=== PATIENT | male | born 1950 | race Hispanic/Latino ===

== ENCOUNTER 2017-03-23 23:59 | Inpatient (IN) | payer MEDICARE, BC ==
[2017-03-24] MEDS ORDERED: Iohexol 240 (50 ml) PO ONE (00:32)
[2017-03-24 01:01] LABS: BASO % 0.2 % (0.0-2.0); EOS % 0.3 % (0.0-4.0); HEMATOCRIT 42.8 % (35.0-51.0); LYMPH # 0.2 K/uL (1.0-4.3); LYMPH % 2.5 % (20.0-40.0); MEAN CELL VOLUME 104.8 fl (80.0-94.0); MEAN CORPUSCULAR HEMOGLOBIN 35.2 pg (27.0-31.0); MEAN CORPUSCULAR HGB CONC 33.6 g/dL (33.0-37.0); MONO # 0.6 K/uL (0.0-0.8); MONO % 7.3 % (0.0-10.0); NEUT # 6.8 K/uL (1.8-7.0); NEUT % 89.7 % (50.0-75.0); PLATELET COUNT 53 K/uL (130-400); RED CELL DISTRIBUTION WIDTH 15.7 % (11.5-14.5); WHITE BLOOD COUNT 7.5 K/uL (4.8-10.8)
[2017-03-24 01:18] LABS: ALB/GLOB RATIO 0.9 (1.0-2.1); ALCOHOL SERUM < 10 mg/dl (0-10); ALKALINE PHOSPHATASE 164 U/L (38-126); ALT/SGPT 52 U/L (21-72); AST/SGOT 94 U/L (17-59); BILIRUBIN,TOTAL 8.2 mg/dl (0.2-1.3); BLOOD UREA NITROGEN 13 mg/dl (9-20); CALCIUM 8.5 mg/dL (8.4-10.2); CARBON DIOXIDE 25 mmol/L (22-30); CHLORIDE 102 mmol/L (98-107); GFR AFRICAN-AMERICAN > 60; GLUCOSE,RANDOM 139 mg/dL (75-110); POTASSIUM 4.4 MMOL/L (3.6-5.0); SODIUM 136 mmol/l (132-148); TOTAL PROTEIN 6.4 G/DL (6.3-8.2)
[2017-03-24 01:20] LABS: PARTIAL THROMBOPLASTIN TIME 31.5 SECONDS (23.3-32.5)
--- NOTE | 2017-03-24 01:36 | ED PDOC ---
HPI: Abdomen Time Seen by Provider: 03/24/17 00:12 Chief Complaint (Nursing): Abdominal Pain Chief Complaint (Provider): abd pain History Per: Patient History/Exam Limitations: no limitations Onset/Duration Of Symptoms: Hrs (10 ) Outside of [place] travel?: No Current Symptoms Are (Timing): Still Present Additional Complaint(s): 66yo male with PMHx including liver cirrhosis (currently on liver transplant list), HTN, chronic thrombocytopenia presents to the ED with c/o acute onset abdominal pain radiating to his right shoulder x 10 hours that he developed 2 hours after having an endoscopy at [facility]. Patient reports still having pain while he was there but he was given morphine and discharged. Pain became more persistent with recurrent belching. Denies n/v/d, fever, cough. Past Medical History Reviewed: Historical Data, Nursing Documentation, Vital Signs Vital Signs: Last Vital Signs Temp 98.1 F 03/24/17 03:35 Pulse 84 03/24/17 03:35 Resp 16 03/24/17 03:35 BP 139/78 03/24/17 03:35 Pulse Ox 98 03/24/17 03:13 - Medical History PMH: Arthritis, Gastritis, HTN Denies: HIV, Chronic Kidney Disease Other PMH: liver cirrhosis, chronic thrombocytopenia - Surgical History Surgical History: Endoscopy Denies: Pacemaker - Family History Family History: States: No Known Family Hx - Social History Current smoker - smoking cessation education provided: No Alcohol: Other (former alcoholic, 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) Drugs: Other (hx of drug abuse ) - Home Medications Home Medications: Ambulatory Orders Medication Instructions Recorded Omeprazole [Omeprazole] 40 mg PO DAILY 07/26/16 Calcium Carbonate/Vitamin D 1 tab PO BID #0 tab 07/28/16 [Oscal-D 250 mg-125 Units Tab] Multimineral/Multivitamin 1 tab PO DAILY #0 tab 07/28/16 [Therapeutic-M Tab] Tamsulosin [Flomax] 0.4 mg PO DAILY #0 cap 07/28/16 Ursodiol [Actigall] 300 mg PO TID #0 cap 07/28/16 rifAXIMin [Xifaxan] 550 mg PO BID #0 tab 07/28/16 Aspirin [Lo-Dose Aspirin EC] 81 mg PO DAILY 03/24/17 Cholecalciferol [Vitamin D 1000 IU] 1,000 iu PO DAILY 03/24/17 Furosemide [Lasix] 40 mg PO DAILY 03/24/17 Lactulose [Constulose] 10 mg PO DAILY 03/24/17 Pantoprazole Sodium [Protonix] 40 mg PO DAILY 03/24/17 Spironolactone [Aldactone] 100 mg PO DAILY 03/24/17 Zinc Sulfate [Zinc Sulfate] 220 mg PO DAILY 03/24/17 levoFLOXacin [Levaquin] 750 mg PO DAILY 03/24/17 - Allergies Allergies/Adverse Reactions: Allergies Allergy/AdvReac Type Severity Reaction Status Date / Time No Known Allergies Allergy Verified 09/14/16 20:36 Review of Systems ROS Statement: Except As Marked, All Systems Reviewed And Found Negative Constitutional: Positive for: Other (recurrent belching ). Negative for: Fever Respiratory: Negative for: Cough Gastrointestinal: Positive for: Abdominal Pain. Negative for: Nausea, Vomiting , Diarrhea Physical Exam - Reviewed Nursing Documentation Reviewed: Yes Vital Signs Reviewed: Yes - Physical Exam Appears: Positive for: Well, No Acute Distress, Uncomfortable Head Exam: Positive for: ATRAUMATIC, NORMAL INSPECTION, NORMOCEPHALIC Skin: Positive for: Normal Color, Warm, Dry Eye Exam: Positive for: Normal appearance, EOMI, PERRL ENT: Positive for: Normal ENT Inspection Neck: Positive for: Normal, Painless ROM, Supple Cardiovascular/Chest: Positive for: Regular Rate, Rhythm. Negative for: Murmur , Tachycardia Respiratory: Positive for: Normal Breath Sounds. Negative for: Wheezing, Respiratory Distress Gastrointestinal/Abdominal: Positive for: Soft, Tenderness (mild periumbilical ) . Negative for: Guarding, Rebound Back: Positive for: Normal Inspection. Negative for: L CVA Tenderness, R CVA Tenderness Extremity: Positive for: Normal ROM. Negative for: Deformity, Swelling Neurologic/Psych: Positive for: Alert, Oriented - Laboratory Results Result Diagrams: 03/24/17 00:56 03/24/17 00:56 - ECG O2 Sat by Pulse Oximetry: 98 Pulse Ox Interpretation: Normal (RA) Medical Decision Making Medical Decision Makin: Impression: 66yo male w/ abdominal pain in setting of recent endoscopy and known chronic liver disease Plan: CT A/P Labs EKG CXR Morphine 4mg IVP reassess 0301: CT A/P impression: 1. Mild dilatation of multiple fluid-filled loops of small bowel. The distal small bowel is decompressed. Findings are suspicious for small bowel obstruction. However, a discrete transition point is not clearly visualized. Therefore, the differential also includes small bowel ileus. 2. Mild ascites. 0400: Labs reviewed, significant for marked elevation in lipase level. Patient will be admitted for further treatment of acute pancreatitis and partial small bowel obstruction. Case referred to Dr. Jarvis who covers Dr. Gomez. Dx: acute pancreatitis, partial small bowel obstruction fair Scribe Attestation: Documented by Mckinley Olguin acting as a scribe for Michael Ruano MD. Provider Scribe Attestation: All medical record entries made by the Scribe were at my direction and personally dictated by me. I have reviewed the chart and agree that the record accurately reflects my personal performance of the history, physical exam, medical decision making, and the department course for this patient. I have also personally directed, reviewed, and agree with the discharge instructions and disposition. Disposition - Clinical Impression Clinical Impression: Acute pancreatitis, Partial small bowel obstruction - Patient ED Disposition Is Patient to be Admitted: Yes Discussed With : Zachary Jarvis - Disposition Disposition Time: 04:00 Condition: FAIR
[2017-03-24] MEDS ORDERED: Iohexol 300 100 ML IJ ONE (02:10)
[2017-03-24] MEDS ORDERED: Sodium Chloride 0.9% 50 ML IV ONE (02:11)
[2017-03-24 02:23] LABS: LIPASE 11387 U/L (23-300)
[2017-03-24] MEDS ORDERED: Lactated Ringer's 2,000 ML IV SCH (02:45)
--- NOTE | 2017-03-24 02:46 | CP.PCM.HP ---
History of Present Illness - History of Present Illness History of Present Illness: Chief Complaint: Abdominal pain HPI: 66 years old male with hx of Chronic thrombocytopenia, Cholodocolithiasis with acute cholecystitis, liver cirrhosis and SBO comes with acute unset of Periumbilical and RUQ abdominal pain radiating to the right shoulder, developing 2hrs after Upper endoscopy at the [facility]. He was given Morphine at [facility] and discharged. Because of the persistence of the pain which is associated with nausea, he came to the ED. PMH: Choledocolitihiasis with Cholecystitis; SBO; HTN; Liver cirrhosis s/p TIPS ; BPH; Gastritis; Arthritis; On liver transplant list for 12 years. PSH: TIPS 3 years ago at [facility]; Common bile duct stent placement and removal; Endoscopy 03/2017 SH: Ouit Alcohol 11 years ago; Former Smoker; Quit Substance abuse 11 years ago FH: No known family History Allergies: NKDA Present on Admission - Present on Admission Any Indicators Present on Admission: No History of DVT/PE: No History of Uncontrolled Diabetes: No Urinary Catheter: No Decubitus Ulcer Present: No Review of Systems - Constitutional Constitutional: absent: Anorexia, Chills, Fatigue, Fever, Headache - EENT Eyes: absent: Diplopia, Floaters, Requires Corrective Lenses Ears: Decreased Hearing. absent: Ear Discharge, Tinnitus Nose/Mouth/Throat: absent: Epistaxis, Nasal Congestion, Nasal Discharge, Sinus Pain, Sinus Pressure - Cardiovascular Cardiovascular: absent: Chest Pain, Dyspnea, Edema - Respiratory Respiratory: absent: Cough, Dyspnea, Wheezing, Stridor - Gastrointestinal Gastrointestinal: Abdominal Pain, Nausea. absent: Constipation, Diarrhea, Vomiting - Genitourinary Genitourinary: absent: Dysuria, Flank Pain, Hematuria, Freq UTI - Musculoskeletal Musculoskeletal: Back Pain. absent: Arthralgias, Joint Swelling, Myalgias - Integumentary Integumentary: absent: Pruritus, Rash, Skin Ulcer, Sores, Striae, Swelling - Neurological Neurological: absent: Focal Weakness, Headaches, Weakness - Psychiatric Psychiatric: absent: Anxiety, Depression, Panic Attacks - Endocrine Endocrine: absent: Palpitations, Polydipsia, Polyphagia, Polyuria - Hematologic/Lymphatic Hematologic: absent: Easy Bleeding, Easy Bruising Past Patient History - Infectious Disease Hx of Infectious Diseases: None - Tetanus Immunizations Tetanus Immunization: Unknown - Past Medical History & Family History Past Medical History?: Yes - Past Social History Smoking Status: Former Smoker Chewing Tobacco Use: No Cigar Use: No Alcohol: None (former alcoholic, 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) Drugs: Denies, Other (hx of drug abuse ) Home Situation {Lives}: With Family - CARDIAC Hx Hypertension: Yes Hx Pacemaker: No - PULMONARY Hx Respiratory Disorders: No - NEUROLOGICAL Hx Neurological Disorder: No Other/Comment: forgetful - HEENT Hx HEENT Problems: Yes Hx Deafness: Yes - RENAL Hx Chronic Kidney Disease: No - ENDOCRINE/METABOLIC Hx Endocrine Disorders: No - HEMATOLOGICAL/ONCOLOGICAL Hx Cirrhosis: Yes Hx Human Immunodeficiency Virus (HIV): No - INTEGUMENTARY Hx Dermatological Problems: No - MUSCULOSKELETAL/RHEUMATOLOGICAL Hx Arthritis: Yes - GASTROINTESTINAL Hx Gastritis: Yes - GENITOURINARY/GYNECOLOGICAL Hx Genitourinary Disorders: Yes Hx Prostate Problems: Yes Other/Comment: Double hernia - PSYCHIATRIC Hx Psychophysiologic Disorder: Yes Hx Substance Use: Yes (Quit 10 yrs ago) - SURGICAL HISTORY Hx Surgeries: Yes Hx Abdominal Aortic Aneurysm Repair: No Hx Musculoskeletal Surgery: Yes (L knee meniscus repair) Other/Comment: Transjugular Intrahepatic Portosystemic Shunt (TIPS) - ANESTHESIA Hx Anesthesia: Yes Hx Anesthesia Reactions: Yes Meds Allergies/Adverse Reactions: Allergies Allergy/AdvReac Type Severity Reaction Status Date / Time No Known Allergies Allergy Verified 09/14/16 20:36 Physical Exam - Constitutional Appears: No Acute Distress - Head Exam Head Exam: ATRAUMATIC, NORMAL INSPECTION, NORMOCEPHALIC - Eye Exam Eye Exam: EOMI, Normal appearance Pupil Exam: NORMAL ACCOMODATION, PERRL - ENT Exam ENT Exam: Mucous Membranes Moist, Normal Exam, Normal External Ear Exam, Normal Oropharynx - Neck Exam Neck exam: Positive for: Full Rom, Normal Inspection. Negative for: Lymphadenopathy, Tenderness - Respiratory Exam Respiratory Exam: Decreased Breath Sounds. absent: Rales, Rhonchi, Wheezes - Cardiovascular Exam Cardiovascular Exam: RRR, +S1, +S2. absent: Gallop, JVD Additional comments: Systolic murmur III/IV at base - GI/Abdominal Exam Additional comments: Full, Soft, Decreased bowel sounds, no guarding, norebound tenderness. - Rectal Exam Rectal Exam: Deferred - Extremities Exam Extremities exam: Positive for: full ROM, normal inspection. Negative for: calf tenderness, pedal edema - Back Exam Back exam: NORMAL INSPECTION. absent: CVA tenderness (L), CVA tenderness (R) - Neurological Exam Neurological exam: Alert, CN II-XII Intact, Oriented x3, Reflexes Normal - Psychiatric Exam Psychiatric exam: Flat Affect - Skin Skin Exam: Dry, Intact, Normal Color, Warm Results - Vital Signs Recent Vital Signs: Last Vital Signs Temp 97.3 F L 03/24/17 00:07 Pulse 82 03/24/17 00:07 Resp 17 03/24/17 00:07 BP 130/72 03/24/17 00:07 Pulse Ox 98 03/24/17 01:44 - Labs Result Diagrams: 03/24/17 00:56 03/24/17 00:56 Labs: Laboratory Results - last 24 hr 03/24/17 03/24/17 03/24/17 00:56 00:56 00:56 WBC 7.5 D RBC 4.09 L Hgb 14.4 Hct 42.8 MCV 104.8 H MCH 35.2 H MCHC 33.6 RDW 15.7 H Plt Count 53 L D MPV 12.0 H Neut % (Auto) 89.7 H Lymph % (Auto) 2.5 L [place] % (Auto) 7.3 Eos % (Auto) 0.3 Baso % (Auto) 0.2 Neut # 6.8 Lymph # 0.2 L [place] # 0.6 Eos # 0.0 Baso # 0.0 Sodium 136 Potassium 4.4 Chloride 102 Carbon Dioxide 25 Anion Gap 14 BUN 13 Creatinine 0.6 L Est GFR ( Amer) > 60 Est GFR (Non-Af Amer) > 60 Random Glucose 139 H Lactic Acid 3.0 H Calcium 8.5 Total Bilirubin 8.2 H AST 94 H D ALT 52 Alkaline Phosphatase 164 H Total Protein 6.4 Albumin 3.1 L Globulin 3.3 Albumin/Globulin Ratio 0.9 L Lipase 42380 H Alcohol, Quantitative < 10 - Impressions Impression: #. Acute Pancretitis with abdominal pain #. Mild Ileus vs SBO #. Chronic Thrombocytopenia #. Liver Cirrhosis with Mild Ascites #. Gastritis #. BPH - Imaging and Cardiology CT scan - abdomen Status: Report reviewed by me Additional comment: FINDINGS: Lower thorax: Small bilateral pleural effusions, similar to the prior study. There are also areas of subsegmental atelectasis and/or scarring, with probable area of rounded atelectasis in the right lower lobe. Mild focal subpleural nodularity in the right lung base is improved compared to the prior study. Small hiatal hernia. Oral contrast visualized in the distal esophagus. ABDOMEN: Liver: TIPS in place. No obvious liver mass. Gallbladder and bile ducts: Increased density in the gallbladder lumen may be related to reflux of oral contrast. This could also represent vicarious excretion of contrast from another recent IV contrasted study. The common bile duct appears mildly dilated, measuring approximately 1 cm. No obvious choledocholithiasis. Interval removal of the common bile duct stent. Pancreas: Unremarkable. No ductal dilation. No obvious mass. Spleen: Mild splenomegaly. Adrenals: Unremarkable. No adrenal nodules or masses identified. Kidneys and ureters: Small hypodense foci in the left kidney are suggestive of cyst. No obvious solid renal mass. No hydronephrosis. Stomach and bowel: Small lipoma in the proximal duodenum. There is mild dilatation of multiple fluid-filled loops of small bowel. The distal small bowel is decompressed. Findings are suspicious for small bowel obstruction. However, a discrete transition point is not clearly visualized. No significant bowel wall thickening appreciated. Appendix: No findings to suggest acute appendicitis. PELVIS: Bladder: Unremarkable. No obvious mass. Reproductive: Unremarkable as visualized. ABDOMEN and PELVIS: Intraperitoneal space: Mild ascites. No free air. Bones/joints: Degenerative changes of the spine. No acute fracture. No dislocation. Soft tissues: Right inguinal hernia containing ascitic fluid. Vasculature: Atherosclerotic calcifications are noted. No aortic aneurysm. Lymph nodes: No significant lymph node enlargement. IMPRESSION: 1. Mild dilatation of multiple fluid-filled loops of small bowel. The distal small bowel is decompressed. Findings are suspicious for small bowel obstruction. However, a discrete transition point is not clearly visualized. Therefore, the differential also includes small bowel ileus. 2. Mild ascites. 3. Other non-acute findings are described above. Assessment & Plan - Assessment and Plan (Free Text) Assessment: . Acute Pancretitis with abdominal pain #. Mild Ileus vs SBO #. Chronic Thrombocytopenia #. Liver Cirrhosis with Mild Ascites #. Gastritis #. BPH Plan: 66 years old male with hx of Chronic thrombocytopenia, Cholodocolithiasis with acute cholecystitis, liver cirrhosis and SBO comes with acute unset of Periumbilical and RUQ abdominal pain radiating to the right shoulder, developing 2hrs after Upper endoscopy at the [facility]. #. Acute Pancretitis with abdominal pain - consult Dr Hawkins GI -NPO - IV Fluids. Patient received 2 liters of Fluid in the ED. continue with Ringers lactate at 200mls/hr - pain management with Morphine IV #. Mild Ileus vs SBO - consult Dr Carbajal - Follow Erect and supine X rays of the Abdomen #. Chronic Thrombocytopenia - follow Platelets #. Liver Cirrhosis with Mild Ascites - continue lactulose/ Rifaximin/ Aldactone as soon as patient starts to take Oral foods #. Gastritis - Pantoprazole #. BPH - Continue Flomax as soon as patient start taking oral foods #. DVT prophylaxis with SCD Code Status; Full - Date & Time Date: 03/24/17 Time: 02:46
[2017-03-24 03:41] LABS: EOSINOPHIL 1 % (0-7); NEUTROPHIL 86 % (42-75); TOTAL CELLS COUNTED 100
[2017-03-24 03:43] LABS: STOMATOCYTES SLIGHT
[2017-03-24 04:57] LABS: RBC URINE 7 /hpf (0-3); URINE BILIRUBIN SMALL (NEGATIVE); URINE BLOOD MODERATE (NEGATIVE); URINE COLOR AMBER (YELLOW); URINE GLUCOSE (UA) NEG (Normal); URINE KETONE NEGATIVE (NEGATIVE); URINE LEUKOCYTE ESTERASE NEG Leu/uL (Negative); URINE PROTEIN NEGATIVE (NEGATIVE); URINE UROBILINOGEN 0.2-1.0 mg/dL (0.2-1.0); WBC URINE 5 /hpf (0-5)
[2017-03-24] MEDS: Lactated Ringer's 1,000 ML IV SCH ×4 (06:04→18:12)
[2017-03-24 07:22] LABS: BASO % 0.4 % (0.0-2.0); EOS % 0.1 % (0.0-4.0); HEMATOCRIT 41.3 % (35.0-51.0); LYMPH # 0.2 K/uL (1.0-4.3); LYMPH % 2.7 % (20.0-40.0); MEAN CELL VOLUME 104.3 fl (80.0-94.0); MEAN CORPUSCULAR HEMOGLOBIN 35.8 pg (27.0-31.0); MEAN CORPUSCULAR HGB CONC 34.3 g/dL (33.0-37.0); MEAN PLATELET VOLUME 11.7 fl (7.2-11.7); MONO # 0.8 K/uL (0.0-0.8); NEUT # 6.4 K/uL (1.8-7.0); NEUT % 85.8 % (50.0-75.0); RED CELL DISTRIBUTION WIDTH 15.5 % (11.5-14.5); WHITE BLOOD COUNT 7.5 K/uL (4.8-10.8)
[2017-03-24 07:31] LABS: ALB/GLOB RATIO 0.9 (1.0-2.1); ALKALINE PHOSPHATASE 151 U/L (38-126); ALT/SGPT 58 U/L (21-72); AST/SGOT 89 U/L (17-59); BILIRUBIN,TOTAL 9.4 mg/dl (0.2-1.3); BLOOD UREA NITROGEN 13 mg/dl (9-20); CALCIUM 8.4 mg/dL (8.4-10.2); CARBON DIOXIDE 26 mmol/L (22-30); CHLORIDE 103 mmol/L (98-107); GFR AFRICAN-AMERICAN > 60; GLUCOSE,RANDOM 126 mg/dL (75-110); POTASSIUM 4.6 MMOL/L (3.6-5.0); SODIUM 138 mmol/l (132-148)
--- NOTE | 2017-03-24 08:14 | CP.PCM.CON ---
<Obi Thomason - Last Filed: 03/24/17 08:23> History of Present Illness - History of Present Illness History of Present Illness: Gen Surg Consult: Dr Carbajal\ Re: Ileus Pt is a 66M w/ history of liver cirrhosis 2/2 polysubstance abuse w/p TIPS, chronic thrombocytopenia, and most recently choledocholithiasis w/ acute cholecystitis (per primary notes pt cannot explain why he had procedure done). Pt was recently at where he had an upper endoscopy, presumably an ERCP. Per the records, pt states he had sudden onset epigastric pain which was treated with morphine and then he was subsequently discharged. Currently, he reports the pain is improved. He still hasn't passed flatus or BM for two days. He has had intermittent nausea, but denies vomiting. He is asking for something to drink. Pt repeatedly states if he needs any procedure or intervention it is to be done at [facility], , [place]. Review of Systems - Review of Systems All systems: reviewed and no additional remarkable complaints except (as per hpi ) Past Patient History - Infectious Disease Hx of Infectious Diseases: None - Tetanus Immunizations Tetanus Immunization: Unknown - Past Medical History & Family History Past Medical History?: Yes - Past Social History Smoking Status: Never Smoked - CARDIAC Hx Cardiac Disorders: Yes Hx Hypertension: Yes Hx Pacemaker: No - PULMONARY Hx Respiratory Disorders: No - NEUROLOGICAL Hx Neurological Disorder: No Other/Comment: forgetful - HEENT Hx HEENT Problems: Yes Hx Deafness: Yes - RENAL Hx Chronic Kidney Disease: No - ENDOCRINE/METABOLIC Hx Endocrine Disorders: No - HEMATOLOGICAL/ONCOLOGICAL Hx Blood Disorders: Yes Hx Cirrhosis: Yes (liver transplant list) Hx Human Immunodeficiency Virus (HIV): No Other/Comment: chronic thrombocytopenia - INTEGUMENTARY Hx Dermatological Problems: No - MUSCULOSKELETAL/RHEUMATOLOGICAL Hx Musculoskeletal Disorders: Yes Hx Arthritis: Yes Hx Falls: No - GASTROINTESTINAL Hx Gastrointestinal Disorders: Yes Hx Gastritis: Yes - GENITOURINARY/GYNECOLOGICAL Hx Genitourinary Disorders: Yes Hx Prostate Problems: Yes Other/Comment: Double hernia - PSYCHIATRIC Hx Psychophysiologic Disorder: Yes Hx Substance Use: Yes (Quit 10 yrs ago) Other/Comment: ETOH abuse (sober 9 years) - SURGICAL HISTORY Hx Surgeries: Yes Hx Abdominal Aortic Aneurysm Repair: No Hx Musculoskeletal Surgery: Yes (L knee meniscus repair) Other/Comment: Transjugular Intrahepatic Portosystemic Shunt (TIPS), endoscopy - ANESTHESIA Hx Anesthesia: Yes Hx Anesthesia Reactions: No Hx Malignant Hyperthermia: No Meds Allergies/Adverse Reactions: Allergies Allergy/AdvReac Type Severity Reaction Status Date / Time No Known Allergies Allergy Verified 09/14/16 20:36 - Medications Medications: Current Medications Lactated Ringer's (Lactated Ringer's) 2,000 mls @ 1,000 mls/hr IV .Q2H [facility] Last Admin: 03/24/17 02:48 Dose: 1,000 mls/hr Lactated Ringer's (Lactated Ringer's) 1,000 mls @ 250 mls/hr IV .Q4H [facility] Last Admin: 03/24/17 06:04 Dose: 250 mls/hr Morphine Sulfate (Morphine) 4 mg IVP Q3 PRN PRN Reason: Pain, severe (8-10) Morphine Sulfate (Morphine) 2 mg IVP Q3H PRN PRN Reason: Pain, moderate (4-7) Last Admin: 03/24/17 06:09 Dose: 2 mg Ondansetron HCl (Zofran Inj) 4 mg IVP Q4 PRN PRN Reason: Nausea/Vomiting Pantoprazole Sodium (Protonix Inj) 40 mg IVP DAILY [facility] Physical Exam - Constitutional Appears: No Acute Distress - Head Exam Head Exam: NORMOCEPHALIC - Respiratory Exam Respiratory Exam: absent: Accessory Muscle Use, Respiratory Distress - Cardiovascular Exam Cardiovascular Exam: absent: Tachycardia - GI/Abdominal Exam GI & Abdominal Exam: Distended, Soft, Tenderness (epigastric and improved (per pt)). absent: Firm, Guarding, Mass - Rectal Exam Rectal Exam: Deferred - Extremities Exam Extremities exam: Negative for: pedal edema - Neurological Exam Neurological exam: Alert, Oriented x3 - Psychiatric Exam Psychiatric exam: Normal Affect, Normal Mood Results - Vital Signs Recent Vital Signs: Last Vital Signs Temp 98.4 F 03/24/17 04:20 Pulse 74 03/24/17 04:20 Resp 18 03/24/17 04:20 BP 152/87 H 03/24/17 04:20 Pulse Ox 98 03/24/17 04:20 - Labs Result Diagrams: 03/24/17 06:30 03/24/17 06:30 Labs: Laboratory Results - last 24 hr 03/24/17 03/24/17 03/24/17 02:54 04:05 06:30 WBC 7.5 RBC 3.96 L Hgb 14.2 Hct 41.3 MCV 104.3 H MCH 35.8 H MCHC 34.3 RDW 15.5 H Plt Count 50 L MPV 11.7 Neut % (Auto) 85.8 H Lymph % (Auto) 2.7 L [place] % (Auto) 11.0 H Eos % (Auto) 0.1 Baso % (Auto) 0.4 Neut # 6.4 Lymph # 0.2 L [place] # 0.8 Eos # 0.0 Baso # 0.0 Sodium Potassium Chloride Carbon Dioxide Anion Gap BUN Creatinine Est GFR ( Amer) Est GFR (Non-Af Amer) Random Glucose Lactic Acid 2.7 H Calcium Total Bilirubin AST ALT Alkaline Phosphatase Total Protein Albumin Globulin Albumin/Globulin Ratio Urine Color Stacie Urine Clarity Clear Urine pH 6.0 Ur Specific [place] 1.005 Urine Protein Negative Urine Glucose (UA) Neg Urine Ketones Negative Urine Blood Moderate Urine Nitrate Negative Urine Bilirubin Small Urine Urobilinogen 0.2-1.0 Ur Leukocyte Esterase Neg Urine RBC (Auto) 7 H Urine Microscopic WBC 5 03/24/17 06:30 WBC RBC Hgb Hct MCV MCH MCHC RDW Plt Count MPV Neut % (Auto) Lymph % (Auto) [place] % (Auto) Eos % (Auto) Baso % (Auto) Neut # Lymph # [place] # Eos # Baso # Sodium 138 Potassium 4.6 Chloride 103 Carbon Dioxide 26 Anion Gap 14 BUN 13 Creatinine 0.6 L Est GFR ( Amer) > 60 Est GFR (Non-Af Amer) > 60 Random Glucose 126 H Lactic Acid Calcium 8.4 Total Bilirubin 9.4 H AST 89 H ALT 58 Alkaline Phosphatase 151 H Total Protein 6.0 L Albumin 2.9 L Globulin 3.1 Albumin/Globulin Ratio 0.9 L Urine Color Urine Clarity Urine pH Ur Specific [place] Urine Protein Urine Glucose (UA) Urine Ketones Urine Blood Urine Nitrate Urine Bilirubin Urine Urobilinogen Ur Leukocyte Esterase Urine RBC (Auto) Urine Microscopic WBC Assessment & Plan - Assessment and Plan (Free Text) Assessment: 66M with pancreatitis 2/2 endoscopic procedure yesterday; likely associated ileus Plan: Pt is Child [employer] Class C: Poor surgical candidate for any intervention All intervention to be done at [facility] Cont IV fluid hydration (rate increased) for pancreatitis; follow til pain resolution then start CLD Pt should have strict I/O for appropriate management of this dx will continue to follow will d/w Dr Solomon Thomason, DO, PGY2 - Date & Time Date: 03/24/17 Time: 08:32 <Kevin Carbajal - Last Filed: 03/24/17 22:21> Meds - Medications Medications: Current Medications Acetaminophen (Tylenol 650 Mg Supp) 650 mg [place] Q6 PRN PRN Reason: Fever >100.4 F Lactated Ringer's (Lactated Ringer's) 2,000 mls @ 1,000 mls/hr IV .Q2H [facility] Last Admin: 03/24/17 02:48 Dose: 1,000 mls/hr Cefepime HCl 1 gm/ Sodium (Chloride) 100 mls @ 100 mls/hr IVPB Q12 [facility] Last Admin: 03/24/17 20:55 Dose: 100 mls/hr Lactated Ringer's (Lactated Ringer's) 1,000 mls @ 200 mls/hr IV .Q5H [facility] Vancomycin HCl 1 gm/ Sodium (Chloride) 250 mls @ 166.667 mls/hr IVPB DAILY [facility] Morphine Sulfate (Morphine) 1 mg IVP Q3H PRN PRN Reason: Pain, moderate (4-7) Morphine Sulfate (Morphine) 2 mg IVP Q3 PRN PRN Reason: Pain, severe (8-10) Ondansetron HCl (Zofran Inj) 4 mg IVP Q4 PRN PRN Reason: Nausea/Vomiting Pantoprazole Sodium (Protonix Inj) 40 mg IVP DAILY [facility] Last Admin: 03/24/17 08:40 Dose: 40 mg Results - Vital Signs Recent Vital Signs: Last Vital Signs Temp 99.4 F 03/24/17 21:58 Pulse 88 03/24/17 21:58 Resp 18 03/24/17 21:58 BP 157/82 H 03/24/17 21:58 Pulse Ox 93 L 03/24/17 19:58 - Labs Result Diagrams: 03/24/17 21:50 03/24/17 06:30 Labs: Laboratory Results - last 24 hr 03/24/17 03/24/17 03/24/17 02:54 04:05 06:30 WBC 7.5 RBC 3.96 L Hgb 14.2 Hct 41.3 MCV 104.3 H MCH 35.8 H MCHC 34.3 RDW 15.5 H Plt Count 50 L MPV 11.7 Neut % (Auto) 85.8 H Lymph % (Auto) 2.7 L [place] % (Auto) 11.0 H Eos % (Auto) 0.1 Baso % (Auto) 0.4 Neut # 6.4 Lymph # 0.2 L [place] # 0.8 Eos # 0.0 Baso # 0.0 Sodium Potassium Chloride Carbon Dioxide Anion Gap BUN Creatinine Est GFR ( Amer) Est GFR (Non-Af Amer) Random Glucose Lactic Acid 2.7 H Calcium Total Bilirubin AST ALT Alkaline Phosphatase Total Protein Albumin Globulin Albumin/Globulin Ratio Lipase Urine Color Stacie Urine Clarity Clear Urine pH 6.0 Ur Specific [place] 1.005 Urine Protein Negative Urine Glucose (UA) Neg Urine Ketones Negative Urine Blood Moderate Urine Nitrate Negative Urine Bilirubin Small Urine Urobilinogen 0.2-1.0 Ur Leukocyte Esterase Neg Urine RBC (Auto) 7 H Urine Microscopic WBC 5 03/24/17 03/24/17 03/24/17 06:30 06:30 21:50 WBC 11.3 H D RBC 4.10 L Hgb 14.5 Hct 43.4 MCV 105.7 H MCH 35.4 H MCHC 33.4 RDW 15.7 H Plt Count 62 L MPV Neut % (Auto) Lymph % (Auto) [place] % (Auto) Eos % (Auto) Baso % (Auto) Neut # Lymph # [place] # Eos # Baso # Sodium 138 Potassium 4.6 Chloride 103 Carbon Dioxide 26 Anion Gap 14 BUN 13 Creatinine 0.6 L Est GFR ( Amer) > 60 Est GFR (Non-Af Amer) > 60 Random Glucose 126 H Lactic Acid Calcium 8.4 Total Bilirubin 9.4 H AST 89 H ALT 58 Alkaline Phosphatase 151 H Total Protein 6.0 L Albumin 2.9 L Globulin 3.1 Albumin/Globulin Ratio 0.9 L Lipase 6559 H Urine Color Urine Clarity Urine pH Ur Specific [place] Urine Protein Urine Glucose (UA) Urine Ketones Urine Blood Urine Nitrate Urine Bilirubin Urine Urobilinogen Ur Leukocyte Esterase Urine RBC (Auto) Urine Microscopic WBC Attending/Attestation - Attestation I have personally seen and examined this patient.: Yes I have fully participated in the care of the patient.: Yes I have reviewed all pertinent clinical information: Yes Notes (Text): 03/24/17 22:20 Pt was seen and examined at bedside on 03/24/17 Agree with above note and assessment. Pt with Intestinal Ileus with Cirrhosis and Ascites C.w current mx AXR in am Fleet enema Q 8 hr Plan d/w pt in detail We will f.u
--- NOTE | 2017-03-24 10:04 | RAD ---
HISTORY: Admission. Portable study 00:50. COMPARISON: 10/17/2015. FINDINGS: LUNGS: No active pulmonary disease. PLEURA: No significant pleural effusion identified, no pneumothorax apparent. CARDIOVASCULAR: No radiographic findings to suggest acute or significant cardiovascular disease. OSSEOUS STRUCTURES: No significant abnormalities. VISUALIZED UPPER ABDOMEN: Normal. OTHER FINDINGS: None. IMPRESSION: No active disease.
--- NOTE | 2017-03-24 10:57 | CP.PCM.CON ---
History of Present Illness - History of Present Illness History of Present Illness: DTHE PATIENT IS A 66 YEAR OLD MALE WITH A HISTORY OF CIRRHOSIS OF THE LIVER AND HAS HAD TIPS. HE HADS TIPS INSERTION A FEW YEARS AGO AND IS FOLLOWED AT [facility] IN [place] BY THE LIVER SERVICE. HE HAS A BILIARY STENT AND UNDERWENT AN UPPER ENDOSCOPY YESTERDAY TO POSSIBLY CHANGE IT BUT IT WAS DECIDED TO LEAVE IT ALONE. AFTER THE PROCEDURE HE HAD ABDOMINAL PAIN AND WAS GIVEN MS AND EVENTUALLY SENT HOME. HE GOT SEVERE ABDOMINAL PAIN LATER IN THE DAY AND EVENTUALLY WENT TO THE ER WHERE HE WAS FOUND TO HAVE PANCREATITIS AND WAS ADMITTED. HE STILL HAS PAIN THIS MORNING. HE ALSO HAS A HISTORY OF HYPERTENSION AND THROMBOCYTOPENIA AND I FOLLOW HIM IN THE OFFICE. HE DENIES CHEST PAIN OR SOB. CARDIOLOGY WAS ASKED TO SEE AND FOLLOW HIM. Past Patient History - Infectious Disease Hx of Infectious Diseases: None - Tetanus Immunizations Tetanus Immunization: Unknown - Past Medical History & Family History Past Medical History?: Yes - Past Social History Smoking Status: Never Smoked - CARDIAC Hx Cardiac Disorders: Yes Hx Hypertension: Yes Hx Pacemaker: No - PULMONARY Hx Respiratory Disorders: No - NEUROLOGICAL Hx Neurological Disorder: No Other/Comment: forgetful - HEENT Hx HEENT Problems: Yes Hx Deafness: Yes - RENAL Hx Chronic Kidney Disease: No - ENDOCRINE/METABOLIC Hx Endocrine Disorders: No - HEMATOLOGICAL/ONCOLOGICAL Hx Blood Disorders: Yes Hx Cirrhosis: Yes (liver transplant list) Hx Human Immunodeficiency Virus (HIV): No Other/Comment: chronic thrombocytopenia - INTEGUMENTARY Hx Dermatological Problems: No - MUSCULOSKELETAL/RHEUMATOLOGICAL Hx Musculoskeletal Disorders: Yes Hx Arthritis: Yes Hx Falls: No - GASTROINTESTINAL Hx Gastrointestinal Disorders: Yes Hx Gastritis: Yes - GENITOURINARY/GYNECOLOGICAL Hx Genitourinary Disorders: Yes Hx Prostate Problems: Yes Other/Comment: Double hernia - PSYCHIATRIC Hx Psychophysiologic Disorder: Yes Hx Substance Use: Yes (Quit 10 yrs ago) Other/Comment: ETOH abuse (sober 9 years) - SURGICAL HISTORY Hx Surgeries: Yes Hx Abdominal Aortic Aneurysm Repair: No Hx Musculoskeletal Surgery: Yes (L knee meniscus repair) Other/Comment: Transjugular Intrahepatic Portosystemic Shunt (TIPS), endoscopy - ANESTHESIA Hx Anesthesia: Yes Hx Anesthesia Reactions: No Hx Malignant Hyperthermia: No Meds Allergies/Adverse Reactions: Allergies Allergy/AdvReac Type Severity Reaction Status Date / Time No Known Allergies Allergy Verified 09/14/16 20:36 - Medications Medications: Current Medications Lactated Ringer's (Lactated Ringer's) 2,000 mls @ 1,000 mls/hr IV .Q2H [facility] Last Admin: 03/24/17 02:48 Dose: 1,000 mls/hr Lactated Ringer's (Lactated Ringer's) 1,000 mls @ 250 mls/hr IV .Q4H [facility] Last Admin: 03/24/17 06:04 Dose: 250 mls/hr Morphine Sulfate (Morphine) 4 mg IVP Q3 PRN PRN Reason: Pain, severe (8-10) Morphine Sulfate (Morphine) 2 mg IVP Q3H PRN PRN Reason: Pain, moderate (4-7) Last Admin: 03/24/17 06:09 Dose: 2 mg Ondansetron HCl (Zofran Inj) 4 mg IVP Q4 PRN PRN Reason: Nausea/Vomiting Pantoprazole Sodium (Protonix Inj) 40 mg IVP DAILY [facility] Last Admin: 03/24/17 08:40 Dose: 40 mg Physical Exam - Respiratory Exam Respiratory Exam: Clear to Auscultation Bilateral - Cardiovascular Exam Cardiovascular Exam: REGULAR RHYTHM, +S1, +S2 - Extremities Exam Extremities exam: Positive for: normal inspection - Additional Findings Additional findings: LIPASE 11,387 LFT ELEVATED Results - Vital Signs Recent Vital Signs: Last Vital Signs Temp 98.6 F 03/24/17 08:26 Pulse 77 03/24/17 08:26 Resp 18 03/24/17 08:26 BP 134/76 03/24/17 08:26 Pulse Ox 94 L 03/24/17 08:26 - Labs Result Diagrams: 03/24/17 06:30 03/24/17 06:30 Labs: Laboratory Results - last 24 hr 03/24/17 03/24/17 03/24/17 02:54 04:05 06:30 WBC 7.5 RBC 3.96 L Hgb 14.2 Hct 41.3 MCV 104.3 H MCH 35.8 H MCHC 34.3 RDW 15.5 H Plt Count 50 L MPV 11.7 Neut % (Auto) 85.8 H Lymph % (Auto) 2.7 L [place] % (Auto) 11.0 H Eos % (Auto) 0.1 Baso % (Auto) 0.4 Neut # 6.4 Lymph # 0.2 L [place] # 0.8 Eos # 0.0 Baso # 0.0 Sodium Potassium Chloride Carbon Dioxide Anion Gap BUN Creatinine Est GFR ( Amer) Est GFR (Non-Af Amer) Random Glucose Lactic Acid 2.7 H Calcium Total Bilirubin AST ALT Alkaline Phosphatase Total Protein Albumin Globulin Albumin/Globulin Ratio Lipase Urine Color Stacie Urine Clarity Clear Urine pH 6.0 Ur Specific [place] 1.005 Urine Protein Negative Urine Glucose (UA) Neg Urine Ketones Negative Urine Blood Moderate Urine Nitrate Negative Urine Bilirubin Small Urine Urobilinogen 0.2-1.0 Ur Leukocyte Esterase Neg Urine RBC (Auto) 7 H Urine Microscopic WBC 5 03/24/17 03/24/17 06:30 06:30 WBC RBC Hgb Hct MCV MCH MCHC RDW Plt Count MPV Neut % (Auto) Lymph % (Auto) [place] % (Auto) Eos % (Auto) Baso % (Auto) Neut # Lymph # [place] # Eos # Baso # Sodium 138 Potassium 4.6 Chloride 103 Carbon Dioxide 26 Anion Gap 14 BUN 13 Creatinine 0.6 L Est GFR ( Amer) > 60 Est GFR (Non-Af Amer) > 60 Random Glucose 126 H Lactic Acid Calcium 8.4 Total Bilirubin 9.4 H AST 89 H ALT 58 Alkaline Phosphatase 151 H Total Protein 6.0 L Albumin 2.9 L Globulin 3.1 Albumin/Globulin Ratio 0.9 L Lipase 6559 H Urine Color Urine Clarity Urine pH Ur Specific [place] Urine Protein Urine Glucose (UA) Urine Ketones Urine Blood Urine Nitrate Urine Bilirubin Urine Urobilinogen Ur Leukocyte Esterase Urine RBC (Auto) Urine Microscopic WBC Assessment & Plan - Assessment and Plan (Free Text) Assessment: ACUTE PANCREATITIS LIVER CIRRHOSIS HYPERTENSION HISTORY Plan: NPO, IV FLUIDS AND PAIN MEDS GI AND SURGERY TO SEE
--- NOTE | 2017-03-24 11:56 | CT ---
PROCEDURE: CT Abdomen and Pelvis with oral and IV contrast. HISTORY: abd pain COMPARISON: CT of the abdomen and pelvis with oral and IV contrast performed 09/14/16 TECHNIQUE: Contiguous axial images of the abdomen and pelvis. Oral and IV contrast was administered. Coronal and Sagittal reformats generated and reviewed. Contrast dose: 95 mL Omnipaque 300 Radiation dose: Total exam DLP = 1146.32 mGy-cm. This CT exam was performed using one or more of the following dose reduction techniques: Automated exposure control, adjustment of the mA and/or kV according to patient size, and/or use of iterative reconstruction technique. FINDINGS: LOWER THORAX: Small right greater than left pleural effusions and bibasilar consolidations. No visible pneumothorax. Cardiomegaly. Coronary artery calcifications. Small hiatal hernia. Evidence of gastroesophageal reflux. LIVER: TIPS. GALLBLADDER AND BILE DUCTS: Low-density material or debris within the gallbladder lumen. Additionally, there is increased density within the gallbladder lumen may be related to reflux of oral contrast versus vicarious excretion of contrast from a recent outside imaging study. Common bile duct is dilated measuring approximately 1 cm. PANCREAS: Unremarkable. SPLEEN: Splenomegaly. ADRENALS: Unremarkable. KIDNEYS AND URETERS: The kidneys enhance symmetrically. No hydronephrosis or obstructing renal calculus. Small hypodense foci within the left kidney, too small to characterize statistically likely cysts. BLADDER: The urinary bladder appears unremarkable. REPRODUCTIVE: Unremarkable. APPENDIX: The appendix appears within normal limits of caliber. BOWEL: The stomach is nondistended. 1.8 x 2.9 cm lipoma evident within the proximal duodenum. Mildly dilated fluid-filled loops of small bowel with decompression of distal small bowel loops. Overall appearance suspicious for small bowel obstruction, however please note that the transition point is not identified. No significant small bowel wall thickening appreciated. PERITONEUM: Mild ascites. No definite free air. LYMPH NODES: No bulky lymphadenopathy identified. VASCULATURE: Atherosclerotic calcifications. No aortic aneurysm. BONES: Degenerative changes. Osseous demineralization. Multilevel degenerative changes. OTHER FINDINGS: Right inguinal hernia containing ascites. IMPRESSION: Multiple dilated fluid-filled loops of small bowel with distal decompressed small bowel loops; overall appearance suspicious for small bowel obstruction. Please note that a transition point is not identified. Small bowel ileus cannot be excluded. Correlate clinically. Ascites. Bilateral pleural effusions and associated consolidations. Evidence of debris within the gallbladder lumen which additionally contains high density material either vicarious excretion of contrast or reflux of contrast. Additional findings as above. Preliminary impression was provided by virtual radiologic.
--- NOTE | 2017-03-24 12:04 | CP.PCM.PN ---
Subjective - Date & Time of Evaluation Date of Evaluation: 03/24/17 Time of Evaluation: 11:30 - Subjective Subjective: No fever abd pain better no nausea nor vomiting denies CP no SOB Objective - Vital Signs/Intake and Output Vital Signs (last 24 hours): Temp Pulse Resp BP Pulse Ox 98.6 F 77 18 134/76 94 L 03/24/17 08:26 03/24/17 08:26 03/24/17 08:26 03/24/17 08:26 03/24/17 08:26 - Medications Medications: Current Medications Lactated Ringer's (Lactated Ringer's) 2,000 mls @ 1,000 mls/hr IV .Q2H [facility] Last Admin: 03/24/17 02:48 Dose: 1,000 mls/hr Lactated Ringer's (Lactated Ringer's) 1,000 mls @ 250 mls/hr IV .Q4H [facility] Last Admin: 03/24/17 06:04 Dose: 250 mls/hr Morphine Sulfate (Morphine) 4 mg IVP Q3 PRN PRN Reason: Pain, severe (8-10) Morphine Sulfate (Morphine) 2 mg IVP Q3H PRN PRN Reason: Pain, moderate (4-7) Last Admin: 03/24/17 06:09 Dose: 2 mg Ondansetron HCl (Zofran Inj) 4 mg IVP Q4 PRN PRN Reason: Nausea/Vomiting Pantoprazole Sodium (Protonix Inj) 40 mg IVP DAILY [facility] Last Admin: 03/24/17 08:40 Dose: 40 mg - Labs Labs: 03/24/17 06:30 03/24/17 06:30 PT 16.3 SECONDS (9.6-11.2) H 03/24/17 00:56 INR 1.57 (0.92-1.08) H 03/24/17 00:56 APTT 31.5 SECONDS (23.3-32.5) 03/24/17 00:56 - Constitutional Appears: No Acute Distress - Head Exam Head Exam: NORMAL INSPECTION, NORMOCEPHALIC - Eye Exam Eye Exam: EOMI Pupil Exam: NORMAL ACCOMODATION - ENT Exam ENT Exam: Mucous Membranes Moist, Normal External Ear Exam - Neck Exam Neck Exam: Full ROM. absent: Meningismus - Respiratory Exam Respiratory Exam: Rales (min rales bases), NORMAL BREATHING PATTERN. absent: Respiratory Distress - Cardiovascular Exam Cardiovascular Exam: REGULAR RHYTHM, +S1, +S2 - GI/Abdominal Exam GI & Abdominal Exam: Soft, Normal Bowel Sounds. absent: Tenderness - Extremities Exam Extremities Exam: Full ROM, Normal Capillary Refill. absent: Calf Tenderness, Pedal Edema - Back Exam Back Exam: Full ROM. absent: CVA tenderness (L), CVA tenderness (R), paraspinal tenderness, vertebral tenderness - Neurological Exam Neurological Exam: Alert, Awake, CN II-XII Intact, Normal Gait, Oriented x3 Neuro motor strength exam: Left Upper Extremity: 5, Right Upper Extremity: 5, Left Lower Extremity: 5, Right Lower Extremity: 5 - Psychiatric Exam Psychiatric exam: Normal Affect, Normal Mood - Skin Skin Exam: Dry, Normal Color, Warm Assessment and Plan (1) Small bowel obstruction Status: Acute (2) Pancreatitis, acute Status: Acute (3) Cirrhosis Status: Chronic (4) Thrombocytopenia Status: Chronic (5) BPH (benign prostatic hyperplasia) Status: Chronic (6) HTN (hypertension) Status: Chronic (7) DVT prophylaxis Status: Acute - Assessment and Plan (Free Text) Assessment: 66 y/o gent with hx of HTN, BPH, Liver Cirrhosis came in bec of abdominal pain. Pain started 2 hrs post Upper GI Endoscopy at [facility] where he usually follows for his Cirrhosis. (1) Small bowel obstruction Status: Acute Pt came with abd pain- CT of abd:Multiple dilated fluid-filled loops of small bowel with distal decompressed small bowel loops; overall appearance suspicious for small bowel obstruction. Please note that a transition point is not identified. Small bowel ileus cannot be excluded. Correlate clinically. Ascites. Bilateral pleural effusions and associated consolidations. Evidence of debris within the gallbladder lumen which additionally contains high density material either vicarious excretion of contrast or reflux of contrast. keep NPO no vomiting GI and Surgery consulted (2) Pancreatitis, acute Status: Acute NPO IVF hydration Lipase markedly elevated =11,387 Pain mgt GI and Surg consulted (3) Cirrhosis Status: Chronic Hold diuretics for now start Cefepime for SBP proph (4) Thrombocytopenia sec to Liver Dis Status: Chronic monitor Platelets (5) BPH (benign prostatic hyperplasia) Status: Chronic Hold Flomax for now while NPO (6) HTN (hypertension) Status: Chronic hold diuretics Cardio consulted (7) DVT prophylaxis Status: Acute no anticoag sec to low Platelet SCD
--- NOTE | 2017-03-24 13:27 | CARD ---
APPROVED REPORT EKG Measurement Heart [id number] [id number] <Conclusion> Normal sinus rhythm Poor R wave progression V1 to V5
--- NOTE | 2017-03-24 17:20 | RAD ---
PROCEDURE: Radiographs of the chest and abdomen (obstructive series) HISTORY: SBO COMPARISON: CT of the abdomen and pelvis with contrast performed 03/24/17 FINDINGS: Examination limited by habitus. CHEST: Cardiomegaly. Ectatic aorta. Mild bibasilar atelectasis. No significant pleural effusion or definite pneumothorax. Please note that chest x-ray has limited sensitivity for the detection of pulmonary masses. ABDOMEN AND PELVIS: TIPS. Dilated loops of small bowel worrisome for obstruction. No definite free air. Residual contrast within the urinary bladder. IMPRESSION: Cardiomegaly. Bibasilar atelectasis. Dilated loops of small bowel worrisome for obstruction. TIPS.
[2017-03-24] MEDS ORDERED: Lactated Ringer's 1,000 ML IV SCH (19:36)
[2017-03-24] MEDS: Cefepime 1 GM in Sodium Chloride 0.9% 100 ML IVPB SCH (20:55)
--- NOTE | 2017-03-24 21:58 | PCM.RRTMUL ---
SAUSAGE TIER Nurse Assessment - Situation SAUSAGE TIER Responder Arrival Time:: 21:45 Location:: [address] [place] [address] SAUSAGE TIER Reason for Call: O2 Saturation below 90% - IV IV Inserted during SAUSAGE TIER?: No - Respiratory Oxygen Delivery Method:: Nasal Cannula Received Nebulizer Treatments:: No Was the Patient Ventilated with Bag/Mask 100% O2?: No Secretions Suctioned?: No Was the Patient Intubated?: No Was the Patient Placed on a Ventilator?: No - Diagnostic Test Ordered EKG:: No Chest X-Ray:: No CT Scan:: No CPR started during SAUSAGE TIER?: No - Vital Signs Blood Pressure:: 157/82 Pulse Rate:: 88 Respiratory Rate:: 18 Temperature:: 99.4 F - [place] Coma Scale Coma Scale Eye Opening:: Spontaneous Coma Scale Motor:: Obeys Commands Movement Coma Scale Verbal:: Oriented Coma Scale Total:: 15 Responder Note - Time SAUSAGE TIER was called Time SAUSAGE TIER was called:: 21:42 - Location Location: [address] [place] [address] Primary Physician:: Ilir Oreilly - SAUSAGE TIER Team Resident:: Shirin Damian - Vital Signs at Initial Assessment Blood Pressure:: 157/84 Pulse Rate:: 84 Respiratory Rate:: 18 Temperature:: 99.6 F O2 Sat by Pulse Oximetry:: 77 Summary - Summary of Event Summary of Event: SAUSAGE TIER was called at 21: 42 for a 66 years old male with hx of Chronic thrombocytopenia, Cholodocolithiasis with acute cholecystitis, liver cirrhosis and SBO , who was admitted for acute pancreatitis. Patient was noticed by nurse with low o2 sat 77 while he was having shaking chills. On responder arrival patient lying down, awake, AAO3, responsive, follow commands, with shaking chills and using O2 NC. He denies chest pain, SOB, Abd pain, N/V/D. initial VS: BP: 157/84 HR: 86 b/min O2 sat on arrival 99 % temp: 99.6 PE GA: lying down, awake, responsive, follow commands, with shaking chills and using O2 NC CV: + S1, S2, No M/R/G. Resp: CTA. no rhonchi, wheezing, rales Abd: +Bs, Soft, No TD. Neuro:AAO x 3, no focal motor deficit. After using O2 NC patient O2 sat increased to 99%, O2 desat possible secondary to new onset of fever and pleural effusions secondary to liver cirrhosis Plan -c/w O2 NC 3l/min -CBC, CMP -Blood cx, Urine cx. -to f/u
[2017-03-24 22:01] LABS: HEMATOCRIT 43.4 % (35.0-51.0); MEAN CELL VOLUME 105.7 fl (80.0-94.0); MEAN CORPUSCULAR HEMOGLOBIN 35.4 pg (27.0-31.0); MEAN CORPUSCULAR HGB CONC 33.4 g/dL (33.0-37.0); RED CELL DISTRIBUTION WIDTH 15.7 % (11.5-14.5); WHITE BLOOD COUNT 11.3 K/uL (4.8-10.8)
[2017-03-24 22:15] LABS: ALKALINE PHOSPHATASE 158 U/L (38-126); ALT/SGPT 67 U/L (21-72); AST/SGOT 113 U/L (17-59); BILIRUBIN,TOTAL 12.6 mg/dl (0.2-1.3); BLOOD UREA NITROGEN 15 mg/dl (9-20); CALCIUM 8.8 mg/dL (8.4-10.2); CARBON DIOXIDE 22 mmol/L (22-30); CHLORIDE 102 mmol/L (98-107); GFR AFRICAN-AMERICAN > 60; GLUCOSE,RANDOM 113 mg/dL (75-110); POTASSIUM 4.2 MMOL/L (3.6-5.0); SODIUM 140 mmol/l (132-148); TOTAL PROTEIN 6.1 G/DL (6.3-8.2)
[2017-03-24] MEDS: Sodium Chloride 0.9% 1,000 ML IV SCH (23:31)
[2017-03-25 07:40] LABS: BASO % 0.2 % (0.0-2.0); EOS % 0.6 % (0.0-4.0); HEMATOCRIT 36.5 % (35.0-51.0); LYMPH # 0.3 K/uL (1.0-4.3); LYMPH % 4.1 % (20.0-40.0); MEAN CELL VOLUME 104.5 fl (80.0-94.0); MEAN CORPUSCULAR HEMOGLOBIN 36.3 pg (27.0-31.0); MEAN CORPUSCULAR HGB CONC 34.7 g/dL (33.0-37.0); MEAN PLATELET VOLUME 12.4 fl (7.2-11.7); MONO # 0.9 K/uL (0.0-0.8); MONO % 13.5 % (0.0-10.0); NEUT # 5.2 K/uL (1.8-7.0); NEUT % 81.6 % (50.0-75.0); NRBC % 0.1 % (0.0-0.0); RED CELL DISTRIBUTION WIDTH 15.5 % (11.5-14.5); WHITE BLOOD COUNT 6.4 K/uL (4.8-10.8)
[2017-03-25 07:51] LABS: ALB/GLOB RATIO 0.8 (1.0-2.1); ALKALINE PHOSPHATASE 130 U/L (38-126); ALT/SGPT 62 U/L (21-72); AST/SGOT 88 U/L (17-59); BILIRUBIN,TOTAL 10.7 mg/dl (0.2-1.3); BLOOD UREA NITROGEN 19 mg/dl (9-20); CALCIUM 8.4 mg/dL (8.4-10.2); CARBON DIOXIDE 22 mmol/L (22-30); CHLORIDE 107 mmol/L (98-107); GFR AFRICAN-AMERICAN > 60; GLUCOSE,RANDOM 96 mg/dL (75-110); LIPASE 1184 U/L (23-300); POTASSIUM 4.6 MMOL/L (3.6-5.0); SODIUM 139 mmol/l (132-148); TOTAL PROTEIN 4.9 G/DL (6.3-8.2)
--- NOTE | 2017-03-25 09:25 | CON ---
DATE: 03/24/2017 REFERRING PHYSICIAN: Zachary Jarvis REASON FOR CONSULTATION: Abdominal pain. HISTORY OF PRESENT ILLNESS: This is a pleasant 66-year-old man with alcoholic noncirrhotic with chol edocholithiasis. Basically had an ERCP with at [facility] a couple of days ago and had ___ __ and some sphincteroplasty for retained CBD stones as he is not a candidate for cholecystectomy. H e now comes in with abdominal pain and discomfort. The patient is currently lying in bed, comfortabl e after getting Dilaudid and in no apparent distress. PAST MEDICAL HISTORY: Includes choledocholithiasis, cholecystitis, SBO, hypertension, cirrhotic live r status post-TIPS, BPH . 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 MEDICATIONS: Have been reviewed. REVIEW OF SYSTEMS: All other systems have been reviewed and negative apart HPI. PHYSICAL EXAMINATION: VITAL SIGNS: Here in the hospital grossly unremarkable. GENERAL: This is a pleasant, elderly-appearing male lying in bed, comfortable, in no apparent distre ss. HEAD: Normocephalic and atraumatic. EYES: Pupils equally reactive to light bilaterally. No conjunctival pallor or icterus. NECK: Supple, normal range of motion. No lymphadenopathy appreciated. LUNGS: . HEART: S1, S2. Regular rate and rhythm. No murmurs appreciated. ABDOMEN: Soft and nontender. Bowel sounds present. Some discomfort. RECTAL: Deferred. EXTREMITIES: Pulses present bilaterally. SKIN: Warm, dry and intact. NEUROLOGIC: Alert and oriented x 3. LABORATORY DATA: WBC 7.4, hemoglobin of 14.3, hematocrit 41.3 and platelet count is 50. LFTs: AST, ALT bilirubin is 9.4. Alk phos 151 and lipase is over 6500. Alcohol level is undetectable. CAT scan of abdomen and pelvis shows dilated loops small bowel, ascites, bilateral pleural effu sions, gallbladder in the lumen and right inguinal hernia with ascites. ASSESSMENT AND PLAN: This is a 66-year-old male status post endoscopic retrograde cholangiopancreato graphy and now pancreatitis. This is a as tolerated. Pain control as needed. Will follow the p atient with you. Thank you for the consult. Boni Hawkins MD, PhD cc: [id number] TT: 03/24/2017 20:47:54 Confirmation # [id number] Dictation # [id number] 03/25/2017 08:24:47
[2017-03-25] MEDS: Cefepime 1 GM in Sodium Chloride 0.9% 100 ML IVPB SCH ×2 (09:29→21:05)
[2017-03-25] MEDS: Sodium Chloride 0.9% 1,000 ML IV SCH ×3 (09:29→23:30)
--- NOTE | 2017-03-25 09:29 | CP.PCM.PN ---
Subjective - Date & Time of Evaluation Date of Evaluation: 03/25/17 Time of Evaluation: 08:30 - Subjective Subjective: PT HAD CHILLS YESTERDAY BUT FEELS BETTER TODAY NO CHEST PAIN BREATHING BETTER Objective - Vital Signs/Intake and Output Vital Signs (last 24 hours): Temp Pulse Resp BP Pulse Ox 98.1 F 86 20 119/73 99 03/25/17 09:17 03/25/17 09:17 03/25/17 09:17 03/25/17 09:17 03/25/17 09:17 - Medications Medications: Current Medications Cefepime HCl 1 gm/ Sodium (Chloride) 100 mls @ 100 mls/hr IVPB Q12 [facility] Last Admin: 03/24/17 20:55 Dose: 100 mls/hr Sodium Chloride (Sodium Chloride 0.9%) 1,000 mls @ 200 mls/hr IV .Q5H [facility] Stop: 03/25/17 23:14 Last Admin: 03/24/17 23:31 Dose: 200 mls/hr Vancomycin HCl 1 gm/ Sodium (Chloride) 250 mls @ 166.667 mls/hr IVPB DAILY@ 2100 [facility] Morphine Sulfate (Morphine) 1 mg IVP Q3H PRN PRN Reason: Pain, moderate (4-7) Morphine Sulfate (Morphine) 2 mg IVP Q3 PRN PRN Reason: Pain, severe (8-10) Ondansetron HCl (Zofran Inj) 4 mg IVP Q4 PRN PRN Reason: Nausea/Vomiting Pantoprazole Sodium (Protonix Inj) 40 mg IVP DAILY [facility] Last Admin: 03/24/17 08:40 Dose: 40 mg - Labs Labs: 03/25/17 05:00 03/25/17 05:00 PT 16.3 SECONDS (9.6-11.2) H 03/24/17 00:56 INR 1.57 (0.92-1.08) H 03/24/17 00:56 APTT 31.5 SECONDS (23.3-32.5) 03/24/17 00:56 - Respiratory Exam Respiratory Exam: Clear to Ausculation Bilateral - Cardiovascular Exam Cardiovascular Exam: REGULAR RHYTHM, +S1, +S2 - Additional Findings Additional findings: 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
--- NOTE | 2017-03-25 10:11 | CP.PCM.PN ---
<Gloria Moser - Last Filed: 03/25/17 10:15> Subjective - Date & Time of Evaluation Date of Evaluation: 03/25/17 Time of Evaluation: 10:06 - Subjective Subjective: This is a general surgery progress note for Dr. Carbajal: 66 y/o male seen at bedside for pancreatitis. Patient appears in NAD and AAOx3. Patient denies any acute events overnight. Patient states that the pain has improved since he has been admitted. He still hasn't passed flatus or BM for three days. Patient denies n/f/v/c/d/sob. Objective - Vital Signs/Intake and Output Vital Signs (last 24 hours): Temp Pulse Resp BP Pulse Ox 98.1 F 86 20 119/73 99 03/25/17 09:17 03/25/17 09:17 03/25/17 09:17 03/25/17 09:17 03/25/17 09:17 - Medications Medications: Current Medications Cefepime HCl 1 gm/ Sodium (Chloride) 100 mls @ 100 mls/hr IVPB Q12 [facility] Last Admin: 03/25/17 09:29 Dose: 100 mls/hr Sodium Chloride (Sodium Chloride 0.9%) 1,000 mls @ 200 mls/hr IV .Q5H [facility] Stop: 03/25/17 23:14 Last Admin: 03/25/17 09:29 Dose: Not Given Vancomycin HCl 1 gm/ Sodium (Chloride) 250 mls @ 166.667 mls/hr IVPB Q12 [facility] Morphine Sulfate (Morphine) 1 mg IVP Q3H PRN PRN Reason: Pain, moderate (4-7) Morphine Sulfate (Morphine) 2 mg IVP Q3 PRN PRN Reason: Pain, severe (8-10) Ondansetron HCl (Zofran Inj) 4 mg IVP Q4 PRN PRN Reason: Nausea/Vomiting Pantoprazole Sodium (Protonix Inj) 40 mg IVP DAILY [facility] Last Admin: 03/25/17 09:29 Dose: 40 mg - Labs Labs: 03/25/17 05:00 03/25/17 05:00 PT 16.3 SECONDS (9.6-11.2) H 03/24/17 00:56 INR 1.57 (0.92-1.08) H 03/24/17 00:56 APTT 31.5 SECONDS (23.3-32.5) 03/24/17 00:56 - Constitutional Appears: Well, Non-toxic, No Acute Distress - GI/Abdominal Exam GI & Abdominal Exam: Distended, Soft, Tenderness Additional comments: (epigastric and improved (per pt) Assessment and Plan - Assessment and Plan (Free Text) Assessment: Pt was seen and examined at bedside on 03/25/17 Pt with Intestinal Ileus with Cirrhosis and Ascites C.w current mx advance diet per GI Plan d/w pt in detail surgery team signed off. thank you for the consultation <Kevin Carbajal - Last Filed: 03/25/17 14:51> Objective - Vital Signs/Intake and Output Vital Signs (last 24 hours): Temp Pulse Resp BP Pulse Ox 99.1 F 98 H 20 129/74 100 03/25/17 13:04 03/25/17 13:48 03/25/17 13:04 03/25/17 13:48 03/25/17 13:04 - Medications Medications: Current Medications Cefepime HCl 1 gm/ Sodium (Chloride) 100 mls @ 100 mls/hr IVPB Q12 [facility] Last Admin: 03/25/17 09:29 Dose: 100 mls/hr Vancomycin HCl 1 gm/ Sodium (Chloride) 250 mls @ 166.667 mls/hr IVPB Q12 [facility] Last Admin: 03/25/17 11:01 Dose: 166.667 mls/hr Sodium Chloride (Sodium Chloride 0.9%) 1,000 mls @ 100 mls/hr IV .Q10H [facility] Stop: 03/25/17 23:14 Last Admin: 03/25/17 13:53 Dose: Not Given Lactulose (Enulose) 10 gm PO DAILY [facility] Morphine Sulfate (Morphine) 1 mg IVP Q3H PRN PRN Reason: Pain, moderate (4-7) Morphine Sulfate (Morphine) 2 mg IVP Q3 PRN PRN Reason: Pain, severe (8-10) Ondansetron HCl (Zofran Inj) 4 mg IVP Q4 PRN PRN Reason: Nausea/Vomiting Pantoprazole Sodium (Protonix Inj) 40 mg IVP DAILY [facility] Last Admin: 03/25/17 09:29 Dose: 40 mg Rifaximin (Xifaxan) 550 mg PO BID [facility] Tamsulosin HCl (Flomax) 0.4 mg PO DAILY [facility] - Labs Labs: 03/25/17 05:00 03/25/17 05:00 PT 16.3 SECONDS (9.6-11.2) H 03/24/17 00:56 INR 1.57 (0.92-1.08) H 03/24/17 00:56 APTT 31.5 SECONDS (23.3-32.5) 03/24/17 00:56 Attending/Attestation - Attestation I have personally seen and examined this patient.: Yes I have fully participated in the care of the patient.: Yes I have reviewed all pertinent clinical information, including history, physical exam and plan: Yes Notes (Text): 03/25/17 14:50 Pt was seen and examined at bedside on 03/25/17 Agree with above note and assessment. Pt with resolved Ileus. No need for any surgical intervention at present F.U PRN Plan d.w pt and Primary team.
--- NOTE | 2017-03-25 11:11 | CP.PCM.PN ---
Subjective - Date & Time of Evaluation Date of Evaluation: 03/25/17 Time of Evaluation: 10:30 - Subjective Subjective: Had fever last night abd pain very much better had BM this am no CP no SOB Objective - Vital Signs/Intake and Output Vital Signs (last 24 hours): Temp Pulse Resp BP Pulse Ox 98.1 F 86 20 119/73 99 03/25/17 09:17 03/25/17 09:17 03/25/17 09:17 03/25/17 09:17 03/25/17 09:17 - Medications Medications: Current Medications Cefepime HCl 1 gm/ Sodium (Chloride) 100 mls @ 100 mls/hr IVPB Q12 [facility] Last Admin: 03/25/17 09:29 Dose: 100 mls/hr Sodium Chloride (Sodium Chloride 0.9%) 1,000 mls @ 200 mls/hr IV .Q5H [facility] Stop: 03/25/17 23:14 Last Admin: 03/25/17 09:29 Dose: Not Given Vancomycin HCl 1 gm/ Sodium (Chloride) 250 mls @ 166.667 mls/hr IVPB Q12 [facility] Last Admin: 03/25/17 11:01 Dose: 166.667 mls/hr Morphine Sulfate (Morphine) 1 mg IVP Q3H PRN PRN Reason: Pain, moderate (4-7) Morphine Sulfate (Morphine) 2 mg IVP Q3 PRN PRN Reason: Pain, severe (8-10) Ondansetron HCl (Zofran Inj) 4 mg IVP Q4 PRN PRN Reason: Nausea/Vomiting Pantoprazole Sodium (Protonix Inj) 40 mg IVP DAILY [facility] Last Admin: 03/25/17 09:29 Dose: 40 mg - Labs Labs: 03/25/17 05:00 03/25/17 05:00 PT 16.3 SECONDS (9.6-11.2) H 03/24/17 00:56 INR 1.57 (0.92-1.08) H 03/24/17 00:56 APTT 31.5 SECONDS (23.3-32.5) 03/24/17 00:56 - Constitutional Appears: No Acute Distress - Head Exam Head Exam: NORMAL INSPECTION, NORMOCEPHALIC - Eye Exam Eye Exam: EOMI Pupil Exam: NORMAL ACCOMODATION - ENT Exam ENT Exam: Mucous Membranes Moist, Normal External Ear Exam - Neck Exam Neck Exam: Full ROM. absent: Meningismus - Respiratory Exam Respiratory Exam: Rales (min rales bases), NORMAL BREATHING PATTERN. absent: Respiratory Distress - Cardiovascular Exam Cardiovascular Exam: REGULAR RHYTHM, +S1, +S2 - GI/Abdominal Exam GI & Abdominal Exam: sl distended, Soft, Normal Bowel Sounds. absent: Tenderness - Extremities Exam Extremities Exam: Full ROM, Normal Capillary Refill. absent: Calf Tenderness, Pedal Edema - Back Exam Back Exam: Full ROM. absent: CVA tenderness (L), CVA tenderness (R), paraspinal tenderness, vertebral tenderness - Neurological Exam Neurological Exam: Alert, Awake, CN II-XII Intact, Normal Gait, Oriented x3 Neuro motor strength exam: Left Upper Extremity: 5, Right Upper Extremity: 5, Left Lower Extremity: 5, Right Lower Extremity: 5 - Psychiatric Exam Psychiatric exam: Normal Affect, Normal Mood - Skin Skin Exam: Dry, Normal Color, Warm Assessment and Plan (1) Small bowel obstruction Status: Acute (2) Pancreatitis, acute Status: Acute (3) Cirrhosis Status: Chronic (4) Thrombocytopenia Status: Chronic (5) BPH (benign prostatic hyperplasia) Status: Chronic (6) HTN (hypertension) Status: Chronic (7) DVT prophylaxis Status: Acute - Assessment and Plan (Free Text) Assessment: 66 y/o gent with hx of HTN, BPH, Liver Cirrhosis came in bec of abdominal pain. Pain started 2 hrs post Upper GI Endoscopy/ERCP done at [facility] where he usually follows for his Cirrhosis. CT scan showed SBO. Lipase elevated to 12k. (1) Small bowel obstruction Status: Acute Pt came with abd pain- CT of abd:Multiple dilated fluid-filled loops of small bowel with distal decompressed small bowel loops; overall appearance suspicious for small bowel obstruction. Please note that a transition point is not identified. Small bowel ileus cannot be excluded. Correlate clinically. Ascites. Bilateral pleural effusions and associated consolidations. Evidence of debris within the gallbladder lumen which additionally contains high density material either vicarious excretion of contrast or reflux of contrast. Pt had BM and clinically better - start Liquid diet no vomiting GI and Surgery consulted discussed case with Dr Hawkins- ok to start Liquid diet and adavnce as tolerated (2) Pancreatitis, acute Status: Acute start Liquid diet IVF hydration Lipase markedly elevated =11,[phone] now down to 1000 Pain mgt GI and Surg consulted (3) Cirrhosis Status: Chronic Hold diuretics for now due to Pancreatitis started Cefepime for SBP proph, Vanco was added overnight after pt spiked a fever - will cont abx Blood c/s, Urine c/s Nadolol low dose (4) Thrombocytopenia sec to Liver Dis Status: Chronic monitor Platelets, Plt=78 today (5) BPH (benign prostatic hyperplasia) Status: Chronic restart Flomax (6) HTN (hypertension) Status: Chronic hold diuretics Cardio consulted (7) DVT prophylaxis Status: Acute no anticoag sec to low Platelet SCD
[2017-03-25 21:09] LABS: HEMATOCRIT 33.2 % (35.0-51.0); MEAN CELL VOLUME 105.8 fl (80.0-94.0); MEAN CORPUSCULAR HEMOGLOBIN 35.8 pg (27.0-31.0); MEAN CORPUSCULAR HGB CONC 33.8 g/dL (33.0-37.0); RED CELL DISTRIBUTION WIDTH 15.4 % (11.5-14.5); WHITE BLOOD COUNT 2.8 K/uL (4.8-10.8)
[2017-03-25 21:18] LABS: ALB/GLOB RATIO 0.8 (1.0-2.1); ALKALINE PHOSPHATASE 113 U/L (38-126); ALT/SGPT 69 U/L (21-72); AST/SGOT 90 U/L (17-59); BLOOD UREA NITROGEN 23 mg/dl (9-20); CALCIUM 7.6 mg/dL (8.4-10.2); CARBON DIOXIDE 22 mmol/L (22-30); CHLORIDE 102 mmol/L (98-107); GFR AFRICAN-AMERICAN > 60; GLUCOSE,RANDOM 92 mg/dL (75-110); LIPASE 542 U/L (23-300); POTASSIUM 4.3 MMOL/L (3.6-5.0); SODIUM 130 mmol/l (132-148); TOTAL PROTEIN 4.7 G/DL (6.3-8.2)
--- NOTE | 2017-03-25 21:31 | CP.PCM.PN ---
Subjective - Date & Time of Evaluation Date of Evaluation: 03/25/17 Time of Evaluation: 11:00 - Subjective Subjective: pain improved Objective - Vital Signs/Intake and Output Vital Signs (last 24 hours): Temp Pulse Resp BP Pulse Ox 99.2 F 77 16 111/65 97 03/25/17 20:33 03/25/17 20:33 03/25/17 20:33 03/25/17 20:33 03/25/17 20:33 - Medications Medications: Current Medications Cefepime HCl 1 gm/ Sodium (Chloride) 100 mls @ 100 mls/hr IVPB Q12 [facility] Last Admin: 03/25/17 09:29 Dose: 100 mls/hr Vancomycin HCl 1 gm/ Sodium (Chloride) 250 mls @ 166.667 mls/hr IVPB Q12 [facility] Last Admin: 03/25/17 11:01 Dose: 166.667 mls/hr Sodium Chloride (Sodium Chloride 0.9%) 1,000 mls @ 100 mls/hr IV .Q10H [facility] Stop: 03/25/17 23:14 Last Admin: 03/25/17 13:53 Dose: Not Given Morphine Sulfate (Morphine) 1 mg IVP Q3H PRN PRN Reason: Pain, moderate (4-7) Morphine Sulfate (Morphine) 2 mg IVP Q3 PRN PRN Reason: Pain, severe (8-10) Ondansetron HCl (Zofran Inj) 4 mg IVP Q4 PRN PRN Reason: Nausea/Vomiting Pantoprazole Sodium (Protonix Inj) 40 mg IVP DAILY [facility] Last Admin: 03/25/17 09:29 Dose: 40 mg Rifaximin (Xifaxan) 550 mg PO BID [facility] Last Admin: 03/25/17 16:40 Dose: 550 mg Tamsulosin HCl (Flomax) 0.4 mg PO DAILY [facility] - Labs Labs: 03/25/17 19:51 03/25/17 05:00 PT 16.3 SECONDS (9.6-11.2) H 03/24/17 00:56 INR 1.57 (0.92-1.08) H 03/24/17 00:56 APTT 31.5 SECONDS (23.3-32.5) 03/24/17 00:56 - GI/Abdominal Exam GI & Abdominal Exam: Soft, Normal Bowel Sounds Assessment and Plan - Assessment and Plan (Free Text) Assessment: 66 yo male with post-ercp pancreatitis pt had ercp with stone and stent removal as well as sphincteroplasty at [facility] one day prior to admission here doing well advance diet as tolerated worsening thrombocytopenia; repeat cbc for possible clumping
[2017-03-25 23:50] LABS: BASO % 0.2 % (0.0-2.0); EOS # 0.1 K/uL (0.0-0.7); EOS % 2.5 % (0.0-4.0); HEMATOCRIT 35.5 % (35.0-51.0); LYMPH # 0.2 K/uL (1.0-4.3); LYMPH % 6.1 % (20.0-40.0); MEAN CELL VOLUME 104.7 fl (80.0-94.0); MEAN CORPUSCULAR HEMOGLOBIN 35.5 pg (27.0-31.0); MEAN PLATELET VOLUME 11.7 fl (7.2-11.7); MONO # 0.7 K/uL (0.0-0.8); MONO % 17.8 % (0.0-10.0); NEUT # 2.8 K/uL (1.8-7.0); NEUT % 73.4 % (50.0-75.0); NRBC % 0.1 % (0.0-0.0); RED CELL DISTRIBUTION WIDTH 15.3 % (11.5-14.5); WHITE BLOOD COUNT 3.8 K/uL (4.8-10.8)
[2017-03-26 06:46] LABS: BASO % 0.2 % (0.0-2.0); EOS % 1.8 % (0.0-4.0); HEMATOCRIT 31.6 % (35.0-51.0); LYMPH # 0.3 K/uL (1.0-4.3); LYMPH % 9.8 % (20.0-40.0); MEAN CELL VOLUME 102.4 fl (80.0-94.0); MEAN CORPUSCULAR HEMOGLOBIN 36.2 pg (27.0-31.0); MEAN CORPUSCULAR HGB CONC 35.3 g/dL (33.0-37.0); MEAN PLATELET VOLUME 12.5 fl (7.2-11.7); MONO # 0.5 K/uL (0.0-0.8); MONO % 17.4 % (0.0-10.0); NEUT # 1.9 K/uL (1.8-7.0); NEUT % 70.8 % (50.0-75.0); NRBC % 0.2 % (0.0-0.0); RED CELL DISTRIBUTION WIDTH 15.2 % (11.5-14.5); WHITE BLOOD COUNT 2.6 K/uL (4.8-10.8)
[2017-03-26 07:28] LABS: ALB/GLOB RATIO 0.8 (1.0-2.1); ALKALINE PHOSPHATASE 119 U/L (38-126); ALT/SGPT 72 U/L (21-72); AST/SGOT 89 U/L (17-59); BILIRUBIN,TOTAL 10.9 mg/dl (0.2-1.3); BLOOD UREA NITROGEN 24 mg/dl (9-20); CALCIUM 7.3 mg/dL (8.4-10.2); CARBON DIOXIDE 22 mmol/L (22-30); CHLORIDE 103 mmol/L (98-107); GFR AFRICAN-AMERICAN > 60; GLUCOSE,RANDOM 82 mg/dL (75-110); LIPASE 313 U/L (23-300); POTASSIUM 4.4 MMOL/L (3.6-5.0); SODIUM 130 mmol/l (132-148); TOTAL PROTEIN 4.5 G/DL (6.3-8.2)
[2017-03-26] MEDS ORDERED: Lactulose 10 gm/15 ml Syrup PO SCH (09:00)
--- NOTE | 2017-03-26 09:47 | CP.PCM.PN ---
Subjective - Date & Time of Evaluation Date of Evaluation: 03/26/17 Time of Evaluation: 08:45 - Subjective Subjective: FEELING BETTER LESS ABDOMINAL PAIN Objective - Vital Signs/Intake and Output Vital Signs (last 24 hours): Temp Pulse Resp BP Pulse Ox 98.7 F 73 18 118/57 L 99 03/26/17 08:05 03/26/17 08:05 03/26/17 08:05 03/26/17 08:05 03/26/17 08:05 - Medications Medications: Current Medications Cefepime HCl 1 gm/ Sodium (Chloride) 100 mls @ 100 mls/hr IVPB Q12 [facility] Last Admin: 03/25/17 21:05 Dose: 100 mls/hr Vancomycin HCl 1 gm/ Sodium (Chloride) 250 mls @ 166.667 mls/hr IVPB Q12 [facility] Last Admin: 03/25/17 22:39 Dose: 166.667 mls/hr Morphine Sulfate (Morphine) 1 mg IVP Q3H PRN PRN Reason: Pain, moderate (4-7) Morphine Sulfate (Morphine) 2 mg IVP Q3 PRN PRN Reason: Pain, severe (8-10) Ondansetron HCl (Zofran Inj) 4 mg IVP Q4 PRN PRN Reason: Nausea/Vomiting Pantoprazole Sodium (Protonix Inj) 40 mg IVP DAILY [facility] Last Admin: 03/26/17 09:14 Dose: 40 mg Rifaximin (Xifaxan) 550 mg PO BID [facility] Last Admin: 03/26/17 09:14 Dose: 550 mg Tamsulosin HCl (Flomax) 0.4 mg PO DAILY [facility] Last Admin: 03/26/17 09:14 Dose: 0.4 mg - Labs Labs: 03/26/17 06:00 03/26/17 06:00 PT 16.3 SECONDS (9.6-11.2) H 03/24/17 00:56 INR 1.57 (0.92-1.08) H 03/24/17 00:56 APTT 31.5 SECONDS (23.3-32.5) 03/24/17 00:56 - Respiratory Exam Respiratory Exam: Clear to Ausculation Bilateral - Cardiovascular Exam Cardiovascular Exam: REGULAR RHYTHM, +S1, +S2 - Additional Findings Additional findings: [employer] P[employer] SINUS RHYTHM Assessment and Plan - Assessment and Plan (Free Text) Assessment: PANCREATITIS FOLLOWING STONE AND STENT REMOVAL HYPERTENSION CIRRHOSIS OF THE LIVER AND S/P TIPS Plan: ADVANCE DIET TOLERATED PER GI CONTINUE ANTIBIOTICS
[2017-03-26] MEDS: Cefepime 1 GM in Sodium Chloride 0.9% 100 ML IVPB SCH ×2 (10:16→21:45)
--- NOTE | 2017-03-26 12:45 | CP.PCM.PN ---
Subjective - Date & Time of Evaluation Date of Evaluation: 03/26/17 Time of Evaluation: 14:30 - Subjective Subjective: Patient was seen and examined. Sitting in chair in NAD. Complains of right foot pain over tarso-metatarsal area. Deniesany abdominal pain , nausea, vomiting, fever , chills Tmax 100 last 12 hours Passing flatus and tolerating liquid diet Denies any abdominal tenderness Objective - Vital Signs/Intake and Output Vital Signs (last 24 hours): Temp Pulse Resp BP Pulse Ox 98.3 F 67 18 116/71 96 03/26/17 12:18 03/26/17 12:18 03/26/17 12:18 03/26/17 12:18 03/26/17 12:18 - Medications Medications: Current Medications Cefepime HCl 1 gm/ Sodium (Chloride) 100 mls @ 100 mls/hr IVPB Q12 [facility] Last Admin: 03/26/17 10:16 Dose: 100 mls/hr Vancomycin HCl 1 gm/ Sodium (Chloride) 250 mls @ 166.667 mls/hr IVPB Q12 [facility] Last Admin: 03/26/17 10:16 Dose: 166.667 mls/hr Morphine Sulfate (Morphine) 1 mg IVP Q3H PRN PRN Reason: Pain, moderate (4-7) Morphine Sulfate (Morphine) 2 mg IVP Q3 PRN PRN Reason: Pain, severe (8-10) Ondansetron HCl (Zofran Inj) 4 mg IVP Q4 PRN PRN Reason: Nausea/Vomiting Pantoprazole Sodium (Protonix Inj) 40 mg IVP DAILY [facility] Last Admin: 03/26/17 09:14 Dose: 40 mg Rifaximin (Xifaxan) 550 mg PO BID [facility] Last Admin: 03/26/17 09:14 Dose: 550 mg Tamsulosin HCl (Flomax) 0.4 mg PO DAILY [facility] Last Admin: 03/26/17 09:14 Dose: 0.4 mg - Labs Labs: 03/26/17 06:00 03/26/17 06:00 PT 16.3 SECONDS (9.6-11.2) H 03/24/17 00:56 INR 1.57 (0.92-1.08) H 03/24/17 00:56 APTT 31.5 SECONDS (23.3-32.5) 03/24/17 00:56 - Constitutional Appears: Non-toxic, No Acute Distress, Chronically Ill - Head Exam Head Exam: ATRAUMATIC, NORMAL INSPECTION, NORMOCEPHALIC - Eye Exam Eye Exam: EOMI, Normal appearance, PERRL Pupil Exam: NORMAL ACCOMODATION - ENT Exam ENT Exam: Mucous Membranes Moist, Normal Exam - Neck Exam Neck Exam: Full ROM, Normal Inspection - Respiratory Exam Respiratory Exam: Clear to Ausculation Bilateral, NORMAL BREATHING PATTERN. absent: Rhonchi, Wheezes - Cardiovascular Exam Cardiovascular Exam: REGULAR RHYTHM, RRR, +S1, +S2. absent: JVD - GI/Abdominal Exam GI & Abdominal Exam: Distended, Soft. absent: Guarding, Tenderness, Rebound - Rectal Exam Rectal Exam: Deferred - Extremities Exam Extremities Exam: Normal Inspection, Pedal Edema (bilateral 2 +). absent: Calf Tenderness - Back Exam Back Exam: NORMAL INSPECTION - Neurological Exam Neurological Exam: Alert, Awake, CN II-XII Intact, Oriented x3 - Psychiatric Exam Psychiatric exam: Normal Affect, Normal Mood - Skin Skin Exam: Dry, Intact, Pallor, Warm Assessment and Plan - Assessment and Plan (Free Text) Assessment: 66 y/o gent with hx of HTN, BPH, Liver Cirrhosis came in bec of abdominal pain. Pain started 2 hrs post Upper GI Endoscopy/ERCP that was done at [facility] where he usually follows for his Cirrhosis. CT scan showed SBO and Lipase was elevated to 12k.Patient admitted for SBO and post ERCP pancreatitis. 1. Small bowel obstruction Acute , improving Pt came with abd pain CT of abd showed Multiple dilated fluid-filled loops of small bowel with distal decompressed small bowel loops; overall appearance suspicious for small bowel obstruction. Abdominal pain improved ,tolerating liquid diet and had bowel movement Will advance diet to low fat low cholesterol diet GI and Surgery consulted 2.ERCP induced acute Pancreatitis Acute Lipase trended down from 12 K to 313 advance diet to low fat low cholesterol IVF hydration 3. Gram positive bacteremia Blood cultures x 2 positive for gram positive cocci in chains Started on Vancomycin Plan to D/c to TCU to continue IV antibiotics for total 10 days 4. Cirrhosis Chronic Hold diuretics for now due to Pancreatitis started Cefepime for SBP proph Vanco was added since patient spiked a fever and has gram positive blood cultures Nadolol low dose 5.Thrombocytopenia sec to Liver Dis Chronic monitor Platelets, Plt=33 today no signs of bleeding 6 BPH (benign prostatic hyperplasia) Chronic on Flomax 7.HTN (hypertension) Chronic , controlled hold diuretics Cardio consulted 8. DVT prophylaxis Acute no anticoag sec to low Platelet SCD
--- NOTE | 2017-03-26 13:32 | CP.PCM.PN ---
Subjective - Date & Time of Evaluation Date of Evaluation: 03/26/17 Time of Evaluation: 13:30 - Subjective Subjective: no pain Objective - Vital Signs/Intake and Output Vital Signs (last 24 hours): Temp Pulse Resp BP Pulse Ox 98.3 F 67 18 116/71 96 03/26/17 12:18 03/26/17 12:18 03/26/17 12:18 03/26/17 12:18 03/26/17 12:18 - Medications Medications: Current Medications Cefepime HCl 1 gm/ Sodium (Chloride) 100 mls @ 100 mls/hr IVPB Q12 [facility] Last Admin: 03/26/17 10:16 Dose: 100 mls/hr Vancomycin HCl 1 gm/ Sodium (Chloride) 250 mls @ 166.667 mls/hr IVPB Q12 [facility] Last Admin: 03/26/17 10:16 Dose: 166.667 mls/hr Morphine Sulfate (Morphine) 1 mg IVP Q3H PRN PRN Reason: Pain, moderate (4-7) Morphine Sulfate (Morphine) 2 mg IVP Q3 PRN PRN Reason: Pain, severe (8-10) Ondansetron HCl (Zofran Inj) 4 mg IVP Q4 PRN PRN Reason: Nausea/Vomiting Pantoprazole Sodium (Protonix Inj) 40 mg IVP DAILY [facility] Last Admin: 03/26/17 09:14 Dose: 40 mg Rifaximin (Xifaxan) 550 mg PO BID [facility] Last Admin: 03/26/17 09:14 Dose: 550 mg Tamsulosin HCl (Flomax) 0.4 mg PO DAILY [facility] Last Admin: 03/26/17 09:14 Dose: 0.4 mg - Labs Labs: 03/26/17 06:00 03/26/17 06:00 PT 16.3 SECONDS (9.6-11.2) H 03/24/17 00:56 INR 1.57 (0.92-1.08) H 03/24/17 00:56 APTT 31.5 SECONDS (23.3-32.5) 03/24/17 00:56 - GI/Abdominal Exam GI & Abdominal Exam: Soft, Normal Bowel Sounds Assessment and Plan - Assessment and Plan (Free Text) Assessment: 66 yo male with PEP now bacteremic abx advance diet
--- NOTE | 2017-03-27 07:35 | CP.PCM.DIS ---
Provider - Provider Date of Admission: 03/24/17 02:33 Attending physician: Zachary Jarvis Primary care physician: Dr. Gomez Consults: GI consult surgery consult cardiology consult Time Spent in preparation of Discharge (in minutes): 20 Hospital Course - Lab Results Lab Results: Micro Results 03/24/17 21:50 Blood Blood Culture - Final Enterococcus Faecium 03/24/17 21:50 Blood Gram Stain - Final 03/24/17 11:16 Urine Urine Culture - Final No Growth (<1,000 CFU/ML) 03/24/17 21:50 Blood S.aureus & Coag-Neg Staph PNA FISH - Final 03/24/17 21:50 Blood Blood Culture - Preliminary Gram Pos Cocci In Chains 03/24/17 21:50 Blood Gram Stain - Final Most Recent Lab Values WBC 2.6 K/uL (4.8-10.8) L 03/26/17 06:00 RBC 3.09 Mil/uL (4.40-5.90) L 03/26/17 06:00 Hgb 11.2 g/dL (12.0-18.0) L 03/26/17 06:00 Hct 31.6 % (35.0-51.0) L 03/26/17 06:00 MCV 102.4 fl (80.0-94.0) H D 03/26/17 06:00 MCH 36.2 pg (27.0-31.0) H 03/26/17 06:00 MCHC 35.3 g/dL (33.0-37.0) 03/26/17 06:00 RDW 15.2 % (11.5-14.5) H 03/26/17 06:00 Plt Count 33 K/uL (130-400) L 03/26/17 06:00 MPV 12.5 fl (7.2-11.7) H 03/26/17 06:00 Neut % (Auto) 70.8 % (50.0-75.0) 03/26/17 06:00 Lymph % (Auto) 9.8 % (20.0-40.0) L 03/26/17 06:00 [place] % (Auto) 17.4 % (0.0-10.0) H 03/26/17 06:00 Eos % (Auto) 1.8 % (0.0-4.0) 03/26/17 06:00 Baso % (Auto) 0.2 % (0.0-2.0) 03/26/17 06:00 Neut # 1.9 K/uL (1.8-7.0) 03/26/17 06:00 Lymph # 0.3 K/uL (1.0-4.3) L 03/26/17 06:00 [place] # 0.5 K/uL (0.0-0.8) 03/26/17 06:00 Eos # 0.0 K/uL (0.0-0.7) 03/26/17 06:00 Baso # 0.0 K/uL (0.0-0.2) 03/26/17 06:00 Neutrophils % (Manual) 86 % (42-75) H 03/24/17 00:56 Band Neutrophils % 1 % (0-2) 03/24/17 00:56 Lymphocytes % (Manual) 5 % (20-50) L 03/24/17 00:56 Monocytes % (Manual) 7 % (0-10) 03/24/17 00:56 Eosinophils % (Manual) 1 % (0-7) 03/24/17 00:56 Platelet Estimate Markedly decreased (NORMAL) L 03/24/17 00:56 Anisocytosis (manual) Slight 03/24/17 00:56 Target Cells Moderate 03/24/17 00:56 Stomatocytes Slight 03/24/17 00:56 PT 16.3 SECONDS (9.6-11.2) H 03/24/17 00:56 INR 1.57 (0.92-1.08) H 03/24/17 00:56 APTT 31.5 SECONDS (23.3-32.5) 03/24/17 00:56 Sodium 130 mmol/l (132-148) L 03/26/17 06:00 Potassium 4.4 MMOL/L (3.6-5.0) 03/26/17 06:00 Chloride 103 mmol/L (98-107) 03/26/17 06:00 Carbon Dioxide 22 mmol/L (22-30) 03/26/17 06:00 Anion Gap 9 (10-20) L 03/26/17 06:00 BUN 24 mg/dl (9-20) H 03/26/17 06:00 Creatinine 0.9 mg/dL (0.8-1.5) 03/26/17 06:00 Est GFR ( Amer) > 60 03/26/17 06:00 Est GFR (Non-Af Amer) > 60 03/26/17 06:00 Random Glucose 82 mg/dL (75-110) 03/26/17 06:00 Lactic Acid 2.4 MMOL/L (0.7-2.1) H 03/25/17 20:45 Calcium 7.3 mg/dL (8.4-10.2) L 03/26/17 06:00 Total Bilirubin 10.9 mg/dl (0.2-1.3) H 03/26/17 06:00 AST 89 U/L (17-59) H 03/26/17 06:00 ALT 72 U/L (21-72) 03/26/17 06:00 Alkaline Phosphatase 119 U/L (38-126) 03/26/17 06:00 Total Protein 4.5 G/DL (6.3-8.2) L 03/26/17 06:00 Albumin 2.0 g/dL (3.5-5.0) L 03/26/17 06:00 Globulin 2.5 gm/dL (2.2-3.9) 03/26/17 06:00 Albumin/Globulin Ratio 0.8 (1.0-2.1) L 03/26/17 06:00 Lipase 313 U/L (23-300) H 03/26/17 06:00 Urine Color Stacie (YELLOW) 03/24/17 04:05 Urine Clarity Clear (Clear) 03/24/17 04:05 Urine pH 6.0 (5.0-8.0) 03/24/17 04:05 Ur Specific [place] 1.005 (1.003-1.030) 03/24/17 04:05 Urine Protein Negative mg/dL (NEGATIVE) 03/24/17 04:05 Urine Glucose (UA) Neg mg/dL (Normal) 03/24/17 04:05 Urine Ketones Negative mg/dL (NEGATIVE) 03/24/17 04:05 Urine Blood Moderate (NEGATIVE) 03/24/17 04:05 Urine Nitrate Negative (NEGATIVE) 03/24/17 04:05 Urine Bilirubin Small (NEGATIVE) 03/24/17 04:05 Urine Urobilinogen 0.2-1.0 mg/dL (0.2-1.0) 03/24/17 04:05 Ur Leukocyte Esterase Neg Frantz/uL (Negative) 03/24/17 04:05 Urine RBC (Auto) 7 /hpf (0-3) H 03/24/17 04:05 Urine Microscopic WBC 5 /hpf (0-5) 03/24/17 04:05 Alcohol, Quantitative < 10 mg/dl (0-10) 03/24/17 00:56 Blood Type O POSITIVE 03/25/17 20:00 Antibody Screen Negative 03/25/17 20:00 BBK History Checked Patient has bt 03/25/17 20:00 - Hospital Course Hospital Course: 66 y/o gent with hx of HTN, BPH, Liver Cirrhosis came in bec of abdominal pain. Pain started 2 hrs post Upper GI Endoscopy/ERCP that was done at [facility] where he usually follows for his Cirrhosis. CT scan showed SBO and Lipase was elevated to 12k.Patient admitted for SBO and post ERCP pancreatitis.He was treated with IVF, pain medications. Surgery and GI were consulted . He was kept initially NPO for bowel rest with improvement of his abdominal pain, trend down of lipase. He was started on diet and tolerating well. His blood cultures were reported as positive for Enterococcus faecium and he was started on Vancomycin IV for bacteremia as well as Maxipime for possible SBP. Clinically is improving. Also complaining of right foot tarso-metatarsal area pain that happened upon walking will transfer patient to TCU to continue IV antibiotics and physical therapy 1. Small bowel obstruction Acute , improving Pt came with abd pain CT of abd showed Multiple dilated fluid-filled loops of small bowel with distal decompressed small bowel loops; overall appearance suspicious for small bowel obstruction. Abdominal pain improved ,tolerating diet and had bowel movement GI and Surgery consulted 2.ERCP induced acute Pancreatitis Acute Lipase trended down from 12 K to 313 advanced diet to low fat low cholesterol and tolerating given IVF hydration 3.Enterococcus Faecium bacteremia Blood cultures x 2 positive Started on Vancomycin ( 03/25) Plan to D/c to TCU to continue IV antibiotics for total 10 days 4. Cirrhosis Chronic Hold diuretics for now due to Pancreatitis started Cefepime for SBP proph Vanco was added since patient has gram positive blood cultures for Enetrococcus faecium Nadolol low dose 5.Thrombocytopenia sec to Liver Dis Chronic monitor Platelets, Plt=33 today no signs of bleeding 6 BPH (benign prostatic hyperplasia) Chronic on Flomax 7.HTN (hypertension) Chronic , controlled hold diuretics Cardio consulted 8. DVT prophylaxis Acute no anticoag sec to low Platelet SCD Discharge Exam - Head Exam Head Exam: ATRAUMATIC, NORMAL INSPECTION, NORMOCEPHALIC - Eye Exam Eye Exam: Normal appearance, PERRL Pupil Exam: NORMAL ACCOMODATION - ENT Exam ENT Exam: Mucous Membranes Dry, Normal Exam - Neck Exam Neck exam: Normal Inspection - Respiratory Exam Respiratory Exam: Clear to PA & Lateral, NORMAL BREATHING PATTERN. absent: Rhonchi, Wheezes, Respiratory Distress - Cardiovascular Exam Cardiovascular Exam: REGULAR RHYTHM, RRR, +S1, +S2. absent: JVD - GI/Abdominal Exam GI & Abdominal Exam: Distended, Normal Bowel Sounds, Soft. absent: Guarding, Rebound, Rigid, Tenderness - Rectal Exam Rectal Exam: Deferred - Extremities Exam Extremities exam: pedal edema (2+), pedal pulses present - Back Exam Back exam: NORMAL INSPECTION - Neurological Exam Neurological exam: Alert, CN II-XII Intact, Oriented x3, Reflexes Normal - Psychiatric Exam Psychiatric exam: Normal Affect, Normal Mood - Skin Skin Exam: Dry, Intact, Pallor, Warm Discharge Plan - Follow Up Plan Condition: STABLE Patient education suggested?: No Instructions: Pancreatitis (DC), Sepsis (GEN)
[2017-03-27 07:59] LABS: HEMATOCRIT 32.6 % (35.0-51.0); MEAN CELL VOLUME 104.3 fl (80.0-94.0); MEAN CORPUSCULAR HEMOGLOBIN 35.7 pg (27.0-31.0); MEAN CORPUSCULAR HGB CONC 34.2 g/dL (33.0-37.0); RED CELL DISTRIBUTION WIDTH 15.2 % (11.5-14.5); WHITE BLOOD COUNT 3.1 K/uL (4.8-10.8)
[2017-03-27 08:27] LABS: BLOOD UREA NITROGEN 18 mg/dl (9-20); CALCIUM 7.2 mg/dL (8.4-10.2); CARBON DIOXIDE 23 mmol/L (22-30); CHLORIDE 104 mmol/L (98-107); GFR AFRICAN-AMERICAN > 60; GLUCOSE,RANDOM 82 mg/dL (75-110); POTASSIUM 3.9 MMOL/L (3.6-5.0); SODIUM 131 mmol/l (132-148)
[2017-03-27] MEDS: Cefepime 1 GM in Sodium Chloride 0.9% 100 ML IVPB SCH (09:18)
[2017-03-27 12:21] VITALS: BP 114/65; PULSE 67; RESP 18; TEMP 97.7; O2SAT 95
--- NOTE | 2017-03-27 12:30 | CP.PCM.PN ---
Subjective - Date & Time of Evaluation Date of Evaluation: 03/27/17 Time of Evaluation: 07:00 - Subjective Subjective: NO CHEST PAIN OR SOB FEELS BETTER ABDOMINAL PAIN RESOLVED Objective - Vital Signs/Intake and Output Vital Signs (last 24 hours): Temp Pulse Resp BP Pulse Ox 97.7 F 67 18 114/65 95 03/27/17 12:20 03/27/17 12:20 03/27/17 12:20 03/27/17 12:20 03/27/17 12:20 - Medications Medications: Current Medications Cefepime HCl 1 gm/ Sodium (Chloride) 100 mls @ 100 mls/hr IVPB Q12 [facility] Last Admin: 03/27/17 09:18 Dose: 100 mls/hr Vancomycin HCl 1 gm/ Sodium (Chloride) 250 mls @ 166.667 mls/hr IVPB Q12 [facility] Last Admin: 03/27/17 09:18 Dose: 166.667 mls/hr Morphine Sulfate (Morphine) 1 mg IVP Q3H PRN PRN Reason: Pain, moderate (4-7) Morphine Sulfate (Morphine) 2 mg IVP Q3 PRN PRN Reason: Pain, severe (8-10) Ondansetron HCl (Zofran Inj) 4 mg IVP Q4 PRN PRN Reason: Nausea/Vomiting Pantoprazole Sodium (Protonix Inj) 40 mg IVP DAILY [facility] Last Admin: 03/27/17 09:16 Dose: 40 mg Rifaximin (Xifaxan) 550 mg PO BID [facility] Last Admin: 03/27/17 09:16 Dose: 550 mg Tamsulosin HCl (Flomax) 0.4 mg PO DAILY [facility] Last Admin: 03/27/17 09:16 Dose: 0.4 mg - Labs Labs: 03/27/17 06:00 03/27/17 06:00 PT 16.3 SECONDS (9.6-11.2) H 03/24/17 00:56 INR 1.57 (0.92-1.08) H 03/24/17 00:56 APTT 31.5 SECONDS (23.3-32.5) 03/24/17 00:56 - Respiratory Exam Respiratory Exam: Clear to Ausculation Bilateral - Cardiovascular Exam Cardiovascular Exam: REGULAR RHYTHM, +S1, +S2 - GI/Abdominal Exam GI & Abdominal Exam: Soft, Normal Bowel Sounds Assessment and Plan - Assessment and Plan (Free Text) Assessment: PANCREATITIS CIRRHOSIS OF THE LIVER HYPERTENSION Plan: CONTINUE IV ANTIBIOTICS FOR DISCHARGE TO TCU
== END 2017-03-27 13:50 | DRG 439 ==
LOC: H.ER 23:59 → H.ERHOLD 03-24 02:33 → H.TEL 03-24 04:09
PROVIDERS: ADMIT Internal Medicine; ATTEND Internal Medicine
DX: K85.90 Acute pancreatitis without necrosis or infection, unspecified (principal); K80.40 Calculus of bile duct with cholecystitis, unspecified, without obstruction; K56.60 Unspecified intestinal obstruction; J90 Pleural effusion, not elsewhere classified; R18.8 Other ascites; D69.59 Other secondary thrombocytopenia; K56.7 Ileus, unspecified; K74.60 Unspecified cirrhosis of liver; I10 Essential (primary) hypertension; N40.0 Benign prostatic hyperplasia without lower urinary tract symptoms; Z87.891 Personal history of nicotine dependence; Y83.9 Surgical procedure, unspecified as the cause of abnormal reaction of the patient, or of later complication, without mention of misadventure at the time of the procedure; R50.9 Fever, unspecified; B95.2 Enterococcus as the cause of diseases classified elsewhere; B96.89 Other specified bacterial agents as the cause of diseases classified elsewhere

== ENCOUNTER 2017-03-27 11:22 | Inpatient (IN) | payer OTHER, BC ==
[2017-03-27 14:19] VITALS: BMI 32.5
[2017-03-27 16:26] VITALS: RESP 20
[2017-03-27] MEDS: Calcium-Vit D 250 mg-125 Units Tab UD PO SCH (16:46)
[2017-03-27] MEDS ORDERED: Patient's Own Med (Cefepime 1gm In Ns 100ml [Maxipime 1gm] 1 GM) IVPB SCH (21:00)
[2017-03-27] MEDS ORDERED: Cefepime 1 GM in Sodium Chloride 0.9% 100 ML IVPB SCH (21:00)
[2017-03-27] MEDS ORDERED: Vancomycin 1 g Inj IVPB SCH (21:00)
[2017-03-28] MEDS: Cefepime 1 GM in Sodium Chloride 0.9% 100 ML IVPB SCH ×2 (05:04→17:05)
--- NOTE | 2017-03-28 07:35 | CP.PCM.HP ---
History of Present Illness - History of Present Illness History of Present Illness: 66 y/o gent with hx of HTN, BPH, Liver Cirrhosis came in bec of abdominal pain. Pain started 2 hrs post Upper GI Endoscopy/ERCP that was done at [facility] where he usually follows for his Cirrhosis. CT scan showed SBO and Lipase was elevated to 12k.Patient admitted for SBO and post ERCP pancreatitis.He was treated with IVF, pain medications. Surgery and GI were consulted . He was kept initially NPO for bowel rest with improvement of his abdominal pain, trend down of lipase. He was started on diet and tolerating well. His blood cultures were reported as positive for Enterococcus faecium and he was started on Vancomycin IV for bacteremia as well as Maxipime for possible SBP. Clinically improved . Patient transferred to TCU to continue IV antibiotics and physical therapy. at present feeling well. denies any SOB, CP, palpitations PMH: Choledocolitihiasis with Cholecystitis; SBO; HTN; Liver cirrhosis s/p TIPS ; BPH; Gastritis; Arthritis; On liver transplant list for 12 years. PSH: TIPS 3 years ago at [facility]; Common bile duct stent placement and removal; Endoscopy 03/2017 SH: Ouit Alcohol 11 years ago; Former Smoker; Quit Substance abuse 11 years ago FH: No known family History Allergies: NKDA ROs ; 14 point review of system negative except above Present on Admission - Present on Admission Any Indicators Present on Admission: No Review of Systems - Review of Systems All systems: reviewed and no additional remarkable complaints except Past Patient History - Infectious Disease Hx of Infectious Diseases: None - Tetanus Immunizations Tetanus Immunization: Unknown - Past Medical History & Family History Past Medical History?: Yes - Past Social History Smoking Status: Former Smoker - CARDIAC Hx Cardiac Disorders: Yes Hx Hypertension: Yes Hx Pacemaker: No - PULMONARY Hx Respiratory Disorders: No - NEUROLOGICAL Hx Neurological Disorder: No Other/Comment: forgetful - HEENT Hx HEENT Problems: Yes Hx Deafness: Yes - RENAL Hx Chronic Kidney Disease: No - ENDOCRINE/METABOLIC Hx Endocrine Disorders: No - HEMATOLOGICAL/ONCOLOGICAL Hx Blood Disorders: Yes Hx Cirrhosis: Yes (liver transplant list) Hx Human Immunodeficiency Virus (HIV): No Other/Comment: chronic thrombocytopenia - INTEGUMENTARY Hx Dermatological Problems: No - MUSCULOSKELETAL/RHEUMATOLOGICAL Hx Falls: No - GASTROINTESTINAL Hx Gastrointestinal Disorders: Yes Hx Gastritis: Yes - GENITOURINARY/GYNECOLOGICAL Hx Genitourinary Disorders: Yes Hx Prostate Problems: Yes Other/Comment: Double hernia - PSYCHIATRIC Hx Substance Use: Yes - SURGICAL HISTORY Hx Surgeries: Yes Hx Abdominal Aortic Aneurysm Repair: No Hx Musculoskeletal Surgery: Yes (L knee meniscus repair) Other/Comment: Transjugular Intrahepatic Portosystemic Shunt (TIPS), endoscopy - ANESTHESIA Hx Anesthesia: Yes Hx Anesthesia Reactions: No Hx Malignant Hyperthermia: No Meds Allergies/Adverse Reactions: Allergies Allergy/AdvReac Type Severity Reaction Status Date / Time No Known Allergies Allergy Verified 03/27/17 14:19 Physical Exam - Constitutional Appears: Non-toxic, No Acute Distress - Head Exam Head Exam: ATRAUMATIC, NORMOCEPHALIC - Eye Exam Eye Exam: EOMI, PERRL Pupil Exam: NORMAL ACCOMODATION - ENT Exam ENT Exam: Mucous Membranes Moist, Normal Exam - Neck Exam Neck exam: Positive for: Normal Inspection - Respiratory Exam Respiratory Exam: Clear to Auscultation Bilateral. absent: Rhonchi, Wheezes, Respiratory Distress - Cardiovascular Exam Cardiovascular Exam: REGULAR RHYTHM, RRR, +S1, +S2. absent: JVD - GI/Abdominal Exam GI & Abdominal Exam: Distended, Normal Bowel Sounds, Soft. absent: Guarding, Rebound, Tenderness - Rectal Exam Rectal Exam: Deferred - Extremities Exam Extremities exam: Positive for: normal capillary refill, normal inspection, pedal edema (2 +), pedal pulses present. Negative for: calf tenderness - Back Exam Back exam: NORMAL INSPECTION - Neurological Exam Neurological exam: Alert, CN II-XII Intact, Oriented x3, Reflexes Normal - Psychiatric Exam Psychiatric exam: Normal Affect - Skin Skin Exam: Dry, Pallor, Warm Results - Vital Signs Recent Vital Signs: Last Vital Signs Temp 97.9 F 03/27/17 21:29 Pulse 71 03/27/17 21:29 Resp 20 03/27/17 21:29 BP 129/69 03/27/17 21:29 Pulse Ox 97 03/27/17 21:29 - Labs Result Diagrams: 03/28/17 06:00 03/28/17 06:00 Assessment & Plan - Assessment and Plan (Free Text) Assessment: 66 y/o gent with hx of HTN, BPH, Liver Cirrhosis came in bec of abdominal pain. Pain started 2 hrs post Upper GI Endoscopy/ERCP that was done at [facility] where he usually follows for his Cirrhosis. CT scan showed SBO and Lipase was elevated to 12k.Patient admitted for SBO and post ERCP pancreatitis.He was treated with IVF, pain medications. Surgery and GI were consulted . He was kept initially NPO for bowel rest with improvement of his abdominal pain, trend down of lipase. He was started on diet and tolerating well. His blood cultures were reported as positive for Enterococcus faecium and he was started on Vancomycin IV for bacteremia as well as Maxipime for possible SBP. Clinically is improving. Also complaining of right foot tarso-metatarsal area pain that happened upon walking Transferred to TCU to continue IV antibiotics and physical therapy 1 .Enterococcus Faecium bacteremia Blood cultures x 2 positive on Vancomycin 1 g Iv q12 since ( 03/25) continue IV antibiotics for total 10 days 2. Small bowel obstruction resolved CT of abd showed Multiple dilated fluid-filled loops of small bowel with distal decompressed small bowel loops; overall appearance suspicious for small bowel obstruction. Abdominal pain improved ,tolerating diet and had bowel movement GI and Surgery consulted 3 .ERCP induced acute Pancreatitis resolved Lipase trended down from 12 K to 313 advanced diet to low fat low cholesterol and tolerating 4. Cirrhosis Chronic on spironolactone and lasix started Cefepime for SBP proph Nadolol low dose 5.Thrombocytopenia sec to Liver Dis Chronic Plt=33 no signs of bleeding 6 BPH (benign prostatic hyperplasia) Chronic on Flomax 7.HTN (hypertension) Chronic , controlled continue spironolactone, lasix 8. DVT prophylaxis Acute no anticoag sec to low Platelet SCD
[2017-03-28 08:18] LABS: BASO % 0.5 % (0.0-2.0); EOS # 0.3 K/uL (0.0-0.7); EOS % 7.8 % (0.0-4.0); HEMATOCRIT 33.7 % (35.0-51.0); LYMPH # 0.3 K/uL (1.0-4.3); LYMPH % 9.7 % (20.0-40.0); MEAN CELL VOLUME 103.2 fl (80.0-94.0); MEAN CORPUSCULAR HEMOGLOBIN 35.6 pg (27.0-31.0); MEAN CORPUSCULAR HGB CONC 34.5 g/dL (33.0-37.0); MEAN PLATELET VOLUME 11.9 fl (7.2-11.7); MONO # 0.6 K/uL (0.0-0.8); MONO % 16.9 % (0.0-10.0); NEUT # 2.3 K/uL (1.8-7.0); NEUT % 65.1 % (50.0-75.0); NRBC % 0.4 % (0.0-0.0); PLATELET COUNT 38 K/uL (130-400); RED CELL DISTRIBUTION WIDTH 15.4 % (11.5-14.5); WHITE BLOOD COUNT 3.5 K/uL (4.8-10.8)
[2017-03-28 08:26] LABS: BLOOD UREA NITROGEN 13 mg/dl (9-20); CALCIUM 6.9 mg/dL (8.4-10.2); CARBON DIOXIDE 23 mmol/L (22-30); CHLORIDE 105 mmol/L (98-107); GFR AFRICAN-AMERICAN > 60; GLUCOSE,RANDOM 86 mg/dL (75-110); POTASSIUM 3.6 MMOL/L (3.6-5.0); SODIUM 133 mmol/l (132-148)
[2017-03-28] MEDS: Pantoprazole 40 mg EC Tab PO SCH (09:57)
[2017-03-28] MEDS: Calcium-Vit D 250 mg-125 Units Tab UD PO SCH ×2 (09:57→17:15)
[2017-03-28] MEDS: Multivitamin With Minerals Tab PO SCH (09:57)
[2017-03-28] MEDS: Lactulose 10 gm/15 ml Syrup PO SCH (09:59)
[2017-03-28 12:43] LABS: BASOPHIL 1 % (0-2); EOSINOPHIL 5 % (0-7); NEUTROPHIL 75 % (42-75); TOTAL CELLS COUNTED 100
[2017-03-28 12:44] LABS: LARGE PLATELETS PRESENT
[2017-03-29] MEDS: Cefepime 1 GM in Sodium Chloride 0.9% 100 ML IVPB SCH ×2 (04:14→17:19)
[2017-03-29] MEDS: Lactulose 10 gm/15 ml Syrup PO SCH (10:18)
[2017-03-29] MEDS: Multivitamin With Minerals Tab PO SCH (10:19)
[2017-03-29] MEDS: Pantoprazole 40 mg EC Tab PO SCH (10:20)
[2017-03-29] MEDS: Calcium-Vit D 250 mg-125 Units Tab UD PO SCH ×2 (10:21→17:20)
--- NOTE | 2017-03-29 14:56 | CP.PCM.CON ---
History of Present Illness - History of Present Illness History of Present Illness: THE PATIENT IS A 66 YEAR OLD MALE WHO HAS A HISTORY OF HYPERTENSION AND CIRRHOSIS OF THE LIVER. SIX DAYS AGO HE HAD AN ERCP WITH STENT REMOVAL AND A STONE REMOVAL AT [facility] IN [place] AND THEN DEVELOPED SEVERE ABDOMINAL PAIN AND CAME TO [facility] ER AND WAS FOUND TO HAVE PANCREATITIS AND ADMITTED AND TREATED. HE HAD FEVERS AND CHILL AND ON BLOOD CULDTURES WAS FOUND TO HAVE ENTEROCOCCI AND WAS STARTED ON IV ANTIBIOTICS. HE WAS DISCHARGED TO TCU TO FINISH HIS COURSE OF ANTIBIOTICS AND TO HAVE PHYSICAL THERAPY. I WAS ASKED TO FOLLOW HIM. HE DENIES ANY CHEST PAIN, SOB OR ABDOMINAL PAIN AT THIS TIME. Past Patient History - Infectious Disease Hx of Infectious Diseases: None - Tetanus Immunizations Tetanus Immunization: Unknown - Past Medical History & Family History Past Medical History?: Yes - Past Social History Smoking Status: Former Smoker - CARDIAC Hx Cardiac Disorders: Yes Hx Hypertension: Yes Hx Pacemaker: No - PULMONARY Hx Respiratory Disorders: No - NEUROLOGICAL Hx Neurological Disorder: No Other/Comment: forgetful - HEENT Hx HEENT Problems: Yes Hx Deafness: Yes - RENAL Hx Chronic Kidney Disease: No - ENDOCRINE/METABOLIC Hx Endocrine Disorders: No - HEMATOLOGICAL/ONCOLOGICAL Hx Blood Disorders: Yes Hx Cirrhosis: Yes (liver transplant list) Hx Human Immunodeficiency Virus (HIV): No Other/Comment: chronic thrombocytopenia - INTEGUMENTARY Hx Dermatological Problems: No - MUSCULOSKELETAL/RHEUMATOLOGICAL Hx Falls: No - GASTROINTESTINAL Hx Gastrointestinal Disorders: Yes Hx Gastritis: Yes - GENITOURINARY/GYNECOLOGICAL Hx Genitourinary Disorders: Yes Hx Prostate Problems: Yes Other/Comment: Double hernia - PSYCHIATRIC Hx Substance Use: Yes - SURGICAL HISTORY Hx Surgeries: Yes Hx Abdominal Aortic Aneurysm Repair: No Hx Musculoskeletal Surgery: Yes (L knee meniscus repair) Other/Comment: Transjugular Intrahepatic Portosystemic Shunt (TIPS), endoscopy - ANESTHESIA Hx Anesthesia: Yes Hx Anesthesia Reactions: No Hx Malignant Hyperthermia: No Meds Allergies/Adverse Reactions: Allergies Allergy/AdvReac Type Severity Reaction Status Date / Time No Known Allergies Allergy Verified 03/27/17 14:19 - Medications Medications: Current Medications Calcium/Vitamin D (Oscal-D 250 Mg-125 Units Tab) 1 tab PO BID [facility] Last Admin: 03/29/17 10:21 Dose: 1 tab Cholecalciferol (Vitamin D) 1,000 iu PO DAILY [facility] Last Admin: 03/29/17 10:19 Dose: 1,000 iu Furosemide (Lasix) 40 mg PO DAILY [facility] Last Admin: 03/29/17 10:18 Dose: 40 mg Cefepime HCl 1 gm/ Sodium (Chloride) 100 mls @ 100 mls/hr IVPB Q12@0500,1700 [facility] Last Admin: 03/29/17 04:14 Dose: 100 mls/hr Vancomycin HCl 1 gm/ Sodium (Chloride) 250 mls @ 166.667 mls/hr IVPB Q12@0500, 1700 [facility] Last Admin: 03/29/17 05:27 Dose: 166.667 mls/hr Lactulose (Enulose) 10 gm PO DAILY [facility] Last Admin: 03/29/17 10:18 Dose: 10 gm Multivitamins/Minerals (Therapeutic-M Tab) 1 tab PO DAILY [facility] Last Admin: 03/29/17 10:19 Dose: 1 tab Pantoprazole Sodium (Protonix Ec Tab) 40 mg PO DAILY [facility] Last Admin: 03/29/17 10:20 Dose: 40 mg Rifaximin (Xifaxan) 550 mg PO BID [facility] Last Admin: 03/29/17 10:20 Dose: 550 mg Spironolactone (Aldactone) 100 mg PO DAILY [facility] Last Admin: 03/29/17 10:17 Dose: 100 mg Tamsulosin HCl (Flomax) 0.4 mg PO DAILY [facility] Last Admin: 03/29/17 10:18 Dose: 0.4 mg Ursodiol (Actigall) 300 mg PO TID [facility] Last Admin: 03/29/17 12:51 Dose: 300 mg Zinc Sulfate (Zinc Sulfate 220 Mg Cap) 220 mg PO DAILY [facility] Last Admin: 03/29/17 10:20 Dose: 220 mg Physical Exam - Respiratory Exam Respiratory Exam: Clear to Auscultation Bilateral - Cardiovascular Exam Cardiovascular Exam: REGULAR RHYTHM, +S1, +S2 - Extremities Exam Extremities exam: Positive for: normal inspection Results - Vital Signs Recent Vital Signs: Last Vital Signs Temp 97.3 F L 03/29/17 08:04 Pulse 68 03/29/17 08:04 Resp 20 03/29/17 08:04 BP 123/69 03/29/17 10:18 Pulse Ox 97 03/29/17 08:04 - Labs Result Diagrams: 03/28/17 06:00 03/28/17 06:00 Assessment & Plan - Assessment and Plan (Free Text) Assessment: ENTEROCOCCI ON BLOOD CULTURES S/P PANCREATITIS HYPERTENSION CIRRHOSIS OF THE LIVER Plan: CONTINUE IV ANTIBIOTICS, FUROSEMIDE AND SPIRONOLACTONE PHYSICAL THERAPY
[2017-03-30] MEDS: Cefepime 1 GM in Sodium Chloride 0.9% 100 ML IVPB SCH ×2 (04:35→16:03)
[2017-03-30] MEDS: Multivitamin With Minerals Tab PO SCH (09:37)
[2017-03-30] MEDS: Calcium-Vit D 250 mg-125 Units Tab UD PO SCH ×2 (09:37→16:05)
[2017-03-30] MEDS: Pantoprazole 40 mg EC Tab PO SCH (09:37)
[2017-03-30] MEDS: Lactulose 10 gm/15 ml Syrup PO SCH (09:38)
--- NOTE | 2017-03-30 10:10 | CP.PCM.PN ---
Subjective - Date & Time of Evaluation Date of Evaluation: 03/30/17 Time of Evaluation: 08:30 - Subjective Subjective: NO CHEST PAIN OR SOB ABDOMINAL PAIN ESSENTIALLY GONE Objective - Vital Signs/Intake and Output Vital Signs (last 24 hours): Temp Pulse Resp BP Pulse Ox 97.5 F L 74 20 116/56 L 93 L 03/30/17 08:10 03/30/17 08:10 03/30/17 08:10 03/30/17 09:38 03/30/17 08:10 - Medications Medications: Current Medications Calcium/Vitamin D (Oscal-D 250 Mg-125 Units Tab) 1 tab PO BID [facility] Last Admin: 03/30/17 09:37 Dose: 1 tab Cholecalciferol (Vitamin D) 1,000 iu PO DAILY [facility] Last Admin: 03/30/17 09:38 Dose: 1,000 iu Furosemide (Lasix) 40 mg PO DAILY [facility] Last Admin: 03/30/17 09:38 Dose: 40 mg Cefepime HCl 1 gm/ Sodium (Chloride) 100 mls @ 100 mls/hr IVPB Q12@0500,1700 [facility] Last Admin: 03/30/17 04:35 Dose: 100 mls/hr Vancomycin HCl 1 gm/ Sodium (Chloride) 250 mls @ 166.667 mls/hr IVPB Q12@0500, 1700 [facility] Last Admin: 03/30/17 05:47 Dose: 166.667 mls/hr Lactulose (Enulose) 10 gm PO DAILY [facility] Last Admin: 03/30/17 09:38 Dose: 10 gm Multivitamins/Minerals (Therapeutic-M Tab) 1 tab PO DAILY [facility] Last Admin: 03/30/17 09:37 Dose: 1 tab Pantoprazole Sodium (Protonix Ec Tab) 40 mg PO DAILY [facility] Last Admin: 03/30/17 09:37 Dose: 40 mg Rifaximin (Xifaxan) 550 mg PO BID [facility] Last Admin: 03/30/17 09:38 Dose: 550 mg Spironolactone (Aldactone) 100 mg PO DAILY [facility] Last Admin: 03/30/17 09:38 Dose: 100 mg Tamsulosin HCl (Flomax) 0.4 mg PO DAILY [facility] Last Admin: 03/30/17 09:38 Dose: 0.4 mg Ursodiol (Actigall) 300 mg PO TID [facility] Last Admin: 03/30/17 09:38 Dose: 300 mg Zinc Sulfate (Zinc Sulfate 220 Mg Cap) 220 mg PO DAILY [facility] Last Admin: 03/30/17 09:38 Dose: 220 mg - Labs Labs: 03/28/17 06:00 03/28/17 06:00 - Respiratory Exam Respiratory Exam: Clear to Ausculation Bilateral - Cardiovascular Exam Cardiovascular Exam: REGULAR RHYTHM, +S1, +S2 - Extremities Exam Extremities Exam: Normal Inspection Assessment and Plan - Assessment and Plan (Free Text) Assessment: PANCREATITIS FOLLWING ERCP-RESOVVING BACTEREMIA WITH ENTEROCOCCUS CIRRHOSIS OF THE LIVER Plan: CONTINUE ANTIBIOTICS, SPIRONOLACTONE AND FUROSEMIDE
--- NOTE | 2017-03-30 18:43 | CP.PCM.PN ---
Subjective - Date & Time of Evaluation Date of Evaluation: 03/30/17 Time of Evaluation: 18:00 - Subjective Subjective: Pt seen and examined. Claimed he has been doing okay and wanted to find out when will he be released. Also has been ambulating without a walker or assistance all by himself. Objective - Vital Signs/Intake and Output Vital Signs (last 24 hours): Temp Pulse Resp BP Pulse Ox 98 F 76 20 118/65 96 03/30/17 16:14 03/30/17 16:14 03/30/17 16:14 03/30/17 16:14 03/30/17 16:14 - Medications Medications: Current Medications Calcium/Vitamin D (Oscal-D 250 Mg-125 Units Tab) 1 tab PO BID [facility] Last Admin: 03/30/17 16:05 Dose: 1 tab Cholecalciferol (Vitamin D) 1,000 iu PO DAILY [facility] Last Admin: 03/30/17 09:38 Dose: 1,000 iu Furosemide (Lasix) 40 mg PO DAILY [facility] Last Admin: 03/30/17 09:38 Dose: 40 mg Cefepime HCl 1 gm/ Sodium (Chloride) 100 mls @ 100 mls/hr IVPB Q12@0500,1700 [facility] Last Admin: 03/30/17 16:03 Dose: 100 mls/hr Vancomycin HCl 1 gm/ Sodium (Chloride) 250 mls @ 166.667 mls/hr IVPB Q12@0500, 1700 [facility] Last Admin: 03/30/17 16:10 Dose: 166.667 mls/hr Lactulose (Enulose) 10 gm PO DAILY [facility] Last Admin: 03/30/17 09:38 Dose: 10 gm Multivitamins/Minerals (Therapeutic-M Tab) 1 tab PO DAILY [facility] Last Admin: 03/30/17 09:37 Dose: 1 tab Pantoprazole Sodium (Protonix Ec Tab) 40 mg PO DAILY [facility] Last Admin: 03/30/17 09:37 Dose: 40 mg Rifaximin (Xifaxan) 550 mg PO BID [facility] Last Admin: 03/30/17 16:11 Dose: 550 mg Spironolactone (Aldactone) 100 mg PO DAILY [facility] Last Admin: 03/30/17 09:38 Dose: 100 mg Tamsulosin HCl (Flomax) 0.4 mg PO DAILY [facility] Last Admin: 03/30/17 09:38 Dose: 0.4 mg Ursodiol (Actigall) 300 mg PO TID [facility] Last Admin: 03/30/17 16:05 Dose: 300 mg Zinc Sulfate (Zinc Sulfate 220 Mg Cap) 220 mg PO DAILY [facility] Last Admin: 03/30/17 09:38 Dose: 220 mg - Labs Labs: 03/28/17 06:00 03/28/17 06:00 - Constitutional Appears: No Acute Distress - Head Exam Head Exam: ATRAUMATIC - Eye Exam Eye Exam: absent: Scleral icterus - ENT Exam ENT Exam: Mucous Membranes Moist - Neck Exam Neck Exam: absent: Meningismus - Respiratory Exam Respiratory Exam: absent: Rhonchi, Wheezes, Respiratory Distress - Cardiovascular Exam Cardiovascular Exam: REGULAR RHYTHM, +S1, +S2 - GI/Abdominal Exam GI & Abdominal Exam: Soft (globularly enlarged from ascites). absent: Guarding , Tenderness - Rectal Exam Rectal Exam: Deferred - Extremities Exam Extremities Exam: Pedal Edema - Neurological Exam Neurological Exam: Alert, Oriented x3 - Psychiatric Exam Psychiatric exam: Normal Affect - Skin Skin Exam: Dry, Intact Assessment and Plan (1) Enterococcal bacteremia Status: Acute (2) Pancreatitis, acute Status: Acute (3) Cirrhosis Status: Chronic (4) Thrombocytopenia Status: Chronic (5) HTN (hypertension) Status: Chronic - Assessment and Plan (Free Text) Assessment: 66 yo male with history of HTN, BPH and Liver Cirrhosis admitted because of abdominal pain post Endoscopy/ERCP done at [facility]. CT scan showed SBO and elevated serum lipase consistent with acute pancreatitis. Pt was treated with IVF and pain medications. Surgery and GI were called for consults. His condition improved with abdominal pain relief and trending down of serum lipase. His blood culture however grew Enterococcus faecium. Pt was started on Vancomycin for the bacteremia and Cefepime for possible SBP. 1 .Enterococcus Faecium bacteremia on Vancomycin, day 6 Blood cultures x 2 positive Vanco trough in am repeat blood culture x 2 2 .ERCP induced acute Pancreatitis resolved last serum lipase: 313 advanced diet to low fat low cholesterol and tolerating 3. Cirrhosis Chronic on Spironolactone and Lasix started on Cefepime for SBP prophylaxis continue low dose Nadolol 4. Thrombocytopenia sec to Liver Dis Chronic Plt: 38 no signs of bleeding 5. HTN (hypertension) Chronic, controlled continue Spironolactone, Lasix
[2017-03-31] MEDS: Cefepime 1 GM in Sodium Chloride 0.9% 100 ML IVPB SCH ×2 (04:00→16:13)
[2017-03-31] MEDS: Lactulose 10 gm/15 ml Syrup PO SCH (09:10)
[2017-03-31] MEDS: Multivitamin With Minerals Tab PO SCH (09:12)
[2017-03-31] MEDS: Pantoprazole 40 mg EC Tab PO SCH (09:12)
[2017-03-31] MEDS: Calcium-Vit D 250 mg-125 Units Tab UD PO SCH ×2 (09:12→16:20)
--- NOTE | 2017-03-31 10:06 | CP.PCM.PN ---
Subjective - Date & Time of Evaluation Date of Evaluation: 03/31/17 Time of Evaluation: 09:00 - Subjective Subjective: NO ABDOMINAL OR CHEST PAIN NO SOB Objective - Vital Signs/Intake and Output Vital Signs (last 24 hours): Temp Pulse Resp BP Pulse Ox 97.3 F L 76 20 114/68 97 03/31/17 08:18 03/31/17 08:18 03/31/17 08:18 03/31/17 09:11 03/31/17 08:18 - Medications Medications: Current Medications Calcium/Vitamin D (Oscal-D 250 Mg-125 Units Tab) 1 tab PO BID [facility] Last Admin: 03/31/17 09:12 Dose: 1 tab Cholecalciferol (Vitamin D) 1,000 iu PO DAILY [facility] Last Admin: 03/31/17 09:13 Dose: 1,000 iu Furosemide (Lasix) 40 mg PO DAILY [facility] Last Admin: 03/31/17 09:11 Dose: 40 mg Cefepime HCl 1 gm/ Sodium (Chloride) 100 mls @ 100 mls/hr IVPB Q12@0500,1700 [facility] Last Admin: 03/31/17 04:00 Dose: 100 mls/hr Vancomycin HCl 1 gm/ Sodium (Chloride) 250 mls @ 166.667 mls/hr IVPB Q12@0500, 1700 [facility] Last Admin: 03/31/17 04:57 Dose: 166.667 mls/hr Lactulose (Enulose) 10 gm PO DAILY [facility] Last Admin: 03/31/17 09:10 Dose: 10 gm Multivitamins/Minerals (Therapeutic-M Tab) 1 tab PO DAILY [facility] Last Admin: 03/31/17 09:12 Dose: 1 tab Pantoprazole Sodium (Protonix Ec Tab) 40 mg PO DAILY [facility] Last Admin: 03/31/17 09:12 Dose: 40 mg Rifaximin (Xifaxan) 550 mg PO BID [facility] Last Admin: 03/31/17 09:14 Dose: 550 mg Spironolactone (Aldactone) 100 mg PO DAILY [facility] Last Admin: 03/31/17 09:10 Dose: 100 mg Tamsulosin HCl (Flomax) 0.4 mg PO DAILY [facility] Last Admin: 03/31/17 09:10 Dose: 0.4 mg Ursodiol (Actigall) 300 mg PO TID [facility] Last Admin: 03/31/17 09:10 Dose: 300 mg Zinc Sulfate (Zinc Sulfate 220 Mg Cap) 220 mg PO DAILY [facility] Last Admin: 03/31/17 09:14 Dose: 220 mg - Labs Labs: 03/28/17 06:00 03/28/17 06:00 - Respiratory Exam Respiratory Exam: Clear to Ausculation Bilateral - Cardiovascular Exam Cardiovascular Exam: REGULAR RHYTHM, +S1, +S2 - GI/Abdominal Exam GI & Abdominal Exam: Soft, Normal Bowel Sounds Assessment and Plan - Assessment and Plan (Free Text) Assessment: BACTEREMIA PANCREATITIS CIRRHOSIS OF THE LIVER HYPERTENSION Plan: CONTINUE ANTIBIOTICS, FUROSEMIDE AND SPIRONOLACTONE
[2017-04-01] MEDS ORDERED: Calcium-Vit D 500 mg-200 Units Tab UD ONE (09:00)
[2017-04-01] MEDS ORDERED: Lactulose 10 gm/15 ml Syrup ONE (09:00)
[2017-04-01] MEDS ORDERED: Vancomycin 1 g Inj ONE (09:00)
[2017-04-01] MEDS ORDERED: Cefepime (Maxipime) 1 g Inj ONE (09:00)
[2017-04-01] MEDS ORDERED: Pantoprazole 40 mg EC Tab PO ONE (09:00)
[2017-04-01] MEDS ORDERED: Multivitamin With Minerals Tab PO ONE (09:00)
--- NOTE | 2017-04-01 20:13 | CP.PCM.PN ---
Subjective - Date & Time of Evaluation Date of Evaluation: 04/01/17 Time of Evaluation: 15:00 - Subjective Subjective: Pt seen and examined. Doing laps in the hallway without assistance or walker. Claimed that his medications are not given properly. Objective - Vital Signs/Intake and Output Vital Signs (last 24 hours): Temp Pulse Resp BP Pulse Ox 98.2 F 75 20 117/64 97 03/31/17 20:36 03/31/17 20:36 03/31/17 20:36 03/31/17 20:36 03/31/17 20:36 - Medications Medications: Current Medications Calcium/Vitamin D (Oscal-D 250 Mg-125 Units Tab) 1 tab PO BID [facility] Last Admin: 03/31/17 16:20 Dose: 1 tab Cholecalciferol (Vitamin D) 1,000 iu PO DAILY [facility] Last Admin: 03/31/17 09:13 Dose: 1,000 iu Furosemide (Lasix) 40 mg PO DAILY [facility] Last Admin: 03/31/17 09:11 Dose: 40 mg Cefepime HCl 1 gm/ Sodium (Chloride) 100 mls @ 100 mls/hr IVPB Q12@0500,1700 [facility] Last Admin: 03/31/17 16:13 Dose: 100 mls/hr Vancomycin HCl 1 gm/ Sodium (Chloride) 250 mls @ 166.667 mls/hr IVPB Q12@0500, 1700 [facility] Last Admin: 03/31/17 17:30 Dose: 166.667 mls/hr Lactulose (Enulose) 10 gm PO DAILY [facility] Last Admin: 03/31/17 09:10 Dose: 10 gm Multivitamins/Minerals (Therapeutic-M Tab) 1 tab PO DAILY [facility] Last Admin: 03/31/17 09:12 Dose: 1 tab Pantoprazole Sodium (Protonix Ec Tab) 40 mg PO DAILY [facility] Last Admin: 03/31/17 09:12 Dose: 40 mg Rifaximin (Xifaxan) 550 mg PO BID [facility] Last Admin: 03/31/17 16:20 Dose: 550 mg Spironolactone (Aldactone) 100 mg PO DAILY [facility] Last Admin: 03/31/17 09:10 Dose: 100 mg Tamsulosin HCl (Flomax) 0.4 mg PO DAILY [facility] Last Admin: 03/31/17 09:10 Dose: 0.4 mg Ursodiol (Actigall) 300 mg PO TID [facility] Last Admin: 03/31/17 16:19 Dose: 300 mg Zinc Sulfate (Zinc Sulfate 220 Mg Cap) 220 mg PO DAILY [facility] Last Admin: 03/31/17 09:14 Dose: 220 mg - Labs Labs: 03/28/17 06:00 03/28/17 06:00 - Constitutional Appears: No Acute Distress - Head Exam Head Exam: ATRAUMATIC - Eye Exam Eye Exam: Scleral icterus - ENT Exam ENT Exam: Mucous Membranes Moist - Neck Exam Neck Exam: absent: Meningismus - Respiratory Exam Respiratory Exam: absent: Rhonchi, Wheezes, Respiratory Distress - Cardiovascular Exam Cardiovascular Exam: REGULAR RHYTHM, +S1, +S2 - GI/Abdominal Exam GI & Abdominal Exam: Distended. absent: Tenderness - Rectal Exam Rectal Exam: Deferred - Neurological Exam Neurological Exam: Alert, Oriented x3 - Psychiatric Exam Psychiatric exam: Normal Affect - Skin Skin Exam: Dry, Intact Assessment and Plan (1) Enterococcal bacteremia Status: Acute (2) Pancreatitis, acute Status: Acute (3) Cirrhosis Status: Chronic (4) Thrombocytopenia Status: Chronic (5) HTN (hypertension) Status: Chronic - Assessment and Plan (Free Text) Assessment: 66 yo male with history of HTN, BPH and Liver Cirrhosis admitted because of abdominal pain post Endoscopy/ERCP done at [facility]. CT scan showed SBO and elevated serum lipase consistent with acute pancreatitis. Pt was treated with IVF and pain medications. Surgery and GI were called for consults. His condition improved with abdominal pain relieved and serum lipase trending down. His blood culture however grew Enterococcus faecium. Pt was started on Vancomycin for the bacteremia and Cefepime for possible SBP. 1 .Enterococcus Faecium bacteremia on Vancomycin, day 8 last Vacomycin dose will be on Wednesday Vanco trough not done reorder Vanco in am repeat blood culture x 2 2 .ERCP induced acute Pancreatitis resolved last serum lipase: 313 advanced diet to low fat low cholesterol and tolerating 3. Cirrhosis Chronic Spironolactone 100mg PO BID Lasix 40mg PO daily Lactulose 10gm PO BID on Cefepime for SBP prophylaxis continue low dose Nadolol 4. Thrombocytopenia sec to Liver Dis Chronic Plt: 38 no signs of bleeding 5. HTN (hypertension) Chronic, controlled on Spironolactone and Lasix
[2017-04-01] MEDS ORDERED: Lactulose 10 gm/15 ml Syrup PO SCH (22:30)
[2017-04-02] MEDS: Cefepime 1 GM in Sodium Chloride 0.9% 100 ML IVPB SCH (04:06)
[2017-04-02] MEDS: Calcium-Vit D 250 mg-125 Units Tab UD PO SCH ×2 (08:53→17:52)
[2017-04-02] MEDS: Pantoprazole 40 mg EC Tab PO SCH (08:55)
[2017-04-02] MEDS: Multivitamin With Minerals Tab PO SCH (08:55)
[2017-04-02] MEDS ORDERED: Lactulose 10 gm/15 ml Syrup PO SCH (09:00)
--- NOTE | 2017-04-02 10:31 | CP.PCM.PN ---
Subjective - Date & Time of Evaluation Date of Evaluation: 04/02/17 Time of Evaluation: 09:45 - Subjective Subjective: NO CHEST PAIN OR SOB NO ABDOMINAL PAIN Objective - Vital Signs/Intake and Output Vital Signs (last 24 hours): Temp Pulse Resp BP Pulse Ox 98.1 F 73 20 130/65 100 04/02/17 08:21 04/02/17 08:21 04/02/17 08:21 04/02/17 08:54 04/02/17 08:21 - Medications Medications: Current Medications Calcium/Vitamin D (Oscal-D 250 Mg-125 Units Tab) 1 tab PO BID [facility] Last Admin: 04/02/17 08:53 Dose: 1 tab Cholecalciferol (Vitamin D) 1,000 iu PO DAILY [facility] Last Admin: 04/02/17 08:56 Dose: 1,000 iu Furosemide (Lasix) 40 mg PO DAILY [facility] Last Admin: 04/02/17 08:54 Dose: 40 mg Vancomycin HCl 1 gm/ Sodium (Chloride) 250 mls @ 166.667 mls/hr IVPB Q12@0500, 1700 [facility] Last Admin: 04/02/17 05:18 Dose: 166.667 mls/hr Lactulose (Enulose) 10 gm PO TID [facility] Last Admin: 04/02/17 08:57 Dose: 10 gm Multivitamins/Minerals (Therapeutic-M Tab) 1 tab PO DAILY [facility] Last Admin: 04/02/17 08:55 Dose: 1 tab Pantoprazole Sodium (Protonix Ec Tab) 40 mg PO DAILY [facility] Last Admin: 04/02/17 08:55 Dose: 40 mg Rifaximin (Xifaxan) 550 mg PO BID [facility] Last Admin: 04/02/17 08:55 Dose: 550 mg Spironolactone (Aldactone) 100 mg PO Q12H [facility] Last Admin: 04/02/17 08:54 Dose: 100 mg Tamsulosin HCl (Flomax) 0.4 mg PO DAILY [facility] Last Admin: 04/02/17 08:55 Dose: 0.4 mg Ursodiol (Actigall) 300 mg PO TID [facility] Last Admin: 04/02/17 08:53 Dose: 300 mg Zinc Sulfate (Zinc Sulfate 220 Mg Cap) 220 mg PO DAILY [facility] Last Admin: 04/02/17 08:57 Dose: 220 mg - Labs Labs: 03/28/17 06:00 03/28/17 06:00 - Respiratory Exam Respiratory Exam: Clear to Ausculation Bilateral - Cardiovascular Exam Cardiovascular Exam: REGULAR RHYTHM, +S1, +S2 Assessment and Plan - Assessment and Plan (Free Text) Assessment: PANCREATITIS BACTEREMIA CIRRHOSIS OF THE LIVER HYPERTENSION Plan: CONTINUE ANTIBIOTICS, FUROSEMIDE , SPIRONOLACTONE
[2017-04-02] MEDS: Lactulose 10 gm/15 ml Syrup PO SCH ×2 (12:34→17:51)
[2017-04-03] MEDS: Lactulose 10 gm/15 ml Syrup PO SCH ×3 (09:00→16:20)
[2017-04-03] MEDS: Calcium-Vit D 250 mg-125 Units Tab UD PO SCH ×2 (09:00→16:21)
[2017-04-03] MEDS ORDERED: Cefepime 1 GM in Sodium Chloride 0.9% 100 ML IVPB SCH (09:00)
[2017-04-03] MEDS: Multivitamin With Minerals Tab PO SCH (09:00)
[2017-04-03] MEDS: Pantoprazole 40 mg EC Tab PO SCH (09:00)
[2017-04-04 08:15] VITALS: PULSE 78; TEMP 98.1; O2SAT 96
[2017-04-04] MEDS: Lactulose 10 gm/15 ml Syrup PO SCH ×2 (10:18→13:22)
[2017-04-04] MEDS: Pantoprazole 40 mg EC Tab PO SCH ×2 (10:19→10:27)
[2017-04-04 10:23] VITALS: BP 123/64
[2017-04-04] MEDS: Multivitamin With Minerals Tab PO SCH (10:27)
[2017-04-04] MEDS: Calcium-Vit D 250 mg-125 Units Tab UD PO SCH (10:27)
--- NOTE | 2017-04-04 10:52 | CP.PCM.PN ---
Subjective - Date & Time of Evaluation Date of Evaluation: 04/04/17 Time of Evaluation: 10:00 - Subjective Subjective: NO CHEST PAIN OR SOB Objective - Vital Signs/Intake and Output Vital Signs (last 24 hours): Temp Pulse Resp BP Pulse Ox 98.1 F 78 20 123/64 96 04/04/17 08:11 04/04/17 08:11 04/04/17 08:11 04/04/17 10:19 04/04/17 08:11 - Medications Medications: Current Medications Calcium/Vitamin D (Oscal-D 250 Mg-125 Units Tab) 1 tab PO BID [facility] Last Admin: 04/04/17 10:27 Dose: Not Given Cholecalciferol (Vitamin D) 1,000 iu PO DAILY [facility] Last Admin: 04/04/17 10:27 Dose: 1,000 iu Furosemide (Lasix) 40 mg PO DAILY [facility] Last Admin: 04/04/17 10:19 Dose: 40 mg Vancomycin HCl 1 gm/ Sodium (Chloride) 250 mls @ 166.667 mls/hr IVPB Q12@0500, 1700 [facility] Last Admin: 04/04/17 04:12 Dose: 166.667 mls/hr Lactulose (Enulose) 10 gm PO TID [facility] Last Admin: 04/04/17 10:18 Dose: 10 gm Multivitamins/Minerals (Therapeutic-M Tab) 1 tab PO DAILY [facility] Last Admin: 04/04/17 10:27 Dose: Not Given Pantoprazole Sodium (Protonix Ec Tab) 40 mg PO DAILY [facility] Last Admin: 04/04/17 10:27 Dose: 40 mg Spironolactone (Aldactone) 100 mg PO Q12H [facility] Last Admin: 04/04/17 10:19 Dose: 100 mg Tamsulosin HCl (Flomax) 0.4 mg PO DAILY [facility] Last Admin: 04/04/17 10:28 Dose: 0.4 mg Ursodiol (Actigall) 300 mg PO TID [facility] Last Admin: 04/04/17 10:27 Dose: 300 mg Zinc Sulfate (Zinc Sulfate 220 Mg Cap) 220 mg PO DAILY [facility] Last Admin: 04/04/17 10:28 Dose: Not Given - Labs Labs: 03/28/17 06:00 03/28/17 06:00 - Respiratory Exam Respiratory Exam: Clear to Ausculation Bilateral - Cardiovascular Exam Cardiovascular Exam: REGULAR RHYTHM, +S1, +S2 - Extremities Exam Extremities Exam: Normal Inspection Assessment and Plan - Assessment and Plan (Free Text) Assessment: PANCREATITIS-TREATED BACTEREMIA-TREATED CIRRHOSIS OF THE LIVER HYPERTENSTION Plan: COMPLETED IV ANTIBIOTICS FOR DISCHARGE TODAY
--- NOTE | 2017-04-04 12:21 | CP.PCM.DIS ---
Provider - Provider Date of Admission: 03/27/17 14:21 Attending physician: Brandy Sheppard MD Time Spent in preparation of Discharge (in minutes): 20 Diagnosis - Discharge Diagnosis (1) Liver failure without hepatic coma Status: Acute (2) Pancreatitis, acute Status: Acute (3) Ascites due to alcoholic cirrhosis Status: Chronic (4) BPH (benign prostatic hyperplasia) Status: Chronic (5) Cirrhosis Status: Chronic (6) HTN (hypertension) Status: Chronic Hospital Course - Lab Results Lab Results: Most Recent Lab Values WBC 3.5 K/uL (4.8-10.8) L 03/28/17 06:00 RBC 3.27 Mil/uL (4.40-5.90) L 03/28/17 06:00 Hgb 11.6 g/dL (12.0-18.0) L 03/28/17 06:00 Hct 33.7 % (35.0-51.0) L 03/28/17 06:00 MCV 103.2 fl (80.0-94.0) H 03/28/17 06:00 MCH 35.6 pg (27.0-31.0) H 03/28/17 06:00 MCHC 34.5 g/dL (33.0-37.0) 03/28/17 06:00 RDW 15.4 % (11.5-14.5) H 03/28/17 06:00 Plt Count 38 K/uL (130-400) L 03/28/17 06:00 MPV 11.9 fl (7.2-11.7) H 03/28/17 06:00 Neut % (Auto) 65.1 % (50.0-75.0) 03/28/17 06:00 Lymph % (Auto) 9.7 % (20.0-40.0) L 03/28/17 06:00 Loving % (Auto) 16.9 % (0.0-10.0) H 03/28/17 06:00 Eos % (Auto) 7.8 % (0.0-4.0) H 03/28/17 06:00 Baso % (Auto) 0.5 % (0.0-2.0) 03/28/17 06:00 Neut # 2.3 K/uL (1.8-7.0) 03/28/17 06:00 Lymph # 0.3 K/uL (1.0-4.3) L 03/28/17 06:00 Loving # 0.6 K/uL (0.0-0.8) 03/28/17 06:00 Eos # 0.3 K/uL (0.0-0.7) 03/28/17 06:00 Baso # 0.0 K/uL (0.0-0.2) 03/28/17 06:00 Neutrophils % (Manual) 75 % (42-75) 03/28/17 06:00 Band Neutrophils % 2 % (0-2) 03/28/17 06:00 Lymphocytes % (Manual) 6 % (20-50) L 03/28/17 06:00 Monocytes % (Manual) 11 % (0-10) H 03/28/17 06:00 Eosinophils % (Manual) 5 % (0-7) 03/28/17 06:00 Basophils % (Manual) 1 % (0-2) 03/28/17 06:00 Toxic Granulation Present 03/28/17 06:00 Platelet Estimate Decreased (NORMAL) L 03/28/17 06:00 Large Platelets Present 03/28/17 06:00 Hypochromasia (manual) Slight 03/28/17 06:00 Poikilocytosis (manual Slight 03/28/17 06:00 Anisocytosis (manual) Slight 03/28/17 06:00 Tear Drop Cells Slight 03/28/17 06:00 Ovalocytes Slight 03/28/17 06:00 Schistocytes Slight 03/28/17 06:00 Sodium 133 mmol/l (132-148) 03/28/17 06:00 Potassium 3.6 MMOL/L (3.6-5.0) 03/28/17 06:00 Chloride 105 mmol/L (98-107) 03/28/17 06:00 Carbon Dioxide 23 mmol/L (22-30) 03/28/17 06:00 Anion Gap 9 (10-20) L 03/28/17 06:00 BUN 13 mg/dl (9-20) 03/28/17 06:00 Creatinine 0.7 mg/dL (0.8-1.5) L 03/28/17 06:00 Est GFR ( Amer) > 60 03/28/17 06:00 Est GFR (Non-Af Amer) > 60 03/28/17 06:00 Random Glucose 86 mg/dL (75-110) 03/28/17 06:00 Calcium 6.9 mg/dL (8.4-10.2) L 03/28/17 06:00 - Hospital Course Hospital Course: 66 yo male with history of HTN, BPH and Liver Cirrhosis admitted because of abdominal pain post Endoscopy/ERCP done at [facility]. CT scan showed SBO and elevated serum lipase consistent with acute pancreatitis. Pt was treated with IVF and pain medications. Surgery and GI were called for consults. His condition improved with abdominal pain relieved and serum lipase trending down. His blood culture however grew Enterococcus faecium. Pt was started on Vancomycin for the bacteremia and Cefepime for possible SBP. Antibiotics completed well. Stable for dc home. 1 .Enterococcus Faecium bacteremia on Vancomycin, day 8 last Vacomycin dose will be on Wednesday Vanco trough not done reorder Vanco in am repeat blood culture x 2 2 .ERCP induced acute Pancreatitis resolved last serum lipase: 313 advanced diet to low fat low cholesterol and tolerating 3. Cirrhosis Chronic Spironolactone 100mg PO BID Lasix 40mg PO daily Lactulose 10gm PO BID on Cefepime for SBP prophylaxis continue low dose Nadolol 4. Thrombocytopenia sec to Liver Dis Chronic Plt: 38 no signs of bleeding 5. HTN (hypertension) Chronic, controlled on Spironolactone and Lasix Discharge Exam - Head Exam Head Exam: ATRAUMATIC, NORMOCEPHALIC - Eye Exam Eye Exam: EOMI, PERRL Pupil Exam: NORMAL ACCOMODATION - ENT Exam ENT Exam: Mucous Membranes Moist, Normal Oropharynx - Neck Exam Neck exam: Full Rom, Normal Inspection - Respiratory Exam Respiratory Exam: Clear to PA & Lateral, NORMAL BREATHING PATTERN. absent: Wheezes - Cardiovascular Exam Cardiovascular Exam: RRR, +S1, +S2. absent: Gallop, Rubs - GI/Abdominal Exam GI & Abdominal Exam: Normal Bowel Sounds, Soft. absent: Mass, Organomegaly, Tenderness - Extremities Exam Extremities exam: normal capillary refill, pedal pulses present - Back Exam Back exam: absent: CVA tenderness (L), CVA tenderness (R) - Neurological Exam Neurological exam: Alert, Oriented x3 - Psychiatric Exam Psychiatric exam: Normal Affect, Normal Mood - Skin Skin Exam: Dry, Normal Color, Warm Discharge Plan - Discharge Medications Prescriptions: Cholecalciferol [Vitamin D 1000 IU] 1,000 iu PO DAILY #30 Furosemide [Lasix] 40 mg PO DAILY #30 Lactulose [Constulose] 10 mg PO DAILY #30 Multimineral/Multivitamin [Therapeutic-M Tab] 1 tab PO DAILY #30 tab Pantoprazole Sodium [Protonix] 40 mg PO DAILY #30 Spironolactone [Aldactone] 100 mg PO Q12H #60 tab Tamsulosin [Flomax] 0.4 mg PO DAILY #30 cap Ursodiol [Actigall] 300 mg PO TID #90 cap - Follow Up Plan Condition: GOOD Disposition: HOME/ ROUTINE Instructions: Cirrhosis (DC), Sepsis (GEN), Fall Prevention (DC) Additional Instructions: discharge patient home today. followup with PMD followup with Dr. Gomez, Flow Machine Operator, call for appointment [phone] followup with [facility], April 06, 2017 appointment for May 13, 2017 as per patient with liver MD at [place] for scheduled followup care followup also with private Gastroenterology MD at [place]. call for appointment.
== END 2017-04-04 13:20 | disposition home or self-care (01) | DRG 440 ==
LOC: H.TCU 14:21
PROVIDERS: ADMIT Hospitalist; ATTEND Hospitalist
PROC: F08Z4ZZ Home Management Treatment (ICD-10-PCS; principal; 2017-03-27)
PROC: F07L0ZZ Range of Motion and Joint Mobility Treatment of Musculoskeletal System - Lower Back / Lower Extremity (ICD-10-PCS; 2017-03-27)
PROC: F07K0ZZ Range of Motion and Joint Mobility Treatment of Musculoskeletal System - Upper Back / Upper Extremity (ICD-10-PCS; 2017-03-27)
DX: K85.90 Acute pancreatitis without necrosis or infection, unspecified (principal); D69.59 Other secondary thrombocytopenia; K70.31 Alcoholic cirrhosis of liver with ascites; B95.2 Enterococcus as the cause of diseases classified elsewhere; I10 Essential (primary) hypertension; N40.0 Benign prostatic hyperplasia without lower urinary tract symptoms; K29.70 Gastritis, unspecified, without bleeding; M19.90 Unspecified osteoarthritis, unspecified site; Z87.891 Personal history of nicotine dependence; K70.40 Alcoholic hepatic failure without coma

== ENCOUNTER 2017-08-01 18:25 | Emergency (ER) | payer BC, MEDICARE ==
[2017-08-01] MEDS ORDERED: Fluconazole IV 400mg/200ml NS 200 ML IVPB STA (19:29)
[2017-08-01] MEDS ORDERED: Cefepime 2 GM in Sodium Chloride 0.9% 100 ML IVPB STA (19:29)
[2017-08-01 19:39] LABS: VENOUS BLOOD GAS BASE EXCESS -0.4 mmol/L (0.0-2.0); VENOUS BLOOD GAS PCO2 33 mmHg (40-60); VENOUS BLOOD PH 7.45 (7.32-7.43)
[2017-08-01 19:43] LABS: RBC URINE 3 /hpf (0-3); URINE BILIRUBIN NEGATIVE (NEGATIVE); URINE COLOR AMBER (YELLOW); URINE GLUCOSE (UA) NEG (Normal); URINE KETONE NEGATIVE (NEGATIVE); URINE LEUKOCYTE ESTERASE NEG Leu/uL (Negative); URINE PROTEIN 100 mg/dL (NEGATIVE); URINE UROBILINOGEN 0.2-1.0 mg/dL (0.2-1.0); WBC URINE 2 /hpf (0-5)
[2017-08-01 19:45] LABS: BASO % 0.4 % (0.0-2.0); EOS % 0.3 % (0.0-4.0); LYMPH # 0.2 K/uL (1.0-4.3); LYMPH % 1.7 % (20.0-40.0); MEAN CORPUSCULAR HEMOGLOBIN 30.7 pg (27.0-31.0); MEAN CORPUSCULAR HGB CONC 32.7 g/dL (33.0-37.0); MEAN PLATELET VOLUME 11.2 fl (7.2-11.7); MONO # 0.1 K/uL (0.0-0.8); MONO % 0.9 % (0.0-10.0); NEUT # 9.6 K/uL (1.8-7.0); NEUT % 96.7 % (50.0-75.0); NRBC % 0.1 % (0.0-0.0); RED CELL DISTRIBUTION WIDTH 13.6 % (11.5-14.5)
[2017-08-01 19:46] LABS: MEAN CELL VOLUME 94.1 fl (80.0-94.0)
[2017-08-01 19:47] LABS: PLATELET COUNT 80 K/uL (130-400)
[2017-08-01 19:48] LABS: URINE BLOOD TRACE (NEGATIVE)
[2017-08-01 19:52] LABS: ALB/GLOB RATIO 1.7 (1.0-2.1); ALKALINE PHOSPHATASE 428 U/L (38-126); ALT/SGPT 230 U/L (21-72); AST/SGOT 300 U/L (17-59); BILIRUBIN,TOTAL 3.2 mg/dl (0.2-1.3); BLOOD UREA NITROGEN 17 mg/dl (9-20); CALCIUM 9.6 mg/dL (8.4-10.2); CARBON DIOXIDE 20 mmol/L (22-30); CHLORIDE 105 mmol/L (98-107); GFR AFRICAN-AMERICAN > 60; GLUCOSE,RANDOM 124 mg/dL (75-110); MAGNESIUM 1.4 MG/DL (1.6-2.3); PHOSPHOROUS 1.5 mg/dl (2.5-4.5); POTASSIUM 3.6 MMOL/L (3.6-5.0); SODIUM 139 mmol/l (132-148); TOTAL PROTEIN 6.9 G/DL (6.3-8.2)
[2017-08-01 20:03] LABS: PARTIAL THROMBOPLASTIN TIME 24.1 Seconds (25.6-37.1)
--- NOTE | 2017-08-01 20:39 | ED PDOC ---
HPI: General Adult Time Seen by Provider: 08/01/17 19:13 Chief Complaint (Nursing): Altered Mental Status Chief Complaint (Provider): Fever History Per: Patient History/Exam Limitations: no limitations Onset/Duration Of Symptoms: Days (x1) Current Symptoms Are (Timing): Better Severity: Mild Additional Complaint(s): Moy Mckeon is a 67 year old male, with a past medical history of hypertension, who was brought to the emergency department via EMS complaining of fever associated with confusion and chills onset for 1 day. Patient recently had a liver transplant at [facility] one month ago and is currently on immunosuppressants: prograf, cellcept, and prednisone. Patient states yesterday felt fine, went to dinner but woke up with chills and was confused for an hour but is back to baseline. He denies any cough, runny nose, nausea, vomit, and diarrhea. He has abdominal pain since surgery but is getting better. PMD: None provided. Past Medical History Reviewed: Historical Data, Nursing Documentation, Vital Signs Vital Signs: Last Vital Signs Temp 98.3 F 08/01/17 21:08 Pulse 98 H 08/01/17 21:03 Resp 26 H 08/01/17 21:03 BP 138/70 08/01/17 21:03 Pulse Ox 98 08/01/17 21:54 - Medical History PMH: Arthritis, Gastritis, HTN Denies: HIV, Chronic Kidney Disease - Surgical History Surgical History: Endoscopy Denies: Pacemaker - Family History Family History: States: Unknown Family Hx - Social History Ex-Smoker (has not smoked in the last 12 months): Yes Alcohol: Occasional Drugs: Other - Home Medications Home Medications: Ambulatory Orders Medication Instructions Recorded Amoxicillin/Clavulanate [Augmentin 875 mg PO DAILY 08/01/17 875 MG-125 MG Tab] Aspirin [Lo-Dose Aspirin EC] 81 mg PO DAILY 08/01/17 Docusate [Colace] 100 mg PO TID 08/01/17 Metoprolol Tartrate [Lopressor] 12.5 mg PO BID 08/01/17 Mycophenolate Mofetil [Cellcept] 1,000 mg PO DAILY 08/01/17 Mycophenolate Mofetil [Cellcept] 500 mg PO HS 08/01/17 Pantoprazole [Protonix EC Tab] 40 mg PO DAILY 08/01/17 Polyethylene Glycol 3350 [Miralax] 17 gm PO DAILY 08/01/17 Tacrolimus [Prograf] 2 mg PO BID 08/01/17 predniSONE [predniSONE Tab] 5 mg PO DAILY 08/01/17 traMADol [Ultram] 25 mg PO Q6 08/01/17 valGANciclovir [Valcyte] 450 mg PO DAILY 08/01/17 - Allergies Allergies/Adverse Reactions: Allergies Allergy/AdvReac Type Severity Reaction Status Date / Time No Known Allergies Allergy Verified 08/01/17 19:17 Review of Systems ROS Statement: Except As Marked, All Systems Reviewed And Found Negative Constitutional: Positive for: Fever, Chills ENT: Negative for: Nose Discharge (runny nose) Respiratory: Negative for: Cough Gastrointestinal: Positive for: Abdominal Pain (due to surgery). Negative for: Nausea, Vomiting, Diarrhea Neurological: Positive for: Confusion (for about an hour) Physical Exam - Reviewed Nursing Documentation Reviewed: Yes Vital Signs Reviewed: Yes - Physical Exam Appears: Positive for: Non-toxic Head Exam: Positive for: ATRAUMATIC, NORMAL INSPECTION, NORMOCEPHALIC Skin: Positive for: Pallor, Jaundice (slight) Eye Exam: Positive for: EOMI, Normal appearance, PERRL Neck: Positive for: Normal, Painless ROM, Supple Cardiovascular/Chest: Positive for: Regular Rate, Rhythm. Negative for: Murmur Respiratory: Positive for: Normal Breath Sounds. Negative for: Respiratory Distress Gastrointestinal/Abdominal: Positive for: Tenderness (minimal to palpation), Distended (slight), Other (surgical site cleaned and well healed) Back: Positive for: Normal Inspection Extremity: Positive for: Normal ROM. Negative for: Pedal Edema, Deformity Neurologic/Psych: Positive for: Alert (x3), Oriented. Negative for: Motor/ Sensory Deficits - Laboratory Results Result Diagrams: 08/01/17 19:30 08/01/17 19:30 - ECG O2 Sat by Pulse Oximetry: 98 (RA) Pulse Ox Interpretation: Normal - Critical Care Total Time (In Min): 60 Documented Critical Care: Time excludes all time spent performint seperately billable procedures Medical Decision Making Medical Decision Making: Initial Impression: Fever of unknown source Initial Plan: --Venous Blood Gas shock panel --Head w/o contrast [CT] --EKG --Bilirubin, direct --Comp Metabolic Panel --Magnesium --Phosphorus --Troponin I ---CBC w/ differential --Chest portable [RAD] --Tylenol 650 mg PO --Diflucan 400mg/200ml NS --Maxipime 2gm IV q8 --Sodium Chloride 0.9% @ 60 ml/kg/hr --Vancomycin 1GM/NS 250ml X1DOSE --Blood culture --Urine Culture --reevaluation 8PM: Pt. took his own immunosuppresant drugs as advised by oncological nurse Mai Bonilla at [facility] transplant unit. 9PM: Pt. improving, tachycardia is resolving. Color is improving. 10PM: Transfer initiated to [facility]. Accepting physician Dr. Joey Riddle. 11PM: Ramirez at bedside, patient improved significantly with fluids and ABx. 2nd VBG with lactate drawn. Patient transferred. Scribe Attestation: Documented by Edouard Kam, acting as a scribe for Jose Esposito MD Provider Scribe Attestation: All medical record entries made by the Scribe were at my direction and personally dictated by me. I have reviewed the chart and agree that the record accurately reflects my personal performance of the history, physical exam, medical decision making, and the department course for this patient. I have also personally directed, reviewed, and agree with the discharge instructions and disposition. Disposition - Clinical Impression Clinical Impression: Sepsis, Fever - Disposition Disposition: Other Institution ([facility]) Disposition Time: 23:16 Condition: STABLE Forms: [employer] (Irish)
[2017-08-01 20:54] LABS: EOSINOPHIL 1 % (0-7); NEUTROPHIL 87 % (42-75); TOTAL CELLS COUNTED 100
[2017-08-01 20:55] LABS: LARGE PLATELETS PRESENT
[2017-08-01 21:04] VITALS: PULSE 98
[2017-08-01] MEDS ORDERED: Vancomycin 1 g Inj ONE (21:20)
[2017-08-01 21:54] VITALS: O2SAT 98
[2017-08-01 23:03] VITALS: TEMP 98.3
--- NOTE | 2017-08-01 23:03 | CT ---
EXAM: CT Head Without Intravenous Contrast CLINICAL HISTORY: 67 years old, male; Pain; Headache; Other: Fever, immunocompromised, confusion; Patient HX: Liver transplant at [facility] 1 month ago TECHNIQUE: Axial computed tomography images of the head/brain without intravenous contrast. All CT scans at this facility use one or more dose reduction techniques, viz.: automated exposure control; ma/kV adjustment per patient size (including targeted exams where dose is matched to indication; i.e. head); or iterative reconstruction technique. Coronal and sagittal reformatted images were created and reviewed. COMPARISON: CT - HEAD W/O CONTRAST 01/02/2015 4:36:13 PM FINDINGS: Brain: Mild atrophy. No intracranial hemorrhage. No mass. Several scattered foci of decreased attenuation within periventricular/subcortical white matter. No definite edema. Ventricles: No hydrocephalus. Bones/joints: No acute fracture. Soft tissues: Unremarkable. Vasculature: Atherosclerotic disease of intracranial arteries. Sinuses: Scattered minimal mucosal thickening of ethmoid sinuses. Tiny air-fluid level within RIGHT maxillary sinus. Mastoid air cells: No mastoid effusion. Orbits: Unremarkable as visualized. IMPRESSION: 1. Nonspecific white matter changes. Acute infarction may be CT occult within first 24 hours. If a focal deficit persists, consider followup CT or MRI for further evaluation. 2. Sinus disease. 3. Incidental/non-acute findings are described above.
[2017-08-01 23:16] LABS: VENOUS BLOOD GAS PCO2 40 mmHg (40-60); VENOUS BLOOD PH 7.37 (7.32-7.43)
[2017-08-01 23:17] VITALS: BP 135/70; RESP 22
--- NOTE | 2017-08-02 08:34 | CARD ---
APPROVED REPORT EKG Measurement Heart [id number] CT [id number] [id number] <Conclusion> Sinus tachycardia Nonspecific ST abnormality Abnormal ECG
--- NOTE | 2017-08-02 14:16 | RAD ---
HISTORY: Sepsis Patient COMPARISON: 03/24/2017 FINDINGS: LUNGS: No active pulmonary disease. PLEURA: No significant pleural effusion identified, no pneumothorax apparent. CARDIOVASCULAR: No radiographic findings to suggest acute or significant cardiovascular disease. OSSEOUS STRUCTURES: No significant abnormalities. VISUALIZED UPPER ABDOMEN: Normal. OTHER FINDINGS: None. IMPRESSION: No active disease. No significant interval change compared to the prior examination(s).
== END 2017-08-01 23:05 | disposition short-term general hospital (02) ==
LOC: H.ER 18:25
DX: A41.9 Sepsis, unspecified organism (principal); R50.9 Fever, unspecified; Z94.4 Liver transplant status
CPT/HCPCS: 70450; 71010; 80053; 81003; 82248; 82803; 83735; 84100; 84484; 85025; 85610; 85730; 87040; 87070; 87086; 87205; 87430; 87804; 93005; 96365; 99285; J0692; J7040

== ENCOUNTER 2017-08-16 18:10 | Emergency (ER) | payer MEDICARE ==
[2017-08-16 18:10] VITALS: BMI 32.5
[2017-08-16 19:21] LABS: VENOUS BLOOD GAS PCO2 51 mmHg (40-60); VENOUS BLOOD PH 7.38 (7.32-7.43)
[2017-08-16 19:28] LABS: BASO # 0.1 K/uL (0.0-0.2); BASO % 0.6 % (0.0-2.0); EOS % 0.3 % (0.0-4.0); HEMATOCRIT 37.9 % (35.0-51.0); LYMPH # 0.3 K/uL (1.0-4.3); LYMPH % 3.3 % (20.0-40.0); MEAN CELL VOLUME 93.9 fl (80.0-94.0); MEAN PLATELET VOLUME 10.4 fl (7.2-11.7); MONO # 0.6 K/uL (0.0-0.8); NEUT # 8.8 K/uL (1.8-7.0); NEUT % 89.8 % (50.0-75.0); NRBC % 0.2 % (0.0-0.0); PLATELET COUNT 100 K/uL (130-400); WHITE BLOOD COUNT 9.8 K/uL (4.8-10.8)
[2017-08-16 19:37] LABS: ALB/GLOB RATIO 1.5 (1.0-2.1); ALKALINE PHOSPHATASE 503 U/L (38-126); ALT/SGPT 107 U/L (21-72); AMYLASE 80 U/L (30-110); AST/SGOT 160 U/L (17-59); BILIRUBIN,TOTAL 3.7 mg/dl (0.2-1.3); BLOOD UREA NITROGEN 15 mg/dl (9-20); CALCIUM 9.1 mg/dL (8.4-10.2); CARBON DIOXIDE 24 mmol/L (22-30); CHLORIDE 102 mmol/L (98-107); GFR AFRICAN-AMERICAN > 60; GLUCOSE,RANDOM 120 mg/dL (75-110); LIPASE 79 U/L (23-300); MAGNESIUM 1.6 MG/DL (1.6-2.3); SODIUM 140 mmol/l (132-148); TOTAL PROTEIN 6.6 G/DL (6.3-8.2)
[2017-08-16 19:43] LABS: POTASSIUM 4.3 MMOL/L (3.6-5.0)
[2017-08-16] MEDS ORDERED: Sodium Chloride 0.9% 1,000 ML IV STA (19:49)
[2017-08-16] MEDS ORDERED: Piperacillin/Tazobact 3.375 GM in Sodium Chloride 0.9% 100 ML IV STA (19:50)
[2017-08-16] MEDS ORDERED: Piperacillin/Tazobact 3.375 gm Inj IVPB ONE (20:03)
[2017-08-16 20:28] LABS: PARTIAL THROMBOPLASTIN TIME 28.1 Seconds (25.6-37.1)
[2017-08-16 21:35] LABS: BASOPHIL 1 % (0-2); EOSINOPHIL 1 % (0-7); NEUTROPHIL 86 % (42-75); TOTAL CELLS COUNTED 100
[2017-08-16 21:36] LABS: SMUDGE CELLS PRESENT
[2017-08-16 21:39] LABS: RBC URINE 3 /hpf (0-3); URINE BACTERIA RARE (<OCC); URINE BILIRUBIN NEGATIVE (NEGATIVE); URINE BLOOD NEGATIVE (NEGATIVE); URINE COLOR AMBER (YELLOW); URINE GLUCOSE (UA) NEG (Normal); URINE KETONE NEGATIVE (NEGATIVE); URINE LEUKOCYTE ESTERASE NEG Leu/uL (Negative); URINE PROTEIN NEGATIVE (NEGATIVE); URINE UROBILINOGEN 0.2-1.0 mg/dL (0.2-1.0); WBC URINE < 1 /hpf (0-5)
[2017-08-16] MEDS ORDERED: Iohexol 300 100 ML IJ ONE (21:47)
[2017-08-16] MEDS ORDERED: Sodium Chloride 0.9% 50 ML IV ONE (21:47)
--- NOTE | 2017-08-16 22:18 | ED PDOC ---
HPI: General Adult Time Seen by Provider: 08/16/17 18:32 Chief Complaint (Nursing): Fever Chief Complaint (Provider): fever History Per: Patient, Family History/Exam Limitations: no limitations Onset/Duration Of Symptoms: Days (1), Persistent Current Symptoms Are (Timing): Still Present Additional Complaint(s): Associated malaise and fatigue and body aches. Also reports mild rhinorrhea and nonproductive cough. Pt post liver transplant 3 months ago. Recent admission for fever and discovered to have colitis. Denies diarrhea or abdominal pain. PMD Dr Gomez Surg transplant: Dr Yokasta DIEHL Past Medical History Reviewed: Historical Data, Nursing Documentation, Vital Signs Vital Signs: Last Vital Signs Temp 99.1 F 08/16/17 23:45 Pulse 88 08/16/17 23:45 Resp 17 08/16/17 23:45 BP 122/63 08/16/17 23:45 Pulse Ox 96 08/16/17 23:55 - Medical History PMH: Arthritis, Gastritis, HTN Denies: HIV, Chronic Kidney Disease - Surgical History Surgical History: Endoscopy Denies: Pacemaker - Family History Family History: States: Unknown Family Hx - Social History Current smoker - smoking cessation education provided: No Alcohol: None - Home Medications Home Medications: Ambulatory Orders Medication Instructions Recorded Amoxicillin/Clavulanate [Augmentin 875 mg PO DAILY 08/01/17 875 MG-125 MG Tab] Aspirin [Lo-Dose Aspirin EC] 81 mg PO DAILY 08/01/17 Docusate [Colace] 100 mg PO TID 08/01/17 Metoprolol Tartrate [Lopressor] 25 mg PO BID 08/01/17 Mycophenolate Mofetil [Cellcept] 1,000 mg PO DAILY 08/01/17 Mycophenolate Mofetil [Cellcept] 500 mg PO HS 08/01/17 Pantoprazole [Protonix EC Tab] 40 mg PO DAILY 08/01/17 Polyethylene Glycol 3350 [Miralax] 17 gm PO DAILY 08/01/17 Tacrolimus [Prograf] 2 mg PO BID 08/01/17 predniSONE [predniSONE Tab] 5 mg PO DAILY 08/01/17 traMADol [Ultram] 25 mg PO Q6 08/01/17 valGANciclovir [Valcyte] 450 mg PO DAILY 08/01/17 - Allergies Allergies/Adverse Reactions: Allergies Allergy/AdvReac Type Severity Reaction Status Date / Time No Known Allergies Allergy Verified 08/01/17 19:17 Review of Systems ROS Statement: Except As Marked, All Systems Reviewed And Found Negative (and as per HPI) Constitutional: Positive for: Fever, Weakness, Malaise ENT: Positive for: Nose Discharge Respiratory: Positive for: Cough Gastrointestinal: Negative for: Abdominal Pain Physical Exam - Reviewed Nursing Documentation Reviewed: Yes Vital Signs Reviewed: Yes - Physical Exam Appears: Positive for: Non-toxic, In Acute Distress Head Exam: Positive for: ATRAUMATIC, NORMOCEPHALIC Skin: Positive for: Warm, Dry Eye Exam: Positive for: EOMI, PERRL ENT: Positive for: Other (tacky mucus membrances) Neck: Positive for: Painless ROM, Supple Cardiovascular/Chest: Positive for: Tachycardia. Negative for: Murmur Respiratory: Positive for: Normal Breath Sounds. Negative for: Wheezing, Respiratory Distress Gastrointestinal/Abdominal: Positive for: Soft. Negative for: Tenderness, Mass , Distended, Guarding Back: Positive for: Normal Inspection. Negative for: Muscle Spasm Extremity: Positive for: Normal ROM. Negative for: Deformity Lymphatic: Negative for: Adenopathy Neurologic/Psych: Positive for: Alert. Negative for: Motor/Sensory Deficits - Laboratory Results Result Diagrams: 08/16/17 19:15 08/16/17 19:15 Interpretation Of Abn Labs: Transaminases, LDH, bili and alk phos elevated. WBC 9. Lactic acid 1.6. Sepsis without septic shock - ECG ECG: Positive for: Interpreted By Me ECG Rhythm: Positive for: Normal QRS, Normal ST Segment, Sinus Tachycardia O2 Sat by Pulse Oximetry: 96 Pulse Ox Interpretation: Normal - Radiology X-Ray: Interpreted by Me X-Ray Interpretation: No Acute Disease - Progress ED Course And Treament: CT Scan ABD PELVIS IV CONTRAST ONLY Exam Date: 08/16/17 This imaging exam was performed at [facility] ADDENDUM Addendum created by Berenice Yancey MD on 08/16/2017 10:49:42 PM EDT Findings were discussed with Merlyn Zhao at 10:49 PM EDT on 08/16/2017. Initial report created on 08/16/2017 10:40:47 PM EDT EXAM: CT Abdomen and Pelvis With Intravenous Contrast EXAM DATE/TIME: 08/16/2017 8:38 PM CLINICAL HISTORY: 67 years old, male; Condition or disease; Liver condition; Cirrhosis and other: Liver transplant, april 2017; Prior surgery; Surgery date: 6+ months; Additional info: Fever h/o sbo TECHNIQUE: Axial computed tomography images of the abdomen and pelvis with intravenous contrast. All CT scans at this facility use one or more dose reduction techniques, viz.: automated exposure control; ma/kV adjustment per patient size (including targeted exams where dose is matched to indication; i.e. head); or iterative reconstruction technique. Coronal and sagittal reformatted images were created and reviewed. CONTRAST: 95 mL of [id number] administered intravenously. COMPARISON: CT - ABD PELVIS PO IV CONTRAST 03/24/2017 2:22:39 AM FINDINGS: Lower thorax: The heart is mildly enlarged. There is patchy airspace disease at the lung bases. There is been interval decrease in the size of the pleural effusions. There is a small right effusion. There is only trace left effusion. There is a small hiatal hernia. ABDOMEN: Liver: [place] liver has been resected. There is transplanted liver in the right upper quadrant. There is fatty infiltration of the liver There is periportal edema. There is a small hepatic cyst. Gallbladder and bile ducts: Gallbladder is surgically absent. Common duct is dilated 12 mm in diameter. There is increased attenuation debris in the distal duct. Pancreas: Pancreas is atrophic. Spleen: There is been interval increase in the degree of splenomegaly. Spleen now measures approximately 18 cm in length. There are geographic areas of decreased perfusion suggesting infarcts. Adrenals: There is mild adrenal thickening bilaterally. Kidneys and ureters: There is small renal cysts. Kidneys and ureters are otherwise unremarkable. Stomach and bowel: Stomach is incompletely distended which accentuates the gastric wall. There is mild gastric wall enhancement. There is a small lipoma in the wall of the duodenal cap. There is mild duodenal wall and fold thickening. There is mild jejunal wall and fold thickening. There are distended small bowel loops in the midabdomen. There is fluid throughout the small bowel. Distention decreases distally. Appendix and terminal ileum are unremarkable.Colon is incompletely distended which limits evaluation. Appendix: See above PELVIS: Bladder: The bladder is incompletely distended. There is mild bladder wall thickening. Reproductive: Seminal vesicles and prostate are unremarkable. ABDOMEN and PELVIS: Intraperitoneal space: There is ascites in the abdomen and pelvis. There is fluid tracking into a right inguinal hernia. Bones/joints: Bony structures are osteopenic.There are degenerative changes in the osseus structures. There is an old left rib fracture. There is a bone island in the left femoral neck. Soft tissues: There is a right inguinal hernia containing ascitic fluid. There is a small umbilical hernia containing fluid. Vasculature: There are vascular calcifications. There are multiple collateral vessels in the epigastric region. There are multiple phleboliths. Lymph nodes: There is shotty adenopathy. IMPRESSION: Postsurgical changes of liver transplant; dilated common duct with hyper attenuating debris in the distal duct sludge versus stones; periportal edema; interval increase in degree of splenomegaly now with perfusion defects suggesting infarcts; possible gastric varices; gastric and proximal small bowel wall and fold thickening suggests gastroenteritis; interval increase in ascites; continued pleural effusions and basilar airspace disease Addendum Dictated By: Berenice Yancey MD Addendum Dictated Date Time:08/16/1701/01/2249 Addendum Signed by:Berenice Yancey MD Addendum signed Date Time: 08/16/172248 Addendum Transcribed By: ROSEY Addendum Transcribed Date Time: 08/16/1701/01/2249 STANLEY/JOSE ANTONIO EXAM: CT Abdomen and Pelvis With Intravenous Contrast EXAM DATE/TIME: 08/16/2017 8:38 PM CLINICAL HISTORY: 67 years old, male; Condition or disease; Liver condition; Cirrhosis and other: Liver transplant, april 2017; Prior surgery; Surgery date: 6+ months; Additional info: Fever h/o sbo TECHNIQUE: Axial computed tomography images of the abdomen and pelvis with intravenous contrast. All CT scans at this facility use one or more dose reduction techniques, viz.: automated exposure control; ma/kV adjustment per patient size (including targeted exams where dose is matched to indication; i.e. head); or iterative reconstruction technique. Coronal and sagittal reformatted images were created and reviewed. CONTRAST: 95 mL of [id number] administered intravenously. COMPARISON: CT - ABD PELVIS PO IV CONTRAST 03/24/2017 2:22:39 AM FINDINGS: Lower thorax: The heart is mildly enlarged. There is patchy airspace disease at the lung bases. There is been interval decrease in the size of the pleural effusions. There is a small right effusion. There is only trace left effusion. There is a small hiatal hernia. ABDOMEN: Liver: [place] liver has been resected. There is transplanted liver in the right upper quadrant. There is fatty infiltration of the liver There is periportal edema. There is a small hepatic cyst. Gallbladder and bile ducts: Gallbladder is surgically absent. Common duct is dilated 12 mm in diameter. There is increased attenuation debris in the distal duct. Pancreas: Pancreas is atrophic. Spleen: There is been interval increase in the degree of splenomegaly. Spleen now measures approximately 18 cm in length. There are geographic areas of decreased perfusion suggesting infarcts. Adrenals: There is mild adrenal thickening bilaterally. Kidneys and ureters: There is small renal cysts. Kidneys and ureters are otherwise unremarkable. Stomach and bowel: Stomach is incompletely distended which accentuates the gastric wall. There is mild gastric wall enhancement. There is a small lipoma in the wall of the duodenal cap. There is mild duodenal wall and fold thickening. There is mild jejunal wall and fold thickening. There are distended small bowel loops in the midabdomen. There is fluid throughout the small bowel. Distention decreases distally. Appendix and terminal ileum are unremarkable.Colon is incompletely distended which limits evaluation. Appendix: See above PELVIS: Bladder: The bladder is incompletely distended. There is mild bladder wall thickening. Reproductive: Seminal vesicles and prostate are unremarkable. ABDOMEN and PELVIS: Intraperitoneal space: There is ascites in the abdomen and pelvis. There is fluid tracking into a right inguinal hernia. Bones/joints: Bony structures are osteopenic.There are degenerative changes in the osseus structures. There is an old left rib fracture. There is a bone island in the left femoral neck. Soft tissues: There is a right inguinal hernia containing ascitic fluid. There is a small umbilical hernia containing fluid. Vasculature: There are vascular calcifications. There are multiple collateral vessels in the epigastric region. There are multiple phleboliths. Lymph nodes: There is shotty adenopathy. IMPRESSION: Postsurgical changes of liver transplant; dilated common duct with hyper attenuating debris in the distal duct sludge versus stones; periportal edema; interval increase in degree of splenomegaly now with perfusion defects suggesting infarcts; possible gastric varices; gastric and proximal small bowel wall and fold thickening suggests gastroenteritis; interval increase in ascites; continued pleural effusions and basilar airspace disease Dictated By: Berenice Yancey MD, MD Dictated Date/Time: 08/16/172239 Signed By: Berenice Yancey MD Date Signed: [id number] Transcribed By: ROSEY Transcribe Date/Time : 08/16/172239 STANLEY/JOSE ANTONIO Aguirre admissions coordinator and Dr Templeton. Pt [facility] be [facility] for further evaluation and management. LORAINE pt findings and plan of care. - Critical Care Total Time (In Min): 45 Documented Critical Care: Time excludes all time spent performint seperately billable procedures Disposition - Clinical Impression Clinical Impression: Status post liver transplant, Fever, Sepsis Counseled Patient/Family Regarding: Studies Performed, Diagnosis - Disposition Disposition: Other Institution Disposition Time: 23:00 Condition: FAIR Forms: [employer] (Indonesian)
--- NOTE | 2017-08-16 22:41 | CT ---
EXAM: CT Abdomen and Pelvis With Intravenous Contrast EXAM DATE/TIME: 08/16/2017 8:38 PM CLINICAL HISTORY: 67 years old, male; Condition or disease; Liver condition; Cirrhosis and other: Liver transplant, april 2017; Prior surgery; Surgery date: 6+ months; Additional info: Fever h/o sbo TECHNIQUE: Axial computed tomography images of the abdomen and pelvis with intravenous contrast. All CT scans at this facility use one or more dose reduction techniques, viz.: automated exposure control; ma/kV adjustment per patient size (including targeted exams where dose is matched to indication; i.e. head); or iterative reconstruction technique. Coronal and sagittal reformatted images were created and reviewed. CONTRAST: 95 mL of [id number] administered intravenously. COMPARISON: CT - ABD PELVIS PO IV CONTRAST 03/24/2017 2:22:39 AM FINDINGS: Lower thorax: The heart is mildly enlarged. There is patchy airspace disease at the lung bases. There is been interval decrease in the size of the pleural effusions. There is a small right effusion. There is only trace left effusion. There is a small hiatal hernia. ABDOMEN: Liver: [place] liver has been resected. There is transplanted liver in the right upper quadrant. There is fatty infiltration of the liver There is periportal edema. There is a small hepatic cyst. Gallbladder and bile ducts: Gallbladder is surgically absent. Common duct is dilated 12 mm in diameter. There is increased attenuation debris in the distal duct. Pancreas: Pancreas is atrophic. Spleen: There is been interval increase in the degree of splenomegaly. Spleen now measures approximately 18 cm in length. There are geographic areas of decreased perfusion suggesting infarcts. Adrenals: There is mild adrenal thickening bilaterally. Kidneys and ureters: There is small renal cysts. Kidneys and ureters are otherwise unremarkable. Stomach and bowel: Stomach is incompletely distended which accentuates the gastric wall. There is mild gastric wall enhancement. There is a small lipoma in the wall of the duodenal cap. There is mild duodenal wall and fold thickening. There is mild jejunal wall and fold thickening. There are distended small bowel loops in the midabdomen. There is fluid throughout the small bowel. Distention decreases distally. Appendix and terminal ileum are unremarkable.Colon is incompletely distended which limits evaluation. Appendix: See above PELVIS: Bladder: The bladder is incompletely distended. There is mild bladder wall thickening. Reproductive: Seminal vesicles and prostate are unremarkable. ABDOMEN and PELVIS: Intraperitoneal space: There is ascites in the abdomen and pelvis. There is fluid tracking into a right inguinal hernia. Bones/joints: Bony structures are osteopenic.There are degenerative changes in the osseus structures. There is an old left rib fracture. There is a bone island in the left femoral neck. Soft tissues: There is a right inguinal hernia containing ascitic fluid. There is a small umbilical hernia containing fluid. Vasculature: There are vascular calcifications. There are multiple collateral vessels in the epigastric region. There are multiple phleboliths. Lymph nodes: There is shotty adenopathy. IMPRESSION: Postsurgical changes of liver transplant; dilated common duct with hyper attenuating debris in the distal duct sludge versus stones; periportal edema; interval increase in degree of splenomegaly now with perfusion defects suggesting infarcts; possible gastric varices; gastric and proximal small bowel wall and fold thickening suggests gastroenteritis; interval increase in ascites; continued pleural effusions and basilar airspace disease
[2017-08-16] MEDS ORDERED: Dextrose 5%/0.9% NS 1,000 ML IV SCH (23:45)
[2017-08-16 23:46] VITALS: RESP 17
[2017-08-17 01:36] VITALS: BP 107/70; PULSE 87; TEMP 98; O2SAT 100
--- NOTE | 2017-08-17 08:36 | RAD ---
HISTORY: Fever Technique: Single view portable semi erect @ 19:47 COMPARISON: 08/01/2017 FINDINGS: LUNGS: No active pulmonary disease. PLEURA: No significant pleural effusion identified, no pneumothorax apparent. CARDIOVASCULAR: No radiographic findings to suggest acute or significant cardiovascular disease. OSSEOUS STRUCTURES: No significant abnormalities. VISUALIZED UPPER ABDOMEN: Normal. OTHER FINDINGS: None. IMPRESSION: No active disease. No significant interval change compared to the prior examination(s). Please note: No preliminary report/ innterpretation of this examination provided by emergency department personnel.
--- NOTE | 2017-08-18 01:18 | CARD ---
APPROVED REPORT EKG Measurement Heart [id number] <Conclusion> Sinus tachycardia Septal infarct, age undetermined Abnormal ECG
== END 2017-08-17 02:44 | disposition short-term general hospital (02) ==
LOC: H.ER 18:10
DX: A41.9 Sepsis, unspecified organism (principal); R50.9 Fever, unspecified; Z94.4 Liver transplant status; I10 Essential (primary) hypertension; Z87.891 Personal history of nicotine dependence
CPT/HCPCS: 71010; 74177; 80053; 81003; 82140; 82150; 82803; 83615; 83690; 83735; 84100; 85025; 85610; 85730; 86850; 86900; 87040; 87086; 87205; 87804; 93005; 96374; 99284; J2543; J7040; Q9967

== ENCOUNTER 2018-06-09 00:51 | Observation (INO) | payer MEDICARE, BC ==
[2018-06-09 00:52] VITALS: BMI 32.5
--- NOTE | 2018-06-09 01:45 | ED PDOC ---
HPI: Fever Fever Onset Was: 06/07/18 (Tmax 101) What Antipyretic Given Prior To Arrival: Acetaminophen Additional Comments: 67 year old male with a history of liver cirrhosis, liver CA, 1 year s/p liver transplant, and htn presents to the ED with a fever onset 2 days. Patient took Tylenol with some relief and had a Tmax of 101. He has a productive cough with yellow phlegm, chills and a normal appetite but denies nausea, vomiting and diarrhea. PMD: Dr. Gomez Past Medical History Reviewed: Historical Data, Nursing Documentation, Vital Signs Vital Signs: Last Vital Signs Temp 99.6 F 06/09/18 01:15 Pulse 72 06/09/18 01:15 Resp 18 06/09/18 01:15 BP Pulse Ox 96 06/09/18 01:49 - Medical History PMH: Arthritis, Gastritis, HTN Denies: HIV, Chronic Kidney Disease Other PMH: Liver cirrhosis/Liver CA - Surgical History Surgical History: Endoscopy Denies: Pacemaker Other surgeries: liver transplant - Family History Family History: States: Unknown Family Hx - Social History Current smoker - smoking cessation education provided: No Ex-Smoker (has not smoked in the last 12 months): No Alcohol: None Drugs: Denies - Home Medications Home Medications: Ambulatory Orders Medication Instructions Recorded Amoxicillin/Clavulanate [Augmentin 875 mg PO DAILY 08/01/17 875 MG-125 MG Tab] Aspirin [Lo-Dose Aspirin EC] 81 mg PO DAILY 08/01/17 Docusate [Colace] 100 mg PO TID 08/01/17 Metoprolol Tartrate [Lopressor] 25 mg PO BID 08/01/17 Mycophenolate Mofetil [Cellcept] 1,000 mg PO DAILY 08/01/17 Mycophenolate Mofetil [Cellcept] 500 mg PO HS 08/01/17 Pantoprazole [Protonix EC Tab] 40 mg PO DAILY 08/01/17 Polyethylene Glycol 3350 [Miralax] 17 gm PO DAILY 08/01/17 Tacrolimus [Prograf] 2 mg PO BID 08/01/17 predniSONE [predniSONE Tab] 5 mg PO DAILY 08/01/17 traMADol [Ultram] 25 mg PO Q6 08/01/17 valGANciclovir [Valcyte] 450 mg PO DAILY 08/01/17 - Allergies Allergies/Adverse Reactions: Allergies Allergy/AdvReac Type Severity Reaction Status Date / Time No Known Allergies Allergy Verified 06/09/18 01:15 Review of Systems ROS Statement: Except As Marked, All Systems Reviewed And Found Negative Constitutional: Positive for: Fever, Chills Respiratory: Positive for: Cough (with yellow phlegm) Physical Exam - Reviewed Nursing Documentation Reviewed: Yes Vital Signs Reviewed: Yes - Physical Exam Appears: Positive for: Non-toxic, No Acute Distress Head Exam: Positive for: ATRAUMATIC, NORMOCEPHALIC Skin: Positive for: Normal Color, Warm, Dry Eye Exam: Positive for: EOMI, Normal appearance, PERRL Neck: Positive for: Normal, Painless ROM Cardiovascular/Chest: Positive for: Regular Rate, Rhythm. Negative for: Murmur Respiratory: Positive for: Wheezing (slight on left base) Gastrointestinal/Abdominal: Positive for: Normal Exam, Soft. Negative for: Tenderness Extremity: Positive for: Normal ROM (upper and lower) Neurologic/Psych: Positive for: Alert, Oriented (x3) - Laboratory Results Result Diagrams: 06/09/18 01:45 06/09/18 01:45 - ECG O2 Sat by Pulse Oximetry: 96 (RA) Pulse Ox Interpretation: Normal Medical Decision Making Medical Decision Making: Time: 1:34 Initial Impression: 67 y/o male with febrile illness in setting of immunosuppression Initial Plan: --Labs --XR Time: 3:02 --CXR demonstrates a right lower lobe infiltrate. Patient will be admitted for treatment of pneumonia given underlying history of immunosuppression s/p liver transplant under the care of Dr. Burks, covering for Dr. Rai. Scribe Attestation: Documented by Yesi Rodriguez, acting as a scribe for Michael Ruano MD Provider Scribe Attestation: All medical record entries made by the Scribe were at my direction and personally dictated by me. I have reviewed the chart and agree that the record accurately reflects my personal performance of the history, physical exam, medical decision making, and the department course for this patient. I have also personally directed, reviewed, and agree with the discharge instructions and disposition. Disposition - Clinical Impression Clinical Impression: Pneumonia - Patient ED Disposition Is Patient to be Admitted: Yes Discussed With : Dana Burks Counseled Patient/Family Regarding: Studies Performed, Diagnosis - Disposition Disposition Time: 03:02 Condition: FAIR
[2018-06-09 02:00] LABS: BASO % 0.5 % (0.0-2.0); EOS # 0.2 K/uL (0.0-0.7); EOS % 1.9 % (0.0-4.0); HEMOGLOBIN 11.7 g/dL (12.0-18.0); LYMPH # 0.8 K/uL (1.0-4.3); LYMPH % 8.6 % (20.0-40.0); MEAN CELL VOLUME 93.7 fl (80.0-94.0); MEAN CORPUSCULAR HEMOGLOBIN 33.5 pg (27.0-31.0); MEAN CORPUSCULAR HGB CONC 35.8 g/dL (33.0-37.0); MONO # 1.4 K/uL (0.0-0.8); MONO % 16.1 % (0.0-10.0); NEUT # 6.4 K/uL (1.8-7.0); NEUT % 72.9 % (50.0-75.0); PLATELET COUNT 92 K/uL (130-400); RBC 3.49 Mil/uL (4.40-5.90); RED CELL DISTRIBUTION WIDTH 13.1 % (11.5-14.5); WHITE BLOOD COUNT 8.8 K/uL (4.8-10.8)
[2018-06-09 02:10] LABS: INR 1.9 (0.9-1.2); PARTIAL THROMBOPLASTIN TIME 42.3 Seconds (25.6-37.1); PROTHROMBIN TIME 20.8 Seconds (9.8-13.1)
[2018-06-09 02:22] LABS: ALBUMIN 3.4 g/dL (3.5-5.0); ALT/SGPT 72 U/L (21-72); AST/SGOT 70 U/L (17-59); BLOOD UREA NITROGEN 29 mg/dl (9-20); GFR NON-AFRICAN AMERICAN > 60
[2018-06-09] MEDS ORDERED: levoFLOXacin 500 mg in D5W 500 MG/100 ML BAG IVPB STA (02:57)
[2018-06-09] MEDS ORDERED: levoFLOXacin 500 mg in D5W 500 MG/100 ML BAG IVPB ONE (03:17)
--- NOTE | 2018-06-09 04:24 | CP.PCM.HP ---
History of Present Illness - History of Present Illness History of Present Illness: 66M PMH s/p liver transplant appx 1-2 years ago, HTN, BPH, hx liver cirrhosis presents with a one day history of mildly worsening cough associated with yellow and white sputum. No dyspnea, no wheezing or crackles. Patient reports of fever of 101 at home, however is afebrile in the hospital. CXR shows possible R sided lower lobe pneumonia. Patient received Levaquin in ED. Will obs patient for possible worsening of symptoms, however can likely go home on PO meds in AM with possibly Omnicef or Levaquin. ROS: per HPI all other systems reviewed and negative PMD: Dr. Gomez PMH: S/P liver transplant, Choledocolitihiasis with Cholecystitis, SBO, HTN, Liver cirrhosis s/p TIPS, BPH, Gastritis, Arthritis PSH: TIPS, Common bile duct stent placement and removal, Endoscopy 03/2017 SH: Quit Alcohol 12 years ago, Former Smoker, Quit Substance abuse 12 years ago FH: No known family History Allergies: NKDA Present on Admission - Present on Admission Any Indicators Present on Admission: No Past Patient History - Infectious Disease Hx of Infectious Diseases: None - Tetanus Immunizations Tetanus Immunization: Unknown - Past Medical History & Family History Past Medical History?: Yes - Past Social History Alcohol: None Drugs: Denies - CARDIAC Hx Hypertension: Yes Hx Pacemaker: No - PULMONARY Hx Respiratory Disorders: No - NEUROLOGICAL Hx Neurological Disorder: No Other/Comment: forgetful - HEENT Hx HEENT Problems: Yes Hx Deafness: Yes - RENAL Hx Chronic Kidney Disease: No - ENDOCRINE/METABOLIC Hx Endocrine Disorders: No - HEMATOLOGICAL/ONCOLOGICAL Hx Human Immunodeficiency Virus (HIV): No - INTEGUMENTARY Hx Dermatological Problems: No - MUSCULOSKELETAL/RHEUMATOLOGICAL Hx Arthritis: Yes - GASTROINTESTINAL Hx Gastritis: Yes - GENITOURINARY/GYNECOLOGICAL Other/Comment: Double hernia - PSYCHIATRIC Hx Psychophysiologic Disorder: Yes Hx Substance Use: Yes (Former drug user. Sts "Used whatever was available".) Other/Comment: ETOH abuse (sober 9 years) - SURGICAL HISTORY Hx Liver Transplant: Yes - ANESTHESIA Hx Anesthesia: Yes Hx Anesthesia Reactions: No Hx Malignant Hyperthermia: No Meds Allergies/Adverse Reactions: Allergies Allergy/AdvReac Type Severity Reaction Status Date / Time No Known Allergies Allergy Verified 06/09/18 01:15 Physical Exam - Constitutional Appears: Non-toxic, No Acute Distress - Head Exam Head Exam: ATRAUMATIC, NORMOCEPHALIC - Eye Exam Eye Exam: EOMI, Normal appearance, PERRL - ENT Exam ENT Exam: Mucous Membranes Moist, Normal Oropharynx - Respiratory Exam Respiratory Exam: Clear to Auscultation Bilateral, NORMAL BREATHING PATTERN - Cardiovascular Exam Cardiovascular Exam: RRR, +S1, +S2 - GI/Abdominal Exam GI & Abdominal Exam: Normal Bowel Sounds, Soft. absent: Mass, Organomegaly, Tenderness - Extremities Exam Extremities exam: Positive for: normal capillary refill, pedal pulses present - Back Exam Back exam: absent: CVA tenderness (L), CVA tenderness (R) - Neurological Exam Neurological exam: Alert, Oriented x3 - Psychiatric Exam Psychiatric exam: Normal Affect, Normal Mood - Skin Skin Exam: Dry, Warm Results - Vital Signs Recent Vital Signs: Last Vital Signs Temp 99.6 F 06/09/18 01:15 Pulse 72 06/09/18 01:15 Resp 18 06/09/18 01:15 BP 115/64 06/09/18 01:15 Pulse Ox 96 06/09/18 03:04 - Labs Result Diagrams: 06/09/18 01:45 06/09/18 01:45 Labs: Laboratory Results - last 24 hr 06/09/18 06/09/18 06/09/18 01:45 01:45 01:45 WBC 8.8 RBC 3.49 L Hgb 11.7 L Hct 32.7 L MCV 93.7 MCH 33.5 H MCHC 35.8 RDW 13.1 Plt Count 92 L MPV 10.0 Neut % (Auto) 72.9 Lymph % (Auto) 8.6 L [place] % (Auto) 16.1 H Eos % (Auto) 1.9 Baso % (Auto) 0.5 Neut # (Auto) 6.4 Lymph # (Auto) 0.8 L [place] # (Auto) 1.4 H Eos # (Auto) 0.2 Baso # (Auto) 0.0 PT INR APTT Sodium 135 Potassium 4.7 Chloride 106 Carbon Dioxide 22 Anion Gap 12 BUN 29 H Creatinine 1.2 Est GFR ( Amer) > 60 Est GFR (Non-Af Amer) > 60 Random Glucose 154 H Lactic Acid 0.7 Calcium 8.0 L Total Bilirubin 1.7 H AST 70 H D ALT 72 D Alkaline Phosphatase 210 H D Total Protein 6.9 Albumin 3.4 L Globulin 3.5 Albumin/Globulin Ratio 1.0 06/09/18 01:45 WBC RBC Hgb Hct MCV MCH MCHC RDW Plt Count MPV Neut % (Auto) Lymph % (Auto) [place] % (Auto) Eos % (Auto) Baso % (Auto) Neut # (Auto) Lymph # (Auto) [place] # (Auto) Eos # (Auto) Baso # (Auto) PT 20.8 H INR 1.9 H APTT 42.3 H Sodium Potassium Chloride Carbon Dioxide Anion Gap BUN Creatinine Est GFR ( Amer) Est GFR (Non-Af Amer) Random Glucose Lactic Acid Calcium Total Bilirubin AST ALT Alkaline Phosphatase Total Protein Albumin Globulin Albumin/Globulin Ratio Assessment & Plan - Assessment and Plan (Free Text) Plan: 66M PMH s/p liver transplant appx 1-2 years ago, HTN, BPH, hx liver cirrhosis presents with a one day history of mildly worsening cough associated with yellow and white sputum. No dyspnea, no wheezing or crackles. Patient reports of fever of 101 at home, however is afebrile in the hospital. CXR shows possible R sided lower lobe pneumonia. Patient received Levaquin in ED. Will obs patient for possible worsening of symptoms, however can likely go home on PO meds in AM with possibly Omnicef or Levaquin. CAP continue Levaquin afebrile no wbc, no bands no dyspnea, no wheeze can likely be discharged home with Levaquin or Omnicef tomorrow s/p Liver Transplant HTN continue all home meds, Cellcept, [place], prednison, valcyte plt 92, INR 1.9 AST/ALT/ALP 70/72/210 Tbili 1.7 DVT ppx SCDs, INR 1.9
[2018-06-09 04:38] LABS: ANISOCYTOSIS SLIGHT; EOSINOPHIL 2 % (0-7); LYMPHOCYTE 9 % (20-50); MONOCYTE 10 % (0-10); NEUTROPHIL 79 % (42-75); PLATELET ESTIMATE DECREASED (NORMAL); TOTAL CELLS COUNTED 100
[2018-06-09 05:29] LABS: URINE BACTERIA RARE (<OCC); URINE BILIRUBIN NEGATIVE (NEGATIVE); URINE BLOOD LARGE (NEGATIVE); URINE CLARITY CLOUDY (Clear); URINE COLOR YELLOW (YELLOW); URINE GLUCOSE (UA) NEG (Normal); URINE LEUKOCYTE ESTERASE NEG Leu/uL (Negative); URINE PROTEIN NEGATIVE (NEGATIVE); URINE UROBILINOGEN 0.2-1.0 mg/dL (0.2-1.0)
[2018-06-09 08:08] VITALS: RESP 20; O2SAT 95
[2018-06-09] MEDS ORDERED: POLYETHYLENE GLYCOL 3350 17 GM/Dose PACKET PO SCH (09:00)
[2018-06-09] MEDS ORDERED: levoFLOXacin 500 mg in D5W 500 MG/100 ML BAG IVPB SCH (09:00)
[2018-06-09] MEDS ORDERED: Pantoprazole 40 mg EC Tab PO SCH (09:00)
--- NOTE | 2018-06-09 10:16 | RAD ---
Date of service: 06/09/2018 HISTORY: cough COMPARISON: Portable chest 08/16/2017. TECHNIQUE: Chest PA and lateral FINDINGS: LUNGS: Omitted patchy airspace disease identified at the right lower lobe with none identified at the left lung. PLEURA: Trace right pleural effusion is not excluded though this could reflect fibrosis blunting the right costophrenic sulcus. None is apparent at the left. CARDIOVASCULAR: Cardiac silhouette appears stable. No pulmonary vascular congestion. OSSEOUS STRUCTURES: No significant abnormalities. VISUALIZED UPPER ABDOMEN: Embolic material is suggested at the liver or otherwise in the right upper quadrant abdomen. There may be faint wallstents or biliary stents at the right upper quadrant as well. OTHER FINDINGS: None. IMPRESSION: Limited patchy airspace disease right base with trace right pleural effusion not completely excluded versus interval fibrosis right costophrenic sulcus. Incidental interval right upper quadrant findings as discussed above.
--- NOTE | 2018-06-09 10:26 | CP.PCM.CON ---
History of Present Illness - History of Present Illness History of Present Illness: THE PATIENT IS A 67 YEAR OLD MALE WHO WAS ADMITTED FOR PNEUMONIA. HE HAD A ONE DAY HISTORY OF A FEVER UP TO 101 AND A COUGH WITH WHITE AND YELLOW SPUTUM THAT WAS GETTING WORSE SO HE WENT TO THE ER AND A CXR SHOWED EARLY RLL PNEUMONIA AND HE WAS ADMITTED. I WAS ASKED TO SEE HIM. HE HAD LIVER CIRRHOSIS AND HAD A LIVER TRANSPLANT A LITTLE OVER A YEAR AGO. HE ALSO HAS A HISTORY OF HYPERTENSION. HE HAD PNEUMONIA ABOUT 6 MONTHS AGO AND WAS ADMITTED TO [facility] AND RECEIVED IV ANTIBIOTICS. HE HAD CHEST PAIN IN THE PAST AND HAD A NEGATIVE STRESS TEST. Past Patient History - Infectious Disease Hx of Infectious Diseases: None - Tetanus Immunizations Tetanus Immunization: Unknown - Past Medical History & Family History Past Medical History?: Yes - Past Social History Smoking Status: Former Smoker - CARDIAC Hx Cardiac Disorders: Yes Hx Hypertension: Yes Hx Pacemaker: No - PULMONARY Hx Respiratory Disorders: No - NEUROLOGICAL Hx Neurological Disorder: No Other/Comment: forgetful at times - HEENT Hx HEENT Problems: Yes Hx Deafness: Yes - RENAL Hx Chronic Kidney Disease: No - ENDOCRINE/METABOLIC Hx Endocrine Disorders: No - HEMATOLOGICAL/ONCOLOGICAL Hx Blood Disorders: Yes Hx AIDS: No Hx Blood Transfusions: Yes Hx Blood Transfusion Reaction: No Hx Cirrhosis: Yes (liver transplant 04/2017 at [facility]) Hx Human Immunodeficiency Virus (HIV): No Other/Comment: TIPS - INTEGUMENTARY Hx Dermatological Problems: No - MUSCULOSKELETAL/RHEUMATOLOGICAL Hx Musculoskeletal Disorders: Yes Hx Arthritis: Yes Hx Falls: Yes (tripped over sidewalk, no injury) Other/Comment: left meniscus repair - GASTROINTESTINAL Hx Gastrointestinal Disorders: Yes Hx Gastritis: Yes - GENITOURINARY/GYNECOLOGICAL Hx Genitourinary Disorders: Yes Other/Comment: Double hernia; BPH - PSYCHIATRIC Hx Substance Use: Yes (Quit > 10 yrs ago) - SURGICAL HISTORY Hx Surgeries: Yes Hx Liver Transplant: Yes (04/2017 at [facility]) - ANESTHESIA Hx Anesthesia: Yes Hx Anesthesia Reactions: No Has any member of the family had a problem w/ anesthesia?: No Meds Allergies/Adverse Reactions: Allergies Allergy/AdvReac Type Severity Reaction Status Date / Time No Known Allergies Allergy Verified 06/09/18 01:15 - Medications Medications: Current Medications Aspirin (Ecotrin) 81 mg PO DAILY [facility] Last Admin: 06/09/18 08:59 Dose: 81 mg Docusate Sodium (Colace) 100 mg PO TID [facility] Last Admin: 06/09/18 08:58 Dose: Not Given Levofloxacin/Dextrose (Levaquin 500mg) 500 mg in 100 mls @ 100 mls/hr IVPB DAILY [facility] PRN Reason: Protocol Ibuprofen (Motrin Tab) 400 mg PO Q6 PRN PRN Reason: Fever >100.4 F Metoprolol Tartrate (Lopressor) 25 mg PO BID [facility] Mycophenolate Mofetil (Cellcept) 500 mg PO HS [facility] Mycophenolate Mofetil (Cellcept) 1,000 mg PO DAILY [facility] Ondansetron HCl (Zofran Inj) 4 mg IVP Q6 PRN PRN Reason: Nausea/Vomiting Pantoprazole Sodium (Protonix Ec Tab) 40 mg PO DAILY [facility] Polyethylene Glycol (Miralax) 17 gm PO DAILY [facility] Last Admin: 06/09/18 09:01 Dose: Not Given Prednisone (Prednisone Tab) 5 mg PO DAILY [facility] Last Admin: 06/09/18 09:01 Dose: 5 mg Tacrolimus (Prograf Cap) 2 mg PO BID [facility] Last Admin: 06/09/18 09:02 Dose: 2 mg Valganciclovir (Valcyte) 450 mg PO DAILY [facility] Last Admin: 06/09/18 09:04 Dose: Not Given Physical Exam - Respiratory Exam Respiratory Exam: Clear to Auscultation Bilateral - Cardiovascular Exam Cardiovascular Exam: REGULAR RHYTHM, +S1, +S2 - Extremities Exam Extremities exam: Positive for: normal inspection - Additional Findings Additional findings: EKG NSR WBC 8.8 CXR RLL PATCHY CHANGES Results - Vital Signs Recent Vital Signs: Last Vital Signs Temp 98.5 F 06/09/18 08:07 Pulse 67 06/09/18 08:07 Resp 20 06/09/18 08:07 BP 104/65 06/09/18 08:07 Pulse Ox 95 06/09/18 08:07 - Labs Result Diagrams: 06/09/18 01:45 06/09/18 01:45 Labs: Laboratory Results - last 24 hr 06/09/18 06/09/18 06/09/18 01:45 01:45 01:45 WBC 8.8 RBC 3.49 L Hgb 11.7 L Hct 32.7 L MCV 93.7 MCH 33.5 H MCHC 35.8 RDW 13.1 Plt Count 92 L MPV 10.0 Neut % (Auto) 72.9 Lymph % (Auto) 8.6 L [place] % (Auto) 16.1 H Eos % (Auto) 1.9 Baso % (Auto) 0.5 Neut # (Auto) 6.4 Lymph # (Auto) 0.8 L [place] # (Auto) 1.4 H Eos # (Auto) 0.2 Baso # (Auto) 0.0 Neutrophils % (Manual) 79 H Lymphocytes % (Manual) 9 L Monocytes % (Manual) 10 Eosinophils % (Manual) 2 Platelet Estimate Decreased L Anisocytosis (manual) Slight PT INR APTT Sodium 135 Potassium 4.7 Chloride 106 Carbon Dioxide 22 Anion Gap 12 BUN 29 H Creatinine 1.2 Est GFR ( Amer) > 60 Est GFR (Non-Af Amer) > 60 Random Glucose 154 H Lactic Acid 0.7 Calcium 8.0 L Total Bilirubin 1.7 H AST 70 H D ALT 72 D Alkaline Phosphatase 210 H D Total Protein 6.9 Albumin 3.4 L Globulin 3.5 Albumin/Globulin Ratio 1.0 Urine Color Urine Clarity Urine pH Ur Specific [place] Urine Protein Urine Glucose (UA) Urine Ketones Urine Blood Urine Nitrate Urine Bilirubin Urine Urobilinogen Ur Leukocyte Esterase Urine RBC (Auto) Urine Microscopic WBC Urine Bacteria 06/09/18 06/09/18 01:45 05:05 WBC RBC Hgb Hct MCV MCH MCHC RDW Plt Count MPV Neut % (Auto) Lymph % (Auto) [place] % (Auto) Eos % (Auto) Baso % (Auto) Neut # (Auto) Lymph # (Auto) [place] # (Auto) Eos # (Auto) Baso # (Auto) Neutrophils % (Manual) Lymphocytes % (Manual) Monocytes % (Manual) Eosinophils % (Manual) Platelet Estimate Anisocytosis (manual) PT 20.8 H INR 1.9 H APTT 42.3 H Sodium Potassium Chloride Carbon Dioxide Anion Gap BUN Creatinine Est GFR ( Amer) Est GFR (Non-Af Amer) Random Glucose Lactic Acid Calcium Total Bilirubin AST ALT Alkaline Phosphatase Total Protein Albumin Globulin Albumin/Globulin Ratio Urine Color Yellow Urine Clarity Cloudy Urine pH 6.0 Ur Specific [place] 1.009 Urine Protein Negative Urine Glucose (UA) Neg Urine Ketones Negative Urine Blood Large Urine Nitrate Negative Urine Bilirubin Negative Urine Urobilinogen 0.2-1.0 Ur Leukocyte Esterase Neg Urine RBC (Auto) 38 H Urine Microscopic WBC 4 Urine Bacteria Rare Assessment & Plan - Assessment and Plan (Free Text) Assessment: PNEUMONIA S/P LIVER TRANSPLANT HYPERTENSION Plan: CONTINUE ASPIRIN, METOPROLOL AND IV ANTIBIOTICS
--- NOTE | 2018-06-09 12:28 | CARD ---
APPROVED REPORT Date of service: 06/09/2018 EKG Measurement Heart [id number] <Conclusion> Normal sinus rhythm Normal ECG
[2018-06-09 15:42] VITALS: BP 145/68; PULSE 75; TEMP 98.8
== END 2018-06-09 17:40 | disposition home or self-care (01) ==
LOC: H.ER 00:51 → H.ERHOLD 02:59 → INTOOBSV 02:59 → H.MEDSURG1 05:30
PROVIDERS: ADMIT Student in an Organized Health Care Education/Training Program; ATTEND Student in an Organized Health Care Education/Training Program
DX: J18.9 Pneumonia, unspecified organism (principal); K74.60 Unspecified cirrhosis of liver; Z94.4 Liver transplant status; N40.0 Benign prostatic hyperplasia without lower urinary tract symptoms; F10.11 Alcohol abuse, in remission; I10 Essential (primary) hypertension; K29.70 Gastritis, unspecified, without bleeding; M19.90 Unspecified osteoarthritis, unspecified site; Z87.891 Personal history of nicotine dependence; Z79.82 Long term (current) use of aspirin
CPT/HCPCS: 71046; 80053; 81003; 83605; 85025; 85610; 85730; 87040; 93005; 96365; 99284; G0378; J7507

== ENCOUNTER 2018-08-11 16:12 | Observation (INO) | payer MEDICARE, BC ==
[2018-08-11 16:12] VITALS: BMI 32.5
[2018-08-11] MEDS ORDERED: Sodium Chloride 0.9% 1,000 ML IV STA (16:42)
--- NOTE | 2018-08-11 16:58 | ED PDOC ---
HPI: Fever Time Seen by Provider: 08/11/18 16:30 Fever Onset Was: 08/11/18 The Fever Was Measured: Oral Symptoms Associated With Fever: Other (Chills) Past Medical History Reviewed: Historical Data, Nursing Documentation, Vital Signs Vital Signs: Last Vital Signs Temp 99.2 F 08/11/18 16:17 Pulse 89 08/11/18 16:17 Resp 16 08/11/18 16:17 BP 149/76 08/11/18 16:17 Pulse Ox 96 08/11/18 16:17 - Medical History PMH: Arthritis, Gastritis, HTN Denies: HIV, Chronic Kidney Disease - Surgical History Surgical History: Endoscopy Denies: Pacemaker - Family History Family History: States: Unknown Family Hx - Home Medications Home Medications: Ambulatory Orders Medication Instructions Recorded Apixaban [Eliquis] 5 mg PO Q12 08/11/18 Aspirin [Ecotrin] 81 mg PO DAILY 08/11/18 Calcium/Chloride/Magnesium 1 tab PO Q12 08/11/18 [Slow-Mag] Cholecalciferol (Vitamin D3) 2,000 unit PO DAILY@1200 08/11/18 [Vitamin D3] Famotidine [Pepcid] 20 mg PO BID 08/11/18 Furosemide [Lasix] 40 mg PO DAILY 08/11/18 Metoprolol Tartrate [Lopressor] 25 mg PO Q12 08/11/18 Multivitamin [Multi-Vitamin Daily] 1 tab PO DAILY@1200 08/11/18 Spironolactone [Aldactone] 50 mg PO DAILY 08/11/18 Tacrolimus [Prograf] 0.5 mg PO Q12 08/11/18 Ursodiol [Bri Forte] 500 mg PO Q12 08/11/18 amLODIPine [Norvasc] 10 mg PO DAILY 08/11/18 predniSONE [predniSONE Tab] 5 mg PO DAILY 08/11/18 - Allergies Allergies/Adverse Reactions: Allergies Allergy/AdvReac Type Severity Reaction Status Date / Time No Known Allergies Allergy Verified 06/09/18 01:15 Review of Systems ROS Statement: Except As Marked, All Systems Reviewed And Found Negative Constitutional: Positive for: Fever, Chills ENT: Negative for: Nose Congestion Cardiovascular: Negative for: Chest Pain Respiratory: Negative for: Cough, Shortness of Breath Gastrointestinal: Negative for: Nausea, Vomiting, Abdominal Pain, Diarrhea Neurological: Negative for: Weakness, Numbness (tingling), Headache, Dizziness Physical Exam - Reviewed Nursing Documentation Reviewed: Yes Vital Signs Reviewed: Yes - Physical Exam Appears: Positive for: No Acute Distress Head Exam: Positive for: ATRAUMATIC, NORMOCEPHALIC Skin: Positive for: Normal Color, Warm, Dry Eye Exam: Positive for: Normal appearance, EOMI, PERRL ENT: Positive for: Normal ENT Inspection Neck: Positive for: Painless ROM Cardiovascular/Chest: Positive for: Regular Rate, Rhythm. Negative for: Murmur Respiratory: Positive for: Decreased Breath Sounds. Negative for: Wheezing, Respiratory Distress Gastrointestinal/Abdominal: Positive for: Normal Exam, Soft. Negative for: Tenderness, Guarding, Rebound Back: Positive for: Normal Inspection. Negative for: L CVA Tenderness, Verteb ral Tenderness Extremity: Positive for: Normal ROM (upper and lower extremities). Negative for: Tenderness, Deformity, Swelling Neurologic/Psych: Positive for: Alert, desktop analyst II-XII (intact), Oriented, Gait (steady). Negative for: Motor/Sensory Deficits, Aphasia, Facial Droop - Laboratory Results Result Diagrams: 08/11/18 17:15 08/11/18 17:15 Interpretation Of Abn Labs: 13.9 wbc - ECG ECG: Positive for: Interpreted By Me, Viewed By Me ECG Rhythm: Positive for: Normal QRS, Normal ST Segment, Sinus Rhythm O2 Sat by Pulse Oximetry: 96 (RA) Pulse Ox Interpretation: Normal - Radiology X-Ray: Read By Radiologist X-Ray Interpretation: No Acute Disease - Progress ED Course And Treament: 1751: Spoke with Dr. Pete. Wants pt. to be admitted to hospitalist for obs. Will give broad spectrum antibiotics. 1800: Spoke with Dr. Sheppard, will admit obs. Stable. Will start zosyn. Medical Decision Making Medical Decision Making: Time: 16:30 Initial Impression: Fever Initial Plan: --EKG --CMP --Troponin I --Urine dip --CBC w/ differential --PTT --PT --Chest portable [RAD] --Motrin tab 600 mg PO --Sodium Chloride 1,000 ml IV 1,000 mls/hr --Blood culture --Urine culture --Influenza A B --Reevaluation 16:20 -Spoke with the nurse from the liver transplant institute in [facility]. He recommends pt. should get blood culture, blood work, x-ray, and urine. Give patient 600mg Motrin. He can also get up to 1800mg Tylenol for a day and 600mg motrin max for a day. He recommends admitting patient regardless just to observe it doesn't turn to anything else. Scribe Attestation: Documented by Edouard Kam, acting as a scribe for Yogi Solomon MD. Provider Scribe Attestation: All medical record entries made by the Scribe were at my direction and personally dictated by me. I have reviewed the chart and agree that the record accurately reflects my personal performance of the history, physical exam, medical decision making, and the department course for this patient. I have also personally directed, reviewed, and agree with the discharge instructions and disposition. Disposition - Clinical Impression Clinical Impression: Fever in adult, Immunocompromised - Patient ED Disposition Is Patient to be Admitted: Yes Counseled Patient/Family Regarding: Studies Performed, Diagnosis - Disposition Disposition Time: 18:06 Condition: FAIR - Pt Status Changed To: Hospital Disposition Of: Observation - POA Present On Arrival: None History Of Present Illness Moy Mckeon is a 68 year old male, with no significant past medical history, who presents to the emergency department accompanied by family member for evaluation of fever and chills onset today. Per family member, patient had a Tmax of 101.5 at home. He is a liver transplant patient and was advised to come to the nearest ER if he developed a fever. Transplant was performed at [facility], he is currently taking Eliquis, aspirin and anti-rejection medications. Patient did not take any medication for fever. He denies any cough, congestion, shortness of breath, chest pain, headache, dizziness, neck pain, abdominal pain, nausea, vomit, diarrhea, numbness or tingling, weakness, leg pain or other medical complaints. PMD: Moy Gomez [facility] Phone #: [phone]
--- NOTE | 2018-08-11 17:10 | RAD ---
Date of service: 08/11/2018 HISTORY: chills COMPARISON: Chest radiograph dated 06/09/2018 FINDINGS: LUNGS: No active pulmonary disease. PLEURA: No significant pleural effusion identified, no pneumothorax apparent. CARDIOVASCULAR: Atherosclerotic aortic calcifications. Cardiomediastinal silhouette stably enlarged OSSEOUS STRUCTURES: Unchanged VISUALIZED UPPER ABDOMEN: Coil mass redemonstrated in the right upper quadrant. OTHER FINDINGS: Nonspecific metallic density in the right paratracheal region. IMPRESSION: No active disease. New nonspecific metallic density now seen in the right paratracheal region.
[2018-08-11 17:25] LABS: BASO % 0.2 % (0.0-2.0); EOS % 0.2 % (0.0-4.0); HEMOGLOBIN 13.4 g/dL (12.0-18.0); LYMPH # 0.4 K/uL (1.0-4.3); LYMPH % 2.6 % (20.0-40.0); MEAN CORPUSCULAR HEMOGLOBIN 34.2 pg (27.0-31.0); MEAN CORPUSCULAR HGB CONC 35.3 g/dL (33.0-37.0); MEAN PLATELET VOLUME 11.1 fl (7.2-11.7); MONO # 1.4 K/uL (0.0-0.8); MONO % 10.3 % (0.0-10.0); NEUT % 86.7 % (50.0-75.0); PLATELET COUNT 82 K/uL (130-400); RBC 3.91 Mil/uL (4.40-5.90); RED CELL DISTRIBUTION WIDTH 14.2 % (11.5-14.5); WHITE BLOOD COUNT 13.9 K/uL (4.8-10.8)
[2018-08-11 17:31] LABS: INR 1.5; PROTHROMBIN TIME 16.3 Seconds (9.8-13.1)
[2018-08-11 17:34] LABS: PARTIAL THROMBOPLASTIN TIME 33.7 Seconds (25.6-37.1)
[2018-08-11 17:36] LABS: ALB/GLOB RATIO 1.1 (1.0-2.1); ALBUMIN 3.6 g/dL (3.5-5.0); ALT/SGPT 38 U/L (21-72); AST/SGOT 44 U/L (17-59); BLOOD UREA NITROGEN 16 mg/dl (9-20); GFR NON-AFRICAN AMERICAN > 60
[2018-08-11] MEDS ORDERED: Piperacillin/Tazobact 3.375 GM in Sodium Chloride 0.9% 100 ML IV STA (17:58)
[2018-08-11] MEDS ORDERED: Piperacillin/Tazobact 3.375 gm Inj IVPB ONE (18:25)
--- NOTE | 2018-08-11 18:50 | CP.PCM.HP ---
Addendum entered and electronically signed by Brandy Sheppard MD 08/11/18 20:21: Patient was seen and examined bedside with resident .All chart and clinical data reviewed . States that her cousin told him that he was shaking and that he needed to come to hospital. In ER noted T 99.2 WBC 13.9 Physical exam significant for right thigh posterior aspect erythema ( marked )extending from medial-posterior of the knee to mid thigh , warm to touch and tender with no fluctuation . Small 2 mm x 2 mm pustular lesion noted Will place patient under observation status since he is immmunocompromised Most likely admitting diagnosis at this time is Cellulitis of the right leg Will continue Zosyn IV Blood cultures sent Repeat CBC in AM Original Note: History of Present Illness - History of Present Illness History of Present Illness: CC: Fever and chills HPI: 68 y/o man w/ pmh of hx liver cirrhosis, s/p liver transplant 2 years ago, HTN, BPH presents to the ED w/ fever and chills. Patient is accompanied by brother. Patient reports fever started this afternoon around 14:00 w/ associated chills and cold sweats. Patient has been was exposed [place] Patient reports Tmax of 101 but denies cough, headaches, chest pain, SOB, abdominal pain, nausea, vomiting, diarrhea, dysuria, melena, hematochezia, hematuria, sick contacts, or recent travel. Patient is s/p 3-4 weeks post-op for right sided hernia repair. ED course: vitals: 99.2 F, 89 beats/min, 149, 76 mm Hg, resp 16, O2 96% room air CBC: 13.9>13.4/37.9<82 coags: PT 16.3, INR 1.5, aPTT 33.7 CMP: 135/4.0, 104/26, 16/0.8, glucose 167, AST 44, aLT 38, alk phos 199 troponin: 0.0190 CXR: no active disease motrin 600 mg PO once IVF NS bolus zosyn 3.375 gm IV stat PMD: Dr. oGmez PMH: S/P liver transplant, Choledocolitihiasis with Cholecystitis, SBO, HTN, Liver cirrhosis s/p TIPS, BPH, Gastritis, Arthritis Allergies: NKDA meds: see med list PSH: right sided hernia repair 3 weeks ago, TIPS, Common bile duct stent placement and removal, Endoscopy 03/2017 Fam: No known family History SOC: Quit Alcohol 12 years ago, Former Smoker, Quit Substance abuse 12 years ago ROS: 12 points assessed and negative unless otherwise reported in HPI Present on Admission - Present on Admission Any Indicators Present on Admission: No History of DVT/PE: No History of Uncontrolled Diabetes: No Urinary Catheter: No Decubitus Ulcer Present: No Review of Systems - Review of Systems All systems: reviewed and no additional remarkable complaints except - Constitutional Constitutional: As Per HPI, Chills, Fever, Night Sweats. absent: Headache - EENT Eyes: absent: Change in Vision - Cardiovascular Cardiovascular: As Per HPI. absent: Chest Pain, Palpitations - Respiratory Respiratory: absent: Cough, Dyspnea - Gastrointestinal Gastrointestinal: absent: Abdominal Pain, Diarrhea, Hematochezia, Melena, Nausea, Vomiting - Genitourinary Genitourinary: absent: Dysuria - Integumentary Integumentary: absent: Rash - Neurological Neurological: absent: Dizziness, Headaches Past Patient History - Infectious Disease Hx of Infectious Diseases: None - Tetanus Immunizations Tetanus Immunization: Unknown - Past Medical History & Family History Past Medical History?: Yes - Past Social History Smoking Status: Former Smoker - CARDIAC Hx Hypertension: Yes Hx Pacemaker: No - PULMONARY Hx Respiratory Disorders: No - NEUROLOGICAL Hx Neurological Disorder: No Other/Comment: forgetful at times - HEENT Hx HEENT Problems: Yes Hx Deafness: Yes - RENAL Hx Chronic Kidney Disease: No - ENDOCRINE/METABOLIC Hx Endocrine Disorders: No - HEMATOLOGICAL/ONCOLOGICAL Hx Human Immunodeficiency Virus (HIV): No - INTEGUMENTARY Hx Dermatological Problems: No - MUSCULOSKELETAL/RHEUMATOLOGICAL Hx Arthritis: Yes - GASTROINTESTINAL Hx Gastritis: Yes - GENITOURINARY/GYNECOLOGICAL Hx Genitourinary Disorders: Yes Other/Comment: Double hernia; BPH - PSYCHIATRIC Hx Substance Use: Yes (Quit > 10 yrs ago) - SURGICAL HISTORY Hx Surgeries: Yes Hx Liver Transplant: Yes (04/2017 at [facility]) - ANESTHESIA Hx Anesthesia: Yes Hx Anesthesia Reactions: No Meds Allergies/Adverse Reactions: Allergies Allergy/AdvReac Type Severity Reaction Status Date / Time No Known Allergies Allergy Verified 06/09/18 01:15 Physical Exam - Constitutional Appears: Non-toxic, No Acute Distress - Head Exam Head Exam: ATRAUMATIC, NORMAL INSPECTION, NORMOCEPHALIC - Eye Exam Eye Exam: Normal appearance - ENT Exam ENT Exam: Mucous Membranes Moist - Neck Exam Neck exam: Positive for: Full Rom. Negative for: Tenderness - Respiratory Exam Respiratory Exam: Clear to Auscultation Bilateral. absent: Accessory Muscle Use, Decreased Breath Sounds, Rales, Rhonchi, Wheezes, Respiratory Distress - Cardiovascular Exam Cardiovascular Exam: REGULAR RHYTHM, RRR, +S1, +S2. absent: Tachycardia - GI/Abdominal Exam GI & Abdominal Exam: Normal Bowel Sounds, Soft. absent: Distended, Tenderness - Extremities Exam Extremities exam: Positive for: normal inspection. Negative for: calf tenderness, pedal edema, tenderness - Neurological Exam Neurological exam: Alert, Oriented x3 - Skin Skin Exam: Dry, Intact, Normal Color, Warm Results - Vital Signs Recent Vital Signs: Last Vital Signs Temp 99.2 F 08/11/18 16:17 Pulse 89 08/11/18 16:17 Resp 16 08/11/18 16:17 BP 149/76 08/11/18 16:17 Pulse Ox 96 08/11/18 18:06 - Labs Result Diagrams: 08/11/18 17:15 08/11/18 17:15 Labs: Laboratory Results - last 24 hr 08/11/18 08/11/18 08/11/18 17:15 17:15 17:15 WBC 13.9 H D RBC 3.91 L Hgb 13.4 Hct 37.9 MCV 97.0 H D MCH 34.2 H MCHC 35.3 RDW 14.2 Plt Count 82 L MPV 11.1 Neut % (Auto) 86.7 H Lymph % (Auto) 2.6 L [place] % (Auto) 10.3 H Eos % (Auto) 0.2 Baso % (Auto) 0.2 Neut # (Auto) 12.0 H Lymph # (Auto) 0.4 L [place] # (Auto) 1.4 H Eos # (Auto) 0.0 Baso # (Auto) 0.0 PT 16.3 H INR 1.5 APTT 33.7 Sodium 135 Potassium 4.0 Chloride 104 Carbon Dioxide 26 Anion Gap 9 L BUN 16 Creatinine 0.8 Est GFR ( Amer) > 60 Est GFR (Non-Af Amer) > 60 Random Glucose 167 H Calcium 9.0 Total Bilirubin 2.0 H AST 44 ALT 38 Alkaline Phosphatase 199 H Troponin I 0.0190 Total Protein 7.0 Albumin 3.6 Globulin 3.4 Albumin/Globulin Ratio 1.1 Influenza Typ A,B (EIA) 08/11/18 18:05 WBC RBC Hgb Hct MCV MCH MCHC RDW Plt Count MPV Neut % (Auto) Lymph % (Auto) [place] % (Auto) Eos % (Auto) Baso % (Auto) Neut # (Auto) Lymph # (Auto) [place] # (Auto) Eos # (Auto) Baso # (Auto) PT INR APTT Sodium Potassium Chloride Carbon Dioxide Anion Gap BUN Creatinine Est GFR ( Amer) Est GFR (Non-Af Amer) Random Glucose Calcium Total Bilirubin AST ALT Alkaline Phosphatase Troponin I Total Protein Albumin Globulin Albumin/Globulin Ratio Influenza Typ A,B (EIA) Negative for flu a/b Assessment & Plan (1) Fever in adult Status: Acute (2) Immunocompromised Status: Chronic (3) Status post liver transplant Status: Chronic (4) HTN (hypertension) Status: Chronic - Assessment and Plan (Free Text) Assessment: 68 y/o man w/ pmh of hx liver cirrhosis, s/p liver transplant 2 years ago, HTN, BPH presents to the ED w/ fever and chills Plan: Fever - presented w/ fever and chills prior to ED arrival, Tmax 101 F at home - vitals sings currently stable - CBC: 13.9>13.4/37.9<82 - coags: PT 16.3, INR 1.5, aPTT 33.7 - CMP: 135/4.0, 104/26, 16/0.8, glucose 167, AST 44, aLT 38, alk phos 199 - troponin: 0.0190 - CXR: no active disease - motrin 600 mg PO once - IVF NS bolus - zosyn 3.375 gm IV stat - f/u CBC, CMP - f/u blood and urine culture - tylenol 600 mg PO Q8h prn - zosyn 3.375 gm IV Q8h - monitor for acute changes - admit for observation in MedSurg Immunocompromised - s/p liver transplant 2 years ago - c/w prednisone and tacrolimus - c/w aldactone, usodiol, and lasix - monitor for acute changes HTN - controlled w/ medication - BP stable - c/w amlodipine, lopressor, and ASA - monitor for acute changes Prophylactic measures - DVT: SCDs, on eliquis 5 mg PO Q12h
[2018-08-11 20:16] LABS: BANDS 4 % (0-2); LYMPHOCYTE 2 % (20-50); MONOCYTE 9 % (0-10); NEUTROPHIL 85 % (42-75); TOTAL CELLS COUNTED 100
[2018-08-11 20:17] LABS: PLATELET ESTIMATE DECREASED (NORMAL)
[2018-08-11 20:21] LABS: LARGE PLATELETS PRESENT; SMUDGE CELLS PRESENT
[2018-08-11] MEDS: Magnesium Chloride 64 mg ER Tab PO SCH (22:46)
[2018-08-12] MEDS ORDERED: Piperacillin/Tazobact 3.375 GM in Sodium Chloride 0.9% 100 ML IVPB SCH (04:30)
[2018-08-12 06:49] LABS: BASO % 0.3 % (0.0-2.0); EOS # 0.1 K/uL (0.0-0.7); EOS % 1.1 % (0.0-4.0); HEMOGLOBIN 12.6 g/dL (12.0-18.0); LYMPH # 0.5 K/uL (1.0-4.3); LYMPH % 7.1 % (20.0-40.0); MEAN CELL VOLUME 97.5 fl (80.0-94.0); MEAN CORPUSCULAR HEMOGLOBIN 35.2 pg (27.0-31.0); MEAN CORPUSCULAR HGB CONC 36.2 g/dL (33.0-37.0); MONO # 0.9 K/uL (0.0-0.8); MONO % 12.8 % (0.0-10.0); NEUT # 5.3 K/uL (1.8-7.0); NEUT % 78.7 % (50.0-75.0); RBC 3.58 Mil/uL (4.40-5.90); RED CELL DISTRIBUTION WIDTH 13.9 % (11.5-14.5)
[2018-08-12 06:53] LABS: WHITE BLOOD COUNT 6.7 K/uL (4.8-10.8)
[2018-08-12 07:29] LABS: ALBUMIN 2.9 g/dL (3.5-5.0); ALT/SGPT 34 U/L (21-72); AST/SGOT 35 U/L (17-59); BLOOD UREA NITROGEN 17 mg/dl (9-20); CALCIUM 8.2 mg/dL (8.4-10.2); GFR NON-AFRICAN AMERICAN > 60
[2018-08-12 08:32] VITALS: BP 128/82; PULSE 71; RESP 18; TEMP 99.3; O2SAT 96
--- NOTE | 2018-08-12 08:38 | CARD ---
APPROVED REPORT Date of service: 08/11/2018 EKG Measurement Heart [id number] <Conclusion> Normal sinus rhythm Anterior infarct, age undetermined Abnormal ECG
[2018-08-12] MEDS: Magnesium Chloride 64 mg ER Tab PO SCH (09:28)
--- NOTE | 2018-08-12 09:46 | CP.PCM.CON ---
History of Present Illness - History of Present Illness History of Present Illness: THE PATIENT IS A 68 YEAR OLD MALE WITH A HISTORY OF A RECENT LIVER TRANSPLANT ON IMMUNOSUPPRESSANT MEDICATIONS, HYPERTENSION AND CHRONIC THROMBOCYTOPENIA. HE STATES THAT HE WAS OUT WALKING IN THE RAIN THE OTHER DAY AND YESTERDAY HAD A FEVER OF 101 AND CHILLS SO HE CAME TO THE ER AND WAS GIVEN IV ANTIBIOTICS AND THE [facility] TRANSPLANT SERVICE ADVISED THAT HE BE ADMITTED SINCE HE WAS IMMUNOCOMPROMISED. HE FEELS BETTER THIS MORNING. HE DENIES CHEST PAIN OR SOB. Past Patient History - Infectious Disease Hx of Infectious Diseases: None - Tetanus Immunizations Tetanus Immunization: Unknown - Past Medical History & Family History Past Medical History?: Yes - Past Social History Smoking Status: Former Smoker - CARDIAC Hx Cardiac Disorders: Yes Hx Hypertension: Yes - PULMONARY Hx Respiratory Disorders: No - NEUROLOGICAL Hx Neurological Disorder: No - HEENT Hx HEENT Problems: No - RENAL Hx Chronic Kidney Disease: No - ENDOCRINE/METABOLIC Hx Endocrine Disorders: No - HEMATOLOGICAL/ONCOLOGICAL Hx Blood Disorders: Yes Hx AIDS: No Hx Cirrhosis: Yes Hx Human Immunodeficiency Virus (HIV): No - INTEGUMENTARY Hx Dermatological Problems: No - MUSCULOSKELETAL/RHEUMATOLOGICAL Hx Musculoskeletal Disorders: Yes Hx Arthritis: Yes Hx Falls: No - GASTROINTESTINAL Hx Gastrointestinal Disorders: Yes Hx Gastritis: Yes - GENITOURINARY/GYNECOLOGICAL Hx Genitourinary Disorders: No - PSYCHIATRIC Hx Psychophysiologic Disorder: No Hx Substance Use: Yes - SURGICAL HISTORY Hx Surgeries: Yes Hx Herniorrhaphy: Yes (s/p herniorrhaphy jun 2018) Hx Liver Transplant: Yes (04/2017 at [facility]) - ANESTHESIA Hx Anesthesia: Yes Hx Anesthesia Reactions: No Meds Allergies/Adverse Reactions: Allergies Allergy/AdvReac Type Severity Reaction Status Date / Time No Known Allergies Allergy Verified 06/09/18 01:15 - Medications Medications: Current Medications Acetaminophen (Tylenol 325mg Tab) 650 mg PO Q8 PRN PRN Reason: Fever >100.4 F Amlodipine Besylate (Norvasc) 10 mg PO DAILY [facility] Last Admin: 08/12/18 08:32 Dose: 10 mg Apixaban (Eliquis) 5 mg PO Q12 [facility]; Protocol Last Admin: 08/12/18 08:32 Dose: 5 mg Aspirin (Ecotrin) 81 mg PO DAILY [facility] Last Admin: 08/12/18 08:33 Dose: 81 mg Cholecalciferol (Vitamin D) 2,000 intlu PO DAILY@1200 [facility] Famotidine (Pepcid) 20 mg PO BID [facility] Last Admin: 08/12/18 08:34 Dose: 20 mg Furosemide (Lasix) 40 mg PO DAILY [facility] Last Admin: 08/12/18 08:33 Dose: 40 mg Home Med (Ursodiol [Bri Forte]) 500 mg PO Q12 [facility] Ampicillin Sodium/Sulbactam (Sodium 1.5 gm/ Sodium Chloride) 100 mls @ 100 mls/hr IVPB Q6 [facility]; Protocol Last Admin: 08/12/18 09:29 Dose: 100 mls/hr Magnesium Chloride (Slow-Mag) 64 mg PO Q12 [facility] Last Admin: 08/12/18 09:28 Dose: 64 mg Metoprolol Tartrate (Lopressor) 25 mg PO Q12 [facility] Last Admin: 08/12/18 08:34 Dose: 25 mg Multivitamins/Minerals (Therapeutic-M Tab) 1 tab PO DAILY@1200 [facility] Prednisone (Prednisone Tab) 5 mg PO DAILY [facility] Last Admin: 08/12/18 08:32 Dose: 5 mg Spironolactone (Aldactone) 50 mg PO DAILY [facility] Last Admin: 08/12/18 08:33 Dose: 50 mg Tacrolimus (Prograf Cap) 0.5 mg PO Q12 [facility] Last Admin: 08/12/18 08:31 Dose: 0.5 mg Physical Exam - Respiratory Exam Respiratory Exam: Clear to Auscultation Bilateral - Cardiovascular Exam Cardiovascular Exam: REGULAR RHYTHM, +S1, +S2 - Extremities Exam Additional comments: RIGHT POSTERIOR THIGH AREA WITH LARGE AREA OF REDDNESS AND WARMTH - Additional Findings Additional findings: WBC 13.[address] 82K EKG POOR R WAVE PROGRESSION V1 TO V5(OLD FINDING) CXT NO ACTIVE DISEASE THE PATIENT HAD A NORMAL NUCLEAR STRESS TEST FOR HIS EKG FINDINGS Results - Vital Signs Recent Vital Signs: Last Vital Signs Temp 99.3 F 08/12/18 08:31 Pulse 71 08/12/18 08:34 Resp 18 08/12/18 08:31 BP 128/82 08/12/18 08:34 Pulse Ox 96 08/12/18 08:31 - Labs Result Diagrams: 08/12/18 05:45 08/12/18 05:45 Labs: Laboratory Results - last 24 hr 09/27/18 09/27/18 09/27/18 17:15 17:15 17:15 WBC 13.9 H D RBC 3.91 L Hgb 13.4 Hct 37.9 MCV 97.0 H D MCH 34.2 H MCHC 35.3 RDW 14.2 Plt Count 82 L MPV 11.1 Neut % (Auto) 86.7 H Lymph % (Auto) 2.6 L [place] % (Auto) 10.3 H Eos % (Auto) 0.2 Baso % (Auto) 0.2 Neut # (Auto) 12.0 H Lymph # (Auto) 0.4 L [place] # (Auto) 1.4 H Eos # (Auto) 0.0 Baso # (Auto) 0.0 Neutrophils % (Manual) 85 H Band Neutrophils % 4 H Lymphocytes % (Manual) 2 L Monocytes % (Manual) 9 Smudge Cells Present Platelet Estimate Decreased L Large Platelets Present Macrocytosis (manual) Slight PT 16.3 H INR 1.5 APTT 33.7 Sodium 135 Potassium 4.0 Chloride 104 Carbon Dioxide 26 Anion Gap 9 L BUN 16 Creatinine 0.8 Est GFR ( Amer) > 60 Est GFR (Non-Af Amer) > 60 Random Glucose 167 H Calcium 9.0 Total Bilirubin 2.0 H AST 44 ALT 38 Alkaline Phosphatase 199 H Troponin I 0.0190 Total Protein 7.0 Albumin 3.6 Globulin 3.4 Albumin/Globulin Ratio 1.1 Influenza Typ A,B (EIA) 08/11/18 08/12/18 08/12/18 18:05 05:45 05:45 WBC 6.7 D RBC 3.58 L Hgb 12.6 Hct 34.9 L MCV 97.5 H MCH 35.2 H MCHC 36.2 RDW 13.9 Plt Count 58 L D MPV 11.0 Neut % (Auto) 78.7 H Lymph % (Auto) 7.1 L [place] % (Auto) 12.8 H Eos % (Auto) 1.1 Baso % (Auto) 0.3 Neut # (Auto) 5.3 Lymph # (Auto) 0.5 L [place] # (Auto) 0.9 H Eos # (Auto) 0.1 Baso # (Auto) 0.0 Neutrophils % (Manual) Band Neutrophils % Lymphocytes % (Manual) Monocytes % (Manual) Smudge Cells Platelet Estimate Large Platelets Macrocytosis (manual) PT INR APTT Sodium 138 Potassium 3.7 Chloride 108 H Carbon Dioxide 27 Anion Gap 7 L BUN 17 Creatinine 0.8 Est GFR ( Amer) > 60 Est GFR (Non-Af Amer) > 60 Random Glucose 155 H Calcium 8.2 L Total Bilirubin 1.7 H AST 35 ALT 34 Alkaline Phosphatase 146 H D Troponin I Total Protein 6.0 L Albumin 2.9 L Globulin 3.0 Albumin/Globulin Ratio 1.0 Influenza Typ A,B (EIA) Negative for flu a/b Assessment & Plan - Assessment and Plan (Free Text) Assessment: CELLULITIS WITH FEVER AND CHILLS IN AN IMMUNOCOMPROMISED PATIENT HYPERTENSION RECENT LIVER TRANSPLANT Plan: CONTINUE IV ANTIBIOTICS, ASPIRIN, FUROSEMIDE, AMLOSIPINE AND METOPROLOL
--- NOTE | 2018-08-12 11:01 | CP.PCM.DIS ---
Addendum entered and electronically signed by Brandy Sheppard MD 08/12/18 16:24: Patient was seen and examined bedside . All chart and clinical data reviewed . Case discussed with resident . Agree with assessment and discharge planning. Right thigh cellulitis improving . Wbc normalized to 6 K Tmax 99.8 Will discharge patient home on Augmentin PO for 10 days Original Note: Provider - Provider Date of Admission: 08/11/18 17:57 Attending physician: Brandy Sheppard MD Time Spent in preparation of Discharge (in minutes): 20 Diagnosis - Discharge Diagnosis (1) Cellulitis Status: Acute (2) Immunocompromised Status: Chronic (3) HTN (hypertension) Status: Chronic (4) DVT prophylaxis Status: Acute Hospital Course - Lab Results Lab Results: Most Recent Lab Values WBC 6.7 K/uL (4.8-10.8) D 08/12/18 05:45 RBC 3.58 Mil/uL (4.40-5.90) L 08/12/18 05:45 Hgb 12.6 g/dL (12.0-18.0) 08/12/18 05:45 Hct 34.9 % (35.0-51.0) L 08/12/18 05:45 MCV 97.5 fl (80.0-94.0) H 08/12/18 05:45 MCH 35.2 pg (27.0-31.0) H 08/12/18 05:45 MCHC 36.2 g/dL (33.0-37.0) 08/12/18 05:45 RDW 13.9 % (11.5-14.5) 08/12/18 05:45 Plt Count 58 K/uL (130-400) L D 08/12/18 05:45 MPV 11.0 fl (7.2-11.7) 08/12/18 05:45 Neut % (Auto) 78.7 % (50.0-75.0) H 08/12/18 05:45 Lymph % (Auto) 7.1 % (20.0-40.0) L 08/12/18 05:45 [place] % (Auto) 12.8 % (0.0-10.0) H 08/12/18 05:45 Eos % (Auto) 1.1 % (0.0-4.0) 08/12/18 05:45 Baso % (Auto) 0.3 % (0.0-2.0) 08/12/18 05:45 Neut # (Auto) 5.3 K/uL (1.8-7.0) 08/12/18 05:45 Lymph # (Auto) 0.5 K/uL (1.0-4.3) L 08/12/18 05:45 [place] # (Auto) 0.9 K/uL (0.0-0.8) H 08/12/18 05:45 Eos # (Auto) 0.1 K/uL (0.0-0.7) 08/12/18 05:45 Baso # (Auto) 0.0 K/uL (0.0-0.2) 08/12/18 05:45 Neutrophils % (Manual) 85 % (42-75) H 08/11/18 17:15 Band Neutrophils % 4 % (0-2) H 08/11/18 17:15 Lymphocytes % (Manual) 2 % (20-50) L 08/11/18 17:15 Monocytes % (Manual) 9 % (0-10) 08/11/18 17:15 Smudge Cells Present 08/11/18 17:15 Platelet Estimate Decreased (NORMAL) L 08/11/18 17:15 Large Platelets Present 08/11/18 17:15 Macrocytosis (manual) Slight 08/11/18 17:15 PT 16.3 Seconds (9.8-13.1) H 08/11/18 17:15 INR 1.5 08/11/18 17:15 APTT 33.7 Seconds (25.6-37.1) 08/11/18 17:15 Sodium 138 mmol/l (132-148) 08/12/18 05:45 Potassium 3.7 MMOL/L (3.6-5.0) 08/12/18 05:45 Chloride 108 mmol/L (98-107) H 08/12/18 05:45 Carbon Dioxide 27 mmol/L (22-30) 08/12/18 05:45 Anion Gap 7 (10-20) L 08/12/18 05:45 BUN 17 mg/dl (9-20) 08/12/18 05:45 Creatinine 0.8 mg/dl (0.8-1.5) 08/12/18 05:45 Est GFR ( Amer) > 60 08/12/18 05:45 Est GFR (Non-Af Amer) > 60 08/12/18 05:45 Random Glucose 155 mg/dL (75-110) H 08/12/18 05:45 Calcium 8.2 mg/dL (8.4-10.2) L 08/12/18 05:45 Total Bilirubin 1.7 mg/dl (0.2-1.3) H 08/12/18 05:45 AST 35 U/L (17-59) 08/12/18 05:45 ALT 34 U/L (21-72) 08/12/18 05:45 Alkaline Phosphatase 146 U/L (38-126) H D 08/12/18 05:45 Troponin I 0.0190 ng/mL (0.00-0.120) 08/11/18 17:15 Total Protein 6.0 G/DL (6.3-8.2) L 08/12/18 05:45 Albumin 2.9 g/dL (3.5-5.0) L 08/12/18 05:45 Globulin 3.0 gm/dL (2.2-3.9) 08/12/18 05:45 Albumin/Globulin Ratio 1.0 (1.0-2.1) 08/12/18 05:45 Influenza Typ A,B (EIA) Negative for flu a/b (NEGATIVE) 08/11/18 18:05 - Hospital Course Hospital Course: 68 yo man with pmh of hx liver cirrhosis, s/p liver transplant 2 years ago, HTN, BPH presents to the ED with fever and chills. admitted for Observation. Upon Physical exam there was a Right thigh cellulites was noted. Pt was treated with Abx Zosyn and Unasyn IV. Pt vitals were stable, chart were reviewed, Pt celullitis was measured today and have improved. Pt feel comfortable to be discharged Pt Will be discharged home with Augmentin PO BID for 10 days. Pt should follow up with PCP 1 week Pt should continue home medication and finish abx Discharge Exam - Head Exam Head Exam: ATRAUMATIC, NORMAL INSPECTION, NORMOCEPHALIC - Eye Exam Eye Exam: EOMI, Normal appearance, PERRL Pupil Exam: NORMAL ACCOMODATION, PERRL - Respiratory Exam Respiratory Exam: Clear to PA & Lateral, NORMAL BREATHING PATTERN, UNREMARKABLE - Cardiovascular Exam Cardiovascular Exam: REGULAR RHYTHM, +S1, +S2 - GI/Abdominal Exam GI & Abdominal Exam: Normal Bowel Sounds, Unremarkable - Extremities Exam Additional comments: Red patch noted on inner part of the R thigh, tender and warm to touch consistent with cellulites - Back Exam Back exam: absent: CVA tenderness (L), CVA tenderness (R) - Neurological Exam Neurological exam: Alert, Oriented x3 - Psychiatric Exam Psychiatric exam: Normal Affect, Normal Mood - Skin Skin Exam: Dry, Intact, Normal Color, Warm Discharge Plan - Discharge Medications Prescriptions: Amoxicillin/Clavulanate [Augmentin 875 MG-125 MG] 1 tab PO Q12 #20 tab - Follow Up Plan Condition: STABLE Disposition: HOME/ ROUTINE Instructions: Fever, Adult (DC), Hypertension (DC), Hypertension (GEN) Additional Instructions: follow up with primary MD 1 week
[2018-08-12] MEDS ORDERED: Multivitamin With Minerals Tab PO SCH (12:00)
[2018-08-12] MEDS ORDERED: Cholecalciferol 1,000 INTLU TAB PO SCH (12:00)
== END 2018-08-12 13:18 | disposition home or self-care (01) ==
LOC: H.ER 16:12 → H.ERHOLD 17:57 → H.MEDSURG1 21:14
PROVIDERS: ADMIT Hospitalist; ATTEND Hospitalist
DX: L03.115 Cellulitis of right lower limb (principal); Z94.4 Liver transplant status; M19.90 Unspecified osteoarthritis, unspecified site; K29.70 Gastritis, unspecified, without bleeding; I10 Essential (primary) hypertension; Z79.01 Long term (current) use of anticoagulants; N40.0 Benign prostatic hyperplasia without lower urinary tract symptoms; Z87.891 Personal history of nicotine dependence; D69.6 Thrombocytopenia, unspecified
CPT/HCPCS: 36415; 71045; 80053; 84484; 85025; 85610; 85730; 87040; 87086; 87804; 93005; 99283; G0378; J0295; J2543; J7030; J7507

== ENCOUNTER 2018-10-15 12:22 | Inpatient (IN) | payer MEDICARE, BC ==
--- NOTE | 2018-10-15 13:02 | ED PDOC ---
Arrival/HPI - General Chief Complaint: Hip Pain Time Seen by Provider: 10/15/18 12:44 Historian: Patient - History of Present Illness Narrative History of Present Illness (Text): 68 y/o male with a PMHx of HTN and liver cirrhosis presents to the ED for evaluation of left hip injury s/p fall. Patient states he was walking down one step when he tripped and fell injuring his left hip. Patient states pain worsens with movement and is non-weight bearing. Patient denies syncope, loss of consciousness and other injury. PMD: Moy Gomez Past Medical History - Infectious Disease Hx of Infectious Diseases: None - Tetanus Immunization Tetanus Immunization: Unknown - Cardiac Hx Cardiac Disorders: Yes Hx Hypertension: Yes - Pulmonary Hx Respiratory Disorders: No - Neurological Hx Neurological Disorder: No - HEENT Hx HEENT Disorder: No - Renal Hx Renal Disorder: No - Endocrine/Metabolic Hx Endocrine Disorders: No - Hematological/Oncological Hx Blood Disorders: Yes Hx AIDS: No Hx Cirrhosis: Yes - Integumentary Hx Dermatological Disorder: No - Musculoskeletal/Rheumatological Hx Musculoskeletal Disorders: Yes Hx Arthritis: Yes Hx Falls: No - Gastrointestinal Hx Gastrointestinal Disorders: Yes Hx Gastritis: Yes - Genitourinary/Gynecological Hx Genitourinary Disorders: No - Psychiatric Hx Psychophysiologic Disorder: No Hx Substance Use: Yes - Surgical History Hx Liver Transplant: Yes (04/2017 at [facility]) - Anesthesia Hx Anesthesia: Yes Hx Anesthesia Reactions: No Family/Social History Smoking Status: Former Smoker Hx Alcohol Use: Yes Hx Substance Use: Yes Allergies/Home Meds Allergies/Adverse Reactions: Allergies No Known Allergies Allergy (Verified 06/09/18 01:15) Home Medications: Home Meds Medication Instructions Recorded Confirmed Apixaban [Eliquis] 5 mg PO Q12 08/11/18 08/11/18 Aspirin [Ecotrin] 81 mg PO DAILY 08/11/18 08/11/18 Calcium/Chloride/Magnesium 1 tab PO Q12 08/11/18 08/11/18 [Slow-Mag] Cholecalciferol (Vitamin D3) 2,000 unit PO DAILY@1200 08/11/18 08/11/18 [Vitamin D3] Famotidine [Pepcid] 20 mg PO BID 08/11/18 08/11/18 Furosemide [Lasix] 40 mg PO DAILY 08/11/18 08/11/18 Metoprolol Tartrate [Lopressor] 25 mg PO Q12 08/11/18 08/11/18 Multivitamin [Multi-Vitamin Daily] 1 tab PO DAILY@1200 08/11/18 08/11/18 Spironolactone [Aldactone] 50 mg PO DAILY 08/11/18 08/11/18 Tacrolimus [Prograf] 0.5 mg PO Q12 08/11/18 08/11/18 Ursodiol [Bri Forte] 500 mg PO Q12 08/11/18 08/11/18 amLODIPine [Norvasc] 10 mg PO DAILY 08/11/18 08/11/18 predniSONE [predniSONE Tab] 5 mg PO DAILY 08/11/18 08/11/18 Physical Exam Vital Signs Temp Pulse Resp BP Pulse Ox 10/15/18 12:25 97.8 F 65 16 132/98 H 96 Medical Decision Making - RAD Interpretation Radiology Orders: 10/15/18 12:57 Hip Left [HIP MIN 2V W/ PELVIS LT] [RAD] Stat 10/15/18 12:58 CHEST PORTABLE [RAD] Stat Disposition/Present on Arrival - Present on Arrival History of DVT/PE: No History of Uncontrolled Diabetes: No Urinary Catheter: No - Disposition
--- NOTE | 2018-10-15 13:05 | ED PDOC ---
Lower Extremity Pain/Injury Time Seen by Provider: 10/15/18 12:44 Chief Complaint (Nursing): Hip Pain Chief Complaint (Provider): Hip Pain History Per: Patient History/Exam Limitations: no limitations Onset/Duration Of Symptoms: Days Current Symptoms Are (Timing): Still Present Additional Complaint(s): 68 y/o male with a PMHx of HTN and liver cirrhosis presents to the ED for evaluation of left hip injury s/p fall. Patient states he was walking down one step when he tripped and fell injuring his left hip. Patient states pain worsens with movement and is non-weight bearing. Patient denies syncope, loss of consciousness and other injury. PMD: Moy Gomez - Hip Description Of Injury: Fell, Tripped Currently Unable To: Bear Weight, Bend Or Move Past Medical History Reviewed: Historical Data, Nursing Documentation, Vital Signs Vital Signs: Last Vital Signs Temp 97.8 F 10/15/18 12:25 Pulse 65 10/15/18 12:25 Resp 16 10/15/18 12:25 BP 132/98 H 10/15/18 12:25 Pulse Ox 96 10/15/18 12:25 - Medical History PMH: Arthritis, Gastritis, HTN Denies: HIV, Chronic Kidney Disease Other PMH: Liver Cirrhosis - Surgical History Surgical History: Endoscopy Denies: Pacemaker Other surgeries: Liver transplant - Family History Family History: States: Unknown Family Hx - Social History Current smoker - smoking cessation education provided: No Alcohol: None Drugs: Denies - Home Medications Home Medications: Ambulatory Orders Medication Instructions Recorded RX: Apixaban [Eliquis] 5 mg PO Q12 08/11/18 RX: Aspirin [Ecotrin] 81 mg PO DAILY 08/11/18 RX: Calcium/Chloride/Magnesium 1 tab PO Q12 08/11/18 [Slow-Mag] RX: Cholecalciferol (Vitamin D3) 2,000 unit PO DAILY@1200 08/11/18 [Vitamin D3] RX: Famotidine [Pepcid] 20 mg PO BID 08/11/18 RX: Furosemide [Lasix] 40 mg PO DAILY 08/11/18 RX: Metoprolol Tartrate [Lopressor] 25 mg PO Q12 08/11/18 RX: Multivitamin [Multi-Vitamin 1 tab PO DAILY@1200 08/11/18 Daily] RX: Spironolactone [Aldactone] 50 mg PO DAILY 08/11/18 RX: Tacrolimus [Prograf] 0.5 mg PO Q12 08/11/18 RX: Ursodiol [Bri Forte] 500 mg PO Q12 08/11/18 RX: amLODIPine [Norvasc] 10 mg PO DAILY 08/11/18 RX: predniSONE [predniSONE Tab] 5 mg PO DAILY 08/11/18 Sulfamethoxazole/Trimethoprim 0.5 tab PO BID 3 Days tab 10/15/18 [Bactrim DS 800 mg-160 mg] - Allergies Allergies/Adverse Reactions: Allergies Allergy/AdvReac Type Severity Reaction Status Date / Time No Known Allergies Allergy Verified 06/09/18 01:15 Review of Systems ROS Statement: Except As Marked, All Systems Reviewed And Found Negative Musculoskeletal: Positive for: Other (Left hip pain). Negative for: Shoulder Pain, Arm Pain, Back Pain, Hand Pain, Leg Pain Neurological: Negative for: Other (syncope) Physical Exam - Reviewed Nursing Documentation Reviewed: Yes Vital Signs Reviewed: Yes - Physical Exam Appears: Positive for: No Acute Distress Head Exam: Positive for: ATRAUMATIC, NORMOCEPHALIC Skin: Positive for: Normal Color, Warm, Dry Eye Exam: Positive for: Normal appearance, EOMI, PERRL Neck: Positive for: Normal, Painless ROM Cardiovascular/Chest: Positive for: Regular Rate, Rhythm. Negative for: Murmur Respiratory: Positive for: Normal Breath Sounds. Negative for: Respiratory Distress Pulses-Dorsalis Pedis (R): 2+ Pulses-Post. Tibialis (R): 2+ Pulses-Radial (R): 2+ Back: Positive for: Normal Inspection. Negative for: L CVA Tenderness, R CVA Tenderness, Vertebral Tenderness Extremity: Negative for: Normal ROM (Limited ROM at the left hip secondary to pain. ), Deformity (obvious deformity. ) Neurologic/Psych: Positive for: Alert, Oriented. Negative for: Motor/Sensory Deficits - Laboratory Results Result Diagrams: 10/16/18 05:25 10/16/18 05:25 - ECG O2 Sat by Pulse Oximetry: 96 (RA) Pulse Ox Interpretation: Normal Medical Decision Making Medical Decision Making: Time: 1256 Impression: Left hip pain and injury Differentials include but not limited to hip dislocation, hip fracture and hip contusion due to mechanical fall. Plan: -- Type and Screen -- EKG -- BMP -- CBC with Differentials -- PTT -- Prothrombin Time -- CXR Portable -- Hip Left XR Time: 1341 Read by Provider, Left Hip XR demonstrates impacted femoral neck fracture, no dislocation Time: 141 -- Spoke to Dr. Gomez regarding admission. Dr. Gomez will admit to the hospitalist and requests Dr. Pickett as an orthopedic consult. Additionally spoke with patient and family who agree with plan. -- Spoke with hospitalist, Dr. Del Rosario regarding admission Time: 1428 -- Spoke to Dr. Pickett regarding patient's condition. Dr. Pickett to schedule surgery for fracture repair on Wednesday. Time: 1452 -- Hip CT HIP CT RESULTS FINDINGS: BONES: Minimally displaced left femoral neck subcapital fracture. Femoral head maintains normal contour. LEFT HIP JOINT: Unremarkable. No dislocation. No degenerative changes. SOFT TISSUES: Unremarkable. IMPRESSION: Minimally displaced left femoral neck subcapital fractur Scribe Attestation: Documented by Devan Richter, acting as a scribe for Dia Quinn MD. Provider Scribe Attestation: All medical record entries made by the Scribe were at my direction and personally dictated by me. I have reviewed the chart and agree that the record accurately reflects my personal performance of the history, physical exam, medical decision making, and the department course for this patient. I have also personally directed, reviewed, and agree with the discharge instructions and disposition. Disposition - Clinical Impression Clinical Impression: Femur fracture, left - Patient ED Disposition Is Patient to be Admitted: Yes Discussed With : Moy Gomze - Disposition Disposition Time: 14:00 Condition: FAIR - Pt Status Changed To: Hospital Disposition Of: Inpatient - Admit Certification Admit to Inpatient:: After my assessment, the patient will require hospitalization for at least two midnights. This is because of the severity of symptoms shown, intensity of services needed, and/or the medical risk in this patient being treated as an outpatient. - POA Present On Arrival: Falls Or Trauma, Poor Glycemic Control
[2018-10-15 13:27] LABS: BASO % 0.6 % (0.0-2.0); EOS # 0.2 K/uL (0.0-0.7); EOS % 2.9 % (0.0-4.0); LYMPH # 0.5 K/uL (1.0-4.3); LYMPH % 10.1 % (20.0-40.0); MEAN CELL VOLUME 97.9 fl (80.0-94.0); MEAN CORPUSCULAR HEMOGLOBIN 33.1 pg (27.0-31.0); MEAN CORPUSCULAR HGB CONC 33.8 g/dL (33.0-37.0); MEAN PLATELET VOLUME 9.7 fl (7.2-11.7); MONO # 0.5 K/uL (0.0-0.8); MONO % 8.9 % (0.0-10.0); NEUT # 4.2 K/uL (1.8-7.0); NEUT % 77.5 % (50.0-75.0); NRBC % 0.1 % (0.0-0.0); RBC 4.22 Mil/uL (4.40-5.90); RED CELL DISTRIBUTION WIDTH 12.9 % (11.5-14.5); WHITE BLOOD COUNT 5.4 K/uL (4.8-10.8)
[2018-10-15 13:41] LABS: BLOOD UREA NITROGEN 20 mg/dl (9-20); CALCIUM 8.8 mg/dL (8.4-10.2); GFR NON-AFRICAN AMERICAN > 60
[2018-10-15 13:43] LABS: INR 1.5; PROTHROMBIN TIME 16.7 Seconds (9.8-13.1)
[2018-10-15 13:46] LABS: PARTIAL THROMBOPLASTIN TIME 33.3 Seconds (25.6-37.1)
[2018-10-15] MEDS ORDERED: Insulin Regular 100 units/ml IV STA (14:02)
--- NOTE | 2018-10-15 15:12 | CP.PCM.HP ---
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 Pt reports that approximately 1 hour prior to arrival, he was walking down the steps of this house when he slipped and landed on his L hip. He denies preceding headache, dizziness, confusion, head trauma, generalized weakness, blurred vision. Pain is localized to the L lateral hip at site of impact. Denies open lesions. Pain was sharp, rated 8/10, radiating to ipsilateral knee, lasting seconds to minutes, Aggravated with movement and alleviated with rest. He did not take any pain medication prior to arrival. PMD: Dr. Reyes [facility]rology: [facility]: 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 absent: Confusion, Dizziness, Headaches, Lack of Coordination, Syncope Past Patient History - Infectious Disease Hx of Infectious Diseases: None - Tetanus Immunizations Tetanus Immunization: Unknown - Past Medical History & Family History Past Medical History?: Yes - Past Social History Alcohol: None Drugs: Denies - CARDIAC Hx Hypertension: Yes Hx Pacemaker: No - PULMONARY Hx Respiratory Disorders: No - NEUROLOGICAL Hx Neurological Disorder: No - HEENT Hx HEENT Problems: No - RENAL Hx Chronic Kidney Disease: No - ENDOCRINE/METABOLIC Hx Endocrine Disorders: No - HEMATOLOGICAL/ONCOLOGICAL Hx Human Immunodeficiency Virus (HIV): No - INTEGUMENTARY Hx Dermatological Problems: No - MUSCULOSKELETAL/RHEUMATOLOGICAL Hx Arthritis: Yes - GASTROINTESTINAL Hx Gastritis: Yes - GENITOURINARY/GYNECOLOGICAL Hx Genitourinary Disorders: No - PSYCHIATRIC Hx Psychophysiologic Disorder: No Hx Substance Use: Yes - SURGICAL HISTORY Hx Surgeries: Yes Hx Herniorrhaphy: Yes (s/p herniorrhaphy jun 2018) Hx [facility] Trans[facility]: [facility] ([facility] - ANESTHESIA Hx Anesthesia: Yes Hx Anesthesia Reactions: No Meds Allergies/Adverse Reactions: Allergies Allergy/AdvReac Type Severity Reaction Status Date / Time No Known Allergies Allergy Verified 06/09/18 01:15 Physical Exam - Constitutional Appears: Well, Non-toxic - Eye Exam Eye Exam: EOMI - ENT Exam ENT Exam: Mucous Membranes Moist - Respiratory Exam Respiratory Exam: Clear to Auscultation Bilateral, NORMAL BREATHING PATTERN. absent: Wheezes - Cardiovascular Exam Cardiovascular Exam: +S1, +S2 - GI/Abdominal Exam GI & Abdominal Exam: Normal Bowel Sounds, Soft. absent: Tenderness - Extremities Exam Extremities exam: Positive for: normal capillary refill, tenderness (L hip), pedal pulses present. Negative for: calf tenderness, pedal edema - Neurological Exam Neurological exam: Abnormal Gait (2/2 fall and hip fracture), Alert, CN II-XII Intact, Oriented x3 - Psychiatric Exam Psychiatric exam: Normal Affect, Normal Mood Results - Vital Signs Recent Vital Signs: Last Vital Signs Temp 97.8 F 10/15/18 12:25 Pulse 65 10/15/18 12:25 Resp 16 10/15/18 12:25 BP 132/98 H 10/15/18 12:25 Pulse Ox 96 10/15/18 14:31 - Labs Result Diagrams: 10/15/18 13:17 10/15/18 13:17 Labs: Laboratory Results - last 24 hr 10/15/18 10/15/18 10/15/18 13:17 13:17 13:17 WBC 5.4 RBC 4.22 L Hgb 14.0 Hct 41.3 MCV 97.9 H MCH 33.1 H MCHC 33.8 RDW 12.9 Plt Count 117 L D MPV 9.7 Neut % (Auto) 77.5 H Lymph % (Auto) 10.1 L [place] % (Auto) 8.9 Eos % (Auto) 2.9 Baso % (Auto) 0.6 Neut # (Auto) 4.2 Lymph # (Auto) 0.5 L [place] # (Auto) 0.5 Eos # (Auto) 0.2 Baso # (Auto) 0.0 PT 16.7 H INR 1.5 APTT 33.3 Sodium 133 Potassium 4.4 Chloride 99 Carbon Dioxide 24 Anion Gap 14 BUN 20 Creatinine 0.8 Est GFR ( Amer) > 60 Est GFR (Non-Af Amer) > 60 Random Glucose 504 H* D Calcium 8.8 BBK History Checked 10/15/18 14:32 WBC RBC Hgb Hct MCV MCH MCHC RDW Plt Count MPV Neut % (Auto) Lymph % (Auto) [place] % (Auto) Eos % (Auto) Baso % (Auto) Neut # (Auto) Lymph # (Auto) [place] # (Auto) Eos # (Auto) Baso # (Auto) PT INR APTT Sodium Potassium Chloride Carbon Dioxide Anion Gap BUN Creatinine Est GFR ( Amer) Est GFR (Non-Af Amer) Random Glucose Calcium BBK History Checked Patient has bt Assessment & Plan - Assessment and Plan (Free Text) Assessment: 68 yo M with pmhx of HTN and liver cirrhosis s/p liver transplantation 3 years prior admitted for L hip fracture Plan: L hip fracture -Admit to Med/Surg -XR: L hip -CT w/o: L hip: minimally displaced L femoral neck subcapital fracture -EKG -Ortho: Dr. Pickett: surgery Wednesday -f/u coag, CBC Hx of liver transplant 2/2 cirrhosis -Continue home meds -shortly after, pt experinced hepatic thrombosis and started on eliquis HTN -Continue home meds -Cardio: Dr. Gomez Hyperglycemia -Likely 2/2 steroids -s/p Insulin 5U -f/u BMP, HbA1c DVT prophylaxis -scd -AC held (eliquis and asa due to planned surgery on Wednesday) Diet -heart healthy Case dw Dr. Miguel Ángel Sinha MD PGY-2 <Roldan Del Rosario D - Last Filed: 10/15/18 16:55> Results - Vital Signs Recent Vital Signs: Last Vital Signs Temp 98.1 F 10/15/18 16:27 Pulse 78 10/15/18 16:27 Resp 18 10/15/18 16:27 BP 130/66 10/15/18 16:27 Pulse Ox 96 10/15/18 16:27 - Labs Result Diagrams: 10/15/18 13:17 10/15/18 13:17 Labs: Laboratory Results - last 24 hr 10/15/18 10/15/18 10/15/18 13:17 13:17 13:17 WBC 5.4 RBC 4.22 L Hgb 14.0 Hct 41.3 MCV 97.9 H MCH 33.1 H MCHC 33.8 RDW 12.9 Plt Count 117 L D MPV 9.7 Neut % (Auto) 77.5 H Lymph % (Auto) 10.1 L [place] % (Auto) 8.9 Eos % (Auto) 2.9 Baso % (Auto) 0.6 Neut # (Auto) 4.2 Lymph # (Auto) 0.5 L [place] # (Auto) 0.5 Eos # (Auto) 0.2 Baso # (Auto) 0.0 PT 16.7 H INR 1.5 APTT 33.3 Sodium 133 Potassium 4.4 Chloride 99 Carbon Dioxide 24 Anion Gap 14 BUN 20 Creatinine 0.8 Est GFR ( Amer) > 60 Est GFR (Non-Af Amer) > 60 POC Glucose (mg/dL) Random Glucose 504 H* D Calcium 8.8 Blood Type Antibody Screen BBK History Checked 10/15/18 10/15/18 14:32 16:03 WBC RBC Hgb Hct MCV MCH MCHC RDW Plt Count MPV Neut % (Auto) Lymph % (Auto) [place] % (Auto) Eos % (Auto) Baso % (Auto) Neut # (Auto) Lymph # (Auto) [place] # (Auto) Eos # (Auto) Baso # (Auto) PT INR APTT Sodium Potassium Chloride Carbon Dioxide Anion Gap BUN Creatinine Est GFR ( Amer) Est GFR (Non-Af Amer) POC Glucose (mg/dL) 383 H Random Glucose Calcium Blood Type O POSITIVE Antibody Screen Negative BBK History Checked Patient has bt Attending/Attestation - Attestation I have personally seen and examined this patient.: Yes I have fully participated in the care of the patient.: Yes I have reviewed all pertinent clinical information: Yes Notes (Text): 10/15/18 16:54 Patient seen and examined with resident. Case discussed and agreed with assessment and plan of management.
[2018-10-15] MEDS ORDERED: Insulin Regular 100 units/ml ONE (16:01)
--- NOTE | 2018-10-15 16:04 | CT ---
Date of service: 10/15/2018 PROCEDURE: CT of the Left Hip. HISTORY: left hip fracture COMPARISON: None available. TECHNIQUE: Contiguous axial images of the left hip were obtained. Coronal and sagittal reformats were generated. Radiation dose: Total exam DLP = 945.41 mGy-cm. This CT exam was performed using one or more of the following dose reduction techniques: Automated exposure control, adjustment of the mA and/or kV according to patient size, and/or use of iterative reconstruction technique. FINDINGS: BONES: Minimally displaced left femoral neck subcapital fracture. Femoral head maintains normal contour. LEFT HIP JOINT: Unremarkable. No dislocation. No degenerative changes. SOFT TISSUES: Unremarkable. IMPRESSION: Minimally displaced left femoral neck subcapital fracture.
[2018-10-15] MEDS: Sodium Chloride 0.9% 1,000 ML IV SCH ×2 (16:08→23:06)
[2018-10-15 20:23] LABS: SQUAMOUS EPITHIAL < 1 /hpf (0-5); URINE BILIRUBIN NEGATIVE (NEGATIVE); URINE BLOOD MODERATE (NEGATIVE); URINE CLARITY CLEAR (Clear); URINE COLOR YELLOW (YELLOW); URINE GLUCOSE (UA) >=500 mg/dL (Normal); URINE LEUKOCYTE ESTERASE NEG Leu/uL (Negative); URINE PROTEIN NEGATIVE (NEGATIVE)
[2018-10-15] MEDS: Magnesium Chloride 64 mg ER Tab PO SCH (20:58)
[2018-10-15] MEDS: Tmp-Smz 800 mg-160 mg DS Tab PO SCH (20:58)
[2018-10-15] MEDS ORDERED: Glucagon Recombinant 1 mg Inj IM PRN (23:33)
[2018-10-15] MEDS ORDERED: Dextrose 50% SYRINGE Inj (50 ml) IV PRN (23:33)
[2018-10-16] MEDS: Insulin Regular 100 units/ml SC SCH ×5 (00:26→22:22)
[2018-10-16] MEDS ORDERED: Morphine 4 MG/ML VIAL IVP ONE (02:22)
[2018-10-16] MEDS: Sodium Chloride 0.9% 1,000 ML IV SCH (06:07)
[2018-10-16 07:10] LABS: BASO % 0.7 % (0.0-2.0); EOS # 0.2 K/uL (0.0-0.7); EOS % 3.8 % (0.0-4.0); HEMOGLOBIN 12.8 g/dL (12.0-18.0); LYMPH # 0.8 K/uL (1.0-4.3); LYMPH % 13.1 % (20.0-40.0); MEAN CELL VOLUME 95.5 fl (80.0-94.0); MEAN CORPUSCULAR HEMOGLOBIN 33.3 pg (27.0-31.0); MEAN CORPUSCULAR HGB CONC 34.8 g/dL (33.0-37.0); MEAN PLATELET VOLUME 9.8 fl (7.2-11.7); MONO # 0.6 K/uL (0.0-0.8); MONO % 10.5 % (0.0-10.0); NEUT # 4.2 K/uL (1.8-7.0); NEUT % 71.9 % (50.0-75.0); RBC 3.83 Mil/uL (4.40-5.90); RED CELL DISTRIBUTION WIDTH 12.8 % (11.5-14.5); WHITE BLOOD COUNT 5.9 K/uL (4.8-10.8)
[2018-10-16] MEDS ORDERED: Insulin Regular 100 units/ml SC SCH ×2 (07:30)
[2018-10-16 07:35] LABS: INR 1.4; PROTHROMBIN TIME 15.7 Seconds (9.8-13.1)
[2018-10-16 07:37] LABS: BLOOD UREA NITROGEN 14 mg/dl (9-20); CALCIUM 7.8 mg/dL (8.4-10.2); GFR NON-AFRICAN AMERICAN > 60
[2018-10-16] MEDS: Magnesium Chloride 64 mg ER Tab PO SCH ×2 (08:17→20:02)
[2018-10-16] MEDS: Tmp-Smz 800 mg-160 mg DS Tab PO SCH ×2 (08:19→20:02)
--- NOTE | 2018-10-16 10:10 | RAD ---
Date of service: 10/15/2018 HISTORY: left hip pain injury COMPARISON: None available. FINDINGS: BONES: Subcapital fracture of the left femoral neck. JOINTS: Normal. No osteoarthritis. SOFT TISSUE: Normal. OTHER FINDINGS: None . IMPRESSION: Subcapital fracture of the left femoral neck.
--- NOTE | 2018-10-16 10:18 | RAD ---
Date of service: 10/15/2018 HISTORY: fall COMPARISON: No prior. FINDINGS: LUNGS: No active pulmonary disease. PLEURA: No significant pleural effusion identified, no pneumothorax apparent. CARDIOVASCULAR: No aortic atherosclerotic calcification present. Cardiomegaly. No pulmonary vascular congestion. OSSEOUS STRUCTURES: No significant abnormalities. VISUALIZED UPPER ABDOMEN: Normal. OTHER FINDINGS: None. IMPRESSION: No active disease.
--- NOTE | 2018-10-16 12:23 | CP.PCM.PN ---
<Gillian Moore - Last Filed: 10/16/18 12:25> Subjective - Date & Time of Evaluation Date of Evaluation: 10/16/18 Time of Evaluation: 08:00 - Subjective Subjective: Patient seen and examined at bedside. Labs, charts, and nurse notes reviewed. Patient reports left leg tenderness. He denies numbness, tingling. He states he's had an aversion to being turn on the side because of the pain. Objective - Vital Signs/Intake and Output Vital Signs (last 24 hours): Temp Pulse Resp BP Pulse Ox 98.3 F 69 20 129/75 96 10/16/18 08:05 10/16/18 08:05 10/16/18 08:05 10/16/18 08:18 10/16/18 10:20 - Medications Medications: Current Medications Amlodipine Besylate (Norvasc) 10 mg PO DAILY [facility] Last Admin: 10/16/18 08:19 Dose: 10 mg Cholecalciferol (Vitamin D) 2,000 intlu PO DAILY@1200 [facility] Dextrose (Dextrose 50% Inj) 0 ml IV STAT PRN; Protocol PRN Reason: Hypoglycemia Protocol Dextrose (Glutose 15) 0 gm PO ONCE PRN; Protocol PRN Reason: Hypoglycemia Protocol Docusate Sodium (Colace) 100 mg PO BID [facility] Last Admin: 10/16/18 08:18 Dose: 100 mg Famotidine (Pepcid) 20 mg PO BID [facility] Last Admin: 10/16/18 08:19 Dose: 20 mg Furosemide (Lasix) 40 mg PO DAILY [facility] Last Admin: 10/16/18 08:18 Dose: 40 mg Glucagon (Glucagen Diagnostic Kit) 0 mg IM STAT PRN; Protocol PRN Reason: Hypoglycemia Protocol Home Med (Ursodiol [Bri Forte]) 500 mg PO Q12 [facility] Lactated Ringer's (Lactated Ringer's) 1,000 mls @ 100 mls/hr IV .Q10H [facility] Stop: 10/17/18 18:59 Insulin Human Regular (Humulin R) 0 units SC ACHS [facility]; Protocol Last Admin: 10/16/18 08:16 Dose: 4 unit Magnesium Chloride (Slow-Mag) 64 mg PO Q12 [facility] Last Admin: 10/16/18 08:17 Dose: 64 mg Metoprolol Tartrate (Lopressor) 25 mg PO Q12 [facility] Last Admin: 10/16/18 08:19 Dose: 25 mg Multivitamins/Minerals (Therapeutic-M Tab) 1 tab PO DAILY@1200 [facility] Prednisone (Prednisone Tab) 5 mg PO DAILY [facility] Last Admin: 10/16/18 08:19 Dose: 5 mg Spironolactone (Aldactone) 50 mg PO DAILY [facility] Last Admin: 10/16/18 08:19 Dose: 50 mg Tacrolimus (Prograf Cap) 0.5 mg PO Q12 [facility] Last Admin: 10/16/18 08:18 Dose: 0.5 mg Tramadol HCl (Ultram) 50 mg PO Q6 PRN PRN Reason: Pain, moderate (4-7) Last Admin: 10/15/18 23:44 Dose: 50 mg Trimethoprim/Sulfamethoxazole (Bactrim Ds Tab) 1 tab PO Q12 [facility]; Protocol Last Admin: 10/16/18 08:19 Dose: 1 tab - Labs Labs: 10/16/18 05:25 10/16/18 05:25 PT 15.7 Seconds (9.8-13.1) H 10/16/18 05:25 INR 1.4 10/16/18 05:25 APTT 33.3 Seconds (25.6-37.1) 10/15/18 13:17 - Constitutional Appears: No Acute Distress - Eye Exam Eye Exam: EOMI Pupil Exam: PERRL - ENT Exam ENT Exam: Mucous Membranes Moist - Respiratory Exam Respiratory Exam: Clear to Ausculation Bilateral, NORMAL BREATHING PATTERN - Cardiovascular Exam Cardiovascular Exam: REGULAR RHYTHM, +S1, +S2 - GI/Abdominal Exam GI & Abdominal Exam: Soft, Normal Bowel Sounds. absent: Tenderness - Extremities Exam Extremities Exam: Normal Inspection, Tenderness. absent: Calf Tenderness, Joint Swelling, Pedal Edema - Neurological Exam Neurological Exam: Alert, Awake, CN II-XII Intact, Oriented x3 - Psychiatric Exam Psychiatric exam: Normal Affect - Skin Skin Exam: Dry, Normal Color, Warm Assessment and Plan - Assessment and Plan (Free Text) Assessment: 68 y/o male w/ pmhx of HTN and liver cirrhosis s/p liver transplantation 3 years prior, who was admitted for left hip fracture. Plan: Left hip fracture XR Left Hip: subcapital fracture of the left femoral neck CT w/o: L hip: minimally displaced L femoral neck subcapital fracture EKG: normal sinus rythem Patient is medically optimized for surgery Ortho: Dr. Pickett: surgery Wednesday Hx of liver transplant 2/2 cirrhosis -Continue home meds -shortly after, pt experinced hepatic thrombosis and started on eliquis HTN -Continue home meds -Cardio: Dr. Gomez Hyperglycemia -Likely 2/2 steroids -s/p Insulin 5U -f/u BMP, HbA1c DVT prophylaxis -scd -AC held (eliquis and asa due to planned surgery on Wednesday) Diet NPO after midnight IV fluid hydration w/ LR 1L 125mL/hr <Roldan Del Rosario D - Last Filed: 10/16/18 14:20> Objective - Vital Signs/Intake and Output Vital Signs (last 24 hours): Temp Pulse Resp BP Pulse Ox 98.3 F 69 20 129/75 96 10/16/18 08:05 10/16/18 08:05 10/16/18 08:05 10/16/18 08:18 10/16/18 10:20 - Medications Medications: Current Medications Amlodipine Besylate (Norvasc) 10 mg PO DAILY [facility] Last Admin: 10/16/18 08:19 Dose: 10 mg Cholecalciferol (Vitamin D) 2,000 intlu PO DAILY@1200 [facility] Last Admin: 10/16/18 13:33 Dose: 2,000 intlu Dextrose (Dextrose 50% Inj) 0 ml IV STAT PRN; Protocol PRN Reason: Hypoglycemia Protocol Dextrose (Glutose 15) 0 gm PO ONCE PRN; Protocol PRN Reason: Hypoglycemia Protocol Docusate Sodium (Colace) 100 mg PO BID [facility] Last Admin: 10/16/18 08:18 Dose: 100 mg Famotidine (Pepcid) 20 mg PO BID [facility] Last Admin: 10/16/18 08:19 Dose: 20 mg Furosemide (Lasix) 40 mg PO DAILY [facility] Last Admin: 10/16/18 08:18 Dose: 40 mg Glucagon (Glucagen Diagnostic Kit) 0 mg IM STAT PRN; Protocol PRN Reason: Hypoglycemia Protocol Home Med (Ursodiol [Bri Forte]) 500 mg PO Q12 [facility] Lactated Ringer's (Lactated Ringer's) 1,000 mls @ 100 mls/hr IV .Q10H [facility] Stop: 10/17/18 18:59 Insulin Human Regular (Humulin R) 0 units SC ACHS [facility]; Protocol Last Admin: 12/02/18 13:31 Dose: 8 unit Magnesium Chloride (Slow-Mag) 64 mg PO Q12 [facility] Last Admin: 10/16/18 08:17 Dose: 64 mg Metoprolol Tartrate (Lopressor) 25 mg PO Q12 [facility] Last Admin: 10/16/18 08:19 Dose: 25 mg Multivitamins/Minerals (Therapeutic-M Tab) 1 tab PO DAILY@1200 [facility] Last Admin: 10/16/18 13:33 Dose: 1 tab Prednisone (Prednisone Tab) 5 mg PO DAILY [facility] Last Admin: 10/16/18 08:19 Dose: 5 mg Spironolactone (Aldactone) 50 mg PO DAILY [facility] Last Admin: 10/16/18 08:19 Dose: 50 mg Tacrolimus (Prograf Cap) 0.5 mg PO Q12 [facility] Last Admin: 10/16/18 08:18 Dose: 0.5 mg Tramadol HCl (Ultram) 50 mg PO Q6 PRN PRN Reason: Pain, moderate (4-7) Last Admin: 10/15/18 23:44 Dose: 50 mg Trimethoprim/Sulfamethoxazole (Bactrim Ds Tab) 1 tab PO Q12 [facility]; Protocol Last Admin: 10/16/18 08:19 Dose: 1 tab - Labs Labs: 10/16/18 05:25 10/16/18 05:25 PT 15.7 Seconds (9.8-13.1) H 10/16/18 05:25 INR 1.4 10/16/18 05:25 APTT 33.3 Seconds (25.6-37.1) 10/15/18 13:17 Attending/Attestation - Attestation I have personally seen and examined this patient.: Yes I have fully participated in the care of the patient.: Yes I have reviewed all pertinent clinical information, including history, physical exam and plan: Yes Notes (Text): 10/16/18 14:20 Patient seen and examined with resident. Case discussed and agreed with assessment and plan.
--- NOTE | 2018-10-16 12:25 | CP.PCM.CON ---
History of Present Illness - History of Present Illness History of Present Illness: THE PATIENT IS A 68 YEAR OLD MALE WHO TRIPPED OVER ONE STEP YESTERDAY AND BROKE HIS LEFT HIP. HE DENIES DIZZINESS OR LOC BUT SIMPLY STATES THAT THE HEEL OF HIS SHOW CAUGHT THE LAST STEP AND HE SIMPLY FELL. HE ALSO HAS A HISTORY OF HY PERTENSION, A LIVER TRANSPLANT A COUPLE OF YEARS AGO FOR LIVER CIRRHOSIS AND WAS RECENTLY DIAGNOSED WITH A HEPATIC ARTERY THROMBOSIS AND WAS PLACED ON AN ASPIRIN AND CIRRHOSIS. HE ALSO HAS A CHRONICALLY LOW PLATELET COUNT. HE HAD RECENT SURGERY FOR A CYSTOCELE. I FOLLOW HIM IN THE OFFICE AND HAVE BEEN ASKED TO FOLLOW HIM AND CLEAR HIM FOR SURGERY. HE DENIES ANY CHEST PAIN, PALPITATIONS OR SOB. Past Patient History - Infectious Disease Hx of Infectious Diseases: None - Tetanus Immunizations Tetanus Immunization: Unknown - Past Medical History & Family History Past Medical History?: Yes - Past Social History Alcohol: None Drugs: Denies - CARDIAC Hx Hypertension: Yes Hx Pacemaker: No - PULMONARY Hx Respiratory Disorders: No - NEUROLOGICAL Hx Neurological Disorder: No - HEENT Hx HEENT Problems: No - RENAL Hx Chronic Kidney Disease: No - ENDOCRINE/METABOLIC Hx Endocrine Disorders: No - HEMATOLOGICAL/ONCOLOGICAL Hx Human Immunodeficiency Virus (HIV): No - INTEGUMENTARY Hx Dermatological Problems: No - MUSCULOSKELETAL/RHEUMATOLOGICAL Hx Arthritis: Yes - GASTROINTESTINAL Hx Gastritis: Yes - GENITOURINARY/GYNECOLOGICAL Hx Genitourinary Disorders: No Other/Comment: left testicular hydrocele 08/2018 - PSYCHIATRIC Hx Psychophysiologic Disorder: No Hx Substance Use: No (as per patient) - SURGICAL HISTORY Hx Surgeries: Yes Hx Herniorrhaphy: Yes (s/p herniorrhaphy jun 2018) Hx Liver Transplant: Yes (04/2017 at [facility]) - ANESTHESIA Hx Anesthesia: Yes Hx Anesthesia Reactions: No Meds Home Medications: Home Medication List Medication Instructions Recorded Confirmed Type Sulfamethoxazole/Trimethoprim 0.5 tab PO BID 3 Days tab 10/15/18 Rx [Bactrim DS 800 mg-160 mg] Allergies/Adverse Reactions: Allergies Allergy/AdvReac Type Severity Reaction Status Date / Time No Known Allergies Allergy Verified 06/09/18 01:15 - Medications Medications: Current Medications Amlodipine Besylate (Norvasc) 10 mg PO DAILY [facility] Last Admin: 10/16/18 08:19 Dose: 10 mg Cholecalciferol (Vitamin D) 2,000 intlu PO DAILY@1200 [facility] Dextrose (Dextrose 50% Inj) 0 ml IV STAT PRN; Protocol PRN Reason: Hypoglycemia Protocol Dextrose (Glutose 15) 0 gm PO ONCE PRN; Protocol PRN Reason: Hypoglycemia Protocol Docusate Sodium (Colace) 100 mg PO BID [facility] Last Admin: 10/16/18 08:18 Dose: 100 mg Famotidine (Pepcid) 20 mg PO BID [facility] Last Admin: 10/16/18 08:19 Dose: 20 mg Furosemide (Lasix) 40 mg PO DAILY [facility] Last Admin: 10/16/18 08:18 Dose: 40 mg Glucagon (Glucagen Diagnostic Kit) 0 mg IM STAT PRN; Protocol PRN Reason: Hypoglycemia Protocol Home Med (Ursodiol [Bri Forte]) 500 mg PO Q12 [facility] Lactated Ringer's (Lactated Ringer's) 1,000 mls @ 100 mls/hr IV .Q10H [facility] Stop: 10/17/18 18:59 Insulin Human Regular (Humulin R) 0 units SC [facility]; Protocol Last Admin: 10/16/18 08:16 Dose: 4 unit Magnesium Chloride (Slow-Mag) 64 mg PO Q12 [facility] Last Admin: 10/16/18 08:17 Dose: 64 mg Metoprolol Tartrate (Lopressor) 25 mg PO Q12 [facility] Last Admin: 10/16/18 08:19 Dose: 25 mg Multivitamins/Minerals (Therapeutic-M Tab) 1 tab PO DAILY@1200 [facility] Prednisone (Prednisone Tab) 5 mg PO DAILY [facility] Last Admin: 10/16/18 08:19 Dose: 5 mg Spironolactone (Aldactone) 50 mg PO DAILY [facility] Last Admin: 10/16/18 08:19 Dose: 50 mg Tacrolimus (Prograf Cap) 0.5 mg PO Q12 [facility] Last Admin: 10/16/18 08:18 Dose: 0.5 mg Tramadol HCl (Ultram) 50 mg PO Q6 PRN PRN Reason: Pain, moderate (4-7) Last Admin: 10/15/18 23:44 Dose: 50 mg Trimethoprim/Sulfamethoxazole (Bactrim Ds Tab) 1 tab PO Q12 [facility]; Protocol Last Admin: 10/16/18 08:19 Dose: 1 tab Physical Exam - Respiratory Exam Respiratory Exam: Clear to Auscultation Bilateral - Cardiovascular Exam Cardiovascular Exam: REGULAR RHYTHM, +S1, +S2 - Extremities Exam Additional comments: NO LE EDEMA - Additional Findings Additional findings: EKG NSR LABS NOTED CXR NAD RECENT ECHO WITH GOOD LV FUNCTION Results - Vital Signs Recent Vital Signs: Last Vital Signs Temp 98.3 F 10/16/18 08:05 Pulse 69 10/16/18 08:05 Resp 20 10/16/18 08:05 BP 129/75 10/16/18 08:18 Pulse Ox 96 10/16/18 10:20 - Labs Result Diagrams: 10/16/18 05:25 10/16/18 05:25 Labs: Laboratory Results - last 24 hr 10/15/18 10/15/18 10/15/18 13:17 13:17 13:17 WBC 5.4 RBC 4.22 L Hgb 14.0 Hct 41.3 MCV 97.9 H MCH 33.1 H MCHC 33.8 RDW 12.9 Plt Count 117 L D MPV 9.7 Neut % (Auto) 77.5 H Lymph % (Auto) 10.1 L [place] % (Auto) 8.9 Eos % (Auto) 2.9 Baso % (Auto) 0.6 Neut # (Auto) 4.2 Lymph # (Auto) 0.5 L [place] # (Auto) 0.5 Eos # (Auto) 0.2 Baso # (Auto) 0.0 PT 16.7 H INR 1.5 APTT 33.3 Sodium 133 Potassium 4.4 Chloride 99 Carbon Dioxide 24 Anion Gap 14 BUN 20 Creatinine 0.8 Est GFR ( Amer) > 60 Est GFR (Non-Af Amer) > 60 POC Glucose (mg/dL) Random Glucose 504 H* D Calcium 8.8 Urine Color Urine Clarity Urine pH Ur Specific Ramsey Urine Protein Urine Glucose (UA) Urine Ketones Urine Blood Urine Nitrate Urine Bilirubin Urine Urobilinogen Ur Leukocyte Esterase Urine RBC (Auto) Urine Microscopic WBC Ur Squamous Epith Cells Blood Type Antibody Screen BBK History Checked 10/15/18 10/15/18 10/15/18 14:32 16:03 20:17 WBC RBC Hgb Hct MCV MCH MCHC RDW Plt Count MPV Neut % (Auto) Lymph % (Auto) [place] % (Auto) Eos % (Auto) Baso % (Auto) Neut # (Auto) Lymph # (Auto) [place] # (Auto) Eos # (Auto) Baso # (Auto) PT INR APTT Sodium Potassium Chloride Carbon Dioxide Anion Gap BUN Creatinine Est GFR ( Amer) Est GFR (Non-Af Amer) POC Glucose (mg/dL) 383 H Random Glucose Calcium Urine Color Yellow Urine Clarity Clear Urine pH 8.0 Ur Specific Ramsey 1.021 Urine Protein Negative Urine Glucose (UA) >=500 Urine Ketones Negative Urine Blood Moderate Urine Nitrate Negative Urine Bilirubin Negative Urine Urobilinogen 2.0 Ur Leukocyte Esterase Neg Urine RBC (Auto) 39 H Urine Microscopic WBC 2 Ur Squamous Epith Cells < 1 Blood Type O POSITIVE Antibody Screen Negative BBK History Checked Patient has bt 10/15/18 10/16/18 10/16/18 21:31 04:45 05:25 WBC 5.9 RBC 3.83 L Hgb 12.8 Hct 36.6 MCV 95.5 H D MCH 33.3 H MCHC 34.8 RDW 12.8 Plt Count 105 L MPV 9.8 Neut % (Auto) 71.9 Lymph % (Auto) 13.1 L [place] % (Auto) 10.5 H Eos % (Auto) 3.8 Baso % (Auto) 0.7 Neut # (Auto) 4.2 Lymph # (Auto) 0.8 L [place] # (Auto) 0.6 Eos # (Auto) 0.2 Baso # (Auto) 0.0 PT INR APTT Sodium Potassium Chloride Carbon Dioxide Anion Gap BUN Creatinine Est GFR ( Amer) Est GFR (Non-Af Amer) POC Glucose (mg/dL) 339 H 236 H Random Glucose Calcium Urine Color Urine Clarity Urine pH Ur Specific Ramsey Urine Protein Urine Glucose (UA) Urine Ketones Urine Blood Urine Nitrate Urine Bilirubin Urine Urobilinogen Ur Leukocyte Esterase Urine RBC (Auto) Urine Microscopic WBC Ur Squamous Epith Cells Blood Type Antibody Screen BBK History Checked 10/16/18 10/16/18 10/16/18 05:25 05:25 11:22 WBC RBC Hgb Hct MCV MCH MCHC RDW Plt Count MPV Neut % (Auto) Lymph % (Auto) [place] % (Auto) Eos % (Auto) Baso % (Auto) Neut # (Auto) Lymph # (Auto) [place] # (Auto) Eos # (Auto) Baso # (Auto) PT 15.7 H INR 1.4 APTT Sodium 130 L Potassium 3.8 Chloride 104 Carbon Dioxide 24 Anion Gap 6 L BUN 14 Creatinine 0.7 L Est GFR ( Amer) > 60 Est GFR (Non-Af Amer) > 60 POC Glucose (mg/dL) 345 H Random Glucose 212 H Calcium 7.8 L Urine Color Urine Clarity Urine pH Ur Specific Ramsey Urine Protein Urine Glucose (UA) Urine Ketones Urine Blood Urine Nitrate Urine Bilirubin Urine Urobilinogen Ur Leukocyte Esterase Urine RBC (Auto) Urine Microscopic WBC Ur Squamous Epith Cells Blood Type Antibody Screen BBK History Checked Assessment & Plan - Assessment and Plan (Free Text) Assessment: FALL WITH LEFT HIP FRACTURE HYPERTENSION S/P LIVER TRANSPLANT FOR LIVER CIRRHOSIS RECENT CYSTOCELE SURGERY Plan: CONTINUE AMLODIPINE AND METOPROLOL HOLD ELIQUIS AND SPIRIN PRIOR TO SURGERY THE PATIENT IS CLEARED FOR HIS HIP SURGERY
[2018-10-16] MEDS: Cholecalciferol 1,000 INTLU TAB PO SCH (13:33)
[2018-10-16] MEDS: Multivitamin With Minerals Tab PO SCH (13:33)
--- NOTE | 2018-10-16 13:44 | CP.PCM.CON ---
History of Present Illness - History of Present Illness History of Present Illness: ID: 68 yo male CC- pain and restruicted ROM L hip HPI- 68 yo male,family well known to my practice, presents with pain and inability to ambulate. Pain and external rotation L lower extremity. Pt presents to ER at [facility], and is admitted to DR Jono mendez Past Patient History - Infectious Disease Hx of Infectious Diseases: None (+ for liver transplant 3 yrs ago([facility]- DR Worley)) - Tetanus Immunizations Tetanus Immunization: Unknown - Past Medical History & Family History Past Medical History?: Yes - Past Social History Alcohol: None Drugs: Denies - CARDIAC Hx Hypertension: Yes Hx Pacemaker: No - PULMONARY Hx Respiratory Disorders: No - NEUROLOGICAL Hx Neurological Disorder: No - HEENT Hx HEENT Problems: No - RENAL Hx Chronic Kidney Disease: No - ENDOCRINE/METABOLIC Hx Endocrine Disorders: No - HEMATOLOGICAL/ONCOLOGICAL Hx Human Immunodeficiency Virus (HIV): No - INTEGUMENTARY Hx Dermatological Problems: No - MUSCULOSKELETAL/RHEUMATOLOGICAL Hx Arthritis: Yes - GASTROINTESTINAL Hx Gastritis: Yes - GENITOURINARY/GYNECOLOGICAL Hx Genitourinary Disorders: No Other/Comment: left testicular hydrocele 08/2018 - PSYCHIATRIC Hx Psychophysiologic Disorder: No Hx Substance Use: No (as per patient) - SURGICAL HISTORY Hx Surgeries: Yes Hx Herniorrhaphy: Yes (s/p herniorrhaphy jun 2018) Hx Liver Transplant: Yes (04/2017 at [facility]) Other/Comment: s/p liver transplan 3 yrs ago. s/p R inguinal herniorraphy sevral months ago. s/p excision hydrocoele - ANESTHESIA Hx Anesthesia: Yes Hx Anesthesia Reactions: No Meds Home Medications: Home Medication List Medication Instructions Recorded Confirmed Type Sulfamethoxazole/Trimethoprim 0.5 tab PO BID 3 Days tab 10/15/18 Rx [Bactrim DS 800 mg-160 mg] Allergies/Adverse Reactions: Allergies Allergy/AdvReac Type Severity Reaction Status Date / Time No Known Allergies Allergy Verified 06/09/18 01:15 - Medications Medications: Current Medications Amlodipine Besylate (Norvasc) 10 mg PO DAILY [facility] Last Admin: 10/16/18 08:19 Dose: 10 mg Cholecalciferol (Vitamin D) 2,000 intlu PO DAILY@1200 [facility] Last Admin: 10/16/18 13:33 Dose: 2,000 intlu Dextrose (Dextrose 50% Inj) 0 ml IV STAT PRN; Protocol PRN Reason: Hypoglycemia Protocol Dextrose (Glutose 15) 0 gm PO ONCE PRN; Protocol PRN Reason: Hypoglycemia Protocol Docusate Sodium (Colace) 100 mg PO BID [facility] Last Admin: 10/16/18 08:18 Dose: 100 mg Famotidine (Pepcid) 20 mg PO BID [facility] Last Admin: 10/16/18 08:19 Dose: 20 mg Furosemide (Lasix) 40 mg PO DAILY [facility] Last Admin: 10/16/18 08:18 Dose: 40 mg Glucagon (Glucagen Diagnostic Kit) 0 mg IM STAT PRN; Protocol PRN Reason: Hypoglycemia Protocol Home Med (Ursodiol [Bri Forte]) 500 mg PO Q12 [facility] Lactated Ringer's (Lactated Ringer's) 1,000 mls @ 100 mls/hr IV .Q10H [facility] Stop: 10/17/18 18:59 Insulin Human Regular (Humulin R) 0 units SC [facility]; Protocol Last Admin: 10/16/18 13:31 Dose: 8 unit Magnesium Chloride (Slow-Mag) 64 mg PO Q12 [facility] Last Admin: 10/16/18 08:17 Dose: 64 mg Metoprolol Tartrate (Lopressor) 25 mg PO Q12 [facility] Last Admin: 10/16/18 08:19 Dose: 25 mg Multivitamins/Minerals (Therapeutic-M Tab) 1 tab PO DAILY@1200 [facility] Last Admin: 10/16/18 13:33 Dose: 1 tab Prednisone (Prednisone Tab) 5 mg PO DAILY [facility] Last Admin: 10/16/18 08:19 Dose: 5 mg Spironolactone (Aldactone) 50 mg PO DAILY [facility] Last Admin: 10/16/18 08:19 Dose: 50 mg Tacrolimus (Prograf Cap) 0.5 mg PO Q12 [facility] Last Admin: 10/16/18 08:18 Dose: 0.5 mg Tramadol HCl (Ultram) 50 mg PO Q6 PRN PRN Reason: Pain, moderate (4-7) Last Admin: 10/15/18 23:44 Dose: 50 mg Trimethoprim/Sulfamethoxazole (Bactrim Ds Tab) 1 tab PO Q12 [facility]; Protocol Last Admin: 10/16/18 08:19 Dose: 1 tab Physical Exam - Additional Findings Additional findings: Physical exam systemic- wnl pt has had prior surgery including liver transplant s/p R inguina;l herniorrhaphy s/excision hydrocoele Musculoskekltal stance/gait- defrred pt with shortening and external rotation L lower extremity - trochanteric ecchy,mosiis heel impulse Results - Vital Signs Recent Vital Signs: Last Vital Signs Temp 98.3 F 10/16/18 08:05 Pulse 69 10/16/18 08:05 Resp 20 10/16/18 08:05 BP 129/75 10/16/18 08:18 Pulse Ox 96 10/16/18 10:20 - Labs Result Diagrams: 10/16/18 05:25 10/16/18 05:25 Labs: Laboratory Results - last 24 hr 10/15/18 10/15/18 10/15/18 13:17 13:17 13:17 WBC 5.4 RBC 4.22 L Hgb 14.0 Hct 41.3 MCV 97.9 H MCH 33.1 H MCHC 33.8 RDW 12.9 Plt Count 117 L D MPV 9.7 Neut % (Auto) 77.5 H Lymph % (Auto) 10.1 L [place] % (Auto) 8.9 Eos % (Auto) 2.9 Baso % (Auto) 0.6 Neut # (Auto) 4.2 Lymph # (Auto) 0.5 L [place] # (Auto) 0.5 Eos # (Auto) 0.2 Baso # (Auto) 0.0 PT 16.7 H INR 1.5 APTT 33.3 Sodium 133 Potassium 4.4 Chloride 99 Carbon Dioxide 24 Anion Gap 14 BUN 20 Creatinine 0.8 Est GFR ( Amer) > 60 Est GFR (Non-Af Amer) > 60 POC Glucose (mg/dL) Random Glucose 504 H* D Calcium 8.8 Urine Color Urine Clarity Urine pH Ur Specific [place] Urine Protein Urine Glucose (UA) Urine Ketones Urine Blood Urine Nitrate Urine Bilirubin Urine Urobilinogen Ur Leukocyte Esterase Urine RBC (Auto) Urine Microscopic WBC Ur Squamous Epith Cells Blood Type Antibody Screen BBK History Checked 10/15/18 10/15/18 10/15/18 14:32 16:03 20:17 WBC RBC Hgb Hct MCV MCH MCHC RDW Plt Count MPV Neut % (Auto) Lymph % (Auto) [place] % (Auto) Eos % (Auto) Baso % (Auto) Neut # (Auto) Lymph # (Auto) [place] # (Auto) Eos # (Auto) Baso # (Auto) PT INR APTT Sodium Potassium Chloride Carbon Dioxide Anion Gap BUN Creatinine Est GFR ( Amer) Est GFR (Non-Af Amer) POC Glucose (mg/dL) 383 H Random Glucose Calcium Urine Color Yellow Urine Clarity Clear Urine pH 8.0 Ur Specific [place] 1.021 Urine Protein Negative Urine Glucose (UA) >=500 Urine Ketones Negative Urine Blood Moderate Urine Nitrate Negative Urine Bilirubin Negative Urine Urobilinogen 2.0 Ur Leukocyte Esterase Neg Urine RBC (Auto) 39 H Urine Microscopic WBC 2 Ur Squamous Epith Cells < 1 Blood Type O POSITIVE Antibody Screen Negative BBK History Checked Patient has bt 10/15/18 10/16/18 10/16/18 21:31 04:45 05:25 WBC 5.9 RBC 3.83 L Hgb 12.8 Hct 36.6 MCV 95.5 H D MCH 33.3 H MCHC 34.8 RDW 12.8 Plt Count 105 L MPV 9.8 Neut % (Auto) 71.9 Lymph % (Auto) 13.1 L [place] % (Auto) 10.5 H Eos % (Auto) 3.8 Baso % (Auto) 0.7 Neut # (Auto) 4.2 Lymph # (Auto) 0.8 L [place] # (Auto) 0.6 Eos # (Auto) 0.2 Baso # (Auto) 0.0 PT INR APTT Sodium Potassium Chloride Carbon Dioxide Anion Gap BUN Creatinine Est GFR ( Amer) Est GFR (Non-Af Amer) POC Glucose (mg/dL) 339 H 236 H Random Glucose Calcium Urine Color Urine Clarity Urine pH Ur Specific [place] Urine Protein Urine Glucose (UA) Urine Ketones Urine Blood Urine Nitrate Urine Bilirubin Urine Urobilinogen Ur Leukocyte Esterase Urine RBC (Auto) Urine Microscopic WBC Ur Squamous Epith Cells Blood Type Antibody Screen BBK History Checked 10/16/18 10/16/18 10/16/18 05:25 05:25 11:22 WBC RBC Hgb Hct MCV MCH MCHC RDW Plt Count MPV Neut % (Auto) Lymph % (Auto) [place] % (Auto) Eos % (Auto) Baso % (Auto) Neut # (Auto) Lymph # (Auto) [place] # (Auto) Eos # (Auto) Baso # (Auto) PT 15.7 H INR 1.4 APTT Sodium 130 L Potassium 3.8 Chloride 104 Carbon Dioxide 24 Anion Gap 6 L BUN 14 Creatinine 0.7 L Est GFR ( Amer) > 60 Est GFR (Non-Af Amer) > 60 POC Glucose (mg/dL) 345 H Random Glucose 212 H Calcium 7.8 L Urine Color Urine Clarity Urine pH Ur Specific [place] Urine Protein Urine Glucose (UA) Urine Ketones Urine Blood Urine Nitrate Urine Bilirubin Urine Urobilinogen Ur Leukocyte Esterase Urine RBC (Auto) Urine Microscopic WBC Ur Squamous Epith Cells Blood Type Antibody Screen BBK History Checked - Impressions Impression: Hray- displaced subcapital fx L hip pre-existing L hip Osteoarthriotis Assessment & Plan - Assessment and Plan (Free Text) Assessment: A- displaced L subcapital fx L femur preexisting Osteoarthritis L hip P- for THR when pt is medically/cardiologically stable pt currently mainained on Eliquis and ASA last dose yesterday P- to OR wed or , after Eliquis effect mitgated
--- NOTE | 2018-10-16 22:08 | CARD ---
APPROVED REPORT Date of service: 10/15/2018 EKG Measurement Heart [id number] <Conclusion> Normal sinus rhythm Normal ECG
[2018-10-16] MEDS ORDERED: Lactated Ringer's 1,000 ML IV SCH (23:00)
[2018-10-17] MEDS ORDERED: Morphine 4 MG/ML VIAL IVP ONE (00:41)
[2018-10-17] MEDS ORDERED: Glucagon Recombinant 1 mg Inj IM PRN (08:33)
[2018-10-17] MEDS ORDERED: Dextrose 50% SYRINGE Inj (50 ml) IV PRN (08:33)
[2018-10-17] MEDS ORDERED: Insulin Detemir 100 Units/ml Inj SC SCH ×2 (09:00→22:00)
[2018-10-17] MEDS: Insulin Regular 100 units/ml SC SCH ×3 (09:19→16:27)
[2018-10-17] MEDS: Magnesium Chloride 64 mg ER Tab PO SCH ×2 (09:26→21:44)
--- NOTE | 2018-10-17 10:33 | CP.PCM.PN ---
Subjective - Date & Time of Evaluation Date of Evaluation: 10/17/18 Time of Evaluation: 09:00 - Subjective Subjective: NO CHEST PAIN OR SOB PAIN AT LEFT HIP FRACTURE SITE Objective - Vital Signs/Intake and Output Vital Signs (last 24 hours): Temp Pulse Resp BP Pulse Ox 98.0 F 71 18 158/74 H 97 10/17/18 08:12 18 09:24 10/17/18 08:12 10/17/18 09:24 10/17/18 08:12 - Medications Medications: Current Medications Amlodipine Besylate (Norvasc) 10 mg PO DAILY [facility] Last Admin: 10/17/18 09:24 Dose: 10 mg Cholecalciferol (Vitamin D) 2,000 intlu PO DAILY@1200 [facility] Last Admin: 10/16/18 13:33 Dose: 2,000 intlu Dextrose (Dextrose 50% Inj) 0 ml IV STAT PRN; Protocol PRN Reason: Hypoglycemia Protocol Dextrose (Glutose 15) 0 gm PO ONCE PRN; Protocol PRN Reason: Hypoglycemia Protocol Dextrose (Dextrose 50% Inj) 0 ml IV STAT PRN; Protocol PRN Reason: Hypoglycemia Protocol Dextrose (Glutose 15) 0 gm PO ONCE PRN; Protocol PRN Reason: Hypoglycemia Protocol Docusate Sodium (Colace) 100 mg PO BID [facility] Last Admin: 10/17/18 09:16 Dose: 100 mg Famotidine (Pepcid) 20 mg PO BID [facility] Last Admin: 10/17/18 09:24 Dose: 20 mg Furosemide (Lasix) 40 mg PO DAILY [facility] Last Admin: 10/17/18 09:22 Dose: 40 mg Glucagon (Glucagen Diagnostic Kit) 0 mg IM STAT PRN; Protocol PRN Reason: Hypoglycemia Protocol Glucagon (Glucagen Diagnostic Kit) 0 mg IM STAT PRN; Protocol PRN Reason: Hypoglycemia Protocol Home Med (Ursodiol [Bri Forte]) 500 mg PO Q12 [facility] Last Admin: 10/17/18 09:27 Dose: 500 mg Insulin Detemir (Levemir) 10 units SC DAILY [facility] Insulin Human Regular (Humulin R) 0 units SC ACHS [facility]; Protocol Last Admin: 10/17/18 09:19 Dose: 6 unit Magnesium Chloride (Slow-Mag) 64 mg PO Q12 [facility] Last Admin: 10/17/18 09:26 Dose: 64 mg Metoprolol Tartrate (Lopressor) 25 mg PO Q12 [facility] Last Admin: 10/17/18 09:23 Dose: 25 mg Multivitamins/Minerals (Therapeutic-M Tab) 1 tab PO DAILY@1200 [facility] Last Admin: 10/16/18 13:33 Dose: 1 tab Prednisone (Prednisone Tab) 5 mg PO DAILY [facility] Last Admin: 10/17/18 09:25 Dose: 5 mg Spironolactone (Aldactone) 50 mg PO DAILY [facility] Last Admin: 10/17/18 09:16 Dose: 50 mg Tacrolimus (Prograf Cap) 0.5 mg PO Q12 [facility] Last Admin: 10/17/18 09:25 Dose: 0.5 mg Tramadol HCl (Ultram) 50 mg PO Q6 PRN PRN Reason: Pain, moderate (4-7) Last Admin: 10/16/18 22:21 Dose: 50 mg - Labs Labs: 10/16/18 05:25 10/16/18 05:25 PT 15.7 Seconds (9.8-13.1) H 10/16/18 05:25 INR 1.4 10/16/18 05:25 APTT 33.3 Seconds (25.6-37.1) 10/15/18 13:17 - Respiratory Exam Respiratory Exam: Clear to Ausculation Bilateral - Cardiovascular Exam Cardiovascular Exam: REGULAR RHYTHM, +S1, +S2 - Extremities Exam Additional comments: NO SIGNIFICANT LE EDEMA - Additional Findings Additional findings: ORTHOPEDIC NOTE REVIEWED AND DR SHARMA SPOKEN TO Assessment and Plan - Assessment and Plan (Free Text) Assessment: FALL WITH LEFT HIP FRACTURE HYPERTENSION S/P LIVER TRANSPLANT FOR CIRRHOSIS Plan: FOR SURGERY PROBABLY ON WEDNESDAY THE PATIENT WAS ON ELIQUIS AND ASPIRIN
--- NOTE | 2018-10-17 10:54 | CP.PCM.PN ---
<Stevie Seymour - Last Filed: 10/17/18 10:52> Subjective - Date & Time of Evaluation Date of Evaluation: 10/17/18 Time of Evaluation: 10:52 - Subjective Subjective: 68M seen and evaluated at bedside. Resting comfortably. Denies any acute events overnight. Reports mild pain to his left hip and thigh. Denies N/V/F/C/SOB/CP and has no other compplaints. Objective - Vital Signs/Intake and Output Vital Signs (last 24 hours): Temp Pulse Resp BP Pulse Ox 98.0 F 71 18 158/74 H 97 10/17/18 08:12 10/17/18 09:24 10/17/18 08:12 10/17/18 09:24 10/17/18 08:12 - Medications Medications: Current Medications Amlodipine Besylate (Norvasc) 10 mg PO DAILY [facility] Last Admin: 10/17/18 09:24 Dose: 10 mg Cholecalciferol (Vitamin D) 2,000 intlu PO DAILY@1200 [facility] Last Admin: 10/16/18 13:33 Dose: 2,000 intlu Dextrose (Dextrose 50% Inj) 0 ml IV STAT PRN; Protocol PRN Reason: Hypoglycemia Protocol Dextrose (Glutose 15) 0 gm PO ONCE PRN; Protocol PRN Reason: Hypoglycemia Protocol Dextrose (Dextrose 50% Inj) 0 ml IV STAT PRN; Protocol PRN Reason: Hypoglycemia Protocol Dextrose (Glutose 15) 0 gm PO ONCE PRN; Protocol PRN Reason: Hypoglycemia Protocol Docusate Sodium (Colace) 100 mg PO BID [facility] Last Admin: 10/17/18 09:16 Dose: 100 mg Famotidine (Pepcid) 20 mg PO BID [facility] Last Admin: 10/17/18 09:24 Dose: 20 mg Furosemide (Lasix) 40 mg PO DAILY [facility] Last Admin: 10/17/18 09:22 Dose: 40 mg Glucagon (Glucagen Diagnostic Kit) 0 mg IM STAT PRN; Protocol PRN Reason: Hypoglycemia Protocol Glucagon (Glucagen Diagnostic Kit) 0 mg IM STAT PRN; Protocol PRN Reason: Hypoglycemia Protocol Home Med (Ursodiol [Bri Forte]) 500 mg PO Q12 [facility] Last Admin: 10/17/18 09:27 Dose: 500 mg Insulin Detemir (Levemir) 10 units SC DAILY [facility] Insulin Human Regular (Humulin R) 0 units SC [facility]; Protocol Last Admin: 10/17/18 09:19 Dose: 6 unit Magnesium Chloride (Slow-Mag) 64 mg PO Q12 [facility] Last Admin: 10/17/18 09:26 Dose: 64 mg Metoprolol Tartrate (Lopressor) 25 mg PO Q12 [facility] Last Admin: 10/17/18 09:23 Dose: 25 mg Multivitamins/Minerals (Therapeutic-M Tab) 1 tab PO DAILY@1200 [facility] Last Admin: 10/16/18 13:33 Dose: 1 tab Prednisone (Prednisone Tab) 5 mg PO DAILY [facility] Last Admin: 10/17/18 09:25 Dose: 5 mg Spironolactone (Aldactone) 50 mg PO DAILY [facility] Last Admin: 10/17/18 09:16 Dose: 50 mg Tacrolimus (Prograf Cap) 0.5 mg PO Q12 [facility] Last Admin: 10/17/18 09:25 Dose: 0.5 mg Tramadol HCl (Ultram) 50 mg PO Q6 PRN PRN Reason: Pain, moderate (4-7) Last Admin: 10/16/18 22:21 Dose: 50 mg - Labs Labs: 10/16/18 05:25 10/16/18 05:25 PT 15.7 Seconds (9.8-13.1) H 10/16/18 05:25 INR 1.4 10/16/18 05:25 APTT 33.3 Seconds (25.6-37.1) 10/15/18 13:17 - Constitutional Appears: Well, Non-toxic, No Acute Distress - Head Exam Head Exam: ATRAUMATIC, NORMOCEPHALIC - Eye Exam Eye Exam: EOMI Pupil Exam: PERRL - ENT Exam ENT Exam: Mucous Membranes Moist - Respiratory Exam Respiratory Exam: Clear to Ausculation Bilateral, NORMAL BREATHING PATTERN - Cardiovascular Exam Cardiovascular Exam: REGULAR RHYTHM, +S1, +S2 - GI/Abdominal Exam GI & Abdominal Exam: Soft, Normal Bowel Sounds. absent: Tenderness - Extremities Exam Extremities Exam: Normal Capillary Refill. absent: Calf Tenderness, Pedal Edema Additional comments: temp gradient WNL mild pain on palpation of the left thigh able to move toes and ankle joint difficulty moving knee secondary to guarding - Neurological Exam Neurological Exam: Alert, Awake, CN II-XII Intact, Oriented x3 - Psychiatric Exam Psychiatric exam: Normal Affect, Normal Mood - Skin Skin Exam: Dry, Normal Color, Warm Assessment and Plan - Assessment and Plan (Free Text) Assessment: 68M with left hip fracture Plan: Left hip fracture XR Left Hip: subcapital fracture of the left femoral neck CT w/o: L hip: minimally displaced L femoral neck subcapital fracture EKG: normal sinus rythem Patient is medically optimized for surgery Dr. Gomez cleared patient from cardiac standpoint Ortho: Dr. Pickett: surgery Wednesday Hx of liver transplant 2/2 cirrhosis -Continue home meds -transplant at [facility] -shortly after, pt experinced hepatic thrombosis and started on eliquis HTN -Continue home meds -Cardio: Dr. Gomez Hyperglycemia -Likely 2/2 steroids -HbA1c - 11.3 -Levemir 10 units SC daily -f/u BMP DVT prophylaxis -scd -DAPT held (eliquis and asa due to planned surgery on Wednesday) Diet Heart healthy, will be NPO after dinner tomorrow <Kamala Díaz - Last Filed: 10/17/18 14:53> Objective - Vital Signs/Intake and Output Vital Signs (last 24 hours): Temp Pulse Resp BP Pulse Ox 98.0 F 71 18 158/74 H 97 10/17/18 08:12 10/17/18 09:24 10/17/18 08:12 10/17/18 09:24 10/17/18 08:12 - Medications Medications: Current Medications Amlodipine Besylate (Norvasc) 10 mg PO DAILY [facility] Last Admin: 10/17/18 09:24 Dose: 10 mg Cholecalciferol (Vitamin D) 2,000 intlu PO DAILY@1200 [facility] Last Admin: 10/17/18 13:19 Dose: 2,000 intlu Dextrose (Dextrose 50% Inj) 0 ml IV STAT PRN; Protocol PRN Reason: Hypoglycemia Protocol Dextrose (Glutose 15) 0 gm PO ONCE PRN; Protocol PRN Reason: Hypoglycemia Protocol Dextrose (Dextrose 50% Inj) 0 ml IV STAT PRN; Protocol PRN Reason: Hypoglycemia Protocol Dextrose (Glutose 15) 0 gm PO ONCE PRN; Protocol PRN Reason: Hypoglycemia Protocol Docusate Sodium (Colace) 100 mg PO BID [facility] Last Admin: 10/17/18 09:16 Dose: 100 mg Famotidine (Pepcid) 20 mg PO BID [facility] Last Admin: 10/17/18 09:24 Dose: 20 mg Furosemide (Lasix) 40 mg PO DAILY [facility] Last Admin: 10/17/18 09:22 Dose: 40 mg Glucagon (Glucagen Diagnostic Kit) 0 mg IM STAT PRN; Protocol PRN Reason: Hypoglycemia Protocol Glucagon (Glucagen Diagnostic Kit) 0 mg IM STAT PRN; Protocol PRN Reason: Hypoglycemia Protocol Home Med (Ursodiol [Bri Forte]) 500 mg PO Q12 [facility] Last Admin: 10/17/18 09:27 Dose: 500 mg Insulin Detemir (Levemir) 10 units SC DAILY [facility] Last Admin: 10/17/18 10:28 Dose: 10 units Insulin Human Regular (Humulin R) 0 units SC [facility]; Protocol Last Admin: 10/17/18 13:16 Dose: 4 unit Magnesium Chloride (Slow-Mag) 64 mg PO Q12 [facility] Last Admin: 10/17/18 09:26 Dose: 64 mg Metoprolol Tartrate (Lopressor) 25 mg PO Q12 [facility] Last Admin: 10/17/18 09:23 Dose: 25 mg Multivitamins/Minerals (Therapeutic-M Tab) 1 tab PO DAILY@1200 [facility] Last Admin: 10/17/18 13:18 Dose: 1 tab Oxycodone/Acetaminophen (Percocet 5/325 Mg Tab) 1 tab PO Q4 PRN PRN Reason: Pain, severe (8-10) Stop: 10/20/18 11:28 Prednisone (Prednisone Tab) 5 mg PO DAILY [facility] Last Admin: 10/17/18 09:25 Dose: 5 mg Spironolactone (Aldactone) 50 mg PO DAILY [facility] Last Admin: 10/17/18 09:16 Dose: 50 mg Tacrolimus (Prograf Cap) 0.5 mg PO Q12 [facility] Last Admin: 10/17/18 09:25 Dose: 0.5 mg Tramadol HCl (Ultram) 50 mg PO Q6 PRN PRN Reason: Pain, moderate (4-7) Last Admin: 10/17/18 10:27 Dose: 50 mg - Labs Labs: 10/16/18 05:25 10/16/18 05:25 PT 15.7 Seconds (9.8-13.1) H 10/16/18 05:25 INR 1.4 10/16/18 05:25 APTT 33.3 Seconds (25.6-37.1) 10/15/18 13:17 Attending/Attestation - Attestation I have personally seen and examined this patient.: Yes I have fully participated in the care of the patient.: Yes I have reviewed all pertinent clinical information, including history, physical exam and plan: Yes Notes (Text): Coagulopathy and Thrombocytopenia likely due to Liver Dis -Hematology consult to optimize pt prior to surgery - pt is off ASA and Eliquis since admission DM Type II with Hyperglycemia - start Levemir
--- NOTE | 2018-10-17 11:24 | CP.PCM.PN ---
Subjective - Date & Time of Evaluation Date of Evaluation: 10/17/18 Time of Evaluation: 11:00 - Subjective Subjective: Patient seen and examined at bedside comfortable. Pain is rated a 6/10 this AM. No acute events over the weekend. Denies any CP/SOB/N/V/D/fever. Objective - Vital Signs/Intake and Output Vital Signs (last 24 hours): Temp Pulse Resp BP Pulse Ox 98.0 F 71 18 158/74 H 97 10/17/18 08:12 10/17/18 09:24 10/17/18 08:12 10/17/18 09:24 10/17/18 08:12 - Medications Medications: Current Medications Amlodipine Besylate (Norvasc) 10 mg PO DAILY [facility] Last Admin: 10/17/18 09:24 Dose: 10 mg Cholecalciferol (Vitamin D) 2,000 intlu PO DAILY@1200 [facility] Last Admin: 10/16/18 13:33 Dose: 2,000 intlu Dextrose (Dextrose 50% Inj) 0 ml IV STAT PRN; Protocol PRN Reason: Hypoglycemia Protocol Dextrose (Glutose 15) 0 gm PO ONCE PRN; Protocol PRN Reason: Hypoglycemia Protocol Dextrose (Dextrose 50% Inj) 0 ml IV STAT PRN; Protocol PRN Reason: Hypoglycemia Protocol Dextrose (Glutose 15) 0 gm PO ONCE PRN; Protocol PRN Reason: Hypoglycemia Protocol Docusate Sodium (Colace) 100 mg PO BID [facility] Last Admin: 10/17/18 09:16 Dose: 100 mg Famotidine (Pepcid) 20 mg PO BID [facility] Last Admin: 10/17/18 09:24 Dose: 20 mg Furosemide (Lasix) 40 mg PO DAILY [facility] Last Admin: 10/17/18 09:22 Dose: 40 mg Glucagon (Glucagen Diagnostic Kit) 0 mg IM STAT PRN; Protocol PRN Reason: Hypoglycemia Protocol Glucagon (Glucagen Diagnostic Kit) 0 mg IM STAT PRN; Protocol PRN Reason: Hypoglycemia Protocol Home Med (Ursodiol [Bri Forte]) 500 mg PO Q12 [facility] Last Admin: 10/17/18 09:27 Dose: 500 mg Insulin Detemir (Levemir) 10 units SC DAILY [facility] Last Admin: 10/17/18 10:28 Dose: 10 units Insulin Human Regular (Humulin R) 0 units SC [facility]; Protocol Last Admin: 10/17/18 09:19 Dose: 6 unit Magnesium Chloride (Slow-Mag) 64 mg PO Q12 [facility] Last Admin: 10/17/18 09:26 Dose: 64 mg Metoprolol Tartrate (Lopressor) 25 mg PO Q12 [facility] Last Admin: 10/17/18 09:23 Dose: 25 mg Multivitamins/Minerals (Therapeutic-M Tab) 1 tab PO DAILY@1200 [facility] Last Admin: 10/16/18 13:33 Dose: 1 tab Prednisone (Prednisone Tab) 5 mg PO DAILY [facility] Last Admin: 10/17/18 09:25 Dose: 5 mg Spironolactone (Aldactone) 50 mg PO DAILY [facility] Last Admin: 10/17/18 09:16 Dose: 50 mg Tacrolimus (Prograf Cap) 0.5 mg PO Q12 [facility] Last Admin: 10/17/18 09:25 Dose: 0.5 mg Tramadol HCl (Ultram) 50 mg PO Q6 PRN PRN Reason: Pain, moderate (4-7) Last Admin: 10/17/18 10:27 Dose: 50 mg - Labs Labs: 10/16/18 05:25 10/16/18 05:25 PT 15.7 Seconds (9.8-13.1) H 10/16/18 05:25 INR 1.4 10/16/18 05:25 APTT 33.3 Seconds (25.6-37.1) 10/15/18 13:17 - Extremities Exam Additional comments: L hip: mild to moderate swelling +externally rotated/shortened limb tenderness to groin and lateral hip no ecchymosis or lesions sensation intact SP/DP/TN motor intact EHL/FHL/TA/G pedal pulses intact calves soft NT Assessment and Plan (1) Left displaced femoral neck fracture Assessment & Plan: -Patient last dose of Eliquis/ASA Oct 15, on hold for OR -Plan for OR on Wednesday for L ELEAZAR -Medical/cardiac clearance appreciated -pain control -above d/w Dr. Pickett in agreement Status: Acute
[2018-10-17] MEDS ORDERED: Oxycodone/Acetaminophen 5/325 mg Tab PO PRN (11:27)
[2018-10-17] MEDS: Multivitamin With Minerals Tab PO SCH (13:18)
[2018-10-17] MEDS: Cholecalciferol 1,000 INTLU TAB PO SCH (13:19)
[2018-10-17] MEDS: Sodium Chloride 0.45% 1,000 ML IV SCH (21:40)
[2018-10-17] MEDS: Insulin Lispro (humaLOG) 100 Units/ml Inj SC SCH (21:45)
--- NOTE | 2018-10-17 23:57 | CP.PCM.CON ---
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 The patient notes to tripping and falling on his left side. Due to severe pain, he came to the hospital and was found to have a left femoral neck fracture. He denies abnormal bleeding but does bruise easily while on blood thinner. His last dose of aspirin and Eliquis were 10/15. 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 Allergies: NKA Review of systems: All remaining review of systems including HEENT, cardiovascular, respiratory, gastrointestinal, genitourinary, musculoskeletal, dermatologic, neurologic, and psychiatric are negative unless mentioned in the HPI. Past Patient History - Infectious Disease Hx of Infectious Diseases: None (+ for liver transplant 3 yrs ago([facility]- DR Dr loco)) - Tetanus Immunizations Tetanus Immunization: Unknown - Past Medical History & Family History Past Medical History?: Yes - Past Social History Alcohol: None Drugs: Denies - CARDIAC Hx Hypertension: Yes Hx Pacemaker: No - PULMONARY Hx Respiratory Disorders: No - NEUROLOGICAL Hx Neurological Disorder: No - HEENT Hx HEENT Problems: No - RENAL Hx Chronic Kidney Disease: No - ENDOCRINE/METABOLIC Hx Endocrine Disorders: No - HEMATOLOGICAL/ONCOLOGICAL Hx Human Immunodeficiency Virus (HIV): No - INTEGUMENTARY Hx Dermatological Problems: No - MUSCULOSKELETAL/RHEUMATOLOGICAL Hx Arthritis: Yes - GASTROINTESTINAL Hx Gastritis: Yes - GENITOURINARY/GYNECOLOGICAL Hx Genitourinary Disorders: No Other/Comment: left testicular hydrocele 08/2018 - PSYCHIATRIC Hx Psychophysiologic Disorder: No Hx Substance Use: No (as per patient) - SURGICAL HISTORY Hx Surgeries: Yes Hx Herniorrhaphy: Yes (s/p herniorrhaphy jun 2018) Hx Liver Transplant: Yes (04/2017 at [facility]) Other/Comment: s/p liver transplan 3 yrs ago. s/p R inguinal herniorraphy sevral months ago. s/p excision hydrocoele - ANESTHESIA Hx Anesthesia: Yes Hx Anesthesia Reactions: No Meds Home Medications: Home Medication List Medication Instructions Recorded Confirmed Type Sulfamethoxazole/Trimethoprim 0.5 tab PO BID 3 Days tab 10/15/18 Rx [Bactrim DS 800 mg-160 mg] Allergies/Adverse Reactions: Allergies Allergy/AdvReac Type Severity Reaction Status Date / Time No Known Allergies Allergy Verified 06/09/18 01:15 - Medications Medications: Current Medications Amlodipine Besylate (Norvasc) 10 mg PO DAILY [facility] Last Admin: 10/17/18 09:24 Dose: 10 mg Cholecalciferol (Vitamin D) 2,000 intlu PO DAILY@1200 [facility] Last Admin: 10/17/18 13:19 Dose: 2,000 intlu Dextrose (Dextrose 50% Inj) 0 ml IV STAT PRN; Protocol PRN Reason: Hypoglycemia Protocol Dextrose (Glutose 15) 0 gm PO ONCE PRN; Protocol PRN Reason: Hypoglycemia Protocol Dextrose (Dextrose 50% Inj) 0 ml IV STAT PRN; Protocol PRN Reason: Hypoglycemia Protocol Dextrose (Glutose 15) 0 gm PO ONCE PRN; Protocol PRN Reason: Hypoglycemia Protocol Docusate Sodium (Colace) 100 mg PO BID [facility] Last Admin: 10/17/18 16:24 Dose: 100 mg Famotidine (Pepcid) 20 mg PO BID [facility] Last Admin: 10/17/18 16:28 Dose: 20 mg Furosemide (Lasix) 40 mg PO DAILY [facility] Last Admin: 10/17/18 09:22 Dose: 40 mg Glucagon (Glucagen Diagnostic Kit) 0 mg IM STAT PRN; Protocol PRN Reason: Hypoglycemia Protocol Glucagon (Glucagen Diagnostic Kit) 0 mg IM STAT PRN; Protocol PRN Reason: Hypoglycemia Protocol Home Med (Ursodiol [Bri Forte]) 500 mg PO Q12 [facility] Last Admin: 10/17/18 21:44 Dose: 500 mg Sodium Chloride (Sodium Chloride 0.45%) 1,000 mls @ 100 mls/hr IV .Q10H [facility] Stop: 10/18/18 19:55 Last Admin: 10/17/18 21:40 Dose: 100 mls/hr Insulin Detemir (Levemir) 14 units SC HS [facility] Last Admin: 10/17/18 21:41 Dose: 14 u Insulin Human Lispro (Humalog) 6 units SC AC [facility] Insulin Human Lispro (Humalog) 0 units SC ACHS [facility] Last Admin: 10/17/18 21:45 Dose: Not Given Magnesium Chloride (Slow-Mag) 64 mg PO Q12 [facility] Last Admin: 10/17/18 21:44 Dose: 64 mg Metoprolol Tartrate (Lopressor) 25 mg PO Q12 [facility] Last Admin: 10/17/18 21:43 Dose: 25 mg Multivitamins/Minerals (Therapeutic-M Tab) 1 tab PO DAILY@1200 [facility] Last Admin: 10/17/18 13:18 Dose: 1 tab Oxycodone/Acetaminophen (Percocet 5/325 Mg Tab) 1 tab PO Q4 PRN PRN Reason: Pain, severe (8-10) Stop: 10/20/18 11:28 Prednisone (Prednisone Tab) 5 mg PO DAILY [facility] Last Admin: 10/17/18 09:25 Dose: 5 mg Spironolactone (Aldactone) 50 mg PO DAILY [facility] Last Admin: 10/17/18 09:16 Dose: 50 mg Tacrolimus (Prograf Cap) 0.5 mg PO Q12 [facility] Last Admin: 10/17/18 21:44 Dose: 0.5 mg Tramadol HCl (Ultram) 50 mg PO Q6 PRN PRN Reason: Pain, moderate (4-7) Last Admin: 10/17/18 19:50 Dose: 50 mg Physical Exam - Head Exam Head Exam: ATRAUMATIC - Eye Exam Eye Exam: Normal appearance - ENT Exam ENT Exam: Mucous Membranes Dry - Respiratory Exam Respiratory Exam: NORMAL BREATHING PATTERN - Cardiovascular Exam Cardiovascular Exam: +S1, +S2 - GI/Abdominal Exam GI & Abdominal Exam: Normal Bowel Sounds - Extremities Exam Extremities exam: Positive for: pedal edema - Neurological Exam Neurological exam: Oriented x3 - Psychiatric Exam Psychiatric exam: Normal Affect, Normal Mood - Skin Skin Exam: Warm Results - Vital Signs Recent Vital Signs: Last Vital Signs Temp 98.5 F 10/17/18 23:50 Pulse 72 10/17/18 23:50 Resp 20 10/17/18 23:50 BP 122/79 10/17/18 23:50 Pulse Ox 95 10/17/18 23:50 - Labs Result Diagrams: 10/16/18 05:25 10/16/18 05:25 Labs: Laboratory Results - last 24 hr 10/17/18 10/17/18 10/17/18 05:23 10:56 15:32 POC Glucose (mg/dL) 258 H 248 H 251 H 10/17/18 21:36 POC Glucose (mg/dL) 266 H Assessment & Plan (1) Thrombocytopenia Assessment and Plan: mild last aspirin/Eliquis on 10/15 cleared from hematologic standpoint for orthopedic surgery after holding aspirin/Eliquis minimum of 4 days transfuse platelets if surgery needs to be done sooner or plt< 100,000 prior to OR. Status: Chronic (2) Anemia Assessment and Plan: mild retic count, b12, folate, ferritin to further characterize Status: Acute (3) Hepatic artery thrombosis Assessment and Plan: resume aspirin and Eliquis post orthopedic surgery Thank you for this interesting consult. Status: Chronic
--- NOTE | 2018-10-18 00:26 | PQF ---
PROVIDER RESPONSE TEXT: This information was gathered only from the patient so we are not sure if the thrombosis was actually the hepatic artery or hepatic vein. And this condition is not acute. This happened 3 years ago. REVIEWER QUERY TEXT: Documentation Clarification Please clarify if Hepatic Thrombosis is an acute condition currently being treated as the patient is on eliquis or other explanation for the use of eliqius: i.e. prophylaxis etc. (eliquis on hold for OR) --OR other explanation of clinical finding H and P includes: Hx of liver transplant 2/2 cirrhosis -Continue home meds -shortly after, pt experinced hepatic thrombosis and started on eliquis --AC held (eliquis and asa due to planned surgery on Wednesday) The patient's Clinical Indicators include: -- Query created by: Jody Mendoza on 10/17/2018 2:39 PM Electronically signed by: Roldan Del Rosario MD 10/18/2018 12:22 AM
[2018-10-18 06:24] LABS: BASO % 0.5 % (0.0-2.0); EOS # 0.2 K/uL (0.0-0.7); EOS % 3.5 % (0.0-4.0); HEMOGLOBIN 13.1 g/dL (12.0-18.0); LYMPH # 0.8 K/uL (1.0-4.3); LYMPH % 17.1 % (20.0-40.0); MEAN CELL VOLUME 94.5 fl (80.0-94.0); MEAN CORPUSCULAR HEMOGLOBIN 33.6 pg (27.0-31.0); MEAN CORPUSCULAR HGB CONC 35.5 g/dL (33.0-37.0); MEAN PLATELET VOLUME 9.5 fl (7.2-11.7); MONO # 0.7 K/uL (0.0-0.8); MONO % 15.8 % (0.0-10.0); NEUT # 2.8 K/uL (1.8-7.0); NEUT % 63.1 % (50.0-75.0); NRBC % 0.2 % (0.0-0.0); RBC 3.9 Mil/uL (4.40-5.90); RED CELL DISTRIBUTION WIDTH 12.9 % (11.5-14.5); WHITE BLOOD COUNT 4.5 K/uL (4.8-10.8)
[2018-10-18 06:27] LABS: ALB/GLOB RATIO 0.9 (1.0-2.1); ALBUMIN 2.6 g/dL (3.5-5.0); ALT/SGPT 41 U/L (21-72); AST/SGOT 28 U/L (17-59); BLOOD UREA NITROGEN 15 mg/dl (9-20); CALCIUM 8.3 mg/dL (8.4-10.2); GFR NON-AFRICAN AMERICAN > 60; HDL CHOLESTEROL 38 MG/DL (30-70)
[2018-10-18 06:37] LABS: LDL CHOLESTEROL 56 mg/dL (0-129)
--- NOTE | 2018-10-18 06:54 | CP.PCM.PN ---
<Stevie Seymour - Last Filed: 10/18/18 13:29> Subjective - Date & Time of Evaluation Date of Evaluation: 10/18/18 Time of Evaluation: 06:54 - Subjective Subjective: 68M seen at bedside. Resting comfortably. Reports mild pain to left thigh controlled by pain medication. Denies N/V/F/C/SOB/CP and reports no events overnight. Objective - Vital Signs/Intake and Output Vital Signs (last 24 hours): Temp Pulse Resp BP Pulse Ox 98.5 F 72 20 122/79 95 10/17/18 23:50 10/17/18 23:50 10/17/18 23:50 10/17/18 23:50 10/17/18 23:50 - Medications Medications: Current Medications Amlodipine Besylate (Norvasc) 10 mg PO DAILY [facility] Last Admin: 10/17/18 09:24 Dose: 10 mg Cholecalciferol (Vitamin D) 2,000 intlu PO DAILY@1200 [facility] Last Admin: 10/17/18 13:19 Dose: 2,000 intlu Dextrose (Dextrose 50% Inj) 0 ml IV STAT PRN; Protocol PRN Reason: Hypoglycemia Protocol Dextrose (Glutose 15) 0 gm PO ONCE PRN; Protocol PRN Reason: Hypoglycemia Protocol Dextrose (Dextrose 50% Inj) 0 ml IV STAT PRN; Protocol PRN Reason: Hypoglycemia Protocol Dextrose (Glutose 15) 0 gm PO ONCE PRN; Protocol PRN Reason: Hypoglycemia Protocol Docusate Sodium (Colace) 100 mg PO BID [facility] Last Admin: 10/17/18 16:24 Dose: 100 mg Famotidine (Pepcid) 20 mg PO BID [facility] Last Admin: 10/17/18 16:28 Dose: 20 mg Furosemide (Lasix) 40 mg PO DAILY [facility] Last Admin: 10/17/18 09:22 Dose: 40 mg Glucagon (Glucagen Diagnostic Kit) 0 mg IM STAT PRN; Protocol PRN Reason: Hypoglycemia Protocol Glucagon (Glucagen Diagnostic Kit) 0 mg IM STAT PRN; Protocol PRN Reason: Hypoglycemia Protocol Home Med (Ursodiol [Bri Forte]) 500 mg PO Q12 [facility] Last Admin: 10/17/18 21:44 Dose: 500 mg Sodium Chloride (Sodium Chloride 0.45%) 1,000 mls @ 100 mls/hr IV .Q10H [facility] Stop: 10/18/18 19:55 Last Admin: 10/17/18 21:40 Dose: 100 mls/hr Insulin Detemir (Levemir) 14 units SC HS [facility] Last Admin: 10/17/18 21:41 Dose: 14 u Insulin Human Lispro (Humalog) 6 units SC AC [facility] Insulin Human Lispro (Humalog) 0 units SC ACHS [facility] Last Admin: 10/17/18 21:45 Dose: Not Given Magnesium Chloride (Slow-Mag) 64 mg PO Q12 [facility] Last Admin: 10/17/18 21:44 Dose: 64 mg Metoprolol Tartrate (Lopressor) 25 mg PO Q12 [facility] Last Admin: 10/17/18 21:43 Dose: 25 mg Multivitamins/Minerals (Therapeutic-M Tab) 1 tab PO DAILY@1200 [facility] Last Admin: 10/17/18 13:18 Dose: 1 tab Oxycodone/Acetaminophen (Percocet 5/325 Mg Tab) 1 tab PO Q4 PRN PRN Reason: Pain, severe (8-10) Stop: 10/20/18 11:28 Last Admin: 10/18/18 00:43 Dose: 1 tab Prednisone (Prednisone Tab) 5 mg PO DAILY [facility] Last Admin: 10/17/18 09:25 Dose: 5 mg Spironolactone (Aldactone) 50 mg PO DAILY [facility] Last Admin: 10/17/18 09:16 Dose: 50 mg Tacrolimus (Prograf Cap) 0.5 mg PO Q12 [facility] Last Admin: 10/17/18 21:44 Dose: 0.5 mg Tramadol HCl (Ultram) 50 mg PO Q6 PRN PRN Reason: Pain, moderate (4-7) Last Admin: 10/17/18 19:50 Dose: 50 mg - Labs Labs: 10/18/18 05:35 10/18/18 05:35 PT 15.7 Seconds (9.8-13.1) H 10/16/18 05:25 INR 1.4 10/16/18 05:25 APTT 33.3 Seconds (25.6-37.1) 10/15/18 13:17 - Constitutional Appears: Well, Non-toxic, No Acute Distress - Head Exam Head Exam: ATRAUMATIC, NORMOCEPHALIC - Eye Exam Eye Exam: EOMI, PERRL - ENT Exam ENT Exam: Mucous Membranes Moist - Respiratory Exam Respiratory Exam: Clear to Ausculation Bilateral, NORMAL BREATHING PATTERN - Cardiovascular Exam Cardiovascular Exam: REGULAR RHYTHM, +S1, +S2 - GI/Abdominal Exam GI & Abdominal Exam: Soft, Normal Bowel Sounds. absent: Tenderness - Extremities Exam Additional comments: L hip: mild to moderate swelling +externally rotated/shortened limb tenderness to groin and lateral hip no ecchymosis or lesions sensation intact SP/DP/TN motor intact EHL/FHL/TA/G pedal pulses intact calves soft NT - Neurological Exam Neurological Exam: Alert, Awake, Oriented x3 - Psychiatric Exam Psychiatric exam: Normal Affect, Normal Mood - Skin Skin Exam: Normal Color, Warm Assessment and Plan - Assessment and Plan (Free Text) Assessment: 68M with left hip fracture Plan: 1. Left hip fracture - XR Left Hip: subcapital fracture of the left femoral neck - CT w/o: L hip: minimally displaced L femoral neck subcapital fracture - EKG: normal sinus rythem - Patient is medically optimized for surgery - Dr. Gomez cleared patient from cardiac standpoint - Ortho: Dr. Pickett: surgery tomorrow AM - Hematology consult Dr. Montgomery - cleared for surgery tomorrow DAPT held for 4 days tomorrow; transfuse platelets if <100,000 prior to OR - resume eliquis and aspirin postop 2. 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 HTN -Continue home meds -Cardio: Dr. Gomez 4. Hyperglycemia -Likely 2/2 steroids -HbA1c - 11.3 -Levemir 18 units SC daily -f/u BMP 5. DVT prophylaxis -scd -DAPT held (eliquis and asa due to planned surgery on Wednesday) 6. Diet - Heart healthy - NPO past midnight tonight <Kamala Díaz - Last Filed: 10/18/18 17:51> Objective - Vital Signs/Intake and Output Vital Signs (last 24 hours): Temp Pulse Resp BP Pulse Ox 97.8 F 73 18 125/80 96 10/18/18 16:28 10/18/18 16:28 10/18/18 16:28 10/18/18 16:28 10/18/18 16:28 - Medications Medications: Current Medications Amlodipine Besylate (Norvasc) 10 mg PO DAILY [facility] Last Admin: 10/18/18 09:24 Dose: 10 mg Cholecalciferol (Vitamin D) 2,000 intlu PO DAILY@1200 [facility] Last Admin: 10/18/18 13:30 Dose: 2,000 intlu Dextrose (Dextrose 50% Inj) 0 ml IV STAT PRN; Protocol PRN Reason: Hypoglycemia Protocol Dextrose (Glutose 15) 0 gm PO ONCE PRN; Protocol PRN Reason: Hypoglycemia Protocol Dextrose (Dextrose 50% Inj) 0 ml IV STAT PRN; Protocol PRN Reason: Hypoglycemia Protocol Dextrose (Glutose 15) 0 gm PO ONCE PRN; Protocol PRN Reason: Hypoglycemia Protocol Docusate Sodium (Colace) 100 mg PO BID [facility] Last Admin: 10/18/18 16:35 Dose: 100 mg Famotidine (Pepcid) 20 mg PO BID [facility] Last Admin: 10/18/18 16:38 Dose: 20 mg Furosemide (Lasix) 40 mg PO DAILY [facility] Last Admin: 10/18/18 09:23 Dose: 40 mg Glucagon (Glucagen Diagnostic Kit) 0 mg IM STAT PRN; Protocol PRN Reason: Hypoglycemia Protocol Glucagon (Glucagen Diagnostic Kit) 0 mg IM STAT PRN; Protocol PRN Reason: Hypoglycemia Protocol Home Med (Ursodiol [Bri Forte]) 500 mg PO Q12 [facility] Last Admin: 10/18/18 09:26 Dose: 500 mg Sodium Chloride (Sodium Chloride 0.45%) 1,000 mls @ 100 mls/hr IV .Q10H [facility] Stop: 10/18/18 19:55 Last Admin: 10/18/18 16:45 Dose: 100 mls/hr Insulin Detemir (Levemir) 20 units SC HS [facility] Insulin Human Lispro (Humalog) 0 units SC ACHS [facility] Last Admin: 10/18/18 16:36 Dose: Not Given Insulin Human Lispro (Humalog) 8 units SC AC [facility] Last Admin: 10/18/18 16:37 Dose: 8 units Magnesium Chloride (Slow-Mag) 64 mg PO Q12 [facility] Last Admin: 10/18/18 16:39 Dose: 64 mg Metoprolol Tartrate (Lopressor) 25 mg PO Q12 [facility] Last Admin: 10/18/18 09:23 Dose: 25 mg Multivitamins/Minerals (Therapeutic-M Tab) 1 tab PO DAILY@1200 [facility] Last Admin: 10/18/18 13:29 Dose: 1 tab Oxycodone/Acetaminophen (Percocet 5/325 Mg Tab) 1 tab PO Q4 PRN PRN Reason: Pain, severe (8-10) Stop: 10/20/18 11:28 Last Admin: 10/18/18 00:43 Dose: 1 tab Prednisone (Prednisone Tab) 5 mg PO DAILY [facility] Last Admin: 10/18/18 09:24 Dose: 5 mg Senna/Docusate Sodium (Senokot S 50 Mg-8.6 Mg) 1 tab PO HS [facility] Spironolactone (Aldactone) 50 mg PO DAILY [facility] Last Admin: 10/18/18 09:18 Dose: 50 mg Tacrolimus (Prograf Cap) 0.5 mg PO Q12 [facility] Last Admin: 10/18/18 09:24 Dose: 0.5 mg Tramadol HCl (Ultram) 50 mg PO Q6 PRN PRN Reason: Pain, moderate (4-7) Last Admin: 10/17/18 19:50 Dose: 50 mg - Labs Labs: 10/18/18 05:35 10/18/18 05:35 PT 14.1 Seconds (9.8-13.1) H 10/18/18 10:22 INR 1.2 10/18/18 10:22 APTT 30.9 Seconds (25.6-37.1) 10/18/18 10:22 Attending/Attestation - Attestation I have personally seen and examined this patient.: Yes I have fully participated in the care of the patient.: Yes I have reviewed all pertinent clinical information, including history, physical exam and plan: Yes Notes (Text): Left Hip Fracture - plan for surgery in am by Dr Pickett -optimized by Cardio, Endo and Hematology prior to surgery - Pain mgt Coagulopathy and Thrombocytopenia likely due to Liver Dis -Hematology consulted - Dr Montgomery rec to do manula platelet count - if platelet less than 100 - to transfuse - pt has been off ASA and Eliquis since admission DM Type II with Hyperglycemia - started Levemir - Dr Stockton - Endo consulted Hx of Liver Transplant ( Liver Cirrhosis) - pt is on Prograf, Prednisone , lasix and Aldactone
--- NOTE | 2018-10-18 08:17 | CP.PCM.PN ---
Subjective - Date & Time of Evaluation Date of Evaluation: 10/18/18 Time of Evaluation: 07:30 - Subjective Subjective: Patient seen and examined with Dr. Pickett at bedside. Pain is well controlled with PO meds. No acute events overnight. No new complaints. Objective - Vital Signs/Intake and Output Vital Signs (last 24 hours): Temp Pulse Resp BP Pulse Ox 98.2 F 68 20 125/76 95 10/18/18 08:07 10/18/18 08:07 10/18/18 08:07 10/18/18 08:07 10/18/18 08:07 - Medications Medications: Current Medications Amlodipine Besylate (Norvasc) 10 mg PO DAILY [facility] Last Admin: 10/17/18 09:24 Dose: 10 mg Cholecalciferol (Vitamin D) 2,000 intlu PO DAILY@1200 [facility] Last Admin: 10/17/18 13:19 Dose: 2,000 intlu Dextrose (Dextrose 50% Inj) 0 ml IV STAT PRN; Protocol PRN Reason: Hypoglycemia Protocol Dextrose (Glutose 15) 0 gm PO ONCE PRN; Protocol PRN Reason: Hypoglycemia Protocol Dextrose (Dextrose 50% Inj) 0 ml IV STAT PRN; Protocol PRN Reason: Hypoglycemia Protocol Dextrose (Glutose 15) 0 gm PO ONCE PRN; Protocol PRN Reason: Hypoglycemia Protocol Docusate Sodium (Colace) 100 mg PO BID [facility] Last Admin: 10/17/18 16:24 Dose: 100 mg Famotidine (Pepcid) 20 mg PO BID [facility] Last Admin: 10/17/18 16:28 Dose: 20 mg Furosemide (Lasix) 40 mg PO DAILY [facility] Last Admin: 10/17/18 09:22 Dose: 40 mg Glucagon (Glucagen Diagnostic Kit) 0 mg IM STAT PRN; Protocol PRN Reason: Hypoglycemia Protocol Glucagon (Glucagen Diagnostic Kit) 0 mg IM STAT PRN; Protocol PRN Reason: Hypoglycemia Protocol Home Med (Ursodiol [Bri Forte]) 500 mg PO Q12 [facility] Last Admin: 10/17/18 21:44 Dose: 500 mg Sodium Chloride (Sodium Chloride 0.45%) 1,000 mls @ 100 mls/hr IV .Q10H [facility] Stop: 10/18/18 19:55 Last Admin: 10/17/18 21:40 Dose: 100 mls/hr Insulin Detemir (Levemir) 14 units SC [facility] Last Admin: 10/17/18 21:41 Dose: 14 u Insulin Human Lispro (Humalog) 6 units SC AC [facility] Insulin Human Lispro (Humalog) 0 units SC ACHS [facility] Last Admin: 10/17/18 21:45 Dose: Not Given Magnesium Chloride (Slow-Mag) 64 mg PO Q12 [facility] Last Admin: 10/17/18 21:44 Dose: 64 mg Metoprolol Tartrate (Lopressor) 25 mg PO Q12 [facility] Last Admin: 10/17/18 21:43 Dose: 25 mg Multivitamins/Minerals (Therapeutic-M Tab) 1 tab PO DAILY@1200 [facility] Last Admin: 10/17/18 13:18 Dose: 1 tab Oxycodone/Acetaminophen (Percocet 5/325 Mg Tab) 1 tab PO Q4 PRN PRN Reason: Pain, severe (8-10) Stop: 10/20/18 11:28 Last Admin: 10/18/18 00:43 Dose: 1 tab Prednisone (Prednisone Tab) 5 mg PO DAILY [facility] Last Admin: 10/17/18 09:25 Dose: 5 mg Spironolactone (Aldactone) 50 mg PO DAILY [facility] Last Admin: 10/17/18 09:16 Dose: 50 mg Tacrolimus (Prograf Cap) 0.5 mg PO Q12 [facility] Last Admin: 10/17/18 21:44 Dose: 0.5 mg Tramadol HCl (Ultram) 50 mg PO Q6 PRN PRN Reason: Pain, moderate (4-7) Last Admin: 10/17/18 19:50 Dose: 50 mg - Labs Labs: 10/18/18 05:35 10/18/18 05:35 PT 15.7 Seconds (9.8-13.1) H 10/16/18 05:25 INR 1.4 10/16/18 05:25 APTT 33.3 Seconds (25.6-37.1) 10/15/18 13:17 - Extremities Exam Additional comments: L hip: mild to moderate swelling +externally rotated/shortened limb tenderness to groin and lateral hip no ecchymosis or lesions sensation intact SP/DP/TN motor intact EHL/FHL/TA/G pedal pulses intact calves soft NT Assessment and Plan (1) Left displaced femoral neck fracture Assessment & Plan: -OR tomorrow AM for L ELEAZAR -NPO pMN -Hematology consult appreciated, Eliquis/ASA on hold for OR, cleared for OR tomorrow. -NWB LLE -above d/w Dr. Pickett in agreement Status: Acute
--- NOTE | 2018-10-18 08:35 | CON ---
DATE: 10/17/2018 HISTORY OF PRESENT ILLNESS: This is a 68-year-old male with known history of liver cirrhosis and received a liver transplant, currently on oral steroid therapy, presenting here with a sudden left hip injury and femoral fracture sustained after an accidental fall on the staircase at home and is now being referred for diabetic evaluation because of persistent hyperglycemic accelerations as noted thereof. He denies any intake of any oral hypoglycemic drug therapy for management of type 2 diabetes in the past. PAST MEDICAL HISTORY: As mentioned above, history of liver cirrhosis with a subsequent liver transplant at [facility] about 3 years ago and has since then been on antirejection therapy as noted including oral steroids. History of hypertension and dyslipidemia, history of a recent hepatic artery thrombosis. He is being followed closely by Dr. Gomez locally and by his [facility] doctors in [place]. FAMILY HISTORY: Positive for diabetes, hypertension and carcinoma. SOCIAL HISTORY: The patient has a supportive family and lives with his brother who is very attentive and supportive of his care. No known substance use. REVIEW OF SYSTEMS As mentioned above. Admits to generalized body weakness with episodic bouts of dizziness and lightheadedness with easy fatigability and tiredness and suboptimal energy level. No chest pains or palpitations. His oral intake has been variable but otherwise satisfactory with occasional dyspepsia and habitual constipation. Also admits to persistent nocturia and polyuria over the last week or so prior to admission. PHYSICAL EXAMINATION: GENERAL: He is an average-built male, in no apparent distress. VITAL SIGNS: Blood pressure 150/90, pulse of 100 beats per minute and regular, temperature 98, respirations 20, height is 5 feet 8 inches, weight is 228 pounds. HEENT: Head normocephalic. Eyes anicteric with pink conjunctivae. Funduscopy is not possible at this time. Ears, nose and throat otherwise normal. NECK: Supple. Thyroid gland is normal in size. No carotid bruits or any cervical adenopathy. CARDIOPULMONARY: Some adynamic precordium. S1, S2, is rapid and regular. LUNGS: Clear to auscultation. ABDOMEN: Flat, soft with positive bowel sounds. EXTREMITIES: No peripheral edema. Pulses are +2 bilaterally. LABORATORY DATA: His glucose levels have ranged from 251 to 329 and 345 mg/dL today. His A1c was reported as 11.3% on admission which is extremely elevated and indicative of suboptimal metabolic control of his diabetic condition even prior to this admission. His initial glucose was actually 504 on admission. ASSESSMENT: This is a 68-year-old male with uncontrolled and decompensated type 2 insulin-requiring diabetes with marked hyperglycemic accelerations, clearly requiring insulin at this point in time with extremely elevated A1c and also because of the intercurrent physical stressors and the recent left hip femoral fracture as noted thereof. Moreover, he has been on long-term steroid therapy which could have contributed to the increased insulin resistance and further impaired glucose tolerance thereof. PLAN OF MANAGEMENT: Because of the plan for imminent surgery at this time, we will initiate an intensive insulin therapy with a more physiologic basal and bolus insulin drug combination as ordered. We will start Levemir given as 14 units subcu at bedtime daily to start tonight. We will add prandial insulin with Humalog given as 6 units subcu t.i.d. before meals to start tomorrow morning as ordered. We will modify the coverage scale to obviate hypoglycemia and detailed orders have been given. We will obtain serial chemistries and supplement accordingly as needed. We will also restart his IV hydration with half-normal saline at 100 mL/hour as ordered. We will obtain serial chemistries and supplement accordingly as needed. We will follow. Radha Stockton MD
[2018-10-18] MEDS: Insulin Lispro (humaLOG) 100 Units/ml Inj SC SCH ×7 (09:20→21:37)
[2018-10-18] MEDS ORDERED: Phytonadione 10 mg/ml Inj (Adult) IVPB ONE (09:38)
[2018-10-18] MEDS ORDERED: Phytonadione 10 MG in Sodium Chloride 0.9% 50 ML IV ONE (10:00)
[2018-10-18] MEDS ORDERED: Magnesium Sulfate 1 gm in D5W 1 GM/100 ML BAG IVPB ONE (10:30)
[2018-10-18 10:35] LABS: INR 1.2; PROTHROMBIN TIME 14.1 Seconds (9.8-13.1)
[2018-10-18 10:37] LABS: PARTIAL THROMBOPLASTIN TIME 30.9 Seconds (25.6-37.1)
--- NOTE | 2018-10-18 10:59 | CP.PCM.PN ---
Subjective - Date & Time of Evaluation Date of Evaluation: 10/18/18 Time of Evaluation: 10:30 - Subjective Subjective: NO NEW COMPLAINTS Objective - Vital Signs/Intake and Output Vital Signs (last 24 hours): Temp Pulse Resp BP Pulse Ox 98.2 F 68 20 125/76 95 10/18/18 08:07 10/18/18 09:24 10/18/18 08:07 10/18/18 09:24 10/18/18 08:07 - Medications Medications: Current Medications Amlodipine Besylate (Norvasc) 10 mg PO DAILY [facility] Last Admin: 10/18/18 09:24 Dose: 10 mg Cholecalciferol (Vitamin D) 2,000 intlu PO DAILY@1200 [facility] Last Admin: 10/17/18 13:19 Dose: 2,000 intlu Dextrose (Dextrose 50% Inj) 0 ml IV STAT PRN; Protocol PRN Reason: Hypoglycemia Protocol Dextrose (Glutose 15) 0 gm PO ONCE PRN; Protocol PRN Reason: Hypoglycemia Protocol Dextrose (Dextrose 50% Inj) 0 ml IV STAT PRN; Protocol PRN Reason: Hypoglycemia Protocol Dextrose (Glutose 15) 0 gm PO ONCE PRN; Protocol PRN Reason: Hypoglycemia Protocol Docusate Sodium (Colace) 100 mg PO BID [facility] Last Admin: 10/18/18 09:18 Dose: 100 mg Famotidine (Pepcid) 20 mg PO BID [facility] Last Admin: 10/18/18 09:24 Dose: 20 mg Furosemide (Lasix) 40 mg PO DAILY [facility] Last Admin: 10/18/18 09:23 Dose: 40 mg Glucagon (Glucagen Diagnostic Kit) 0 mg IM STAT PRN; Protocol PRN Reason: Hypoglycemia Protocol Glucagon (Glucagen Diagnostic Kit) 0 mg IM STAT PRN; Protocol PRN Reason: Hypoglycemia Protocol Home Med (Ursodiol [Bri Forte]) 500 mg PO Q12 [facility] Last Admin: 10/18/18 09:26 Dose: 500 mg Sodium Chloride (Sodium Chloride 0.45%) 1,000 mls @ 100 mls/hr IV .Q10H [facility] Stop: 10/18/18 19:55 Last Admin: 10/17/18 21:40 Dose: 100 mls/hr Magnesium Sulfate/Dextrose (Magnesium Sulfate 1 Gm/100 Ml D5w) 1 gm in 100 mls @ 200 mls/hr IVPB ONCE ONE Stop: 10/18/18 10:59 Insulin Detemir (Levemir) 18 units SC HS [facility] Insulin Human Lispro (Humalog) 6 units SC AC [facility] Last Admin: 10/18/18 09:20 Dose: 6 units Insulin Human Lispro (Humalog) 0 units SC ACHS [facility] Last Admin: 10/18/18 09:22 Dose: Not Given Magnesium Chloride (Slow-Mag) 64 mg PO Q12 [facility] Last Admin: 10/17/18 21:44 Dose: 64 mg Metoprolol Tartrate (Lopressor) 25 mg PO Q12 [facility] Last Admin: 10/18/18 09:23 Dose: 25 mg Multivitamins/Minerals (Therapeutic-M Tab) 1 tab PO DAILY@1200 [facility] Last Admin: 10/17/18 13:18 Dose: 1 tab Oxycodone/Acetaminophen (Percocet 5/325 Mg Tab) 1 tab PO Q4 PRN PRN Reason: Pain, severe (8-10) Stop: 10/20/18 11:28 Last Admin: 10/18/18 00:43 Dose: 1 tab Prednisone (Prednisone Tab) 5 mg PO DAILY [facility] Last Admin: 10/18/18 09:24 Dose: 5 mg Spironolactone (Aldactone) 50 mg PO DAILY [facility] Last Admin: 10/18/18 09:18 Dose: 50 mg Tacrolimus (Prograf Cap) 0.5 mg PO Q12 [facility] Last Admin: 10/18/18 09:24 Dose: 0.5 mg Tramadol HCl (Ultram) 50 mg PO Q6 PRN PRN Reason: Pain, moderate (4-7) Last Admin: 10/17/18 19:50 Dose: 50 mg - Labs Labs: 10/18/18 05:35 10/18/18 05:35 PT 14.1 Seconds (9.8-13.1) H 10/18/18 10:22 INR 1.2 10/18/18 10:22 APTT 30.9 Seconds (25.6-37.1) 10/18/18 10:22 - Respiratory Exam Respiratory Exam: Clear to Ausculation Bilateral - Cardiovascular Exam Cardiovascular Exam: REGULAR RHYTHM, +S1, +S2 - Extremities Exam Additional comments: DECREASED ROM OF LLE - Additional Findings Additional findings: HEMATOLOGY CONSULT AND ENDOCRINOLOGY CONSULT REVIEWED Assessment and Plan - Assessment and Plan (Free Text) Assessment: FALL WITH LEFT HIP FRACTURE HYPERTENSION THROMBOCYTOPENIA-CHRONIC DM Plan: CONTINUE AMLODIPINE, METOPROLOL, SPIRONOLACTONE AND LIVER TRANSPLANT MEDICATIONS INSULIN STARTED BY ENDOCRINOLOGY FOR PROBABLE SURGERY TOMORROW
[2018-10-18 12:22] LABS: GAMMA GLUTAMYL TRANSPEPTIDASE 93 U/L (8-78)
[2018-10-18] MEDS: Multivitamin With Minerals Tab PO SCH (13:29)
[2018-10-18] MEDS: Cholecalciferol 1,000 INTLU TAB PO SCH (13:30)
[2018-10-18 13:42] LABS: FOLATE 17.3 ng/mL
[2018-10-18] MEDS: Magnesium Chloride 64 mg ER Tab PO SCH ×2 (16:39→21:36)
[2018-10-18] MEDS: Sodium Chloride 0.45% 1,000 ML IV SCH (16:45)
[2018-10-18] MEDS: Docusate-Senna 50 mg-8.6 mg Tab PO SCH (21:39)
[2018-10-18] MEDS: Insulin Detemir 100 Units/ml Inj SC SCH (21:41)
[2018-10-18] MEDS ORDERED: Insulin Detemir 100 Units/ml Inj SC SCH (22:00)
--- NOTE | 2018-10-18 22:49 | CP.PCM.PN ---
Subjective - Date & Time of Evaluation Date of Evaluation: 10/18/18 Time of Evaluation: 18:00 - Subjective Subjective: No complaints. Objective - Vital Signs/Intake and Output Vital Signs (last 24 hours): Temp Pulse Resp BP Pulse Ox 97.8 F 80 18 137/76 96 10/18/18 16:28 10/18/18 21:36 10/18/18 16:28 10/18/18 21:36 10/18/18 16:28 - Medications Medications: Current Medications Amlodipine Besylate (Norvasc) 10 mg PO DAILY [facility] Last Admin: 10/18/18 09:24 Dose: 10 mg Cholecalciferol (Vitamin D) 2,000 intlu PO DAILY@1200 [facility] Last Admin: 10/18/18 13:30 Dose: 2,000 intlu Dextrose (Dextrose 50% Inj) 0 ml IV STAT PRN; Protocol PRN Reason: Hypoglycemia Protocol Dextrose (Glutose 15) 0 gm PO ONCE PRN; Protocol PRN Reason: Hypoglycemia Protocol Dextrose (Dextrose 50% Inj) 0 ml IV STAT PRN; Protocol PRN Reason: Hypoglycemia Protocol Dextrose (Glutose 15) 0 gm PO ONCE PRN; Protocol PRN Reason: Hypoglycemia Protocol Docusate Sodium (Colace) 100 mg PO BID [facility] Last Admin: 10/18/18 16:35 Dose: 100 mg Famotidine (Pepcid) 20 mg PO BID [facility] Last Admin: 10/18/18 16:38 Dose: 20 mg Furosemide (Lasix) 40 mg PO DAILY [facility] Last Admin: 10/18/18 09:23 Dose: 40 mg Glucagon (Glucagen Diagnostic Kit) 0 mg IM STAT PRN; Protocol PRN Reason: Hypoglycemia Protocol Glucagon (Glucagen Diagnostic Kit) 0 mg IM STAT PRN; Protocol PRN Reason: Hypoglycemia Protocol Home Med (Ursodiol [Bir Forte]) 500 mg PO Q12 [facility] Last Admin: 10/18/18 21:35 Dose: 500 mg Insulin Detemir (Levemir) 20 units SC HS [facility] Last Admin: 10/18/18 21:41 Dose: 20 u Insulin Human Lispro (Humalog) 0 units SC ACHS [facility] Last Admin: 10/18/18 21:37 Dose: Not Given Insulin Human Lispro (Humalog) 8 units SC AC [facility] Last Admin: 10/18/18 16:37 Dose: 8 units Magnesium Chloride (Slow-Mag) 64 mg PO Q12 [facility] Last Admin: 10/18/18 21:36 Dose: 64 mg Metoprolol Tartrate (Lopressor) 25 mg PO Q12 [facility] Last Admin: 10/18/18 21:36 Dose: 25 mg Multivitamins/Minerals (Therapeutic-M Tab) 1 tab PO DAILY@1200 [facility] Last Admin: 10/18/18 13:29 Dose: 1 tab Oxycodone/Acetaminophen (Percocet 5/325 Mg Tab) 1 tab PO Q4 PRN PRN Reason: Pain, severe (8-10) Stop: 10/20/18 11:28 Last Admin: 10/18/18 00:43 Dose: 1 tab Prednisone (Prednisone Tab) 5 mg PO DAILY [facility] Last Admin: 10/18/18 09:24 Dose: 5 mg Senna/Docusate Sodium (Senokot S 50 Mg-8.6 Mg) 1 tab PO HS [facility] Last Admin: 10/18/18 21:39 Dose: 1 tab Spironolactone (Aldactone) 50 mg PO DAILY [facility] Last Admin: 10/18/18 09:18 Dose: 50 mg Tacrolimus (Prograf Cap) 0.5 mg PO Q12 [facility] Last Admin: 10/18/18 21:35 Dose: 0.5 mg Tramadol HCl (Ultram) 50 mg PO Q6 PRN PRN Reason: Pain, moderate (4-7) Last Admin: 10/17/18 19:50 Dose: 50 mg - Labs Labs: 10/18/18 05:35 10/18/18 05:35 PT 14.1 Seconds (9.8-13.1) H 10/18/18 10:22 INR 1.2 10/18/18 10:22 APTT 30.9 Seconds (25.6-37.1) 10/18/18 10:22 - Head Exam Head Exam: ATRAUMATIC - Eye Exam Eye Exam: Normal appearance - ENT Exam ENT Exam: Mucous Membranes Dry - Respiratory Exam Respiratory Exam: NORMAL BREATHING PATTERN - Cardiovascular Exam Cardiovascular Exam: +S1, +S2 - GI/Abdominal Exam GI & Abdominal Exam: Normal Bowel Sounds Assessment and Plan (1) Thrombocytopenia Assessment & Plan: mild aspirin/Eliquis on hold sincen 10/15 cleared for orthopedic surgery if plt > 100,000 from hematology standpoint tomorrow resume aspirin/Eliquis post surgery when cleared by orthopedics Status: Chronic (2) Anemia Status: Acute (3) Hepatic artery thrombosis Status: Chronic
--- NOTE | 2018-10-18 23:22 | PN ---
DATE: 10/18/2018 LOCATION: Room 651. SUBJECTIVE: This is a 68-year-old male with recent uncontrolled type 2 insulin-requiring diabetes, presenting here with a left femoral fracture from an accidental fall injury at home. He also has been diagnosed to have recent onset of uncontrolled type 2 insulin-requiring diabetes with marked hyperglycemic accelerations as noted thereof. LABORATORY DATA: His latest chemistry showed a BUN of 15, sodium 132, potassium 3.9, chloride 102, CO2 of 23, glucose 217, and creatinine 0.8. His glucose values have ranged from 244 to 268 mg/dL. His hemoglobin A1c is elevated at 11.3%, which is extremely elevated and indicative of suboptimal metabolic control of his diabetic condition even prior to this admission confirming the presence of recent onset of metabolic decompensation of his diabetic condition, most likely related to long-term steroid therapy as given for immunosuppression following a liver transplant. PLAN OF MANAGEMENT: A lengthy bedside discussion was undertaken with his family and brother at bedside regarding the imperative need for initiation of insulin therapy, especially a basal and bolus insulin drug combination which is more physiologic to optimize his metabolic control. We will initiate diabetic education to include insulin self-administration by the patient to optimize his metabolic control thereof. We will titrate his basal insulin and increase the Humalog to 8 units t.i.d. before meals to start today as ordered. We will also increase the basal insulin with Levemir to be given as 20 units subcu at bedtime daily to start tonight. We will titrate incrementally as indicated to optimize metabolic control. We will follow and advise accordingly. We will also continue the IV hydration with half-normal saline running at 100 mL/hour to optimize his metabolic losses from the increased osmotic diuresis thereof. We will obtain serial chemistries and supplement accordingly as needed. We will follow. Radha Stockton MD
[2018-10-19] MEDS: Sodium Chloride 0.45% 1,000 ML IV SCH (02:31)
[2018-10-19 04:51] LABS: BASO % 0.5 % (0.0-2.0); EOS # 0.2 K/uL (0.0-0.7); EOS % 2.6 % (0.0-4.0); HEMOGLOBIN 13.6 g/dL (12.0-18.0); LYMPH # 0.7 K/uL (1.0-4.3); LYMPH % 12.2 % (20.0-40.0); MEAN CELL VOLUME 95.2 fl (80.0-94.0); MEAN CORPUSCULAR HEMOGLOBIN 32.8 pg (27.0-31.0); MEAN CORPUSCULAR HGB CONC 34.5 g/dL (33.0-37.0); MEAN PLATELET VOLUME 9.6 fl (7.2-11.7); MONO # 0.9 K/uL (0.0-0.8); MONO % 14.6 % (0.0-10.0); NEUT # 4.2 K/uL (1.8-7.0); NEUT % 70.1 % (50.0-75.0); RBC 4.14 Mil/uL (4.40-5.90); RED CELL DISTRIBUTION WIDTH 12.9 % (11.5-14.5)
[2018-10-19 04:53] LABS: INR 1.2; PROTHROMBIN TIME 13.4 Seconds (9.8-13.1)
[2018-10-19 04:56] LABS: PARTIAL THROMBOPLASTIN TIME 31.6 Seconds (25.6-37.1)
[2018-10-19 04:58] LABS: ALB/GLOB RATIO 0.9 (1.0-2.1); ALBUMIN 2.9 g/dL (3.5-5.0); ALT/SGPT 35 U/L (21-72); AST/SGOT 30 U/L (17-59); BLOOD UREA NITROGEN 15 mg/dl (9-20); CALCIUM 8.4 mg/dL (8.4-10.2); GFR NON-AFRICAN AMERICAN > 60
[2018-10-19] MEDS: Insulin Lispro (humaLOG) 100 Units/ml Inj SC SCH ×7 (06:46→22:00)
[2018-10-19] MEDS ORDERED: Propofol 10 mg/ml Inj (20 ML) ONE (07:30)
[2018-10-19] MEDS ORDERED: Lidocaine 4% (Laryng-O-Jet) Kit MM ONE (07:31)
[2018-10-19] MEDS ORDERED: Neostigmine 1:1000 (1 mg/ml) Inj ONE (07:31)
[2018-10-19] MEDS ORDERED: Rocuronium 10 mg/ml (5 ml) ONE ×2 (07:31→09:59)
[2018-10-19] MEDS ORDERED: Succinylcholine 200 mg/10 ml Inj IV ONE (07:31)
[2018-10-19] MEDS ORDERED: Midazolam 2 MG/2 ML VIAL ONE (07:32)
[2018-10-19] MEDS ORDERED: Bupivacaine HCl 0.25% PF (30 ml) Inj ONE (07:36)
[2018-10-19] MEDS ORDERED: Thrombin Topical 5,000 Int Units Spray Kit ONE (07:36)
[2018-10-19] MEDS ORDERED: Absorbable Gelatin Sponge Size 12-7 ONE (07:36)
[2018-10-19] MEDS ORDERED: EPINEPHrine 1 mg/ml (1:1000) Inj ONE ×2 (07:36→07:37)
[2018-10-19] MEDS ORDERED: Sodium Chloride 0.9% 10 ML IV ONE (07:40)
[2018-10-19] MEDS ORDERED: Magnesium Sulfate 2 gm/50 ml 2 GM/50 ML BAG IVPB ONE (07:40)
[2018-10-19] MEDS ORDERED: ePHEDrine 50 mg/ml Inj ONE (07:41)
[2018-10-19] MEDS ORDERED: Tranexamic Acid 1,000 MG in Sodium Chloride 0.9% 100 ML IVPB ONE ×2 (09:08→09:09)
[2018-10-19] MEDS ORDERED: Sodium Chloride 0.9% 1,000 ML IV ONE (09:45)
[2018-10-19] MEDS ORDERED: Normosol-R 1000 ML 1,000 ML IV ONE (09:57)
[2018-10-19] MEDS ORDERED: EPINEPHrine 1 mg/ml (1:1000) Inj IV ONE ×2 (10:00→10:55)
[2018-10-19] MEDS ORDERED: Thrombin Topical 5,000 Int Units Spray Kit TOP ONE ×3 (10:01→10:55)
[2018-10-19] MEDS ORDERED: Sevoflurane - Inhalation Anesthetic Liq (250 ml) ONE (11:26)
--- NOTE | 2018-10-19 11:29 | CP.PCM.PN ---
Subjective - Date & Time of Evaluation Date of Evaluation: 10/19/18 Time of Evaluation: 07:00 - Subjective Subjective: NO NEW COMPLAINTS Objective - Vital Signs/Intake and Output Vital Signs (last 24 hours): Temp Pulse Resp BP Pulse Ox 97.2 F L 72 18 123/78 98 10/19/18 09:00 10/19/18 09:00 10/19/18 09:00 10/19/18 09:00 10/19/18 09:00 - Medications Medications: Current Medications Amlodipine Besylate (Norvasc) 10 mg PO DAILY [facility] Last Admin: 10/18/18 09:24 Dose: 10 mg Cholecalciferol (Vitamin D) 2,000 intlu PO DAILY@1200 [facility] Last Admin: 10/18/18 13:30 Dose: 2,000 intlu Dextrose (Dextrose 50% Inj) 0 ml IV STAT PRN; Protocol PRN Reason: Hypoglycemia Protocol Dextrose (Glutose 15) 0 gm PO ONCE PRN; Protocol PRN Reason: Hypoglycemia Protocol Dextrose (Dextrose 50% Inj) 0 ml IV STAT PRN; Protocol PRN Reason: Hypoglycemia Protocol Dextrose (Glutose 15) 0 gm PO ONCE PRN; Protocol PRN Reason: Hypoglycemia Protocol Docusate Sodium (Colace) 100 mg PO BID [facility] Last Admin: 10/18/18 16:35 Dose: 100 mg Famotidine (Pepcid) 20 mg PO BID [facility] Last Admin: 10/18/18 16:38 Dose: 20 mg Furosemide (Lasix) 40 mg PO DAILY [facility] Last Admin: 10/18/18 09:23 Dose: 40 mg Glucagon (Glucagen Diagnostic Kit) 0 mg IM STAT PRN; Protocol PRN Reason: Hypoglycemia Protocol Glucagon (Glucagen Diagnostic Kit) 0 mg IM STAT PRN; Protocol PRN Reason: Hypoglycemia Protocol Home Med (Ursodiol [Bri Forte]) 500 mg PO Q12 [facility] Last Admin: 10/18/18 21:35 Dose: 500 mg Insulin Detemir (Levemir) 20 units SC HS [facility] Last Admin: 10/18/18 21:41 Dose: 20 u Insulin Human Lispro (Humalog) 0 units SC ACHS [facility] Last Admin: 10/19/18 06:46 Dose: Not Given Insulin Human Lispro (Humalog) 8 units SC AC [facility] Last Admin: 10/19/18 08:11 Dose: Not Given Magnesium Chloride (Slow-Mag) 64 mg PO Q12 [facility] Last Admin: 10/18/18 21:36 Dose: 64 mg Metoprolol Tartrate (Lopressor) 25 mg PO Q12 [facility] Last Admin: 10/19/18 08:28 Dose: 25 mg Multivitamins/Minerals (Therapeutic-M Tab) 1 tab PO DAILY@1200 [facility] Last Admin: 10/18/18 13:29 Dose: 1 tab Oxycodone/Acetaminophen (Percocet 5/325 Mg Tab) 1 tab PO Q4 PRN PRN Reason: Pain, severe (8-10) Stop: 10/20/18 11:28 Last Admin: 10/18/18 00:43 Dose: 1 tab Prednisone (Prednisone Tab) 5 mg PO DAILY [facility] Last Admin: 10/18/18 09:24 Dose: 5 mg Senna/Docusate Sodium (Senokot S 50 Mg-8.6 Mg) 1 tab PO HS [facility] Last Admin: 10/18/18 21:39 Dose: 1 tab Spironolactone (Aldactone) 50 mg PO DAILY [facility] Last Admin: 10/18/18 09:18 Dose: 50 mg Tacrolimus (Prograf Cap) 0.5 mg PO Q12 [facility] Last Admin: 10/18/18 21:35 Dose: 0.5 mg Tramadol HCl (Ultram) 50 mg PO Q6 PRN PRN Reason: Pain, moderate (4-7) Last Admin: 10/17/18 19:50 Dose: 50 mg - Labs Labs: 10/19/18 04:40 10/19/18 04:40 PT 13.4 Seconds (9.8-13.1) H 10/19/18 04:40 INR 1.2 10/19/18 04:40 APTT 31.6 Seconds (25.6-37.1) 10/19/18 04:40 - Respiratory Exam Respiratory Exam: Clear to Ausculation Bilateral - Cardiovascular Exam Cardiovascular Exam: REGULAR RHYTHM, +S1, +S2 - Extremities Exam Additional comments: DECREASED ROM LLE Assessment and Plan - Assessment and Plan (Free Text) Assessment: FALL WITH LEFT HIP FRACTURE HYPERTENSION DM Plan: FOR SURGERY TODAY
[2018-10-19] MEDS: Magnesium Chloride 64 mg ER Tab PO SCH ×2 (11:46→21:49)
[2018-10-19] MEDS ORDERED: HEMOSTATIC MATRIX 10 ML DIS.NEEDLE TOP ONE (12:58)
[2018-10-19] MEDS ORDERED: Morphine 4 MG/ML VIAL IVP PRN (13:12)
[2018-10-19] MEDS ORDERED: Lactated Ringer's 1,000 ML IV ONE (13:23)
--- NOTE | 2018-10-19 13:34 | PCM.ANESB3 ---
Femoral Nerve Block - Femoral Nerve Block Date of Procedure: 10/19/18 Anesthesiologist: Jeronimo Hartman Pre-Procedure Diagnosis: L hip fracture Post-Procedure Diagnosis: Same Procedure Performed: Femoral Nerve Block Left (Fascial iliaca block) - Procedure Femoral Nerve Block: The procedure was explained to the patient that it is for the post-operative pain management. Consent was obtained after a thorough discussion with the patient regarding the benefits and possible complications of local anesthetic block of the femoral nerve at the inguinal crease area. The patient was brought to the operating room and standard monitors were applied. Time-out was held with the circulating nurse to confirm the correct surgery and the appropriate block. After inducing general anesthesia and moving the patient over to the operating room bed, patient was placed in supine position with fully extended lower extremities and the left groin exposed. The femoral artery was then carefully palpated. The ultrasound transducer was then applied to this area in the transverse plane and the femoral nerve was visualized lateral to the femoral artery and underneath the fascia iliaca and the probe was moved laterally. After thorough identification, the inguinal crease area was prepped with Chloraprep. At this point, a #22 gauge Stimuplex 2-inch needle was inserted immediately lateral to the femoral artery pulse at the inguinal crease and advanced perpendicularly. The needle was inserted to the ultrasound transducer in-plane towards the fascia iliaca plane in a [id number] direction. Needle advancement was performed carefully under direct ultrasound visualization. After negative aspiration, 30cc of 0.25% bupivacaine with [id number] epinephrine was injected in 5cc aliquots. Under ultrasound guidance the local anesthetics were observed spreading below fascia iliaca and around the femoral nerve. The needle was removed intact and sterile dressing was applied. The patient had stable vital signs, was conscious and in no apparent distress. The patient tolerated the fascia iliaca nerve block well with stable vital signs and was prepared for subsequent surgery.
--- NOTE | 2018-10-19 13:53 | CP.PCM.PN ---
<Stevie Seymour - Last Filed: 10/19/18 14:44> Subjective - Date & Time of Evaluation Date of Evaluation: 10/19/18 Time of Evaluation: 13:53 - Subjective Subjective: 68M seen and evaluated in the PACU POD 0 left hip surgery. Resting comfortably. After coming out of anesthesia patient thinks he is in [facility] and is unaware he is in the hospital. States he knows he had surgery but not oriented to place. Denies N/V/F/C/SOB/CP. Reports no pain at this time. Objective - Vital Signs/Intake and Output Vital Signs (last 24 hours): Temp Pulse Resp BP Pulse Ox 97.2 F L 72 18 123/78 98 10/19/18 09:00 10/19/18 09:00 10/19/18 09:00 10/19/18 09:00 10/19/18 09:00 Intake and Output: 10/19/18 10/19/18 06:59 18:59 Intake Total 1500 Balance 1500 - Medications Medications: Current Medications Amlodipine Besylate (Norvasc) 10 mg PO DAILY [facility] Last Admin: 10/19/18 11:46 Dose: Not Given Cholecalciferol (Vitamin D) 2,000 intlu PO DAILY@1200 [facility] Last Admin: 10/18/18 13:30 Dose: 2,000 intlu Dextrose (Dextrose 50% Inj) 0 ml IV STAT PRN; Protocol PRN Reason: Hypoglycemia Protocol Dextrose (Glutose 15) 0 gm PO ONCE PRN; Protocol PRN Reason: Hypoglycemia Protocol Dextrose (Dextrose 50% Inj) 0 ml IV STAT PRN; Protocol PRN Reason: Hypoglycemia Protocol Dextrose (Glutose 15) 0 gm PO ONCE PRN; Protocol PRN Reason: Hypoglycemia Protocol Docusate Sodium (Colace) 100 mg PO BID [facility] Last Admin: 10/19/18 11:44 Dose: Not Given Enoxaparin Sodium (Lovenox) 40 mg SC DAILY [facility]; Protocol Famotidine (Pepcid) 20 mg PO BID [facility] Last Admin: 10/19/18 11:46 Dose: Not Given Furosemide (Lasix) 40 mg PO DAILY [facility] Last Admin: 10/19/18 11:45 Dose: Not Given Glucagon (Glucagen Diagnostic Kit) 0 mg IM STAT PRN; Protocol PRN Reason: Hypoglycemia Protocol Glucagon (Glucagen Diagnostic Kit) 0 mg IM STAT PRN; Protocol PRN Reason: Hypoglycemia Protocol Home Med (Ursodiol [Bri Forte]) 500 mg PO Q12 [facility] Last Admin: 10/19/18 11:47 Dose: Not Given Hydromorphone HCl (Dilaudid) 0.5 mg IVP Q10M PRN PRN Reason: Pain, severe (8-10) Stop: 10/19/18 15:30 Cefazolin Sodium/Dextrose (Ancef Iv 2 Gm Duplex) 2 gm in 50 mls @ 50 mls/hr IVPB Q8 [facility]; Protocol Sodium Chloride (Sodium Chloride 0.9%) 1,000 mls @ 100 mls/hr IV .Q10H [facility] Stop: 10/20/18 13:13 Insulin Detemir (Levemir) 20 units SC HS [facility] Last Admin: 10/18/18 21:41 Dose: 20 u Insulin Human Lispro (Humalog) 0 units SC ACHS [facility] Last Admin: 10/19/18 11:47 Dose: Not Given Insulin Human Lispro (Humalog) 8 units SC AC [facility] Last Admin: 10/19/18 11:47 Dose: Not Given Magnesium Chloride (Slow-Mag) 64 mg PO Q12 [facility] Last Admin: 10/19/18 11:46 Dose: Not Given Metoclopramide HCl (Reglan) 10 mg IVP ONCE PRN PRN Reason: Nausea/Vomiting Stop: 10/19/18 15:30 Metoprolol Tartrate (Lopressor) 25 mg PO Q12 [facility] Last Admin: 10/19/18 08:28 Dose: 25 mg Morphine Sulfate (Morphine) 2 mg IVP Q4 PRN PRN Reason: Pain, severe (8-10) Multivitamins/Minerals (Therapeutic-M Tab) 1 tab PO DAILY@1200 [facility] Last Admin: 10/18/18 13:29 Dose: 1 tab Ondansetron HCl (Zofran Inj) 4 mg IVP ONCE PRN PRN Reason: Nausea/Vomiting Ondansetron HCl (Zofran Inj) 4 mg IVP ONCE PRN PRN Reason: Nausea/Vomiting Stop: 10/19/18 15:30 Prednisone (Prednisone Tab) 5 mg PO DAILY [facility] Last Admin: 10/19/18 11:46 Dose: Not Given Senna/Docusate Sodium (Senokot S 50 Mg-8.6 Mg) 1 tab PO HS [facility] Last Admin: 10/18/18 21:39 Dose: 1 tab Spironolactone (Aldactone) 50 mg PO DAILY [facility] Last Admin: 10/19/18 11:44 Dose: Not Given Tacrolimus (Prograf Cap) 0.5 mg PO Q12 [facility] Last Admin: 10/19/18 11:46 Dose: Not Given Tramadol HCl (Ultram) 50 mg PO Q6 PRN PRN Reason: Pain, moderate (4-7) Last Admin: 10/17/18 19:50 Dose: 50 mg - Labs Labs: 10/19/18 04:40 10/19/18 04:40 PT 13.4 Seconds (9.8-13.1) H 10/19/18 04:40 INR 1.2 10/19/18 04:40 APTT 31.6 Seconds (25.6-37.1) 10/19/18 04:40 - Constitutional Appears: Non-toxic, No Acute Distress - Head Exam Head Exam: ATRAUMATIC, NORMOCEPHALIC - Eye Exam Eye Exam: EOMI, Normal appearance - ENT Exam ENT Exam: Mucous Membranes Moist - Neck Exam Neck Exam: Full ROM - Respiratory Exam Respiratory Exam: Clear to Ausculation Bilateral, NORMAL BREATHING PATTERN - Cardiovascular Exam Cardiovascular Exam: REGULAR RHYTHM, +S1, +S2 - GI/Abdominal Exam GI & Abdominal Exam: Soft, Normal Bowel Sounds. absent: Tenderness - Extremities Exam Additional comments: neuro sensation diminished - normal findings after nerve block and anesthesia cap refill <3 seconds able to move toes dressing clean dry and intact to left LE - Neurological Exam Neurological Exam: Alert, Awake - Psychiatric Exam Psychiatric exam: Normal Affect, Normal Mood - Skin Skin Exam: Normal Color, Warm Assessment and Plan - Assessment and Plan (Free Text) Assessment: 68M examined in PACU POD 0 left hip surgery Plan: 1. Left hip fracture - XR Left Hip: subcapital fracture of the left femoral neck - postop x-ray and fluoro taken - read pending - CT w/o: L hip: minimally displaced L femoral neck subcapital fracture - EKG: normal sinus rythem - Patient is medically optimized for surgery - Dr. Gomez cleared patient from cardiac standpoint - Ortho: Dr. Pickett: left hip surgery POD 0 - ancef 2 gm ordered - 3 doses to be administered for prophylaxis - Hematology consult Dr. Montgomery - cleared for surgery tomorrow DAPT held for 4 days tomorrow; platelets if >100,000 prior to OR, no transfusion performed - resume eliquis and aspirin AM 2. 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 HTN -Continue home meds -Cardio: Dr. Gomez 4. Hyperglycemia -Likely 2/2 steroids -HbA1c - 11.3 -Levemir 18 units SC daily -f/u BMP 5. DVT prophylaxis -scd -DAPT held (eliquis and asa due to planned surgery on Wednesday) 6. Diet - Heart healthy - NPO past midnight tonight <Kamala Díaz - Last Filed: 10/19/18 17:16> Objective - Vital Signs/Intake and Output Vital Signs (last 24 hours): Temp Pulse Resp BP Pulse Ox 97.2 F L 72 18 123/78 98 10/19/18 09:00 10/19/18 09:00 10/19/18 09:00 10/19/18 09:00 10/19/18 09:00 Intake and Output: 10/19/18 10/19/18 06:59 18:59 Intake Total 1700 Balance 1700 - Medications Medications: Current Medications Amlodipine Besylate (Norvasc) 10 mg PO DAILY [facility] Last Admin: 10/19/18 11:46 Dose: Not Given Cholecalciferol (Vitamin D) 2,000 intlu PO DAILY@1200 [facility] Last Admin: 10/18/18 13:30 Dose: 2,000 intlu Dextrose (Dextrose 50% Inj) 0 ml IV STAT PRN; Protocol PRN Reason: Hypoglycemia Protocol Dextrose (Glutose 15) 0 gm PO ONCE PRN; Protocol PRN Reason: Hypoglycemia Protocol Dextrose (Dextrose 50% Inj) 0 ml IV STAT PRN; Protocol PRN Reason: Hypoglycemia Protocol Dextrose (Glutose 15) 0 gm PO ONCE PRN; Protocol PRN Reason: Hypoglycemia Protocol Docusate Sodium (Colace) 100 mg PO BID [facility] Last Admin: 10/19/18 11:44 Dose: Not Given Enoxaparin Sodium (Lovenox) 40 mg SC DAILY [facility]; Protocol Famotidine (Pepcid) 20 mg PO BID [facility] Last Admin: 10/19/18 11:46 Dose: Not Given Furosemide (Lasix) 40 mg PO DAILY [facility] Last Admin: 10/19/18 11:45 Dose: Not Given Glucagon (Glucagen Diagnostic Kit) 0 mg IM STAT PRN; Protocol PRN Reason: Hypoglycemia Protocol Glucagon (Glucagen Diagnostic Kit) 0 mg IM STAT PRN; Protocol PRN Reason: Hypoglycemia Protocol Home Med (Ursodiol [Bri Forte]) 500 mg PO Q12 [facility] Last Admin: 10/19/18 11:47 Dose: Not Given Cefazolin Sodium/Dextrose (Ancef Iv 2 Gm Duplex) 2 gm in 50 mls @ 50 mls/hr IVPB Q8 [facility]; Protocol Sodium Chloride (Sodium Chloride 0.9%) 1,000 mls @ 100 mls/hr IV .Q10H [facility] Stop: 10/20/18 13:13 Magnesium Sulfate 2 gm/ Sodium (Chloride) 104 mls @ 104 mls/hr IVPB ONCE ONE Stop: 10/19/18 16:59 Insulin Detemir (Levemir) 20 units SC [facility] Last Admin: 10/18/18 21:41 Dose: 20 u Insulin Human Lispro (Humalog) 0 units SC ACHS [facility] Last Admin: 10/19/18 11:47 Dose: Not Given Insulin Human Lispro (Humalog) 8 units SC AC [facility] Last Admin: 10/19/18 11:47 Dose: Not Given Magnesium Chloride (Slow-Mag) 64 mg PO Q12 [facility] Last Admin: 10/19/18 11:46 Dose: Not Given Metoprolol Tartrate (Lopressor) 25 mg PO Q12 [facility] Last Admin: 10/19/18 08:28 Dose: 25 mg Morphine Sulfate (Morphine) 2 mg IVP Q4 PRN PRN Reason: Pain, severe (8-10) Multivitamins/Minerals (Therapeutic-M Tab) 1 tab PO DAILY@1200 [facility] Last Admin: 10/18/18 13:29 Dose: 1 tab Ondansetron HCl (Zofran Inj) 4 mg IVP ONCE PRN PRN Reason: Nausea/Vomiting Prednisone (Prednisone Tab) 5 mg PO DAILY [facility] Last Admin: 10/19/18 11:46 Dose: Not Given Senna/Docusate Sodium (Senokot S 50 Mg-8.6 Mg) 1 tab PO [facility] Last Admin: 10/18/18 21:39 Dose: 1 tab Spironolactone (Aldactone) 50 mg PO DAILY [facility] Last Admin: 10/19/18 11:44 Dose: Not Given Tacrolimus (Prograf Cap) 0.5 mg PO Q12 [facility] Last Admin: 10/19/18 11:46 Dose: Not Given Tramadol HCl (Ultram) 50 mg PO Q6 PRN PRN Reason: Pain, moderate (4-7) Last Admin: 10/17/18 19:50 Dose: 50 mg - Labs Labs: 10/19/18 04:40 10/19/18 04:40 PT 13.4 Seconds (9.8-13.1) H 10/19/18 04:40 INR 1.2 10/19/18 04:40 APTT 31.6 Seconds (25.6-37.1) 10/19/18 04:40 Attending/Attestation - Attestation I have personally seen and examined this patient.: Yes I have fully participated in the care of the patient.: Yes I have reviewed all pertinent clinical information, including history, physical exam and plan: Yes Notes (Text): Left Hip Fracture s/p Left Anterior Hip Replacement - seen pt post op - doing well -Pain mgt - PT/OT - Incentive spirometry - DVT proph Coagulopathy and Thrombocytopenia likely due to Liver Dis - pt has been off ASA and Eliquis since admission - on Eliquis bec of hx of Thrombosis post liver transplant -Manual Platelet - normal today DM Type II with Hyperglycemia - started Levemir - Dr Stockton - Endo consulted Hx of Liver Transplant ( Liver Cirrhosis) - pt is on Prograf, Prednisone , lasix and Aldactone
[2018-10-19] MEDS ORDERED: STERILE IRRIGATING SOLUTION 15 ML IR ONE (14:28)
[2018-10-19] MEDS: WATER IVPB ONE ×2 (15:30→16:00)
[2018-10-19] MEDS: MAGNESIUM SULFATE 2 GM/50 ML IVPB ONE ×2 (15:30→16:00)
[2018-10-19] MEDS ORDERED: Magnesium Sulfate 2 gm/50 ml 2 GM/50 ML BAG IV ONE (17:00)
[2018-10-19] MEDS: Multivitamin With Minerals Tab PO SCH (17:13)
[2018-10-19] MEDS: ceFAZolin IV 2 gm in Dextrose 2 GM/50 ML BAG IVPB SCH (17:15)
[2018-10-19] MEDS: Cholecalciferol 1,000 INTLU TAB PO SCH (17:15)
--- NOTE | 2018-10-19 17:18 | RAD ---
Date of service: 10/19/2018 PROCEDURE: Fluoroscopic assistance in excess of 1 hour. HISTORY: LEFT HIP COMPARISON: None TECHNIQUE: Standard protocol for this study/examination. FINDINGS: Total fluoroscopic time (continuous mode) utilized during the procedure 10.0 seconds. Total exam DLP: 1.62 (mGy). IMPRESSION: Submitted images from the current procedure: 4.0.
--- NOTE | 2018-10-19 17:51 | PCM.SURG1 ---
Surgeon's Initial Post Op Note - Surgeon's Notes Surgeon: Nieves [employer]: QUAN Waggoner/ 2nd assist Cady Goddard PA-C Type of Anesthesia: General Endo, Spinal Anesthesia Administered By: DR Jeronimo Hartman Pre-Operative Diagnosis: Displaced subcapital L femur fracture. primary Osteoarthritis( preexisting ) Operative Findings: as above. synovitis L hip joint Post-Operative Diagnosis: as above Operation Performed: L THR - anterior approach. femoral neck osteotomy. arthrotomy- synovectomy. release iliopsoas tendon. auograft bone graft. comp uter navigation Specimen/Specimens Removed: bone cartilage synovium Estimated Blood Loss: EBL {In ML}: 125 Date of Surgery/Procedure: 10/19/18 Time of Surgery/Procedure: 10:45 (time in room / anaetsheisa indcution time 9:20)
--- NOTE | 2018-10-19 18:14 | RAD ---
PROCEDURE: Left Hip X-ray Radiographs. HISTORY: s/p L ELEAZAR COMPARISON: None. FINDINGS: BONES: There is diffuse bone demineralization. No acute displaced fracture or bone destruction. JOINTS: Status post total non cemented left hip arthroplasty. No acute complications. SOFT TISSUES: Postoperative changes in the periarticular soft tissues. OTHER FINDINGS: Lateral skin dina. IMPRESSION: Status post total left hip arthroplasty. No acute complications.
[2018-10-19] MEDS ORDERED: Artificial Tears Opht Soln OU PRN (20:44)
[2018-10-19] MEDS: Docusate-Senna 50 mg-8.6 mg Tab PO SCH (21:47)
[2018-10-19] MEDS: Insulin Detemir 100 Units/ml Inj SC SCH (21:47)
[2018-10-19] MEDS: Sodium Chloride 0.9% 1,000 ML IV SCH (23:54)
[2018-10-20] MEDS: ceFAZolin IV 2 gm in Dextrose 2 GM/50 ML BAG IVPB SCH
[2018-10-20 06:10] LABS: HEMOGLOBIN 11.1 g/dL (12.0-18.0); MEAN CELL VOLUME 96.3 fl (80.0-94.0); MEAN CORPUSCULAR HEMOGLOBIN 33.2 pg (27.0-31.0); MEAN CORPUSCULAR HGB CONC 34.5 g/dL (33.0-37.0); RBC 3.34 Mil/uL (4.40-5.90); WHITE BLOOD COUNT 14.2 K/uL (4.8-10.8)
[2018-10-20 06:46] LABS: BLOOD UREA NITROGEN 19 mg/dl (9-20); CALCIUM 7.5 mg/dL (8.4-10.2); GFR NON-AFRICAN AMERICAN > 60
--- NOTE | 2018-10-20 07:34 | CP.PCM.PN ---
Subjective - Date & Time of Evaluation Date of Evaluation: 10/20/18 Time of Evaluation: 07:34 - Subjective Subjective: 68M seen and evaluated at bedside. Resting comfortably. Objective - Vital Signs/Intake and Output Vital Signs (last 24 hours): Temp Pulse Resp BP Pulse Ox 97.3 F L 91 H 20 117/76 94 L 10/20/18 03:57 10/20/18 03:57 10/20/18 03:57 10/20/18 03:57 10/20/18 03:57 - Medications Medications: Current Medications Amlodipine Besylate (Norvasc) 10 mg PO DAILY [facility] Last Admin: 10/19/18 11:46 Dose: Not Given Artificial Tears (Artificial Tears) 2 drop OU Q6 PRN PRN Reason: Dry eyes Cholecalciferol (Vitamin D) 2,000 intlu PO DAILY@1200 [facility] Last Admin: 10/19/18 17:15 Dose: 2,000 intlu Dextrose (Dextrose 50% Inj) 0 ml IV STAT PRN; Protocol PRN Reason: Hypoglycemia Protocol Dextrose (Glutose 15) 0 gm PO ONCE PRN; Protocol PRN Reason: Hypoglycemia Protocol Dextrose (Dextrose 50% Inj) 0 ml IV STAT PRN; Protocol PRN Reason: Hypoglycemia Protocol Dextrose (Glutose 15) 0 gm PO ONCE PRN; Protocol PRN Reason: Hypoglycemia Protocol Docusate Sodium (Colace) 100 mg PO BID [facility] Last Admin: 10/19/18 17:12 Dose: 100 mg Enoxaparin Sodium (Lovenox) 40 mg SC DAILY [facility]; Protocol Famotidine (Pepcid) 20 mg PO BID [facility] Last Admin: 10/19/18 17:10 Dose: 20 mg Furosemide (Lasix) 40 mg PO DAILY [facility] Last Admin: 10/19/18 17:13 Dose: 40 mg Glucagon (Glucagen Diagnostic Kit) 0 mg IM STAT PRN; Protocol PRN Reason: Hypoglycemia Protocol Glucagon (Glucagen Diagnostic Kit) 0 mg IM STAT PRN; Protocol PRN Reason: Hypoglycemia Protocol Home Med (Ursodiol [Bri Forte]) 500 mg PO Q12 [facility] Last Admin: 10/19/18 21:46 Dose: 500 mg Sodium Chloride (Sodium Chloride 0.9%) 1,000 mls @ 100 mls/hr IV .Q10H [facility] Stop: 10/20/18 13:13 Last Admin: 10/19/18 23:54 Dose: 100 mls/hr Insulin Detemir (Levemir) 20 units SC HS [facility] Last Admin: 10/19/18 21:47 Dose: 20 u Insulin Human Lispro (Humalog) 0 units SC ACHS [facility] Last Admin: 10/19/18 22:00 Dose: Not Given Insulin Human Lispro (Humalog) 8 units SC AC [facility] Last Admin: 10/19/18 17:54 Dose: 8 units Magnesium Chloride (Slow-Mag) 64 mg PO Q12 [facility] Last Admin: 10/19/18 21:49 Dose: 64 mg Metoprolol Tartrate (Lopressor) 25 mg PO Q12 [facility] Last Admin: 10/19/18 21:45 Dose: 25 mg Morphine Sulfate (Morphine) 2 mg IVP Q4 PRN PRN Reason: Pain, severe (8-10) Multivitamins/Minerals (Therapeutic-M Tab) 1 tab PO DAILY@1200 [facility] Last Admin: 10/19/18 17:13 Dose: 1 tab Ondansetron HCl (Zofran Inj) 4 mg IVP ONCE PRN PRN Reason: Nausea/Vomiting Prednisone (Prednisone Tab) 5 mg PO DAILY [facility] Last Admin: 10/19/18 17:12 Dose: 5 mg Senna/Docusate Sodium (Senokot S 50 Mg-8.6 Mg) 1 tab PO [facility] Last Admin: 10/19/18 21:47 Dose: 1 tab Spironolactone (Aldactone) 50 mg PO DAILY [facility] Last Admin: 10/19/18 17:14 Dose: 50 mg Tacrolimus (Prograf Cap) 0.5 mg PO Q12 [facility] Last Admin: 10/19/18 21:46 Dose: 0.5 mg Tramadol HCl (Ultram) 50 mg PO Q6 PRN PRN Reason: Pain, moderate (4-7) Last Admin: 10/19/18 23:50 Dose: 50 mg - Labs Labs: 10/20/18 05:25 10/20/18 05:25 PT 13.4 Seconds (9.8-13.1) H 10/19/18 04:40 INR 1.2 10/19/18 04:40 APTT 31.6 Seconds (25.6-37.1) 10/19/18 04:40
--- NOTE | 2018-10-20 08:44 | PN ---
DATE: 10/19/2018 ENDOCRINOLOGY FOLLOWUP NOTE LOCATION: Room 651. SUBJECTIVE: This is a 68-year-old male with recent uncontrolled type 2 insulin-requiring diabetes presenting here with marked hyperglycemic accelerations, which is quite a surprise to the patient and his family, because he was never diagnosed to have uncontrolled type 2 diabetes prior to this admission. His glycemic levels were extremely elevated with an initial random glucose of 504 mg/dl as noted. His A1c confirmed the aforementioned metabolic decompensation with an A1c level of 11.3% which is extremely elevated as expected if undiagnosed or untreated at this time. LABORATORY DATA: His latest chemistry showed a BUN of 15, sodium 132, potassium 3.9, chloride 102, CO2 of 23, glucose 217 and creatinine 0.8. His glucose levels have ranged from 156-244 mg/dl. His TSH is 2.86. Cholesterol is 108, triglycerides of 155 with an HDL of 38 and LDL cholesterol of 56. ASSESSMENT AND PLAN: This is a 68-year-old male with uncontrolled and decompensated type 2 insulin-requiring diabetes with marked hyperglycemic accelerations and clearly insulin requiring at this time, who presented here with an accidental fall sustaining a left hip femoral fracture and is scheduled to undergo orthopedic surgery today as noted. Plan of management was discussed lengthily with the patient and his brother Miguel at bedside. The imperative need for initiation of insulin therapy cannot but be overemphasized especially with the marked glucose toxicity thereof, which will be helped by insulin therapy as given. We will modify his current insulin regimen and increase the Humalog to 8 units t.i.d. before meals to start today as ordered. We will also increase the basal insulin with Levemir to be given as 20 units subcutaneous at bedtime daily to start tonight. We will continue the low-dose correction scale using Humalog insulin as given. We will obtain serial chemistries and supplement accordingly as needed. We will continue also the IV hydration as given and ordered. We will initiate diabetic education to include insulin self-administration and glucose monitoring as ordered. We will follow. Radha Stockton MD
[2018-10-20] MEDS: Magnesium Chloride 64 mg ER Tab PO SCH ×2 (08:45→21:23)
[2018-10-20] MEDS: Enoxaparin 40 mg Syringe SC SCH (08:47)
[2018-10-20] MEDS: Insulin Lispro (humaLOG) 100 Units/ml Inj SC SCH ×7 (08:47→21:30)
--- NOTE | 2018-10-20 09:18 | RAD ---
Date of service: 10/20/2018 PROCEDURE: CHEST RADIOGRAPH, 1 VIEW HISTORY: Fever COMPARISON: 10/15/2018 FINDINGS: LUNGS: Clear. PLEURA: No pneumothorax or pleural fluid seen. CARDIOVASCULAR: No aortic atherosclerotic calcification present. Normal. OSSEOUS STRUCTURES: No significant abnormalities. VISUALIZED UPPER ABDOMEN: Normal. OTHER FINDINGS: None. IMPRESSION: No active disease.
--- NOTE | 2018-10-20 09:34 | CP.PCM.PN ---
Subjective - Date & Time of Evaluation Date of Evaluation: 10/20/18 Time of Evaluation: 08:00 - Subjective Subjective: Patient seen and examined at bedside comfortable. Pain is moderate this AM. No acute events overnight. No other complaints. Denies CP/SOB/fever/RODRIGUEZ. Objective - Vital Signs/Intake and Output Vital Signs (last 24 hours): Temp Pulse Resp BP Pulse Ox 99.5 F 85 20 119/76 99 10/20/18 08:25 10/20/18 08:47 10/20/18 08:25 10/20/18 08:47 10/20/18 08:25 - Medications Medications: Current Medications Acetaminophen (Tylenol 325mg Tab) 975 mg PO Q8 PRN PRN Reason: Pain, moderate (4-7) Last Admin: 10/20/18 08:44 Dose: 975 mg Amlodipine Besylate (Norvasc) 10 mg PO DAILY [facility] Last Admin: 10/20/18 08:47 Dose: 10 mg Artificial Tears (Artificial Tears) 2 drop OU Q6 PRN PRN Reason: Dry eyes Cholecalciferol (Vitamin D) 2,000 intlu PO DAILY@1200 [facility] Last Admin: 10/19/18 17:15 Dose: 2,000 intlu Dextrose (Dextrose 50% Inj) 0 ml IV STAT PRN; Protocol PRN Reason: Hypoglycemia Protocol Dextrose (Glutose 15) 0 gm PO ONCE PRN; Protocol PRN Reason: Hypoglycemia Protocol Dextrose (Dextrose 50% Inj) 0 ml IV STAT PRN; Protocol PRN Reason: Hypoglycemia Protocol Dextrose (Glutose 15) 0 gm PO ONCE PRN; Protocol PRN Reason: Hypoglycemia Protocol Docusate Sodium (Colace) 100 mg PO BID [facility] Last Admin: 10/20/18 08:45 Dose: 100 mg Enoxaparin Sodium (Lovenox) 40 mg SC DAILY [facility]; Protocol Last Admin: 10/20/18 08:47 Dose: 40 mg Famotidine (Pepcid) 20 mg PO BID [facility] Last Admin: 10/20/18 08:47 Dose: 20 mg Furosemide (Lasix) 40 mg PO DAILY [facility] Last Admin: 10/20/18 08:46 Dose: 40 mg Glucagon (Glucagen Diagnostic Kit) 0 mg IM STAT PRN; Protocol PRN Reason: Hypoglycemia Protocol Glucagon (Glucagen Diagnostic Kit) 0 mg IM STAT PRN; Protocol PRN Reason: Hypoglycemia Protocol Home Med (Ursodiol [Bri Forte]) 500 mg PO Q12 [facility] Last Admin: 10/20/18 08:45 Dose: 500 mg Sodium Chloride (Sodium Chloride 0.9%) 1,000 mls @ 100 mls/hr IV .Q10H [facility] Stop: 10/20/18 13:13 Last Admin: 10/19/18 23:54 Dose: 100 mls/hr Insulin Detemir (Levemir) 20 units SC [facility] Last Admin: 10/19/18 21:47 Dose: 20 u Insulin Human Lispro (Humalog) 0 units SC ACHS [facility] Last Admin: 10/20/18 08:47 Dose: Not Given Insulin Human Lispro (Humalog) 8 units SC AC [facility] Last Admin: 10/20/18 08:48 Dose: 8 units Magnesium Chloride (Slow-Mag) 64 mg PO Q12 [facility] Last Admin: 10/20/18 08:45 Dose: 64 mg Metoprolol Tartrate (Lopressor) 25 mg PO Q12 [facility] Last Admin: 10/20/18 08:46 Dose: 25 mg Morphine Sulfate (Morphine) 2 mg IVP Q4 PRN PRN Reason: Pain, severe (8-10) Multivitamins/Minerals (Therapeutic-M Tab) 1 tab PO DAILY@1200 [facility] Last Admin: 10/19/18 17:13 Dose: 1 tab Ondansetron HCl (Zofran Inj) 4 mg IVP ONCE PRN PRN Reason: Nausea/Vomiting Prednisone (Prednisone Tab) 5 mg PO DAILY [facility] Last Admin: 10/20/18 08:47 Dose: 5 mg Senna/Docusate Sodium (Senokot S 50 Mg-8.6 Mg) 1 tab PO [facility] Last Admin: 10/19/18 21:47 Dose: 1 tab Spironolactone (Aldactone) 50 mg PO DAILY [facility] Last Admin: 10/20/18 08:47 Dose: 50 mg Tacrolimus (Prograf Cap) 0.5 mg PO Q12 [facility] Last Admin: 10/20/18 08:45 Dose: 0.5 mg Tramadol HCl (Ultram) 50 mg PO Q6 PRN PRN Reason: Pain, moderate (4-7) Last Admin: 10/19/18 23:50 Dose: 50 mg - Labs Labs: 10/20/18 05:25 10/20/18 05:25 PT 13.4 Seconds (9.8-13.1) H 10/19/18 04:40 INR 1.2 10/19/18 04:40 APTT 31.6 Seconds (25.6-37.1) 10/19/18 04:40 - Extremities Exam Additional comments: L hip: Aquacel dressings dry and intact mild to mod thigh swelling sensation intact SP/DP/TN motor intact EHL/FHL/TA/G pedal pulses intact calves soft NT b/l Assessment and Plan (1) Left displaced femoral neck fracture Assessment & Plan: POD#1 s/p L ELEAZAR following femoral neck fx -pain control -PT/OT WBAT -DVT ppx -orthopedically stable for d/c to TCU -above d/w Dr. Pickett in agreement Status: Acute
--- NOTE | 2018-10-20 10:30 | CP.PCM.PN ---
Subjective - Date & Time of Evaluation Date of Evaluation: 10/20/18 Time of Evaluation: 08:30 - Subjective Subjective: NO NEW COMPLAINTS Objective - Vital Signs/Intake and Output Vital Signs (last 24 hours): Temp Pulse Resp BP Pulse Ox 99.5 F 85 20 119/76 99 10/20/18 08:25 10/20/18 08:47 10/20/18 08:25 10/20/18 08:47 10/20/18 08:25 - Medications Medications: Current Medications Acetaminophen (Tylenol 325mg Tab) 975 mg PO Q8 PRN PRN Reason: Pain, moderate (4-7) Last Admin: 10/20/18 08:44 Dose: 975 mg Amlodipine Besylate (Norvasc) 10 mg PO DAILY [facility] Last Admin: 10/20/18 08:47 Dose: 10 mg Artificial Tears (Artificial Tears) 2 drop OU Q6 PRN PRN Reason: Dry eyes Cholecalciferol (Vitamin D) 2,000 intlu PO DAILY@1200 [facility] Last Admin: 10/19/18 17:15 Dose: 2,000 intlu Dextrose (Dextrose 50% Inj) 0 ml IV STAT PRN; Protocol PRN Reason: Hypoglycemia Protocol Dextrose (Glutose 15) 0 gm PO ONCE PRN; Protocol PRN Reason: Hypoglycemia Protocol Dextrose (Dextrose 50% Inj) 0 ml IV STAT PRN; Protocol PRN Reason: Hypoglycemia Protocol Dextrose (Glutose 15) 0 gm PO ONCE PRN; Protocol PRN Reason: Hypoglycemia Protocol Docusate Sodium (Colace) 100 mg PO BID [facility] Last Admin: 10/20/18 08:45 Dose: 100 mg Enoxaparin Sodium (Lovenox) 40 mg SC DAILY [facility]; Protocol Last Admin: 10/20/18 08:47 Dose: 40 mg Famotidine (Pepcid) 20 mg PO BID [facility] Last Admin: 10/20/18 08:47 Dose: 20 mg Furosemide (Lasix) 40 mg PO DAILY [facility] Last Admin: 10/20/18 08:46 Dose: 40 mg Glucagon (Glucagen Diagnostic Kit) 0 mg IM STAT PRN; Protocol PRN Reason: Hypoglycemia Protocol Glucagon (Glucagen Diagnostic Kit) 0 mg IM STAT PRN; Protocol PRN Reason: Hypoglycemia Protocol Home Med (Ursodiol [Bri Forte]) 500 mg PO Q12 [facility] Last Admin: 12/06/18 08:45 Dose: 500 mg Sodium Chloride (Sodium Chloride 0.9%) 1,000 mls @ 100 mls/hr IV .Q10H [facility] Stop: 10/20/18 13:13 Last Admin: 10/19/18 23:54 Dose: 100 mls/hr Insulin Detemir (Levemir) 20 units SC HS [facility] Last Admin: 10/19/18 21:47 Dose: 20 u Insulin Human Lispro (Humalog) 0 units SC ACHS [facility] Last Admin: 10/20/18 08:47 Dose: Not Given Insulin Human Lispro (Humalog) 8 units SC AC [facility] Last Admin: 10/20/18 08:48 Dose: 8 units Magnesium Chloride (Slow-Mag) 64 mg PO Q12 [facility] Last Admin: 10/20/18 08:45 Dose: 64 mg Metoprolol Tartrate (Lopressor) 25 mg PO Q12 [facility] Last Admin: 10/20/18 08:46 Dose: 25 mg Morphine Sulfate (Morphine) 2 mg IVP Q4 PRN PRN Reason: Pain, severe (8-10) Multivitamins/Minerals (Therapeutic-M Tab) 1 tab PO DAILY@1200 [facility] Last Admin: 10/19/18 17:13 Dose: 1 tab Ondansetron HCl (Zofran Inj) 4 mg IVP ONCE PRN PRN Reason: Nausea/Vomiting Prednisone (Prednisone Tab) 5 mg PO DAILY [facility] Last Admin: 10/20/18 08:47 Dose: 5 mg Senna/Docusate Sodium (Senokot S 50 Mg-8.6 Mg) 1 tab PO [facility] Last Admin: 10/19/18 21:47 Dose: 1 tab Spironolactone (Aldactone) 50 mg PO DAILY [facility] Last Admin: 10/20/18 08:47 Dose: 50 mg Tacrolimus (Prograf Cap) 0.5 mg PO Q12 [facility] Last Admin: 10/20/18 08:45 Dose: 0.5 mg Tramadol HCl (Ultram) 50 mg PO Q6 PRN PRN Reason: Pain, moderate (4-7) Last Admin: 10/19/18 23:50 Dose: 50 mg - Labs Labs: 10/20/18 05:25 10/20/18 05:25 PT 13.4 Seconds (9.8-13.1) H 10/19/18 04:40 INR 1.2 10/19/18 04:40 APTT 31.6 Seconds (25.6-37.1) 10/19/18 04:40 - Respiratory Exam Respiratory Exam: Clear to Ausculation Bilateral - Cardiovascular Exam Cardiovascular Exam: REGULAR RHYTHM, +S1, +S2 - Additional Findings Additional findings: OR NOTES REVIEWED WITH LEFT THR Assessment and Plan - Assessment and Plan (Free Text) Assessment: LEFT THR HYPERTENSION DM LIVER TRANSPLANT Plan: CONDTINUE PRESENT TX INCLUDING AMLODIPINE, METOPROLOL, INSULIN AND LOVENOX
[2018-10-20] MEDS: Multivitamin With Minerals Tab PO SCH (11:07)
[2018-10-20] MEDS: Cholecalciferol 1,000 INTLU TAB PO SCH (11:07)
[2018-10-20] MEDS: Sodium Chloride 0.9% 1,000 ML IV SCH (11:13)
--- NOTE | 2018-10-20 13:33 | PN ---
DATE: 10/20/2018 SUBJECTIVE: This is a 68-year-old male with recent left femoral fracture accidentally sustained from a fall injury at home and is now being followed closely for metabolic management. His glycemic levels are fluctuating, but improved and the glucose values have ranged from 184 to 196 to 218 mg/dL. His latest chemistry showed a BUN of 19, sodium 130, potassium 4.8, chloride 101, CO2 of 22, glucose 193 and creatinine 0.8. ASSESSMENT: This is a 68-year-old male with uncontrolled and decompensated type 2 insulin requiring diabetes of recent evaluation and diagnosis and is now being followed closely for metabolic management. PLAN: Plan of management, we will modify once again his basal and bolus insulin regimen and increase the note the Humalog to 10 units t.i.d. before meals to start today as ordered. We will also increase the basal insulin with Levemir to be given as 24 units subcu at bedtime daily to start tonight. We will continue the low dose correction scale using Humalog insulin as given. We will also continue the IV hydration with normal saline running at 100 mL/hour as given. We will obtain serial chemistries and supplement accordingly as needed. We will follow. Radha Stockton MD
--- NOTE | 2018-10-20 18:03 | CP.PCM.PN ---
Subjective - Date & Time of Evaluation Date of Evaluation: 10/20/18 Time of Evaluation: 15:30 - Subjective Subjective: Patient seen and examined. Pain on left hip bearable on rest but needed pain medication during therapy. Objective - Vital Signs/Intake and Output Vital Signs (last 24 hours): Temp Pulse Resp BP Pulse Ox 97.8 F 72 20 103/66 98 10/20/18 16:31 10/20/18 16:31 10/20/18 16:31 10/20/18 16:31 10/20/18 16:31 - Medications Medications: Current Medications Acetaminophen (Tylenol 325mg Tab) 975 mg PO Q8 PRN PRN Reason: Pain, moderate (4-7) Last Admin: 10/20/18 08:44 Dose: 975 mg Amlodipine Besylate (Norvasc) 10 mg PO DAILY [facility] Last Admin: 10/20/18 08:47 Dose: 10 mg Artificial Tears (Artificial Tears) 2 drop OU Q6 PRN PRN Reason: Dry eyes Cholecalciferol (Vitamin D) 2,000 intlu PO DAILY@1200 [facility] [place] Last Admin: 10/20/18 11:07 Dose: 2,000 intlu Dextrose (Dextrose 50% Inj) 0 ml IV STAT PRN; Protocol PRN Reason: Hypoglycemia Protocol Dextrose (Glutose 15) 0 gm PO ONCE PRN; Protocol PRN Reason: Hypoglycemia Protocol Dextrose (Dextrose 50% Inj) 0 ml IV STAT PRN; Protocol PRN Reason: Hypoglycemia Protocol Dextrose (Glutose 15) 0 gm PO ONCE PRN; Protocol PRN Reason: Hypoglycemia Protocol Docusate Sodium (Colace) 100 mg PO BID [facility] [place] Last Admin: 10/20/18 16:14 Dose: 100 mg Enoxaparin Sodium (Lovenox) 40 mg SC DAILY [facility] [place]; Protocol Last Admin: 10/20/18 08:47 Dose: 40 mg Famotidine (Pepcid) 20 mg PO BID [facility] [place] Last Admin: 10/20/18 16:13 Dose: 20 mg Furosemide (Lasix) 40 mg PO DAILY [facility] [place] Last Admin: 10/20/18 08:46 Dose: 40 mg Glucagon (Glucagen Diagnostic Kit) 0 mg IM STAT PRN; Protocol PRN Reason: Hypoglycemia Protocol Glucagon (Glucagen Diagnostic Kit) 0 mg IM STAT PRN; Protocol PRN Reason: Hypoglycemia Protocol Home Med (Ursodiol [Bri Forte]) 500 mg PO Q12 [facility] [place] Last Admin: 10/20/18 08:45 Dose: 500 mg Insulin Detemir (Levemir) 24 units SC HS [facility] [place] Insulin Human Lispro (Humalog) 0 units SC ACHS [facility] [place] Last Admin: 10/20/18 17:27 Dose: Not Given Insulin Human Lispro (Humalog) 10 units SC AC [facility] [place] Last Admin: 10/20/18 17:27 Dose: 10 units Magnesium Chloride (Slow-Mag) 64 mg PO Q12 [facility] [place] Last Admin: 10/20/18 08:45 Dose: 64 mg Metoprolol Tartrate (Lopressor) 25 mg PO Q12 [facility] [place] Last Admin: 10/20/18 08:46 Dose: 25 mg Morphine Sulfate (Morphine) 2 mg IVP Q4 PRN PRN Reason: Pain, severe (8-10) Multivitamins/Minerals (Therapeutic-M Tab) 1 tab PO DAILY@1200 [facility] [place] Last Admin: 10/20/18 11:07 Dose: 1 tab Ondansetron HCl (Zofran Inj) 4 mg IVP ONCE PRN PRN Reason: Nausea/Vomiting Prednisone (Prednisone Tab) 5 mg PO DAILY [facility] [place] Last Admin: 10/20/18 08:47 Dose: 5 mg Senna/Docusate Sodium (Senokot S 50 Mg-8.6 Mg) 1 tab PO [facility] Last Admin: 10/19/18 21:47 Dose: 1 tab Spironolactone (Aldactone) 50 mg PO DAILY [facility] [place] Last Admin: 10/20/18 08:47 Dose: 50 mg Tacrolimus (Prograf Cap) 0.5 mg PO Q12 [facility] Last Admin: 10/20/18 08:45 Dose: 0.5 mg - Labs Labs: 10/20/18 05:25 10/20/18 05:25 PT 13.4 Seconds (9.8-13.1) H 10/19/18 04:40 INR 1.2 10/19/18 04:40 APTT 31.6 Seconds (25.6-37.1) 10/19/18 04:40 - Constitutional Appears: No Acute Distress - Head Exam Head Exam: ATRAUMATIC - Eye Exam Eye Exam: absent: Scleral icterus - ENT Exam ENT Exam: Mucous Membranes Moist - Neck Exam Neck Exam: absent: Meningismus - Respiratory Exam Respiratory Exam: absent: Rales, Rhonchi, Wheezes, Respiratory Distress - Cardiovascular Exam Cardiovascular Exam: REGULAR RHYTHM, +S1, +S2 - GI/Abdominal Exam GI & Abdominal Exam: Soft. absent: Tenderness - Rectal Exam Rectal Exam: Deferred - Extremities Exam Extremities Exam: absent: Full ROM (right hip with limited ROM secondary to pain) - Back Exam Back Exam: NORMAL INSPECTION - Neurological Exam Neurological Exam: Alert, Oriented x3 - Psychiatric Exam Psychiatric exam: Normal Affect - Skin Skin Exam: Dry, Intact Assessment and Plan - Assessment and Plan (Free Text) Assessment: 68 yo male with history of HTN, Liver Transplant missed a step in his house and landed on his left hip. Xray showed subcapital fracture of the left femoral neck. 1. Left Hip Fracture left THR, postop day 1 continue pain management continue PT/OT awaiting placement to TCU 2. 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 HTN BP controlled Continue Amlodipine and Metoprolol 4. DM2 HgA1c - 11.3 BS uncontrolled appreciated consult with Dr Mahin Keller 24 units SC HS Lispro 10 units SC 5. DVT prophylaxis venodyne boots while in bed continue hold on ASA and Eliquis until okayed by orthopedist
[2018-10-20 20:42] LABS: URINE BACTERIA RARE (<OCC); URINE BILIRUBIN NEGATIVE (NEGATIVE); URINE BLOOD MODERATE (NEGATIVE); URINE CLARITY SLIGHTY-CLOUDY (Clear); URINE COLOR YELLOW (YELLOW); URINE GLUCOSE (UA) NEG (NEGATIVE); URINE LEUKOCYTE ESTERASE NEG Leu/uL (Negative); URINE PROTEIN NEGATIVE (NEGATIVE); URINE UROBILINOGEN 0.2-1.0 mg/dL (0.2-1.0)
[2018-10-20] MEDS: Docusate-Senna 50 mg-8.6 mg Tab PO SCH (21:23)
[2018-10-20] MEDS ORDERED: Insulin Detemir 100 Units/ml Inj SC SCH (22:00)
[2018-10-21 06:27] LABS: MEAN CELL VOLUME 95.9 fl (80.0-94.0); MEAN CORPUSCULAR HEMOGLOBIN 33.4 pg (27.0-31.0); MEAN CORPUSCULAR HGB CONC 34.8 g/dL (33.0-37.0); RBC 2.69 Mil/uL (4.40-5.90); RED CELL DISTRIBUTION WIDTH 13.2 % (11.5-14.5); WHITE BLOOD COUNT 8.3 K/uL (4.8-10.8)
[2018-10-21 06:37] LABS: BLOOD UREA NITROGEN 25 mg/dl (9-20); CALCIUM 7.3 mg/dL (8.4-10.2); GFR NON-AFRICAN AMERICAN > 60
[2018-10-21] MEDS: Insulin Lispro (humaLOG) 100 Units/ml Inj SC SCH ×6 (09:34→16:26)
[2018-10-21] MEDS: Enoxaparin 40 mg Syringe SC SCH (09:37)
[2018-10-21] MEDS: Magnesium Chloride 64 mg ER Tab PO SCH (09:39)
--- NOTE | 2018-10-21 11:05 | CP.PCM.PN ---
Subjective - Date & Time of Evaluation Date of Evaluation: 10/21/18 Time of Evaluation: 09:20 - Subjective Subjective: NO CHEST PAIN OR SOB FEELS A LITTLE BETTER TODAY SOME PAIN AT LEFT HIP SURGICAL SITE Objective - Vital Signs/Intake and Output Vital Signs (last 24 hours): Temp Pulse Resp BP Pulse Ox 98.1 F 82 20 109/66 95 10/21/18 08:46 10/21/18 09:38 10/21/18 08:46 10/21/18 09:38 10/21/18 08:46 - Medications Medications: Current Medications Acetaminophen (Tylenol 325mg Tab) 975 mg PO Q8 PRN PRN Reason: Pain, moderate (4-7) Last Admin: 10/21/18 05:50 Dose: 975 mg Amlodipine Besylate (Norvasc) 10 mg PO DAILY [facility] Last Admin: 10/21/18 09:38 Dose: 10 mg Artificial Tears (Artificial Tears) 2 drop OU Q6 PRN PRN Reason: Dry eyes Cholecalciferol (Vitamin D) 2,000 intlu PO DAILY@1200 [facility] Last Admin: 10/20/18 11:07 Dose: 2,000 intlu Dextrose (Dextrose 50% Inj) 0 ml IV STAT PRN; Protocol PRN Reason: Hypoglycemia Protocol Dextrose (Glutose 15) 0 gm PO ONCE PRN; Protocol PRN Reason: Hypoglycemia Protocol Dextrose (Dextrose 50% Inj) 0 ml IV STAT PRN; Protocol PRN Reason: Hypoglycemia Protocol Dextrose (Glutose 15) 0 gm PO ONCE PRN; Protocol PRN Reason: Hypoglycemia Protocol Docusate Sodium (Colace) 100 mg PO BID [facility] Last Admin: 10/21/18 09:34 Dose: 100 mg Enoxaparin Sodium (Lovenox) 40 mg SC DAILY [facility]; Protocol Last Admin: 10/21/18 09:37 Dose: 40 mg Famotidine (Pepcid) 20 mg PO BID [facility] Last Admin: 10/21/18 09:38 Dose: 20 mg Furosemide (Lasix) 40 mg PO DAILY [facility] Last Admin: 10/21/18 09:36 Dose: 40 mg Glucagon (Glucagen Diagnostic Kit) 0 mg IM STAT PRN; Protocol PRN Reason: Hypoglycemia Protocol Glucagon (Glucagen Diagnostic Kit) 0 mg IM STAT PRN; Protocol PRN Reason: Hypoglycemia Protocol Home Med (Ursodiol [Bri Forte]) 500 mg PO Q12 [facility] Last Admin: 10/21/18 09:39 Dose: 500 mg Insulin Detemir (Levemir) 24 units SC HS [facility] Last Admin: 10/20/18 21:28 Dose: 24 units Insulin Human Lispro (Humalog) 0 units SC ACHS [facility] Last Admin: 10/21/18 09:34 Dose: Not Given Insulin Human Lispro (Humalog) 10 units SC AC [facility] Last Admin: 10/21/18 09:35 Dose: 10 units Magnesium Chloride (Slow-Mag) 64 mg PO Q12 [facility] Last Admin: 10/21/18 09:39 Dose: 64 mg Metoprolol Tartrate (Lopressor) 25 mg PO Q12 [facility] Last Admin: 10/21/18 09:37 Dose: 25 mg Morphine Sulfate (Morphine) 2 mg IVP Q4 PRN PRN Reason: Pain, severe (8-10) Multivitamins/Minerals (Therapeutic-M Tab) 1 tab PO DAILY@1200 [facility] Last Admin: 10/20/18 11:07 Dose: 1 tab Ondansetron HCl (Zofran Inj) 4 mg IVP ONCE PRN PRN Reason: Nausea/Vomiting Senna/Docusate Sodium (Senokot S 50 Mg-8.6 Mg) 1 tab PO [facility] Last Admin: 10/20/18 21:23 Dose: 1 tab Spironolactone (Aldactone) 50 mg PO DAILY [facility] Last Admin: 10/21/18 09:30 Dose: 50 mg Tacrolimus (Prograf Cap) 0.5 mg PO Q12 [facility] Last Admin: 10/21/18 09:38 Dose: 0.5 mg - Labs Labs: 10/21/18 05:35 10/21/18 05:35 PT 13.4 Seconds (9.8-13.1) H 10/19/18 04:40 INR 1.2 10/19/18 04:40 APTT 31.6 Seconds (25.6-37.1) 10/19/18 04:40 - Respiratory Exam Respiratory Exam: Clear to Ausculation Bilateral - Cardiovascular Exam Cardiovascular Exam: REGULAR RHYTHM, +S1, +S2 - Extremities Exam Additional comments: NO EDEMA OF RLE Assessment and Plan - Assessment and Plan (Free Text) Assessment: LEFT TOTAL HIP REPLACEMENT HYPERTENSION DM Plan: FOR REHAB
[2018-10-21 11:20] VITALS: BMI 34.7
--- NOTE | 2018-10-21 12:14 | CP.PCM.DIS ---
Provider - Provider Date of Admission: 10/15/18 14:30 Attending physician: Roldan Del Rosario MD Consults: 10/15/18 14:11 Orthopedic Consult Stat Comment: Consulting Provider: Luis Carlos Pickett III Consulting Physician: Luis Carlos Pickett III Reason for Consult: left femur fracture 10/15/18 14:28 Cardiology Consult Stat Comment: Consulting Provider: Moy Gomez Consulting Physician: Moy Gomez Reason for Consult: clearance 10/15/18 20:24 Social Work Referral Routine Comment: new admit Physician Instructions: Reason For Exam: new admit 10/17/18 11:18 Physician Consult Routine Comment: Consulting Provider: Matheus Montgomery Consulting Physician: Matheus Montgomery Reason for Consult: thrombocytopenia and coagulopathy 10/17/18 16:26 Physician Consult Routine Comment: Consulting Provider: Radha Stockton Consulting Physician: Radha Stockton Reason for Consult: elevated glucose/A1C, preop clearance 10/18/18 15:47 Diabetic Education Referral Routine Comment: Physician Instructions: Reason For Exam: for insulin SC/ pen teachings 10/19/18 13:12 Case Management Referral Routine Comment: Physician Instructions: Reason For Exam: Reason for Referral: Discharge Planning Time Spent in preparation of Discharge (in minutes): 30 Diagnosis - Discharge Diagnosis (1) Femur fracture, left Status: Acute (2) Left displaced femoral neck fracture Status: Acute Hospital Course - Lab Results Lab Results: Micro Results 10/20/18 01:15 Blood Blood Culture - Preliminary NO GROWTH AFTER 24 HOURS 10/20/18 01:00 Blood Blood Culture - Preliminary NO GROWTH AFTER 24 HOURS Most Recent Lab Values WBC 8.3 K/uL (4.8-10.8) 10/21/18 05:35 RBC 2.69 Mil/uL (4.40-5.90) L 10/21/18 05:35 Hgb 9.0 g/dL (12.0-18.0) L D 10/21/18 05:35 Hct 25.8 % (35.0-51.0) L 10/21/18 05:35 MCV 95.9 fl (80.0-94.0) H 10/21/18 05:35 MCH 33.4 pg (27.0-31.0) H 10/21/18 05:35 MCHC 34.8 g/dL (33.0-37.0) 10/21/18 05:35 RDW 13.2 % (11.5-14.5) 10/21/18 05:35 Plt Count 81 K/uL (130-400) L D 10/21/18 05:35 Manual Plt Count 192 K/uL (130-400) 10/19/18 04:40 MPV 9.6 fl (7.2-11.7) 10/19/18 04:40 Neut % (Auto) 70.1 % (50.0-75.0) 10/19/18 04:40 Lymph % (Auto) 12.2 % (20.0-40.0) L 10/19/18 04:40 [place] % (Auto) 14.6 % (0.0-10.0) H 10/19/18 04:40 Eos % (Auto) 2.6 % (0.0-4.0) 10/19/18 04:40 Baso % (Auto) 0.5 % (0.0-2.0) 10/19/18 04:40 Neut # (Auto) 4.2 K/uL (1.8-7.0) 10/19/18 04:40 Lymph # (Auto) 0.7 K/uL (1.0-4.3) L 10/19/18 04:40 [place] # (Auto) 0.9 K/uL (0.0-0.8) H 10/19/18 04:40 Eos # (Auto) 0.2 K/uL (0.0-0.7) 10/19/18 04:40 Baso # (Auto) 0.0 K/uL (0.0-0.2) 10/19/18 04:40 Retic Count 3.0 % (0.5-1.5) H 10/18/18 06:00 PT 13.4 Seconds (9.8-13.1) H 10/19/18 04:40 INR 1.2 10/19/18 04:40 APTT 31.6 Seconds (25.6-37.1) 10/19/18 04:40 Sodium 124 mmol/l (132-148) L 10/21/18 05:35 Potassium 4.7 MMOL/L (3.6-5.0) 10/21/18 05:35 Chloride 92 mmol/L (98-107) L 10/21/18 05:35 Carbon Dioxide 23 mmol/L (22-30) 10/21/18 05:35 Anion Gap 14 (10-20) 10/21/18 05:35 BUN 25 mg/dl (9-20) H 10/21/18 05:35 Creatinine 1.0 mg/dl (0.8-1.5) 10/21/18 05:35 Est GFR ( Amer) > 60 10/21/18 05:35 Est GFR (Non-Af Amer) > 60 10/21/18 05:35 POC Glucose (mg/dL) 249 mg/dL (65-110) H 10/21/18 04:50 Random Glucose 258 mg/dL (75-110) H 10/21/18 05:35 Hemoglobin A1c 11.3 % (4.2-6.5) H 10/16/18 05:25 Calcium 7.3 mg/dL (8.4-10.2) L 10/21/18 05:35 Magnesium 1.5 MG/DL (1.6-2.3) L 10/19/18 04:40 Ferritin 87.0 ng/Ml (17.9-464) 10/18/18 05:35 Total Bilirubin 1.8 mg/dl (0.2-1.3) H 10/19/18 04:40 GGT 93 U/L (8-78) H 10/18/18 05:35 AST 30 U/L (17-59) 10/19/18 04:40 ALT 35 U/L (21-72) 10/19/18 04:40 Alkaline Phosphatase 160 U/L (38-126) H 10/19/18 04:40 Total Protein 6.0 G/DL (6.3-8.2) L 10/19/18 04:40 Albumin 2.9 g/dL (3.5-5.0) L 10/19/18 04:40 Globulin 3.1 gm/dL (2.2-3.9) 10/19/18 04:40 Albumin/Globulin Ratio 0.9 (1.0-2.1) L 10/19/18 04:40 Triglycerides 155 mg/DL (0-149) H D 10/18/18 05:35 Cholesterol 108 mg/dL (0-199) 10/18/18 05:35 LDL Cholesterol Direct 56 mg/dL (0-129) 10/18/18 05:35 HDL Cholesterol 38 MG/DL (30-70) 10/18/18 05:35 Vitamin B12 > 1000 pg/mL (239-931) H 10/18/18 05:35 25-OH Vitamin D Total 41.1 NG/ML (30.0-100.0) 10/18/18 05:35 Folate 17.3 ng/mL 10/18/18 05:35 TSH 3rd Generation 2.86 mIU/ML (0.46-4.68) 10/18/18 05:35 Urine Color Yellow (YELLOW) 10/20/18 20:05 Urine Clarity Slighty-cloudy (Clear) 10/20/18 20:05 Urine pH 6.0 (5.0-8.0) 10/20/18 20:05 Ur Specific [place] 1.013 (1.003-1.030) 10/20/18 20:05 Urine Protein Negative mg/dL (NEGATIVE) 10/20/18 20:05 Urine Glucose (UA) Neg mg/dL (NEGATIVE) 10/20/18 20:05 Urine Ketones Negative mg/dL (NEGATIVE) 10/20/18 20:05 Urine Blood Moderate (NEGATIVE) 10/20/18 20:05 Urine Nitrate Negative (NEGATIVE) 10/20/18 20:05 Urine Bilirubin Negative (NEGATIVE) 10/20/18 20:05 Urine Urobilinogen 0.2-1.0 mg/dL (0.2-1.0) 10/20/18 20:05 Ur Leukocyte Esterase Neg Frantz/uL (Negative) 10/20/18 20:05 Urine RBC (Auto) 16 /hpf (0-3) H 10/20/18 20:05 Urine Microscopic WBC 3 /hpf (0-5) 10/20/18 20:05 Ur Squamous Epith Cells < 1 /hpf (0-5) 10/15/18 20:17 Urine Bacteria Rare (<OCC) 10/20/18 20:05 Hyaline Casts 3-5 /hpf (0-2) H 10/20/18 20:05 Blood Type O POSITIVE 10/19/18 04:40 Antibody Screen Negative 10/19/18 04:40 Crossmatch See Detail 10/19/18 04:40 BBK History Checked Patient has bt 10/19/18 04:40 - Hospital Course Hospital Course: 68M with pmhx of HTN, liver transplant missed a step in his house and landed on his left hip. Xray showed subcapital fracture of the left femoral neck. Consulted to Dr. Pickett and scheduled for left hip surgery 10/29. Today he is POD 2 L THR and in minimal pain today. Prior to surgery his eliquis and ASA were held for 5 days, will be restarted once cleared by orthopedist. Dr. Gomez was consulted for cardiology and cleared him from cardiac standpoint for surgery and has been managing cardiac care while in house. Dr. Stockton consulted as A1c taken and results 11.3. Started on levemir 24 units SC HS and lispro 10 units SC. Pain managed, seen by PT and recommended benefit from further skilled PT and transfer to TCU. Patient to be d/c to TCU for PT, deconditioning and pain management. DVT prophylaxis with lovenox 40 mg SC daily. - Date & Time of H&P Date of H&P: 10/21/18 Time of H&P: 12:12 Discharge Exam - Head Exam Head Exam: ATRAUMATIC - Eye Exam Eye Exam: absent: Scleral icterus - ENT Exam ENT Exam: Mucous Membranes Moist - Neck Exam Neck exam: Full Rom - Respiratory Exam Respiratory Exam: Clear to PA & Lateral, NORMAL BREATHING PATTERN - Cardiovascular Exam Cardiovascular Exam: REGULAR RHYTHM, +S1, +S2 - GI/Abdominal Exam GI & Abdominal Exam: Normal Bowel Sounds, Soft. absent: Tenderness - Extremities Exam Additional comments: LLE dressing c/d/i cap refill <3 seconds gross and protective sensation intact no pedal edema no calf pain - Neurological Exam Neurological exam: Alert, Oriented x3 - Psychiatric Exam Psychiatric exam: Normal Affect, Normal Mood - Skin Skin Exam: Intact, Normal Color Discharge Plan - Discharge Medications Prescriptions: Sulfamethoxazole/Trimethoprim [Bactrim DS 800 mg-160 mg] 0.5 tab PO BID 3 Days tab - Follow Up Plan Condition: FAIR Disposition: REHAB FACILITY/REHAB UNIT Instructions: Femur Fracture (DC) Referrals: Luis Carlos Pickett III, MD [Staff Provider] - Clinical Quality Measures - Date & Time of Discharge Summary Date of Discharge Summary: 10/21/18 Time of Discharge Summary: 12:15
[2018-10-21] MEDS: Cholecalciferol 1,000 INTLU TAB PO SCH (13:12)
[2018-10-21] MEDS: Multivitamin With Minerals Tab PO SCH (13:12)
[2018-10-21 13:26] VITALS: O2SAT 96
--- NOTE | 2018-10-21 14:09 | CP.PCM.PN ---
Subjective - Date & Time of Evaluation Date of Evaluation: 10/21/18 Time of Evaluation: 14:06 - Subjective Subjective: Patient states he still has a lot of pain in his hip and thigh. He denies CP/SOb/dizziness/n/v/numbness/tingling. Objective - Vital Signs/Intake and Output Vital Signs (last 24 hours): Temp Pulse Resp BP Pulse Ox 98.1 F 70 20 109/66 96 10/21/18 08:46 10/21/18 13:10 10/21/18 08:46 10/21/18 09:38 10/21/18 13:10 - Medications Medications: Current Medications Acetaminophen (Tylenol 325mg Tab) 975 mg PO Q8 PRN PRN Reason: Pain, moderate (4-7) Last Admin: 10/21/18 13:22 Dose: 975 mg Amlodipine Besylate (Norvasc) 10 mg PO DAILY [facility] Last Admin: 10/21/18 09:38 Dose: 10 mg Artificial Tears (Artificial Tears) 2 drop OU Q6 PRN PRN Reason: Dry eyes Cholecalciferol (Vitamin D) 2,000 intlu PO DAILY@1200 [facility] Last Admin: 10/21/18 13:12 Dose: 2,000 intlu Dextrose (Dextrose 50% Inj) 0 ml IV STAT PRN; Protocol PRN Reason: Hypoglycemia Protocol Dextrose (Glutose 15) 0 gm PO ONCE PRN; Protocol PRN Reason: Hypoglycemia Protocol Dextrose (Dextrose 50% Inj) 0 ml IV STAT PRN; Protocol PRN Reason: Hypoglycemia Protocol Dextrose (Glutose 15) 0 gm PO ONCE PRN; Protocol PRN Reason: Hypoglycemia Protocol Docusate Sodium (Colace) 100 mg PO BID [facility] Last Admin: 10/21/18 09:34 Dose: 100 mg Enoxaparin Sodium (Lovenox) 40 mg SC DAILY [facility]; Protocol Last Admin: 10/21/18 09:37 Dose: 40 mg Famotidine (Pepcid) 20 mg PO BID [facility] Last Admin: 10/21/18 09:38 Dose: 20 mg Furosemide (Lasix) 40 mg PO DAILY [facility] Last Admin: 10/21/18 09:36 Dose: 40 mg Glucagon (Glucagen Diagnostic Kit) 0 mg IM STAT PRN; Protocol PRN Reason: Hypoglycemia Protocol Glucagon (Glucagen Diagnostic Kit) 0 mg IM STAT PRN; Protocol PRN Reason: Hypoglycemia Protocol Home Med (Ursodiol [Bri Forte]) 500 mg PO Q12 [facility] Last Admin: 10/21/18 09:39 Dose: 500 mg Insulin Detemir (Levemir) 24 units SC [facility] Last Admin: 10/20/18 21:28 Dose: 24 units Insulin Human Lispro (Humalog) 0 units SC ACHS [facility] Last Admin: 10/21/18 13:10 Dose: 3 units Insulin Human Lispro (Humalog) 10 units SC AC [facility] Last Admin: 10/21/18 13:10 Dose: 10 units Magnesium Chloride (Slow-Mag) 64 mg PO Q12 [facility] Last Admin: 10/21/18 09:39 Dose: 64 mg Metoprolol Tartrate (Lopressor) 25 mg PO Q12 [facility] Last Admin: 10/21/18 09:37 Dose: 25 mg Morphine Sulfate (Morphine) 2 mg IVP Q4 PRN PRN Reason: Pain, severe (8-10) Multivitamins/Minerals (Therapeutic-M Tab) 1 tab PO DAILY@1200 [facility] Last Admin: 10/21/18 13:12 Dose: 1 tab Ondansetron HCl (Zofran Inj) 4 mg IVP ONCE PRN PRN Reason: Nausea/Vomiting Senna/Docusate Sodium (Senokot S 50 Mg-8.6 Mg) 1 tab PO [facility] Last Admin: 10/20/18 21:23 Dose: 1 tab Spironolactone (Aldactone) 50 mg PO DAILY [facility] Last Admin: 10/21/18 09:30 Dose: 50 mg Tacrolimus (Prograf Cap) 0.5 mg PO Q12 [facility] Last Admin: 10/21/18 09:38 Dose: 0.5 mg - Labs Labs: 10/21/18 05:35 10/21/18 05:35 PT 13.4 Seconds (9.8-13.1) H 10/19/18 04:40 INR 1.2 10/19/18 04:40 APTT 31.6 Seconds (25.6-37.1) 10/19/18 04:40 - Extremities Exam Additional comments: Left thigh: dressing intact, moderate sang drainage. No erythema. Dressing changed. Thigh moderately swollen, +ROM ankle/toes, sensation intact, +DP/PT pulses Assessment and Plan (1) Left displaced femoral neck fracture Assessment & Plan: POD#2 s/p L THR PT/OT VTE proph orthopedically stable for d/c d/w DR. Guardado, agrees with above Status: Acute (2) Acute blood loss anemia Assessment & Plan: hemodynamically stable Status: Acute
[2018-10-21 18:22] VITALS: BP 113/71; PULSE 79; RESP 20; TEMP 97.8
[2018-10-21] MEDS ORDERED: Insulin Detemir 100 Units/ml Inj SC SCH (22:00)
--- NOTE | 2018-10-21 22:56 | PN ---
DATE: 10/21/2018 LOCATION: Room 651. SUBJECTIVE: This is a 68-year-old male with an accidental fall at home sustaining a left hip femoral fracture and underwent an open reduction and internal fixation procedure and is now being followed closely for metabolic management because of recent hyperglycemic accelerations of fairly recent onset and diagnosis as noted thereof. His glycemic levels are fluctuating as noted with glucose values ranging from 249 to 343 and 388 mg/dL. LABORATORY DATA: His latest chemistry showed a BUN of 25, sodium 124, potassium 4.7, chloride 92, CO2 of 23, glucose 258 and creatinine 1. 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 He also sustained a left femoral hip fracture from an accidental fall at home and underwent a left open reduction and internal fixation procedure as noted. PLAN OF MANAGEMENT: We will modify once again his basal and bolus insulin regimen as his glucose levels remain suboptimal at this time. We will continue the low-dose correction scale using the low-dose Humalog insulin as given. We will also titrate and increase his basal insulin with Levemir to be given as 30 units subcu at bedtime daily to start tonight. We will obtain serial chemistries and supplement accordingly as needed. We will follow. Radha Stockton MD
[2018-10-22] MEDS ORDERED: Insulin Lispro (humaLOG) 100 Units/ml Inj SC SCH (07:30)
--- NOTE | 2018-10-22 21:21 | OP ---
PROCEDURE DATE: 10/19/2018 PREOPERATIVE DIAGNOSES: 1. Displaced subcapital left femur fracture. 2. Primary osteoarthritis, preexisting, left hip. OPERATIVE FINDINGS: 1. Displaced subcapital left femur fracture. 2. Synovitis of the left hip joint. 3. Preexisting osteoarthritis. POSTOPERATIVE DIAGNOSES: 1. Displaced subcapital left femur fracture. 2. Primary osteoarthritis. 3. Synovitis of the hip joint with contracture of the iliopsoas tendon. SURGEON: Luis Carlos Pickett MD APPLICATIONS PROCESSOR: Madison Real, certified registered nursing assistant professor of german. SECOND CAN FILLING MACHINE OPERATOR: Palmer Goddard PA-C OPERATIVE PROCEDURES: 1. Left total hip replacement. 2. Femoral neck osteotomy. 3. Arthrotomy, synovectomy. 4. Release of iliopsoas tendon. 5. Autograft bone graft to the acetabulum. 6. Computer navigation. SPECIMENS REMOVED: Bone, cartilage, synovium. BLOOD LOSS: Approximately 125 mL. TIME OF SURGERY: Incision time 10:45 a.m. ANESTHESIA INDUCTION TIME: 09:20. OPERATIVE INDICATION: Moy Mckeon is a 68-year-old gentleman, who is an alcoholic, who presents after a liver transplant. The patient presents after sustaining a fall with a displaced subcapital fracture of the left hip. Pros, cons, risks and benefits of surgical approach were discussed. Possibility of mechanical failure, infection, thromboembolic disease, possibility of secondary or tertiary surgery was discussed. The patient could no longer stand the discomfort and wished the surgery to be accomplished. The patient's surgery was delayed by Dr. Gomez after cardiovascular consultation by Dr. Gomez because of the patient's maintenance on both Eliquis and aspirin at the same time. Pros, cons, risks and benefits of the surgical approach were discussed at length. Possibility of mechanical failure, infection, and thromboembolic disease discussed at length. DESCRIPTION OF PROCEDURE: After having obtained informed consent in the above fashion, after having identified side, site and procedure and a critical pause/time-out, after the satisfactory induction of the anesthetic, the patient identified as Moy Mckeon in the supine position with all bony prominences well padded, the [facility] traction positioner was employed. After sterilely prepping and draping and after the right leg was well padded, an incision was described two fingerbreadths distal to the anterior superior iliac spine and approximately three fingerbreadths posteriorly superficial to the tensor fascia femoris muscle. An incision was described approximately four fingerbreadths distal to that. Skin incision was carried down through the skin and subcutaneous tissue. Hemostasis controlled with the Aquamantys. The fascia on the tensor fascia femoris was divided. The tensor fascia femoris muscle was retracted laterally by blunt dissection. The Medacta Israelon-Jermain retractor was placed identifying the posterior aspect of the rectus femoris muscle. Hemostasis was controlled with the Aquamantys. This having been accomplished, the rectus femoris was mobilized and the anterior branch of the lateral femoral circumflex vessels and the vein were cauterized, coagulated and controlled with suture ligature. This having been accomplished, the Medacta retractor was placed deeper and at this point in time, a capsulotomy was accomplished along the intertrochanteric line and this was reflected intact. This having been accomplished, retractors were placed medially and laterally, exposing the femoral neck. Reference was made to the intraoperative fluoroscopy and great attention and care was paid to the intraoperative fluoroscopy. Using the oscillating saw, the napkin ring was cut at the area of the fracture. This was removed. Two turns of traction was employed. The napkin ring was removed and the lower extremity was externally rotated to 45 degrees. The head was removed from the acetabulum. Arthrotomy and synovectomy of the acetabulum were accomplished at this point in time. At this point in time, computer navigation commenced at a point approximately two fingerbreadths posterior to the anterior superior iliac spine. Using #11 blade, two stab wounds were employed. The camera was placed and the anterior plane of the pelvis was registered, left anterior superior iliac spine and the right anterior superior iliac spine. This having been accomplished, registration of the pelvis having been accomplished, reaming commenced. The head measured 48 mm. Reaming commenced to 54 mm. Reamings were accomplished, reamings are denuded off articular cartilage. Autograft bone graft was accomplished. The cup was impacted and computer navigation revealed the cup to be positioned at approximately 43 degrees of abduction and approximately 16 degrees of anteversion. This having been accomplished, attention was turned to the proximal femur. Capsular releases were accomplished with the pubofemoral ligament and especially the ischial femoral ligament. There was evidence of an iliopsoas contracture. The iliopsoas was released. At this point in time, the femur was delivered into the wound. The medial retractor was placed and the sharp pointed Lizzie retractor. The proximal femur was identified. The bridge of bone between the neck and the trochanter was removed. Sequential broaching was carried out to a #5 femoral component, -3.5 standard neck, and -3.5 head. The hip was reduced, found to be stable in all planes. This having been accomplished, the hip was dislocated. The #5 Medacta femoral component was introduced. The #5 femoral component was introduced with standard neck and a 20 mm head with the dual mobility 54 mm outer bearing. The construct was reduced and found to be stable in all planes. The wound was thoroughly irrigated. The capsule was repaired and closures in layers with interrupted FiberWire for the fascia followed by 0 Vicryl, 2-0 Vicryl and dina for the skin. It should be noted that the computer navigation device which had been used for positioning the acetabulum was removed. The pins were removed and closure was with interrupted Vicryl and Dermabond. This having been accomplished, compression dressing was accomplished. Postoperative x-rays revealed excellent position of the construct. Luis Carlos Pickett MD
== END 2018-10-21 18:20 | DRG 470 ==
LOC: H.ER 12:22 → H.ERHOLD 14:30 → H.MEDSURG1 18:39
PROC: 3E0T33Z Introduction of Anti-inflammatory into Peripheral Nerves and Plexi, Percutaneous Approach (ICD-10-PCS; 2018-10-19)
PROC: 8E0WXBZ Computer Assisted Procedure of Trunk Region (ICD-10-PCS; 2018-10-19)
PROC: 0SRB0JZ Replacement of Left Hip Joint with Synthetic Substitute, Open Approach (ICD-10-PCS; principal; 2018-10-19 08:30)
PROC: 3E0T3BZ Introduction of Anesthetic Agent into Peripheral Nerves and Plexi, Percutaneous Approach (ICD-10-PCS; 2018-10-19 08:30)
DX: S72.012A Unspecified intracapsular fracture of left femur, initial encounter for closed fracture (principal); Z94.4 Liver transplant status; D62 Acute posthemorrhagic anemia; D68.4 Acquired coagulation factor deficiency; D69.59 Other secondary thrombocytopenia; E11.65 Type 2 diabetes mellitus with hyperglycemia; M65.852 Other synovitis and tenosynovitis, left thigh; M16.12 Unilateral primary osteoarthritis, left hip; F10.21 Alcohol dependence, in remission; I10 Essential (primary) hypertension; E78.5 Hyperlipidemia, unspecified; W10.8XXA Fall (on) (from) other stairs and steps, initial encounter; Z86.718 Personal history of other venous thrombosis and embolism; Z79.01 Long term (current) use of anticoagulants; Z79.4 Long term (current) use of insulin; Z79.82 Long term (current) use of aspirin; Y93.01 Activity, walking, marching and hiking; Y92.009 Unspecified place in unspecified non-institutional (private) residence as the place of occurrence of the external cause

== ENCOUNTER 2018-10-21 16:30 | Inpatient (IN) | payer OTHER, BC ==
[2018-10-21 18:57] VITALS: BMI 36.0
[2018-10-21] MEDS ORDERED: Lubricant Eye Drops UD OU PRN (19:11)
[2018-10-21] MEDS: Magnesium Chloride 64 mg ER Tab PO SCH (20:17)
[2018-10-21] MEDS ORDERED: Insulin Detemir 100 Units/ml Inj SC SCH (22:00)
[2018-10-22 06:53] LABS: BASO % 0.4 % (0.0-2.0); EOS # 0.1 K/uL (0.0-0.7); EOS % 2.4 % (0.0-4.0); HEMOGLOBIN 8.4 g/dL (12.0-18.0); LYMPH # 0.4 K/uL (1.0-4.3); LYMPH % 8.9 % (20.0-40.0); MEAN CELL VOLUME 94.8 fl (80.0-94.0); MEAN CORPUSCULAR HEMOGLOBIN 33.6 pg (27.0-31.0); MEAN CORPUSCULAR HGB CONC 35.4 g/dL (33.0-37.0); MONO # 0.7 K/uL (0.0-0.8); MONO % 16.2 % (0.0-10.0); NEUT # 3.2 K/uL (1.8-7.0); NEUT % 72.1 % (50.0-75.0); NRBC % 0.1 % (0.0-0.0); PLATELET COUNT 76 K/uL (130-400); RBC 2.51 Mil/uL (4.40-5.90); RED CELL DISTRIBUTION WIDTH 12.7 % (11.5-14.5); WHITE BLOOD COUNT 4.4 K/uL (4.8-10.8)
[2018-10-22 06:57] LABS: BLOOD UREA NITROGEN 27 mg/dl (9-20); CALCIUM 7.8 mg/dL (8.4-10.2); GFR NON-AFRICAN AMERICAN > 60
[2018-10-22] MEDS: Magnesium Chloride 64 mg ER Tab PO SCH ×2 (09:25→21:36)
[2018-10-22] MEDS ORDERED: Insulin Lispro (humaLOG) 100 Units/ml Inj SC SCH (11:30)
[2018-10-22] MEDS: Insulin Lispro (humaLOG) 100 Units/ml Inj SC SCH ×5 (12:22→21:40)
[2018-10-22] MEDS: Cholecalciferol 1,000 INTLU TAB PO SCH (12:23)
[2018-10-22] MEDS: Multivitamin With Minerals Tab PO SCH (12:23)
[2018-10-22 12:46] LABS: EOSINOPHIL 4 % (0-7); LYMPHOCYTE 14 % (20-50); MONOCYTE 20 % (0-10); NEUTROPHIL 62 % (42-75); TOTAL CELLS COUNTED 100
[2018-10-22 12:47] LABS: PLATELET ESTIMATE DECREASED (NORMAL)
[2018-10-22 12:48] LABS: HYPOCHROMIC MODERATE; LARGE PLATELETS PRESENT; TOXIC GRANULATION PRESENT
--- NOTE | 2018-10-22 14:10 | CP.PCM.PN ---
Subjective - Date & Time of Evaluation Date of Evaluation: 10/22/18 Time of Evaluation: 13:30 - Subjective Subjective: s- PT COMFORTBALE oob IN CHAIN pt with marked improvem,ent in post op pain- dsicussed with Dr rojas Objective - Vital Signs/Intake and Output Vital Signs (last 24 hours): Temp Pulse Resp BP Pulse Ox 99.0 F 76 20 114/60 96 10/22/18 08:14 10/22/18 13:47 10/22/18 08:14 10/22/18 09:23 10/22/18 13:47 - Medications Medications: Current Medications Acetaminophen (Tylenol 325mg Tab) 975 mg PO Q8 PRN PRN Reason: Pain, moderate (4-7) Last Admin: 10/22/18 06:38 Dose: 975 mg Amlodipine Besylate (Norvasc) 10 mg PO DAILY [facility] Last Admin: 10/22/18 09:24 Dose: 10 mg Apixaban (Eliquis) 5 mg PO Q12 [facility]; Protocol Last Admin: 10/22/18 09:23 Dose: 5 mg Artificial Tears (Refresh Opth Soln) 0.3 ml OU Q6 PRN PRN Reason: Dry eyes Aspirin (Ecotrin) 81 mg PO DAILY [facility] Last Admin: 10/22/18 09:22 Dose: 81 mg Cholecalciferol (Vitamin D) 2,000 intlu PO DAILY@1200 [facility] Last Admin: 10/22/18 12:23 Dose: 2,000 intlu Docusate Sodium (Colace) 100 mg PO BID [facility] Last Admin: 10/22/18 09:22 Dose: 100 mg Famotidine (Pepcid) 20 mg PO BID [facility] Last Admin: 10/22/18 09:24 Dose: 20 mg Furosemide (Lasix) 40 mg PO DAILY [facility] Last Admin: 10/22/18 09:23 Dose: 40 mg Insulin Detemir (Levemir) 24 units SC HS [facility] Last Admin: 10/21/18 21:16 Dose: 24 units Insulin Human Lispro (Humalog) 12 units SC AC [facility] Last Admin: 10/22/18 12:22 Dose: 12 unit Insulin Human Lispro (Humalog) 0 units SC ACHS [facility]; Protocol Last Admin: 10/22/18 12:22 Dose: 4 unit Magnesium Chloride (Slow-Mag) 64 mg PO Q12 [facility] Last Admin: 10/22/18 09:25 Dose: 64 mg Metoprolol Tartrate (Lopressor) 25 mg PO Q12 [facility] Last Admin: 10/22/18 09:23 Dose: 25 mg Multivitamins/Minerals (Therapeutic-M Tab) 1 tab PO DAILY@1200 [facility] Last Admin: 10/22/18 12:23 Dose: 1 tab Prednisone (Prednisone Tab) 5 mg PO DAILY [facility] Last Admin: 10/22/18 09:24 Dose: 5 mg Spironolactone (Aldactone) 50 mg PO DAILY [facility] Last Admin: 10/22/18 09:22 Dose: 50 mg Tacrolimus (Prograf Cap) 0.5 mg PO Q12 [facility] Last Admin: 10/22/18 09:24 Dose: 0.5 mg Tramadol HCl (Ultram) 50 mg PO Q6 PRN PRN Reason: Pain, moderate (4-7) Last Admin: 10/22/18 11:33 Dose: 50 mg - Labs Labs: 10/22/18 05:30 10/22/18 05:30 - Additional Findings Additional findings: Obj systemic wnl Musculoskekltal stance/gait- defrred pot OOB to chAIR WOUND BENIGN ORTHOPEDICALLY STABLE Assessment and Plan - Assessment and Plan (Free Text) Assessment: A- s/p THR P orthopedciLLY STABLE WEIGTH BEARING TO TOLERANCE
--- NOTE | 2018-10-22 17:16 | PN ---
DATE: 10/22/2018 ENDOCRINOLOGY FOLLOWUP NOTE LOCATION: In room 714, [facility]. SUBJECTIVE: This is a 68-year-old male with recent uncontrolled type 2 insulin-requiring diabetes of recent evaluation and diagnosis, presenting here with an accidental fall at home and sustained a left hip femoral fracture and underwent a left hip replacement and has now been transferred to [facility] for ongoing physical and occupational therapy and is being referred also for diabetic evaluation and ongoing metabolic followup. PAST MEDICAL HISTORY: As mentioned above; history of hypertension, dyslipidemia, history of a liver transplant undertaken about three years ago and has been on immunosuppressive therapy as noted and has been on prednisone at 5 mg once daily with no apparent metabolic followup and presented here with marked hyperglycemic accelerations and glucose levels were 504 on admission. FAMILY HISTORY: Positive for diabetes and hypertension. SOCIAL HISTORY: The patient admits to chronic alcoholism and has been a former smoker, but has a very supportive brother and family otherwise. REVIEW OF SYSTEMS: As mentioned above. Admits to generalized body weakness with easy fatigability and tiredness and suboptimal energy levels. Also admits to episodic bouts of dizziness and lightheadedness, worse on the day of admission. No chest pains or palpitations or PND since oral intake has been variable with improving meal portions as noted with occasional dyspepsia and vague upper abdominal pains. No recent alterations of bowel and urinary pattern. PHYSICAL EXAMINATION: GENERAL: This is an average built male in no apparent distress. VITAL SIGNS: Blood pressure of 144/80, pulse of 100 beats per minute regular, temperature 98, respirations 20, height is 5 feet 8 inches, weight is 237 pounds. HEENT: Head normocephalic. Eyes anicteric with pink conjunctivae. Funduscopy not possible at this time. Ears, nose and throat otherwise normal. NECK: Supple. Thyroid gland is normal in size. No carotid bruits or cervical adenopathy. CARDIOPULMONARY: Some adynamic precordium. S1 and S2 is rapid and regular. Lungs are clear to auscultation. ABDOMEN: Flat, soft with positive bowel sounds. EXTREMITIES: No peripheral edema. Pulses are +2 bilaterally. LABORATORY DATA: His chemistries showed a BUN of 27, sodium 127, potassium 4.5, chloride 96, CO2 of 26, glucose 272, and creatinine 1. His latest glucose levels are fluctuating, ranging from 290 to 431 mg/dL and this is because of the Humalog insulin regimen was not ordered upon transfer to this TCU unit as previously given in . ASSESSMENT: This is a 68-year-old male with uncontrolled and decompensated type 2 insulin-requiring diabetes with recent metabolic decompensation and diagnosis, presenting here with a left hip femoral fracture and underwent a left hip replacement as noted. PLAN OF MANAGEMENT: We will modify once again his current insulin regimen and increase the Humalog to 12 units subcu t.i.d. before meals prescribed this morning at lunchtime as ordered. We will also continue the basal insulin of Levemir at 74 units subcu at bedtime daily to start tonight as ordered and these actually being given to allow for dose equilibration as he actually received the bedtime insulin as ordered. We will obtain serial chemistries and supplement accordingly as needed. We will continue the low-dose correction scale using Humalog insulin, which was modified just now to obviate hypoglycemia and detailed orders have been given. We will obtain serial chemistries and supplement accordingly as needed. We will follow his serum sodium as he remains to have persistent hyponatremia of the euvolemic type. We will follow. Radha Stockton MD
--- NOTE | 2018-10-22 18:43 | CP.PCM.HP ---
History of Present Illness - History of Present Illness History of Present Illness: 68 yo male with history of HTN and Post Liver Transplant with Hepatic Artery Thrombosis had left THR on 10/19/18 after breaking the femoral neck when he fell on 10/15/18. Patient did well with surgery and then later transferred to TCU on 10/21/18 for continuation of PT/OT and pain management. During post op period patient was found to have new onset diabetes when his sugar persistently noted to be elevated. HgA1C was noted to be 11.3. Dr Stockton, changeover operator, was consulted and patient was started on Levemir and Lispro. Present on Admission - Present on Admission Any Indicators Present on Admission: No History of DVT/PE: No History of Uncontrolled Diabetes: No Urinary Catheter: No Decubitus Ulcer Present: No Review of Systems - Review of Systems All systems: reviewed and no additional remarkable complaints except (aside from those noted above, 12 point system review were negative by me) Past Patient History - Infectious Disease Hx of Infectious Diseases: None (+ for liver transplant 3 yrs ago([facility]- DR Worley)) - Tetanus Immunizations Tetanus Immunization: Unknown - Past Medical History & Family History Past Medical History?: Yes - Past Social History Smoking Status: Former Smoker Chewing Tobacco Use: No Cigar Use: No Alcohol: Other (former alcoholics) Drugs: Denies Home Situation {Lives}: With Family - CARDIAC Hx Hypertension: Yes Hx Pacemaker: No - PULMONARY Hx Respiratory Disorders: No - NEUROLOGICAL Hx Neurological Disorder: No - HEENT Hx HEENT Problems: No - RENAL Hx Chronic Kidney Disease: No - ENDOCRINE/METABOLIC Hx Endocrine Disorders: No - HEMATOLOGICAL/ONCOLOGICAL Hx Human Immunodeficiency Virus (HIV): No - INTEGUMENTARY Hx Dermatological Problems: No - MUSCULOSKELETAL/RHEUMATOLOGICAL Hx Arthritis: Yes Hx Falls: Yes - GASTROINTESTINAL Hx Gastritis: Yes - GENITOURINARY/GYNECOLOGICAL Hx Genitourinary Disorders: No Other/Comment: left testicular hydrocele 08/2018 - PSYCHIATRIC Hx Psychophysiologic Disorder: No Hx Substance Use: Yes - SURGICAL HISTORY Hx Surgeries: Yes Hx Herniorrhaphy: Yes (s/p herniorrhaphy jun 2018) Hx Liver Transplant: Yes (04/2017 at [facility]) Other/Comment: s/p liver transplan 3 yrs ago. s/p R inguinal herniorraphy sevral months ago. s/p excision hydrocoele - ANESTHESIA Hx Anesthesia: Yes Hx Anesthesia Reactions: No Meds Allergies/Adverse Reactions: Allergies Allergy/AdvReac Type Severity Reaction Status Date / Time No Known Allergies Allergy Verified 10/21/18 18:43 Physical Exam - Constitutional Appears: No Acute Distress - Head Exam Head Exam: ATRAUMATIC - Eye Exam Eye Exam: absent: Scleral icterus - ENT Exam ENT Exam: Mucous Membranes Moist - Neck Exam Neck exam: Negative for: Meningismus - Respiratory Exam Respiratory Exam: absent: Rales, Rhonchi, Wheezes, Respiratory Distress - Cardiovascular Exam Cardiovascular Exam: REGULAR RHYTHM, +S1, +S2 - GI/Abdominal Exam GI & Abdominal Exam: Soft. absent: Tenderness - Rectal Exam Rectal Exam: Deferred - Back Exam Back exam: NORMAL INSPECTION - Neurological Exam Neurological exam: Alert, Oriented x3 - Psychiatric Exam Psychiatric exam: Normal Affect - Skin Skin Exam: Dry, Intact Results - Vital Signs Recent Vital Signs: Last Vital Signs Temp 98.3 F 10/22/18 16:03 Pulse 78 10/22/18 16:03 Resp 20 10/22/18 16:03 BP 115/70 10/22/18 16:03 Pulse Ox 98 10/22/18 16:03 - Labs Result Diagrams: 10/22/18 05:30 10/22/18 05:30 Labs: Laboratory Results - last 24 hr 10/21/18 10/22/18 10/22/18 20:48 05:25 05:30 WBC 4.4 L RBC 2.51 L Hgb 8.4 L Hct 23.8 L MCV 94.8 H MCH 33.6 H MCHC 35.4 RDW 12.7 Plt Count 76 L MPV 10.0 Neut % (Auto) 72.1 Lymph % (Auto) 8.9 L [place] % (Auto) 16.2 H Eos % (Auto) 2.4 Baso % (Auto) 0.4 Neut # (Auto) 3.2 Lymph # (Auto) 0.4 L [place] # (Auto) 0.7 Eos # (Auto) 0.1 Baso # (Auto) 0.0 Neutrophils % (Manual) 62 Lymphocytes % (Manual) 14 L Monocytes % (Manual) 20 H Eosinophils % (Manual) 4 Toxic Granulation Present Platelet Estimate Decreased L Large Platelets Present Hypochromasia (manual) Moderate Sodium Potassium Chloride Carbon Dioxide Anion Gap BUN Creatinine Est GFR ( Amer) Est GFR (Non-Af Amer) POC Glucose (mg/dL) 290 H 266 H Random Glucose Calcium 10/22/18 10/22/18 10/22/18 05:30 11:14 12:59 WBC RBC Hgb Hct MCV MCH MCHC RDW Plt Count MPV Neut % (Auto) Lymph % (Auto) [place] % (Auto) Eos % (Auto) Baso % (Auto) Neut # (Auto) Lymph # (Auto) [place] # (Auto) Eos # (Auto) Baso # (Auto) Neutrophils % (Manual) Lymphocytes % (Manual) Monocytes % (Manual) Eosinophils % (Manual) Toxic Granulation Platelet Estimate Large Platelets Hypochromasia (manual) Sodium 127 L Potassium 4.5 Chloride 96 L Carbon Dioxide 26 Anion Gap 10 BUN 27 H Creatinine 1.0 Est GFR ( Amer) > 60 Est GFR (Non-Af Amer) > 60 POC Glucose (mg/dL) 431 H* 430 H* Random Glucose 272 H Calcium 7.8 L 10/22/18 16:05 WBC RBC Hgb Hct MCV MCH MCHC RDW Plt Count MPV Neut % (Auto) Lymph % (Auto) [place] % (Auto) Eos % (Auto) Baso % (Auto) Neut # (Auto) Lymph # (Auto) [place] # (Auto) Eos # (Auto) Baso # (Auto) Neutrophils % (Manual) Lymphocytes % (Manual) Monocytes % (Manual) Eosinophils % (Manual) Toxic Granulation Platelet Estimate Large Platelets Hypochromasia (manual) Sodium Potassium Chloride Carbon Dioxide Anion Gap BUN Creatinine Est GFR ( Amer) Est GFR (Non-Af Amer) POC Glucose (mg/dL) 358 H Random Glucose Calcium Assessment & Plan - Assessment and Plan (Free Text) Assessment: 68 yo male with history of HTN, Liver Transplant missed a step in his house and landed on his left hip. Xray showed subcapital fracture of the left femoral neck. On 10/19/18 left THR was done by Dr Pickett. 1. Left Hip Fracture left THR, POD# 3 continue pain management with Tramadol continue PT/OT 2. Post Liver Transplant cleared by orthopedist to resume ASA and Eliquis continue Tacrolimus, Prednisone 3. HTN BP controlled Continue Amlodipine and Metoprolol 4. DM2 HgA1c - 11.3 BS uncontrolled probably steroid related Levemir 30 units SC HS Lispro 12 units SC 5. DVT prophylaxis on Eliquis
[2018-10-22] MEDS ORDERED: Insulin Detemir 100 Units/ml Inj SC SCH (22:00)
[2018-10-23] MEDS: Insulin Lispro (humaLOG) 100 Units/ml Inj SC SCH ×7 (07:04→22:09)
[2018-10-23 08:34] LABS: BASO % 0.8 % (0.0-2.0); EOS # 0.1 K/uL (0.0-0.7); EOS % 3.9 % (0.0-4.0); HEMOGLOBIN 8.3 g/dL (12.0-18.0); LYMPH # 0.4 K/uL (1.0-4.3); LYMPH % 13.7 % (20.0-40.0); MEAN CELL VOLUME 96.6 fl (80.0-94.0); MEAN CORPUSCULAR HEMOGLOBIN 33.6 pg (27.0-31.0); MEAN CORPUSCULAR HGB CONC 34.8 g/dL (33.0-37.0); MEAN PLATELET VOLUME 9.6 fl (7.2-11.7); MONO # 0.6 K/uL (0.0-0.8); MONO % 18.1 % (0.0-10.0); NEUT # 2.1 K/uL (1.8-7.0); NEUT % 63.5 % (50.0-75.0); NRBC % 0.2 % (0.0-0.0); RBC 2.47 Mil/uL (4.40-5.90); WHITE BLOOD COUNT 3.2 K/uL (4.8-10.8)
[2018-10-23 08:59] LABS: ALB/GLOB RATIO 0.8 (1.0-2.1); ALBUMIN 2.2 g/dL (3.5-5.0); ALT/SGPT 33 U/L (21-72); AST/SGOT 36 U/L (17-59); BLOOD UREA NITROGEN 18 mg/dl (9-20); GFR NON-AFRICAN AMERICAN > 60
[2018-10-23] MEDS: Magnesium Chloride 64 mg ER Tab PO SCH ×2 (08:59→20:15)
[2018-10-23] MEDS ORDERED: levoFLOXacin 750 MG TAB PO SCH (10:00)
[2018-10-23] MEDS: Multivitamin With Minerals Tab PO SCH (12:38)
[2018-10-23] MEDS: Cholecalciferol 1,000 INTLU TAB PO SCH (12:38)
[2018-10-23] MEDS: Alum-Mag Hydrox-Simethicone Susp (30 mL) PO PRN (13:29)
--- NOTE | 2018-10-23 14:06 | PN ---
DATE: 10/23/2018 ENDO FOLLOWUP LOCATION: Room 714. SUBJECTIVE: This is a 68-year-old male with recent uncontrolled type 2 insulin-requiring diabetes presenting here with a left femoral hip fracture and underwent a hip replacement and resection and so undergoing physical and occupational therapy in the subacute unit as noted. His glycemic levels are fluctuating despite a high dose insulin therapy as given and the overnight glucose levels have ranged from 287-320 mg/dL. LABORATORY DATA: His chemistry showed a BUN of 18, sodium 129, potassium 4.4, chloride 96, CO2 of 28, glucose 241 and creatinine 0.8. ASSESSMENT: This is a 68-year-old male with uncontrolled and decompensated type 2 insulin-requiring diabetes of recent onset and most likely a secondary event because of the ongoing immunosuppression with oral steroid therapy given for his previous liver transplant as noted. PLAN OF MANAGEMENT: We will modify once again his basal and bolus insulin regimen and increase the Levemir to 36 units subcu at bedtime daily to start tonight. We will increase his Humalog to 14 units subcu t.i.d. before meals to start at lunchtime today as ordered. We will obtain serial chemistries and supplement accordingly as needed. We will also continue the low-dose correction scale using Humalog insulin as given. Moreover, we will add oral hypoglycemic therapy with metformin at 500 mg b.i.d. and Januvia at 100 mg once daily to hopefully lower his insulin requirements and increased insulin sensitivity thereof. We will obtain serial chemistries and supplement accordingly as needed. We will follow. Radha Stockton MD
[2018-10-23 16:56] VITALS: RESP 20
[2018-10-23] MEDS: Insulin Detemir 100 Units/ml Inj SC SCH (21:40)
[2018-10-23] MEDS ORDERED: oxyCODONE 5 mg Immediate Release Tab PO ONE (22:49)
[2018-10-24 06:56] LABS: HEMOGLOBIN 8.8 g/dL (12.0-18.0); MEAN CELL VOLUME 94.9 fl (80.0-94.0); MEAN CORPUSCULAR HEMOGLOBIN 32.9 pg (27.0-31.0); MEAN CORPUSCULAR HGB CONC 34.7 g/dL (33.0-37.0); RBC 2.66 Mil/uL (4.40-5.90); WHITE BLOOD COUNT 3.8 K/uL (4.8-10.8)
[2018-10-24 07:13] LABS: BLOOD UREA NITROGEN 17 mg/dl (9-20); GFR NON-AFRICAN AMERICAN > 60
[2018-10-24] MEDS: Insulin Lispro (humaLOG) 100 Units/ml Inj SC SCH ×7 (07:45→21:59)
[2018-10-24] MEDS: Magnesium Chloride 64 mg ER Tab PO SCH ×2 (08:16→20:21)
[2018-10-24] MEDS ORDERED: Povidone Iodine Topical 10% Sol ONE (08:44)
[2018-10-24] MEDS ORDERED: oxyCODONE 5 mg Immediate Release Tab PO ONE (10:30)
--- NOTE | 2018-10-24 11:30 | CP.PCM.CON ---
History of Present Illness - History of Present Illness History of Present Illness: 68 y/o gentleman s/p liver transplant and h/o EtOH abuse s/p left hip arthroplasty complaining of significant post op pain that limits his participation in physical therapy. Review of Systems - Constitutional Constitutional: As Per HPI - Cardiovascular Cardiovascular: absent: Chest Pain, Chest Pain at Rest, Chest Pain with Activity - Respiratory Respiratory: absent: Cough - Musculoskeletal Musculoskeletal: Radiating Pain into Limb - Neurological Neurological: absent: Dizziness - Psychiatric Psychiatric: Abnormal Sleep Pattern Additional comments: Sleep limited by pain Past Patient History - Infectious Disease Hx of Infectious Diseases: None (+ for liver transplant 3 yrs ago([facility]- DR Worley)) - Tetanus Immunizations Tetanus Immunization: Unknown - Past Medical History & Family History Past Medical History?: Yes - Past Social History Smoking Status: Former Smoker Chewing Tobacco Use: No Cigar Use: No Alcohol: Other (former alcoholics) Drugs: Denies Home Situation {Lives}: With Family - CARDIAC Hx Hypertension: Yes Hx Pacemaker: No - PULMONARY Hx Respiratory Disorders: No - NEUROLOGICAL Hx Neurological Disorder: No - HEENT Hx HEENT Problems: No - RENAL Hx Chronic Kidney Disease: No - ENDOCRINE/METABOLIC Hx Endocrine Disorders: No - HEMATOLOGICAL/ONCOLOGICAL Hx Human Immunodeficiency Virus (HIV): No - INTEGUMENTARY Hx Dermatological Problems: No - MUSCULOSKELETAL/RHEUMATOLOGICAL Hx Arthritis: Yes Hx Falls: Yes - GASTROINTESTINAL Hx Gastritis: Yes Other/Comment: h/o liver transplant - GENITOURINARY/GYNECOLOGICAL Hx Genitourinary Disorders: No Other/Comment: left testicular hydrocele 08/2018 - PSYCHIATRIC Hx Psychophysiologic Disorder: No Hx Substance Use: Yes - SURGICAL HISTORY Hx Surgeries: Yes Hx Herniorrhaphy: Yes (s/p herniorrhaphy jun 2018) Hx Liver Transplant: Yes (04/2017 at [facility]) Other/Comment: s/p liver transplan 3 yrs ago. s/p R inguinal herniorraphy sevral months ago. s/p excision hydrocoele - ANESTHESIA Hx Anesthesia: Yes Hx Anesthesia Reactions: No Meds Allergies/Adverse Reactions: Allergies Allergy/AdvReac Type Severity Reaction Status Date / Time No Known Allergies Allergy Verified 10/21/18 18:43 - Medications Medications: Current Medications Acetaminophen (Tylenol 325mg Tab) 975 mg PO Q8 PRN PRN Reason: Pain, moderate (4-7) Last Admin: 10/22/18 06:38 Dose: 975 mg Al Hydrox/Mg Hydrox/Simethicone (Maalox Plus 30 Ml) 30 ml PO Q6 PRN PRN Reason: Indigestion / Heartburn Last Admin: 10/23/18 13:29 Dose: 30 ml Amlodipine Besylate (Norvasc) 10 mg PO DAILY [facility] Last Admin: 10/24/18 08:16 Dose: 10 mg Apixaban (Eliquis) 5 mg PO Q12 [facility]; Protocol Last Admin: 10/23/18 08:57 Dose: 5 mg Artificial Tears (Refresh Opth Soln) 0.3 ml OU Q6 PRN PRN Reason: Dry eyes Aspirin (Ecotrin) 81 mg PO DAILY [facility] Last Admin: 10/24/18 08:14 Dose: 81 mg Cholecalciferol (Vitamin D) 2,000 intlu PO DAILY@1200 [facility] Last Admin: 10/23/18 12:38 Dose: 2,000 intlu Docusate Sodium (Colace) 100 mg PO BID [facility] Last Admin: 10/24/18 08:14 Dose: 100 mg Famotidine (Pepcid) 20 mg PO BID [facility] Last Admin: 10/24/18 08:16 Dose: 20 mg Furosemide (Lasix) 40 mg PO DAILY [facility] Last Admin: 10/24/18 08:15 Dose: 40 mg Insulin Detemir (Levemir) 36 units SC HS [facility] Last Admin: 10/23/18 21:40 Dose: 36 u Insulin Human Lispro (Humalog) 0 units SC ACHS [facility]; Protocol Last Admin: 10/24/18 07:45 Dose: Not Given Insulin Human Lispro (Humalog) 14 units SC AC [facility] Last Admin: 10/24/18 08:14 Dose: 14 units Levofloxacin (Levaquin) 750 mg PO DAILY [facility]; Protocol Last Admin: 10/24/18 08:15 Dose: 750 mg Magnesium Chloride (Slow-Mag) 64 mg PO Q12 [facility] Last Admin: 10/24/18 08:16 Dose: 64 mg Metformin HCl (Glucophage) 500 mg PO BIDWM [facility] Last Admin: 10/24/18 08:14 Dose: 500 mg Metoprolol Tartrate (Lopressor) 25 mg PO Q12 [facility] Last Admin: 10/24/18 08:16 Dose: 25 mg Multivitamins/Minerals (Therapeutic-M Tab) 1 tab PO DAILY@1200 [facility] Last Admin: 10/23/18 12:38 Dose: 1 tab Prednisone (Prednisone Tab) 5 mg PO DAILY [facility] Last Admin: 10/24/18 08:16 Dose: 5 mg Sitagliptin Phosphate (Januvia) 100 mg PO DAILY [facility] Last Admin: 10/24/18 08:15 Dose: 100 mg Spironolactone (Aldactone) 50 mg PO DAILY [facility] Last Admin: 10/24/18 08:14 Dose: 50 mg Tacrolimus (Prograf Cap) 0.5 mg PO Q12 [facility] Last Admin: 10/24/18 08:16 Dose: 0.5 mg Tramadol HCl (Ultram) 50 mg PO Q6 PRN PRN Reason: Pain, moderate (4-7) Last Admin: 10/23/18 19:57 Dose: 50 mg Physical Exam - Constitutional Appears: Well - Head Exam Head Exam: ATRAUMATIC, NORMAL INSPECTION - Respiratory Exam Respiratory Exam: NORMAL BREATHING PATTERN - Extremities Exam Additional comments: Left hip wound dressing clean and dry. Leg slightly swollen. Results - Vital Signs Recent Vital Signs: Last Vital Signs Temp 98.0 F 10/24/18 08:02 Pulse 77 10/24/18 08:02 Resp 20 10/24/18 08:02 BP 111/71 10/24/18 08:15 Pulse Ox 98 10/24/18 08:02 - Labs Result Diagrams: 10/24/18 06:00 10/24/18 06:00 Labs: Laboratory Results - last 24 hr 10/23/18 10/23/18 10/23/18 07:30 16:30 21:08 WBC RBC Hgb Hct MCV MCH MCHC RDW Plt Count Sodium Potassium Chloride Carbon Dioxide Anion Gap BUN Creatinine Est GFR ( Amer) Est GFR (Non-Af Amer) POC Glucose (mg/dL) 273 H 196 H Random Glucose Hemoglobin A1c 10.0 H Calcium 10/24/18 10/24/18 10/24/18 05:51 06:00 06:00 WBC 3.8 L RBC 2.66 L Hgb 8.8 L Hct 25.2 L MCV 94.9 H MCH 32.9 H MCHC 34.7 RDW 13.0 Plt Count 138 Sodium 129 L Potassium 4.3 Chloride 95 L Carbon Dioxide 27 Anion Gap 11 BUN 17 Creatinine 0.8 Est GFR ( Amer) > 60 Est GFR (Non-Af Amer) > 60 POC Glucose (mg/dL) 120 H Random Glucose 115 H Hemoglobin A1c Calcium 8.0 L 10/24/18 10:55 WBC RBC Hgb Hct MCV MCH MCHC RDW Plt Count Sodium Potassium Chloride Carbon Dioxide Anion Gap BUN Creatinine Est GFR ( Amer) Est GFR (Non-Af Amer) POC Glucose (mg/dL) 127 H Random Glucose Hemoglobin A1c Calcium Assessment & Plan - Assessment and Plan (Free Text) Assessment: 68 y/o gentleman with post op pain limiting participation in PT. Plan: Patient received oxycodone 5 mg PO once last night and reports adequate pain relief. Will order oxycodone 5 mg PO q 6 hours PRN. Discussed history of substance abuse and the potential for narcotic abuse and or relapse. The patient understands the risk and states that he will only request pain medication when his pain is severe. Will order an maximum of 10 doses and re evaluate need for narcotics should he use use all doses. Discussed case with Dr. Murry from pain management and he agrees with recommendations.
[2018-10-24] MEDS: Cholecalciferol 1,000 INTLU TAB PO SCH (12:25)
[2018-10-24] MEDS: Multivitamin With Minerals Tab PO SCH (12:25)
--- NOTE | 2018-10-24 13:24 | CP.PCM.PN ---
Subjective - Date & Time of Evaluation Date of Evaluation: 10/24/18 Time of Evaluation: 13:26 - Subjective Subjective: Patient states he is still having pain in his hip. No new complaints. Objective - Vital Signs/Intake and Output Vital Signs (last 24 hours): Temp Pulse Resp BP Pulse Ox 98.0 F 77 20 111/71 98 10/24/18 08:02 10/24/18 08:02 10/24/18 08:02 10/24/18 08:15 10/24/18 08:02 - Medications Medications: Current Medications Acetaminophen (Tylenol 325mg Tab) 975 mg PO Q8 PRN PRN Reason: Pain, moderate (4-7) Last Admin: 10/22/18 06:38 Dose: 975 mg Al Hydrox/Mg Hydrox/Simethicone (Maalox Plus 30 Ml) 30 ml PO Q6 PRN PRN Reason: Indigestion / Heartburn Last Admin: 10/23/18 13:29 Dose: 30 ml Amlodipine Besylate (Norvasc) 10 mg PO DAILY [facility] Last Admin: 10/24/18 08:16 Dose: 10 mg Apixaban (Eliquis) 5 mg PO Q12 [facility]; Protocol Last Admin: 10/23/18 08:57 Dose: 5 mg Artificial Tears (Refresh Opth Soln) 0.3 ml OU Q6 PRN PRN Reason: Dry eyes Aspirin (Ecotrin) 81 mg PO DAILY [facility] Last Admin: 10/24/18 08:14 Dose: 81 mg Cholecalciferol (Vitamin D) 2,000 intlu PO DAILY@1200 [facility] Last Admin: 10/24/18 12:25 Dose: 2,000 intlu Docusate Sodium (Colace) 100 mg PO BID [facility] Last Admin: 10/24/18 08:14 Dose: 100 mg Famotidine (Pepcid) 20 mg PO BID [facility] Last Admin: 10/24/18 08:16 Dose: 20 mg Furosemide (Lasix) 40 mg PO DAILY [facility] Last Admin: 10/24/18 08:15 Dose: 40 mg Insulin Detemir (Levemir) 36 units SC HS [facility] Last Admin: 10/23/18 21:40 Dose: 36 u Insulin Human Lispro (Humalog) 0 units SC [facility]; Protocol Last Admin: 10/24/18 11:27 Dose: Not Given Insulin Human Lispro (Humalog) 14 units SC AC [facility] Last Admin: 10/24/18 12:25 Dose: 14 units Levofloxacin (Levaquin) 750 mg PO DAILY [facility]; Protocol Last Admin: 10/24/18 08:15 Dose: 750 mg Magnesium Chloride (Slow-Mag) 64 mg PO Q12 [facility] Last Admin: 10/24/18 08:16 Dose: 64 mg Metformin HCl (Glucophage) 500 mg PO BIDWM [facility] Last Admin: 10/24/18 08:14 Dose: 500 mg Metoprolol Tartrate (Lopressor) 25 mg PO Q12 [facility] Last Admin: 10/24/18 08:16 Dose: 25 mg Multivitamins/Minerals (Therapeutic-M Tab) 1 tab PO DAILY@1200 [facility] Last Admin: 10/24/18 12:25 Dose: 1 tab Oxycodone HCl (Oxycodone Immediate Release Tab) 5 mg PO Q6 PRN PRN Reason: Pain, severe (8-10) Prednisone (Prednisone Tab) 5 mg PO DAILY [facility] Last Admin: 10/24/18 08:16 Dose: 5 mg Sitagliptin Phosphate (Januvia) 100 mg PO DAILY [facility] Last Admin: 10/24/18 08:15 Dose: 100 mg Spironolactone (Aldactone) 50 mg PO DAILY [facility] Last Admin: 10/24/18 08:14 Dose: 50 mg Tacrolimus (Prograf Cap) 0.5 mg PO Q12 [facility] Last Admin: 10/24/18 08:16 Dose: 0.5 mg Tramadol HCl (Ultram) 50 mg PO Q6 PRN PRN Reason: Pain, moderate (4-7) Last Admin: 10/23/18 19:57 Dose: 50 mg - Labs Labs: 10/24/18 06:00 10/24/18 06:00 - Extremities Exam Additional comments: left hip: serous drainage, unclear how much with betadine dressing inplace. betadine reapplied. +ROM ankle/toes, swelling to thigh improving, calves soft NT neg homans sensation intact Assessment and Plan (1) Left displaced femoral neck fracture Assessment & Plan: s/p THR eliquis held by Dr. Pickett due to increased drainage will increase aspirin to BID for VTE proph at this time as patient at increased risk of DVT from sweling and immobility will monitor and recommend resume eliquis after drainage subsides PT/OT dressing changeds encourage OOB d/w Dr. Pickett, agrees with above Status: Acute
--- NOTE | 2018-10-24 19:09 | CP.PCM.CON ---
History of Present Illness - History of Present Illness History of Present Illness: 68 year old male admitted to [facility] with diagnosis of left hip replacement, after a fall and suffering a femoral fracture. Patient also with history of Liver transplant, etoh abuse, HTn. Now with DM as well. For inpatient rehab Review of Systems - Constitutional Constitutional: Weakness - Musculoskeletal Musculoskeletal: Abnormal Gait, Muscle Weakness Past Patient History - Infectious Disease Hx of Infectious Diseases: None (+ for liver transplant 3 yrs ago([facility]- DR Worley)) - Tetanus Immunizations Tetanus Immunization: Unknown - Past Medical History & Family History Past Medical History?: Yes - Past Social History Smoking Status: Former Smoker Chewing Tobacco Use: No Cigar Use: No Alcohol: Other (former alcoholics) Drugs: Denies Home Situation {Lives}: With Family - CARDIAC Hx Hypertension: Yes Hx Pacemaker: No - PULMONARY Hx Respiratory Disorders: No - NEUROLOGICAL Hx Neurological Disorder: No - HEENT Hx HEENT Problems: No - RENAL Hx Chronic Kidney Disease: No - ENDOCRINE/METABOLIC Hx Endocrine Disorders: No - HEMATOLOGICAL/ONCOLOGICAL Hx Human Immunodeficiency Virus (HIV): No - INTEGUMENTARY Hx Dermatological Problems: No - MUSCULOSKELETAL/RHEUMATOLOGICAL Hx Arthritis: Yes Hx Falls: Yes - GASTROINTESTINAL Hx Gastritis: Yes Other/Comment: h/o liver transplant - GENITOURINARY/GYNECOLOGICAL Hx Genitourinary Disorders: No Other/Comment: left testicular hydrocele 08/2018 - PSYCHIATRIC Hx Psychophysiologic Disorder: No Hx Substance Use: Yes - SURGICAL HISTORY Hx Surgeries: Yes Hx Herniorrhaphy: Yes (s/p herniorrhaphy jun 2018) Hx Liver Transplant: Yes (04/2017 at [facility]) Other/Comment: s/p liver transplan 3 yrs ago. s/p R inguinal herniorraphy sevral months ago. s/p excision hydrocoele - ANESTHESIA Hx Anesthesia: Yes Hx Anesthesia Reactions: No Meds Allergies/Adverse Reactions: Allergies Allergy/AdvReac Type Severity Reaction Status Date / Time No Known Allergies Allergy Verified 10/21/18 18:43 - Medications Medications: Current Medications Acetaminophen (Tylenol 325mg Tab) 975 mg PO Q8 PRN PRN Reason: Pain, moderate (4-7) Last Admin: 10/22/18 06:38 Dose: 975 mg Al Hydrox/Mg Hydrox/Simethicone (Maalox Plus 30 Ml) 30 ml PO Q6 PRN PRN Reason: Indigestion / Heartburn Last Admin: 10/23/18 13:29 Dose: 30 ml Amlodipine Besylate (Norvasc) 10 mg PO DAILY [facility] Last Admin: 10/24/18 08:16 Dose: 10 mg Apixaban (Eliquis) 5 mg PO Q12 [facility]; Protocol Last Admin: 10/23/18 08:57 Dose: 5 mg Artificial Tears (Refresh Opth Soln) 0.3 ml OU Q6 PRN PRN Reason: Dry eyes Aspirin (Ecotrin) 81 mg PO BID [facility] Last Admin: 10/24/18 16:43 Dose: 81 mg Cholecalciferol (Vitamin D) 2,000 intlu PO DAILY@1200 [facility] Last Admin: 10/24/18 12:25 Dose: 2,000 intlu Docusate Sodium (Colace) 100 mg PO BID [facility] Last Admin: 10/24/18 16:40 Dose: 100 mg Famotidine (Pepcid) 20 mg PO BID [facility] Last Admin: 10/24/18 16:43 Dose: 20 mg Furosemide (Lasix) 40 mg PO DAILY [facility] Last Admin: 10/24/18 08:15 Dose: 40 mg Insulin Detemir (Levemir) 36 units SC HS [facility] Last Admin: 10/23/18 21:40 Dose: 36 u Insulin Human Lispro (Humalog) 0 [facility] SC [facility]; Protocol Last Admin: 10/24/18 16:25 Dose: Not Given Insulin Human Lispro (Humalog) 12 units SC AC [facility] Last Admin: 10/24/18 16:43 Dose: 12 units Levofloxacin (Levaquin) 750 mg PO DAILY [facility]; Protocol Last Admin: 10/24/18 08:15 Dose: 750 mg Magnesium Chloride (Slow-Mag) 64 mg PO Q12 [facility] Last Admin: 10/24/18 08:16 Dose: 64 mg Metformin HCl (Glucophage) 500 mg PO BIDWM [facility] Last Admin: 10/24/18 16:43 Dose: 500 mg Metoprolol Tartrate (Lopressor) 25 mg PO Q12 [facility] Last Admin: 10/24/18 08:16 Dose: 25 mg Multivitamins/Minerals (Therapeutic-M Tab) 1 tab PO DAILY@1200 [facility] Last Admin: 10/24/18 12:25 Dose: 1 tab Oxycodone HCl (Oxycodone Immediate Release Tab) 5 mg PO Q6 PRN PRN Reason: Pain, severe (8-10) Prednisone (Prednisone Tab) 5 mg PO DAILY [facility] Last Admin: 10/24/18 08:16 Dose: 5 mg Sitagliptin Phosphate (Januvia) 100 mg PO DAILY [facility] Last Admin: 10/24/18 08:15 Dose: 100 mg Spironolactone (Aldactone) 50 mg PO DAILY [facility] Last Admin: 10/24/18 08:14 Dose: 50 mg Tacrolimus (Prograf Cap) 0.5 mg PO Q12 [facility] Last Admin: 10/24/18 08:16 Dose: 0.5 mg Tramadol HCl (Ultram) 50 mg PO Q6 PRN PRN Reason: Pain, moderate (4-7) Last Admin: 10/23/18 19:57 Dose: 50 mg Physical Exam - Constitutional Appears: Well - Head Exam Head Exam: ATRAUMATIC, NORMAL INSPECTION, NORMOCEPHALIC - Eye Exam Eye Exam: EOMI, Normal appearance Pupil Exam: NORMAL ACCOMODATION, PERRL - ENT Exam ENT Exam: Mucous Membranes Moist, Normal Exam - Neck Exam Neck exam: Positive for: Normal Inspection - Respiratory Exam Respiratory Exam: Clear to Auscultation Bilateral, NORMAL BREATHING PATTERN - Cardiovascular Exam Cardiovascular Exam: REGULAR RHYTHM - GI/Abdominal Exam GI & Abdominal Exam: Normal Bowel Sounds - Rectal Exam Rectal Exam: NORMAL INSPECTION - Exam External exam: NORMAL EXTERNAL EXAM - Extremities Exam Extremities exam: Positive for: normal inspection Additional comments: left leg weakness - Back Exam Back exam: NORMAL INSPECTION - Neurological Exam Neurological exam: Alert, CN II-XII Intact, Oriented x3 Results - Vital Signs Recent Vital Signs: Last Vital Signs Temp 99.2 F 10/24/18 16:44 Pulse 76 10/24/18 16:44 Resp 20 10/24/18 16:44 BP 106/68 10/24/18 16:44 Pulse Ox 94 L 10/24/18 16:44 - Labs Result Diagrams: 10/24/18 06:00 10/24/18 06:00 Labs: Laboratory Results - last 24 hr 10/23/18 10/24/18 10/24/18 21:08 05:51 06:00 WBC 3.8 L RBC 2.66 L Hgb 8.8 L Hct 25.2 L MCV 94.9 H MCH 32.9 H MCHC 34.7 RDW 13.0 Plt Count 138 Sodium Potassium Chloride Carbon Dioxide Anion Gap BUN Creatinine Est GFR ( Amer) Est GFR (Non-Af Amer) POC Glucose (mg/dL) 196 H 120 H Random Glucose Calcium 10/24/18 10/24/18 10/24/18 06:00 10:55 16:14 WBC RBC Hgb Hct MCV MCH MCHC RDW Plt Count Sodium 129 L Potassium 4.3 Chloride 95 L Carbon Dioxide 27 Anion Gap 11 BUN 17 Creatinine 0.8 Est GFR ( Amer) > 60 Est GFR (Non-Af Amer) > 60 POC Glucose (mg/dL) 127 H 92 Random Glucose 115 H Calcium 8.0 L Assessment & Plan (1) Femur fracture, left Assessment and Plan: status post left hip replacement , now for physical, occupational therapy for range of motion, strengthening, transfers and gait training. Monitor, skin, pain, blood sugar. Equipment evaluation. Status: Acute (2) BPH (benign prostatic hyperplasia) Status: Chronic (3) HTN (hypertension) Status: Chronic (4) Status post liver transplant Status: Chronic
--- NOTE | 2018-10-24 19:28 | PN ---
DATE: 10/24/2018 ENDOCRINOLOGY FOLLOWUP NOTE LOCATION: Room 714. SUBJECTIVE: This is a 68-year-old male with recent uncontrolled type 2 insulin-requiring diabetes, who sustained a accidental fall and subsequent left femoral fracture and now underwent hip replacement, and currently receiving physical and occupational therapy at the [facility] as noted. His glycemic levels were initially fluctuating but overnight have improved, and the glucose values have ranged from 120 to 127 mg/dL. It was 196 at bedtime last night. His chemistry showed a BUN of 17, sodium 129, potassium 4.3, chloride 95, CO2 of 27, glucose 115, and creatinine 0.8. So at this time, we will continue the same basal and bolus insulin regimen to allow for dose equilibration and keep him on the Humalog given as 14 units subcu t.i.d. before meals as ordered. We will continue the Levemir given as 36 units subcu at bedtime daily as given. We will continue the low-dose correction scale using Humalog insulin as ordered. We will also continue the dual oral hypoglycemic drug therapy as given with metformin at 500 mg b.i.d. with meals and Januvia given as 100 mg once daily in the morning as ordered. We will obtain serial chemistries and supplement accordingly as needed. We will follow. Radha Stockton MD
[2018-10-24] MEDS: Insulin Detemir 100 Units/ml Inj SC SCH (21:36)
[2018-10-24] MEDS: oxyCODONE 5 mg Immediate Release Tab PO PRN (21:44)
[2018-10-25] MEDS: Insulin Lispro (humaLOG) 100 Units/ml Inj SC SCH ×8 (06:34→21:22)
[2018-10-25] MEDS: Magnesium Chloride 64 mg ER Tab PO SCH ×2 (08:19→21:25)
[2018-10-25] MEDS: oxyCODONE 5 mg Immediate Release Tab PO PRN (10:17)
--- NOTE | 2018-10-25 10:29 | CP.PCM.PN ---
Subjective - Date & Time of Evaluation Date of Evaluation: 10/25/18 Time of Evaluation: 10:28 - Subjective Subjective: no complaints hd stable toleratign pt well Objective - Vital Signs/Intake and Output Vital Signs (last 24 hours): Temp Pulse Resp BP Pulse Ox 97.6 F 74 20 133/76 98 10/25/18 08:27 10/25/18 08:27 10/25/18 08:27 10/25/18 08:27 10/25/18 08:27 - Medications Medications: Current Medications Acetaminophen (Tylenol 325mg Tab) 975 mg PO Q8 PRN PRN Reason: Pain, moderate (4-7) Last Admin: 10/22/18 06:38 Dose: 975 mg Al Hydrox/Mg Hydrox/Simethicone (Maalox Plus 30 Ml) 30 ml PO Q6 PRN PRN Reason: Indigestion / Heartburn Last Admin: 10/23/18 13:29 Dose: 30 ml Amlodipine Besylate (Norvasc) 10 mg PO DAILY [facility] Last Admin: 10/25/18 08:20 Dose: 10 mg Apixaban (Eliquis) 5 mg PO Q12 [facility]; Protocol Last Admin: 10/23/18 08:57 Dose: 5 mg Artificial Tears (Refresh Opth Soln) 0.3 ml OU Q6 PRN PRN Reason: Dry eyes Aspirin (Ecotrin) 81 mg PO BID [facility] Last Admin: 10/25/18 08:20 Dose: 81 mg Cholecalciferol (Vitamin D) 2,000 intlu PO DAILY@1200 [facility] Last Admin: 10/24/18 12:25 Dose: 2,000 intlu Docusate Sodium (Colace) 100 mg PO BID [facility] Last Admin: 10/25/18 08:20 Dose: 100 mg Famotidine (Pepcid) 20 mg PO BID [facility] Last Admin: 10/25/18 08:18 Dose: 20 mg Furosemide (Lasix) 40 mg PO DAILY [facility] Last Admin: 10/25/18 08:21 Dose: 40 mg Insulin Detemir (Levemir) 36 units SC HS [facility] Last Admin: 10/24/18 21:36 Dose: 36 u Insulin Human Lispro (Humalog) 0 units SC ACHS [facility]; Protocol Last Admin: 10/25/18 06:34 Dose: Not Given Insulin Human Lispro (Humalog) 12 units SC AC [facility] Last Admin: 10/25/18 08:27 Dose: 12 units Levofloxacin (Levaquin) 750 mg PO DAILY [facility]; Protocol Last Admin: 10/25/18 08:21 Dose: 750 mg Magnesium Chloride (Slow-Mag) 64 mg PO Q12 [facility] Last Admin: 10/25/18 08:19 Dose: 64 mg Metformin HCl (Glucophage) 500 mg PO BIDWM [facility] Last Admin: 10/25/18 08:20 Dose: 500 mg Metoprolol Tartrate (Lopressor) 25 mg PO Q12 [facility] Last Admin: 10/25/18 08:18 Dose: 25 mg Multivitamins/Minerals (Therapeutic-M Tab) 1 tab PO DAILY@1200 [facility] Last Admin: 10/24/18 12:25 Dose: 1 tab Oxycodone HCl (Oxycodone Immediate Release Tab) 5 mg PO Q6 PRN PRN Reason: Pain, severe (8-10) Last Admin: 10/25/18 10:17 Dose: 5 mg Prednisone (Prednisone Tab) 5 mg PO DAILY [facility] Last Admin: 10/25/18 08:19 Dose: 5 mg Sitagliptin Phosphate (Januvia) 100 mg PO DAILY [facility] Last Admin: 10/25/18 08:18 Dose: 100 mg Spironolactone (Aldactone) 50 mg PO DAILY [facility] Last Admin: 10/25/18 08:22 Dose: 50 mg Tacrolimus (Prograf Cap) 0.5 mg PO Q12 [facility] Last Admin: 10/25/18 08:19 Dose: 0.5 mg - Labs Labs: 10/24/18 06:00 10/24/18 06:00 - Constitutional Appears: Non-toxic, No Acute Distress - Head Exam Head Exam: ATRAUMATIC, NORMOCEPHALIC - Eye Exam Eye Exam: EOMI, Normal appearance, PERRL - ENT Exam ENT Exam: Mucous Membranes Moist, Normal Oropharynx - Respiratory Exam Respiratory Exam: Clear to Ausculation Bilateral, NORMAL BREATHING PATTERN - Cardiovascular Exam Cardiovascular Exam: RRR, +S1, +S2 - GI/Abdominal Exam GI & Abdominal Exam: Soft, Normal Bowel Sounds. absent: Tenderness - Extremities Exam Extremities Exam: Normal Capillary Refill. absent: Calf Tenderness - Back Exam Back Exam: absent: CVA tenderness (L), CVA tenderness (R) - Neurological Exam Neurological Exam: Alert, Awake - Psychiatric Exam Psychiatric exam: Normal Affect, Normal Mood - Skin Skin Exam: Dry, Warm Assessment and Plan - Assessment and Plan (Free Text) Plan: 68 yo male with history of HTN, Liver Transplant missed a step in his house and landed on his left hip. Xray showed subcapital fracture of the left femoral neck. On 10/19/18 left THR was done by Dr Pickett. 1. Left Hip Fracture left THR Pain management consult appreciated continue PT/OT 2. Post Liver Transplant cleared by orthopedist to resume ASA and Eliquis continue Tacrolimus, Prednisone 3. HTN BP controlled Continue Amlodipine and Metoprolol 4. DM2 HgA1c - 11.3 BS uncontrolled probably steroid related Levemir 30 units SC HS Lispro 12 units SC 5. DVT prophylaxis on Eliquis
[2018-10-25] MEDS: Multivitamin With Minerals Tab PO SCH (13:15)
[2018-10-25] MEDS: Cholecalciferol 1,000 INTLU TAB PO SCH (13:15)
--- NOTE | 2018-10-25 15:58 | CP.PCM.PN ---
Subjective - Date & Time of Evaluation Date of Evaluation: 10/25/18 Time of Evaluation: 15:55 - Subjective Subjective: Patient still complaining of hip and left knee. Improving with PT. Denies CP/SOB/dizziness/numbness/tingling. Objective - Vital Signs/Intake and Output Vital Signs (last 24 hours): Temp Pulse Resp BP Pulse Ox 97.6 F 77 20 133/76 98 10/25/18 08:27 10/25/18 14:11 10/25/18 08:27 10/25/18 08:27 10/25/18 14:11 - Medications Medications: Current Medications Acetaminophen (Tylenol 325mg Tab) 975 mg PO Q8 PRN PRN Reason: Pain, moderate (4-7) Last Admin: 10/22/18 06:38 Dose: 975 mg Al Hydrox/Mg Hydrox/Simethicone (Maalox Plus 30 Ml) 30 ml PO Q6 PRN PRN Reason: Indigestion / Heartburn Last Admin: 10/23/18 13:29 Dose: 30 ml Amlodipine Besylate (Norvasc) 10 mg PO DAILY [facility] Last Admin: 10/25/18 08:20 Dose: 10 mg Apixaban (Eliquis) 5 mg PO Q12 [facility]; Protocol Last Admin: 10/23/18 08:57 Dose: 5 mg Artificial Tears (Refresh Opth Soln) 0.3 ml OU Q6 PRN PRN Reason: Dry eyes Aspirin (Ecotrin) 81 mg PO BID [facility] Last Admin: 10/25/18 08:20 Dose: 81 mg Cholecalciferol (Vitamin D) 2,000 intlu PO DAILY@1200 [facility] Last Admin: 10/25/18 13:15 Dose: 2,000 intlu Docusate Sodium (Colace) 100 mg PO BID [facility] Last Admin: 10/25/18 08:20 Dose: 100 mg Famotidine (Pepcid) 20 mg PO BID [facility] Last Admin: 10/25/18 08:18 Dose: 20 mg Furosemide (Lasix) 40 mg PO DAILY [facility] Last Admin: 10/25/18 08:21 Dose: 40 mg Insulin Detemir (Levemir) 30 units SC [facility] Insulin Human Lispro (Humalog) 0 units SC [facility]; Protocol Last Admin: 10/25/18 13:12 Dose: Not Given Insulin Human Lispro (Humalog) 10 units SC AC [facility] Levofloxacin (Levaquin) 750 mg PO DAILY [facility]; Protocol Last Admin: 10/25/18 08:21 Dose: 750 mg Magnesium Chloride (Slow-Mag) 64 mg PO Q12 [facility] Last Admin: 10/25/18 08:19 Dose: 64 mg Metformin HCl (Glucophage) 500 mg PO BIDWM [facility] Last Admin: 10/25/18 08:20 Dose: 500 mg Metoprolol Tartrate (Lopressor) 25 mg PO Q12 [facility] Last Admin: 10/25/18 08:18 Dose: 25 mg Multivitamins/Minerals (Therapeutic-M Tab) 1 tab PO DAILY@1200 [facility] Last Admin: 10/25/18 13:15 Dose: 1 tab Oxycodone HCl (Oxycodone Immediate Release Tab) 5 mg PO Q6 PRN PRN Reason: Pain, severe (8-10) Last Admin: 10/25/18 10:17 Dose: 5 mg Prednisone (Prednisone Tab) 5 mg PO DAILY [facility] Last Admin: 10/25/18 08:19 Dose: 5 mg Sitagliptin Phosphate (Januvia) 100 mg PO DAILY [facility] Last Admin: 10/25/18 08:18 Dose: 100 mg Spironolactone (Aldactone) 50 mg PO DAILY [facility] Tacrolimus (Prograf Cap) 0.5 mg PO Q12 [facility] Last Admin: 10/25/18 08:19 Dose: 0.5 mg - Labs Labs: 10/24/18 06:00 10/24/18 06:00 - Extremities Exam Additional comments: small amount serous drainage distal incision. no erythema, incision intact, noted swelling around incision, no erythema calves soft NT neg homans +ROM ankle/toes, sensation intact +DP/PT pulses Assessment and Plan (1) Left displaced femoral neck fracture Assessment & Plan: s/p left THR daily dressing changes when drainage subsides, resume eliquis SCD, aspirin for VTE proph at this time per Dr. Pickett cont PT/OT d/w DR. Pickett, agrees with above Status: Acute
--- NOTE | 2018-10-25 20:51 | PN ---
DATE: 10/25/2018 ENDOCRINOLOGY FOLLOWUP NOTE LOCATION: Room 714. This is a 68-year-old male with recent uncontrolled type 2 insulin-requiring diabetes, now being followed closely for metabolic management. He presented here with marked hyperglycemic accelerations and dehydration and has since then improved clinically and metabolically as noted thereof. He is undergoing physical and occupational therapy for a recent left hip replacement as noted. His glycemic levels are remarkably improving as noted overnight with glucose values ranging from 78 to 92 and 117 mg/dL. It was 160 at lunchtime today as ordered. So at this time, we will modify once again his basal and bolus insulin regimen which is actually a very good sign that his endogenous pancreatic reserve is improving thereof. We will lower the Humalog to 10 units t.i.d. before meals to start today as ordered. We will also lower the basal insulin with Levemir to be given as 30 units subcu at bedtime daily to start tonight. We will titrate incrementally as indicated to optimize metabolic control. We will also continue the dual oral hypoglycemic therapy to improve insulin sensitivity by continuing the Januvia at 100 mg daily and metformin at 500 mg b.i.d. with meals as ordered. We will obtain serial chemistries and supplement accordingly as needed. We will follow. Radha Stockton MD
[2018-10-25] MEDS: URSODIOL 500 MG PO SCH (21:24)
[2018-10-25] MEDS ORDERED: Insulin Detemir 100 Units/ml Inj SC SCH (22:00)
[2018-10-26] MEDS: Insulin Lispro (humaLOG) 100 Units/ml Inj SC SCH ×8 (06:42→22:30)
[2018-10-26] MEDS: URSODIOL 500 MG PO SCH ×2 (09:10→16:27)
[2018-10-26] MEDS: Magnesium Chloride 64 mg ER Tab PO SCH ×2 (09:12→21:35)
--- NOTE | 2018-10-26 11:51 | CP.PCM.CON ---
<Iliana Dunham - Last Filed: 10/26/18 11:51> History of Present Illness - History of Present Illness History of Present Illness: Consult Note: Dr. Seay 68 yo male patient, with PMHx of HTN, liver transplant, s/p L hip replacement this admission, seen and evaluated for mycotic nails. Patient states that he sees Dr. Seay in his office for fungal nails and occasionally painful corn to the left toe. He states that he received medication from Dr. Seay for fungal nails and uses it daily. He states that currently he is not experiencing pain, however his left second toe occasionally hurts in his shoes. He denies N/V/F/SOB/CP. PMHx: HTN, Liver transplant PSHx: L meniscus, L hip replacement ALL: NKDA Review of Systems - Review of Systems Review of Systems: As per HPI Past Patient History - Infectious Disease Hx of Infectious Diseases: None (+ for liver transplant 3 yrs ago([facility]- DR Worley)) - Tetanus Immunizations Tetanus Immunization: Unknown - Past Medical History & Family History Past Medical History?: Yes - Past Social History Smoking Status: Former Smoker Chewing Tobacco Use: No Cigar Use: No Alcohol: Other (former alcoholics) Drugs: Denies Home Situation {Lives}: With Family - CARDIAC Hx Hypertension: Yes Hx Pacemaker: No - PULMONARY Hx Respiratory Disorders: No - NEUROLOGICAL Hx Neurological Disorder: No - HEENT Hx HEENT Problems: No - RENAL Hx Chronic Kidney Disease: No - ENDOCRINE/METABOLIC Hx Endocrine Disorders: No - HEMATOLOGICAL/ONCOLOGICAL Hx Human Immunodeficiency Virus (HIV): No - INTEGUMENTARY Hx Dermatological Problems: No - MUSCULOSKELETAL/RHEUMATOLOGICAL Hx Arthritis: Yes Hx Falls: Yes - GASTROINTESTINAL Hx Gastritis: Yes Other/Comment: h/o liver transplant - GENITOURINARY/GYNECOLOGICAL Hx Genitourinary Disorders: No Other/Comment: left testicular hydrocele 08/2018 - PSYCHIATRIC Hx Psychophysiologic Disorder: No Hx Substance Use: Yes - SURGICAL HISTORY Hx Surgeries: Yes Hx Herniorrhaphy: Yes (s/p herniorrhaphy jun 2018) Hx Liver Transplant: Yes (04/2017 at [facility]) Other/Comment: s/p liver transplan 3 yrs ago. s/p R inguinal herniorraphy sevral months ago. s/p excision hydrocoele - ANESTHESIA Hx Anesthesia: Yes Hx Anesthesia Reactions: No Meds Allergies/Adverse Reactions: Allergies Allergy/AdvReac Type Severity Reaction Status Date / Time No Known Allergies Allergy Verified 10/21/18 18:43 - Medications Medications: Current Medications Acetaminophen (Tylenol 325mg Tab) 975 mg PO Q8 PRN PRN Reason: Pain, moderate (4-7) Last Admin: 10/22/18 06:38 Dose: 975 mg Al Hydrox/Mg Hydrox/Simethicone (Maalox Plus 30 Ml) 30 ml PO Q6 PRN PRN Reason: Indigestion / Heartburn Last Admin: 10/23/18 13:29 Dose: 30 ml Amlodipine Besylate (Norvasc) 10 mg PO DAILY [facility] Last Admin: 10/25/18 08:20 Dose: 10 mg Apixaban (Eliquis) 5 mg PO Q12 [facility]; Protocol Last Admin: 10/23/18 08:57 Dose: 5 mg Artificial Tears (Refresh Opth Soln) 0.3 ml OU Q6 PRN PRN Reason: Dry eyes Aspirin (Ecotrin) 81 mg PO BID [facility] Last Admin: 10/26/18 09:12 Dose: 81 mg Cholecalciferol (Vitamin D) 2,000 intlu PO DAILY@1200 [facility] Last Admin: 10/25/18 13:15 Dose: 2,000 intlu Docusate Sodium (Colace) 100 mg PO BID [facility] Last Admin: 10/26/18 09:11 Dose: 100 mg Famotidine (Pepcid) 20 mg PO BID [facility] Last Admin: 10/26/18 09:14 Dose: 20 mg Furosemide (Lasix) 40 mg PO DAILY [facility] Last Admin: 10/26/18 09:13 Dose: 40 mg Home Med (Patient's Own Medication) 1 unit PO BID [facility] Last Admin: 10/26/18 09:10 Dose: 1 unit Insulin Detemir (Levemir) 30 units SC HS [facility] Last Admin: 10/25/18 21:22 Dose: 30 u Insulin Human Lispro (Humalog) 0 units SC ACHS [facility]; Protocol Last Admin: 10/26/18 06:42 Dose: Not Given Insulin Human Lispro (Humalog) 10 units SC AC [facility] Last Admin: 10/26/18 09:15 Dose: 10 units Levofloxacin (Levaquin) 750 mg PO DAILY [facility]; Protocol Last Admin: 10/26/18 09:10 Dose: 750 mg Magnesium Chloride (Slow-Mag) 64 mg PO Q12 [facility] Last Admin: 10/26/18 09:12 Dose: 64 mg Metformin HCl (Glucophage) 500 mg PO BIDWM [facility] Last Admin: 10/26/18 09:12 Dose: 500 mg Metoprolol Tartrate (Lopressor) 25 mg PO Q12 [facility] Last Admin: 10/26/18 09:11 Dose: 25 mg Multivitamins/Minerals (Therapeutic-M Tab) 1 tab PO DAILY@1200 [facility] Last Admin: 10/25/18 13:15 Dose: 1 tab Oxycodone HCl (Oxycodone Immediate Release Tab) 5 mg PO Q6 PRN PRN Reason: Pain, severe (8-10) Last Admin: 10/25/18 10:17 Dose: 5 mg Prednisone (Prednisone Tab) 5 mg PO DAILY [facility] Last Admin: 10/26/18 09:13 Dose: 5 mg Sitagliptin Phosphate (Januvia) 100 mg PO DAILY [facility] Last Admin: 10/26/18 09:12 Dose: 100 mg Spironolactone (Aldactone) 50 mg PO DAILY [facility] Tacrolimus (Prograf Cap) 0.5 mg PO Q12 [facility] Last Admin: 10/26/18 09:14 Dose: 0.5 mg Physical Exam - Constitutional Appears: Well, Non-toxic - Head Exam Head Exam: ATRAUMATIC, NORMOCEPHALIC - Extremities Exam Additional comments: Vascular: DP/PT palpable, TG warm to warm, no edema appreciated, CFT < 3 seconds to digit Ortho: Rigid hammertoe deformity to L 2nd digit, no tenderness to palpation of L 2nd digit, no tenderness to palpation of corn noted to L 4th digit Neuro: Gross and protective sensation intact Derm: No open lesions, no erythema, no clinical sign of infection, mild xerosis to plantar aspect of feet bilaterally, mycotic/dystrophic nails x10 appreciated to be normal length, corn noted to dorsal aspect of 4th digit DIPJ - Neurological Exam Neurological exam: Alert, Oriented x3 - Psychiatric Exam Psychiatric exam: Normal Affect, Normal Mood - Skin Skin Exam: Warm Results - Vital Signs Recent Vital Signs: Last Vital Signs Temp 98.8 F 10/26/18 08:21 Pulse 82 10/26/18 09:40 Resp 20 10/26/18 08:21 BP 118/74 10/26/18 09:13 Pulse Ox 99 10/26/18 09:40 - Labs Result Diagrams: 10/24/18 06:00 10/24/18 06:00 Labs: Laboratory Results - last 24 hr 10/25/18 10/25/18 10/25/18 14:33 16:17 18:13 POC Glucose (mg/dL) 160 H 83 143 H 10/25/18 10/26/18 10/26/18 21:03 05:30 10:27 POC Glucose (mg/dL) 119 H 106 128 H Assessment & Plan - Assessment and Plan (Free Text) Assessment: 68 yo male patient, with PMHx of HTN, liver transplant, s/p L hip replacement this admission, seen and evaluated for mycotic nails Plan: Patient seen and evaluated with all questions and concerns addressed Patient discussed in detail with Dr. Seay Chart, labs vitals reviewed Discussed shoes with a wider toe box with the patient to help alleviate pain from HT deformity in his shoes Patient not in need of corn or nail debridement at this time and states that he will follow up with Dr. Seay as an outpatient in his office Podiatry to sign off at this time Thank you for the consult - Date & Time Date: 10/26/18 Time: 11:56 <Clive Seay - Last Filed: 10/26/18 18:55> Meds - Medications Medications: Current Medications Acetaminophen (Tylenol 325mg Tab) 975 mg PO Q8 PRN PRN Reason: Pain, moderate (4-7) Last Admin: 10/26/18 14:31 Dose: 975 mg Al Hydrox/Mg Hydrox/Simethicone (Maalox Plus 30 Ml) 30 ml PO Q6 PRN PRN Reason: Indigestion / Heartburn Last Admin: 10/23/18 13:29 Dose: 30 ml Amlodipine Besylate (Norvasc) 10 mg PO DAILY [facility] Last Admin: 10/26/18 12:02 Dose: Not Given Apixaban (Eliquis) 5 mg PO Q12 [facility]; Protocol Last Admin: 10/23/18 08:57 Dose: 5 mg Artificial Tears (Refresh Opth Soln) 0.3 ml OU Q6 PRN PRN Reason: Dry eyes Aspirin (Ecotrin) 81 mg PO BID [facility] Last Admin: 10/26/18 16:27 Dose: 81 mg Cholecalciferol (Vitamin D) 2,000 intlu PO DAILY@1200 [facility] Last Admin: 10/26/18 14:32 Dose: 2,000 intlu Docusate Sodium (Colace) 100 mg PO BID [facility] Last Admin: 10/26/18 16:27 Dose: 100 mg Famotidine (Pepcid) 20 mg PO BID [facility] Last Admin: 10/26/18 16:27 Dose: 20 mg Furosemide (Lasix) 40 mg PO DAILY [facility] Last Admin: 10/26/18 09:13 Dose: 40 mg Home Med (Patient's Own Medication) 1 unit PO BID [facility] Last Admin: 10/26/18 16:27 Dose: 1 unit Insulin Detemir (Levemir) 24 units SC [facility] Insulin Human Lispro (Humalog) 0 units SC [facility]; Protocol Last Admin: 10/26/18 16:27 Dose: Not Given Insulin Human Lispro (Humalog) 6 units SC AC [facility] Last Admin: 10/26/18 16:31 Dose: 6 unit Levofloxacin (Levaquin) 750 mg PO DAILY [facility]; Protocol Last Admin: 10/26/18 09:10 Dose: 750 mg Magnesium Chloride (Slow-Mag) 64 mg PO Q12 [facility] Last Admin: 10/26/18 09:12 Dose: 64 mg Metformin HCl (Glucophage) 500 mg PO BIDWM [facility] Last Admin: 10/26/18 16:26 Dose: 500 mg Metoprolol Tartrate (Lopressor) 25 mg PO Q12 [facility] Last Admin: 10/26/18 09:11 Dose: 25 mg Multivitamins/Minerals (Therapeutic-M Tab) 1 tab PO DAILY@1200 [facility] Last Admin: 10/26/18 14:32 Dose: 1 tab Oxycodone HCl (Oxycodone Immediate Release Tab) 5 mg PO Q6 PRN PRN Reason: Pain, severe (8-10) Last Admin: 10/25/18 10:17 Dose: 5 mg Prednisone (Prednisone Tab) 5 mg PO DAILY [facility] Last Admin: 10/26/18 09:13 Dose: 5 mg Sitagliptin Phosphate (Januvia) 100 mg PO DAILY [facility] Last Admin: 10/26/18 09:12 Dose: 100 mg Spironolactone (Aldactone) 50 mg PO DAILY [facility] Last Admin: 10/26/18 12:03 Dose: 50 mg Tacrolimus (Prograf Cap) 0.5 mg PO Q12 [facility] Last Admin: 10/26/18 09:14 Dose: 0.5 mg Results - Vital Signs Recent Vital Signs: Last Vital Signs Temp 98.3 F 10/26/18 15:54 Pulse 80 10/26/18 15:54 Resp 20 10/26/18 15:54 BP 106/66 10/26/18 15:54 Pulse Ox 97 10/26/18 15:54 - Labs Result Diagrams: 10/24/18 06:00 10/24/18 06:00 Labs: Laboratory Results - last 24 hr 10/25/18 10/25/18 10/26/18 18:13 21:03 05:30 POC Glucose (mg/dL) 143 H 119 H 106 10/26/18 10/26/18 10:27 15:44 POC Glucose (mg/dL) 128 H 145 H Assessment & Plan - Assessment and Plan (Free Text) Plan: agree with above findings. Dr Katya Seay
[2018-10-26] MEDS: Multivitamin With Minerals Tab PO SCH (14:32)
[2018-10-26] MEDS: Cholecalciferol 1,000 INTLU TAB PO SCH (14:32)
--- NOTE | 2018-10-26 15:06 | CP.PCM.PN ---
Subjective - Date & Time of Evaluation Date of Evaluation: 10/26/18 Time of Evaluation: 14:00 - Subjective Subjective: Patient seen and examined OOB to chair comfortable. Pain well controlled. No new complaints. Denies CP/SOB/N/V/D. Objective - Vital Signs/Intake and Output Vital Signs (last 24 hours): Temp Pulse Resp BP Pulse Ox 98.8 F 78 20 118/74 99 10/26/18 08:21 10/26/18 12:02 10/26/18 08:21 10/26/18 12:02 10/26/18 09:40 - Medications Medications: Current Medications Acetaminophen (Tylenol 325mg Tab) 975 mg PO Q8 PRN PRN Reason: Pain, moderate (4-7) Last Admin: 10/26/18 14:31 Dose: 975 mg Al Hydrox/Mg Hydrox/Simethicone (Maalox Plus 30 Ml) 30 ml PO Q6 PRN PRN Reason: Indigestion / Heartburn Last Admin: 10/23/18 13:29 Dose: 30 ml Amlodipine Besylate (Norvasc) 10 mg PO DAILY [facility] Last Admin: 10/26/18 12:02 Dose: Not Given Apixaban (Eliquis) 5 mg PO Q12 [facility]; Protocol Last Admin: 10/23/18 08:57 Dose: 5 mg Artificial Tears (Refresh Opth Soln) 0.3 ml OU Q6 PRN PRN Reason: Dry eyes Aspirin (Ecotrin) 81 mg PO BID [facility] Last Admin: 10/26/18 09:12 Dose: 81 mg Cholecalciferol (Vitamin D) 2,000 intlu PO DAILY@1200 [facility] Last Admin: 10/26/18 14:32 Dose: 2,000 intlu Docusate Sodium (Colace) 100 mg PO BID [facility] Last Admin: 10/26/18 09:11 Dose: 100 mg Famotidine (Pepcid) 20 mg PO BID [facility] Last Admin: 10/26/18 09:14 Dose: 20 mg Furosemide (Lasix) 40 mg PO DAILY [facility] Last Admin: 10/26/18 09:13 Dose: 40 mg Home Med (Patient's Own Medication) 1 unit PO BID [facility] Last Admin: 10/26/18 09:10 Dose: 1 unit Insulin Detemir (Levemir) 30 units SC [facility] Last Admin: 10/25/18 21:22 Dose: 30 u Insulin Human Lispro (Humalog) 0 units SC ACHS [facility]; Protocol Last Admin: 10/26/18 13:22 Dose: Not Given Insulin Human Lispro (Humalog) 10 units SC AC [facility] Last Admin: 10/26/18 14:09 Dose: Not Given Levofloxacin (Levaquin) 750 mg PO DAILY [facility]; Protocol Last Admin: 10/26/18 09:10 Dose: 750 mg Magnesium Chloride (Slow-Mag) 64 mg PO Q12 [facility] Last Admin: 10/26/18 09:12 Dose: 64 mg Metformin HCl (Glucophage) 500 mg PO BIDWM [facility] Last Admin: 10/26/18 09:12 Dose: 500 mg Metoprolol Tartrate (Lopressor) 25 mg PO Q12 [facility] Last Admin: 10/26/18 09:11 Dose: 25 mg Multivitamins/Minerals (Therapeutic-M Tab) 1 tab PO DAILY@1200 [facility] Last Admin: 10/26/18 14:32 Dose: 1 tab Oxycodone HCl (Oxycodone Immediate Release Tab) 5 mg PO Q6 PRN PRN Reason: Pain, severe (8-10) Last Admin: 10/25/18 10:17 Dose: 5 mg Prednisone (Prednisone Tab) 5 mg PO DAILY [facility] Last Admin: 10/26/18 09:13 Dose: 5 mg Sitagliptin Phosphate (Januvia) 100 mg PO DAILY [facility] Last Admin: 10/26/18 09:12 Dose: 100 mg Spironolactone (Aldactone) 50 mg PO DAILY [facility] Last Admin: 10/26/18 12:03 Dose: 50 mg Tacrolimus (Prograf Cap) 0.5 mg PO Q12 [facility] Last Admin: 10/26/18 09:14 Dose: 0.5 mg - Labs Labs: 10/24/18 06:00 10/24/18 06:00 - Extremities Exam Additional comments: L hip: moderate swelling Dressings intact with mild serous drainage Incision and portal sites intact with dina and nylon sutures, no active drainage sensation intact SP/DP/TN motor intact EHL/FHL/TA?G pedal pulses intact comp soft NT b/l Assessment and Plan (1) Status post total hip replacement, left Assessment & Plan: -Wet to dry betadine dressings reapplied, mild drainage -DVT ppx with ASA -PT/OT WBAT -orthopedically stable -above d/w Dr. Pickett in agreement Status: Acute
--- NOTE | 2018-10-26 20:15 | PN ---
DATE: 10/26/2018 ENDOCRINOLOGY FOLLOWUP NOTE LOCATION: Room 714, [facility]. SUBJECTIVE: This is a 68-year-old male with recent left hip femoral fracture and underwent a left hip replacement and currently receiving physical and occupational therapy here in the [facility] as noted and is being followed closely also for metabolic management. His glycemic fluctuations are much improved at this time and the latest glucose levels have ranged from 106-119 and 128 mg/dL. LABORATORY DATA: His latest chemistry showed a BUN of 17, sodium 129, potassium 4.3, chloride 95, CO2 of 27, glucose 115 and creatinine 0.8. ASSESSMENT AND PLAN: So at this time, we will modify once again his basal and bolus insulin regimen and lower the Levemir to 24 units subcutaneously at bedtime daily to start tonight as ordered. We will lower the Humalog to 6 units t.i.d. before meals as ordered. We are hoping to switch him over to a combination of oral hypoglycemic therapy and only basal insulin at bedtime if indicated. We will continue also the dual oral hypoglycemic therapy given as metformin at 500 mg b.i.d. and Januvia at 100 mg once daily. We will obtain serial chemistries and supplement accordingly as needed. We will follow. Radha Stockton MD
[2018-10-26] MEDS ORDERED: Insulin Detemir 100 Units/ml Inj SC SCH (22:00)
[2018-10-27] MEDS: Alum-Mag Hydrox-Simethicone Susp (30 mL) PO PRN (01:15)
[2018-10-27] MEDS: Insulin Lispro (humaLOG) 100 Units/ml Inj SC SCH ×6 (07:54→21:49)
[2018-10-27] MEDS: Magnesium Chloride 64 mg ER Tab PO SCH ×2 (08:26→21:50)
[2018-10-27] MEDS: URSODIOL 500 MG PO SCH ×2 (08:27→17:26)
--- NOTE | 2018-10-27 11:20 | CP.PCM.PN ---
Subjective - Date & Time of Evaluation Date of Evaluation: 10/27/18 Time of Evaluation: 10:00 - Subjective Subjective: No fever denies CP no SOB no abd pain slight left hip surgical pain Objective - Vital Signs/Intake and Output Vital Signs (last 24 hours): Temp Pulse Resp BP Pulse Ox 98.0 F 78 20 101/61 97 10/27/18 08:25 10/27/18 08:25 10/27/18 08:25 10/27/18 08:27 10/27/18 08:25 - Medications Medications: Current Medications Acetaminophen (Tylenol 325mg Tab) 975 mg PO Q8 PRN PRN Reason: Pain, moderate (4-7) Last Admin: 10/27/18 10:02 Dose: 975 mg Al Hydrox/Mg Hydrox/Simethicone (Maalox Plus 30 Ml) 30 ml PO Q6 PRN PRN Reason: Indigestion / Heartburn Last Admin: 10/27/18 01:15 Dose: 30 ml Amlodipine Besylate (Norvasc) 10 mg PO DAILY [facility] Last Admin: 10/27/18 08:26 Dose: 10 mg Apixaban (Eliquis) 5 mg PO Q12 [facility]; Protocol Last Admin: 10/23/18 08:57 Dose: 5 mg Artificial Tears (Refresh Opth Soln) 0.3 ml OU Q6 PRN PRN Reason: Dry eyes Aspirin (Ecotrin) 81 mg PO BID [facility] Last Admin: 10/27/18 08:26 Dose: 81 mg Cholecalciferol (Vitamin D) 2,000 intlu PO DAILY@1200 [facility] Last Admin: 10/26/18 14:32 Dose: 2,000 intlu Docusate Sodium (Colace) 100 mg PO BID [facility] Last Admin: 10/27/18 08:26 Dose: 100 mg Famotidine (Pepcid) 20 mg PO BID [facility] Last Admin: 10/27/18 08:27 Dose: 20 mg Furosemide (Lasix) 40 mg PO DAILY [facility] Last Admin: 10/27/18 08:27 Dose: 40 mg Home Med (Patient's Own Medication) 1 unit PO BID [facility] Last Admin: 10/27/18 08:27 Dose: 1 unit Insulin Detemir (Levemir) 24 units SC [facility] Last Admin: 10/26/18 21:38 Dose: 24 u Insulin Human Lispro (Humalog) 0 units SC ACHS [facility]; Protocol Last Admin: 10/27/18 07:54 Dose: Not Given Insulin Human Lispro (Humalog) 6 units SC AC [facility] Last Admin: 10/27/18 08:27 Dose: 6 unit Levofloxacin (Levaquin) 750 mg PO DAILY [facility]; Protocol Last Admin: 10/27/18 08:26 Dose: 750 mg Magnesium Chloride (Slow-Mag) 64 mg PO Q12 [facility] Last Admin: 10/27/18 08:26 Dose: 64 mg Metformin HCl (Glucophage) 500 mg PO BIDWM [facility] Last Admin: 10/27/18 08:26 Dose: 500 mg Metoprolol Tartrate (Lopressor) 25 mg PO Q12 [facility] Last Admin: 10/27/18 08:26 Dose: 25 mg Multivitamins/Minerals (Therapeutic-M Tab) 1 tab PO DAILY@1200 [facility] Last Admin: 10/26/18 14:32 Dose: 1 tab Oxycodone HCl (Oxycodone Immediate Release Tab) 5 mg PO Q6 PRN PRN Reason: Pain, severe (8-10) Last Admin: 10/25/18 10:17 Dose: 5 mg Prednisone (Prednisone Tab) 5 mg PO DAILY [facility] Last Admin: 10/27/18 08:26 Dose: 5 mg Sitagliptin Phosphate (Januvia) 100 mg PO DAILY [facility] Last Admin: 10/27/18 08:26 Dose: 100 mg Spironolactone (Aldactone) 50 mg PO DAILY [facility] Last Admin: 10/27/18 08:27 Dose: 50 mg Tacrolimus (Prograf Cap) 0.5 mg PO Q12 [facility] Last Admin: 10/27/18 08:25 Dose: 0.5 mg - Labs Labs: 10/24/18 06:00 10/24/18 06:00 - Constitutional Appears: No Acute Distress - Head Exam Head Exam: NORMAL INSPECTION, NORMOCEPHALIC - Eye Exam Eye Exam: EOMI, Normal appearance Pupil Exam: NORMAL ACCOMODATION - ENT Exam ENT Exam: Mucous Membranes Moist, Normal External Ear Exam - Neck Exam Neck Exam: Full ROM. absent: Meningismus - Respiratory Exam Respiratory Exam: NORMAL BREATHING PATTERN. absent: Respiratory Distress - Cardiovascular Exam Cardiovascular Exam: REGULAR RHYTHM, +S1, +S2 - GI/Abdominal Exam GI & Abdominal Exam: Soft, Normal Bowel Sounds. absent: Tenderness - Extremities Exam Extremities Exam: Normal Capillary Refill. absent: Calf Tenderness Additional comments: Left hip with dressing - Back Exam Back Exam: Full ROM. absent: CVA tenderness (L), CVA tenderness (R) - Neurological Exam Neurological Exam: Alert, Awake, CN II-XII Intact, Oriented x3 Neuro motor strength exam: Left Upper Extremity: 5, Right Upper Extremity: 5, Left Lower Extremity: 5, Right Lower Extremity: 5 - Psychiatric Exam Psychiatric exam: Normal Affect, Normal Mood - Skin Skin Exam: Dry, Normal Color, Warm Assessment and Plan - Assessment and Plan (Free Text) Assessment: 68 yo male with history of HTN, Liver Transplant missed a step in his house and landed on his left hip. Xray showed subcapital fracture of the left femoral neck. On 10/19/18 left THR was done by Dr Pickett. 1. Left Hip Fracture s/p Left THR Pain management continue PT/OT 2. 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 HTN BP controlled Continue Amlodipine and Metoprolol 4. DM2 HgA1c - 11.3 BS uncontrolled probably steroid related Levemir 24 units q hs and Lispro [address] Stockton consulted 5. DVT prophylaxis cont ASA
[2018-10-27] MEDS: Cholecalciferol 1,000 INTLU TAB PO SCH (11:52)
[2018-10-27] MEDS: Multivitamin With Minerals Tab PO SCH (11:52)
--- NOTE | 2018-10-27 13:59 | CP.PCM.PN ---
Subjective - Date & Time of Evaluation Date of Evaluation: 10/27/18 Time of Evaluation: 11:00 - Subjective Subjective: Patient seen and examined OOB to chair. Pain continues to improve. Tolerating PT well. No new complaints. Denies CP/SOB/fever. Objective - Vital Signs/Intake and Output Vital Signs (last 24 hours): Temp Pulse Resp BP Pulse Ox 98.0 F 78 20 101/61 97 10/27/18 08:25 10/27/18 08:25 10/27/18 08:25 10/27/18 08:27 10/27/18 08:25 - Medications Medications: Current Medications Acetaminophen (Tylenol 325mg Tab) 975 mg PO Q8 PRN PRN Reason: Pain, moderate (4-7) Last Admin: 10/27/18 10:02 Dose: 975 mg Al Hydrox/Mg Hydrox/Simethicone (Maalox Plus 30 Ml) 30 ml PO Q6 PRN PRN Reason: Indigestion / Heartburn Last Admin: 10/27/18 01:15 Dose: 30 ml Amlodipine Besylate (Norvasc) 10 mg PO DAILY [facility] Last Admin: 10/27/18 08:26 Dose: 10 mg Apixaban (Eliquis) 5 mg PO Q12 [facility]; Protocol Last Admin: 10/23/18 08:57 Dose: 5 mg Artificial Tears (Refresh Opth Soln) 0.3 ml OU Q6 PRN PRN Reason: Dry eyes Aspirin (Ecotrin) 81 mg PO BID [facility] Last Admin: 10/27/18 08:26 Dose: 81 mg Cholecalciferol (Vitamin D) 2,000 intlu PO DAILY@1200 [facility] Last Admin: 10/27/18 11:52 Dose: 2,000 intlu Docusate Sodium (Colace) 100 mg PO BID [facility] Last Admin: 10/27/18 08:26 Dose: 100 mg Famotidine (Pepcid) 20 mg PO BID [facility] Last Admin: 10/27/18 08:27 Dose: 20 mg Furosemide (Lasix) 40 mg PO DAILY [facility] Last Admin: 10/27/18 08:27 Dose: 40 mg Home Med (Patient's Own Medication) 1 unit PO BID [facility] Last Admin: 10/27/18 08:27 Dose: 1 unit Insulin Detemir (Levemir) 24 units SC [facility] Last Admin: 10/26/18 21:38 Dose: 24 u Insulin Human Lispro (Humalog) 0 units SC ACHS [facility]; Protocol Last Admin: 10/27/18 11:39 Dose: Not Given Insulin Human Lispro (Humalog) 6 units SC AC [facility] Last Admin: 10/27/18 11:52 Dose: 6 unit Levofloxacin (Levaquin) 750 mg PO DAILY [facility]; Protocol Last Admin: 10/27/18 08:26 Dose: 750 mg Magnesium Chloride (Slow-Mag) 64 mg PO Q12 [facility] Last Admin: 10/27/18 08:26 Dose: 64 mg Metformin HCl (Glucophage) 500 mg PO BIDWM [facility] Last Admin: 10/27/18 08:26 Dose: 500 mg Metoprolol Tartrate (Lopressor) 25 mg PO Q12 [facility] Last Admin: 10/27/18 08:26 Dose: 25 mg Multivitamins/Minerals (Therapeutic-M Tab) 1 tab PO DAILY@1200 [facility] Last Admin: 10/27/18 11:52 Dose: 1 tab Oxycodone HCl (Oxycodone Immediate Release Tab) 5 mg PO Q6 PRN PRN Reason: Pain, severe (8-10) Last Admin: 10/25/18 10:17 Dose: 5 mg Prednisone (Prednisone Tab) 5 mg PO DAILY [facility] Last Admin: 10/27/18 08:26 Dose: 5 mg Sitagliptin Phosphate (Januvia) 100 mg PO DAILY [facility] Last Admin: 10/27/18 08:26 Dose: 100 mg Spironolactone (Aldactone) 50 mg PO DAILY [facility] Last Admin: 10/27/18 08:27 Dose: 50 mg Tacrolimus (Prograf Cap) 0.5 mg PO Q12 [facility] Last Admin: 10/27/18 08:25 Dose: 0.5 mg - Labs Labs: 10/24/18 06:00 10/24/18 06:00 - Extremities Exam Additional comments: L hip: moderate swelling Betadine Dressings intact with no serous drainage Incision and portal sites intact with dina and nylon sutures, no active drainage sensation intact SP/DP/TN motor intact EHL/FHL/TA?G pedal pulses intact comp soft NT b/l Assessment and Plan (1) Status post total hip replacement, left Assessment & Plan: -Dry dressings applied -DVT ppx with ASA, Continue to hold Eliquis as per Dr. Pickett -PT/OT WBAT -orthopedically stable -above d/w Dr. Pickett in agreement Status: Acute
--- NOTE | 2018-10-27 21:07 | CP.PCM.PN ---
Subjective - Date & Time of Evaluation Date of Evaluation: 10/25/18 Time of Evaluation: 10:00 - Subjective Subjective: patient with mild left leg discomfort Objective - Vital Signs/Intake and Output Vital Signs (last 24 hours): Temp Pulse Resp BP Pulse Ox 97.5 F L 81 20 143/77 99 10/27/18 17:26 10/27/18 17:26 10/27/18 17:26 10/27/18 17:26 10/27/18 17:26 - Medications Medications: Current Medications Acetaminophen (Tylenol 325mg Tab) 975 mg PO Q8 PRN PRN Reason: Pain, moderate (4-7) Last Admin: 10/27/18 10:02 Dose: 975 mg Al Hydrox/Mg Hydrox/Simethicone (Maalox Plus 30 Ml) 30 ml PO Q6 PRN PRN Reason: Indigestion / Heartburn Last Admin: 10/27/18 01:15 Dose: 30 ml Amlodipine Besylate (Norvasc) 10 mg PO DAILY [facility] Last Admin: 10/27/18 08:26 Dose: 10 mg Apixaban (Eliquis) 5 mg PO Q12 [facility]; Protocol Last Admin: 10/23/18 08:57 Dose: 5 mg Artificial Tears (Refresh Opth Soln) 0.3 ml OU Q6 PRN PRN Reason: Dry eyes Aspirin (Ecotrin) 81 mg PO BID [facility] Last Admin: 10/27/18 17:26 Dose: 81 mg Cholecalciferol (Vitamin D) 2,000 intlu PO DAILY@1200 [facility] Last Admin: 10/27/18 11:52 Dose: 2,000 intlu Docusate Sodium (Colace) 100 mg PO BID [facility] Last Admin: 10/27/18 17:25 Dose: 100 mg Famotidine (Pepcid) 20 mg PO BID [facility] Last Admin: 10/27/18 17:26 Dose: 20 mg Furosemide (Lasix) 40 mg PO DAILY [facility] Last Admin: 10/27/18 08:27 Dose: 40 [facility] Last Admin: 10/27/18 17:26 Dose: 10 mg Home Med (Patient's Own Medication) 1 unit PO BID [facility] Last Admin: 10/27/18 17:26 Dose: 1 unit Insulin Detemir (Levemir) [address] [facility] Insulin Human Lispro (Humalog) 0 units SC [facility]; Protocol Last Admin: 10/27/18 16:51 Dose: Not Given Levofloxacin (Levaquin) 750 mg PO DAILY [facility]; Protocol Last Admin: 10/27/18 08:26 Dose: 750 mg Magnesium Chloride (Slow-Mag) 64 mg PO Q12 [facility] Last Admin: 10/27/18 08:26 Dose: 64 mg Metformin HCl (Glucophage) 850 mg PO BIDWM [facility] Last Admin: 10/27/18 17:26 Dose: 850 mg Metoprolol Tartrate (Lopressor) 25 mg PO Q12 [facility] Last Admin: 10/27/18 08:26 Dose: 25 mg Multivitamins/Minerals (Therapeutic-M Tab) 1 tab PO DAILY@1200 [facility] Last Admin: 10/27/18 11:52 Dose: 1 tab Oxycodone HCl (Oxycodone Immediate Release Tab) 5 mg PO Q6 PRN PRN Reason: Pain, severe (8-10) Last Admin: 10/25/18 10:17 Dose: 5 mg Prednisone (Prednisone Tab) 5 mg PO DAILY [facility] Last Admin: 10/27/18 08:26 Dose: 5 mg Sitagliptin Phosphate (Januvia) 100 mg PO DAILY [facility] Last Admin: 10/27/18 08:26 Dose: 100 mg Spironolactone (Aldactone) 50 mg PO DAILY [facility] Last Admin: 10/27/18 08:27 Dose: 50 mg Tacrolimus (Prograf Cap) 0.5 mg PO Q12 [facility] Last Admin: 10/27/18 08:25 Dose: 0.5 mg - Labs Labs: 10/24/18 06:00 10/24/18 06:00 - Constitutional Appears: Well - Head Exam Head Exam: ATRAUMATIC, NORMAL INSPECTION, NORMOCEPHALIC - Eye Exam Eye Exam: EOMI, Normal appearance Pupil Exam: NORMAL ACCOMODATION, PERRL - ENT Exam ENT Exam: Mucous Membranes Moist, Normal Exam - Neck Exam Neck Exam: Normal Inspection - Respiratory Exam Respiratory Exam: Clear to Ausculation Bilateral, NORMAL BREATHING PATTERN - Cardiovascular Exam Cardiovascular Exam: REGULAR RHYTHM - GI/Abdominal Exam GI & Abdominal Exam: Normal Bowel Sounds - Rectal Exam Rectal Exam: NORMAL INSPECTION - Exam External exam: NORMAL EXTERNAL EXAM - Extremities Exam Extremities Exam: Full ROM, Normal Capillary Refill - Back Exam Back Exam: NORMAL INSPECTION - Neurological Exam Neurological Exam: Alert, Awake Neuro motor strength exam: Left Upper Extremity: 4, Right Upper Extremity: 4, Left Lower Extremity: 3, Right Lower Extremity: 4 - Psychiatric Exam Psychiatric exam: Normal Affect - Skin Skin Exam: Dry, Normal Color Assessment and Plan (1) Femur fracture, left Status: Acute (2) BPH (benign prostatic hyperplasia) Status: Chronic (3) HTN (hypertension) Status: Chronic (4) Status post liver transplant Status: Chronic (5) Status post total hip replacement, left Assessment & Plan: Plan for physical, occupational therapy for range of motion, strengthening, transfers and gait training. Status: Acute (6) Anemia Status: Acute (7) Broken humerus Status: Acute (8) Cellulitis Status: Acute
--- NOTE | 2018-10-27 21:10 | CP.PCM.PN ---
Subjective - Date & Time of Evaluation Date of Evaluation: 10/26/18 Time of Evaluation: 15:00 - Subjective Subjective: patient is feeling fine, sitting in wheelchair with family in room, no acute complaints only mild discomfort Objective - Vital Signs/Intake and Output Vital Signs (last 24 hours): Temp Pulse Resp BP Pulse Ox 97.5 F L 81 20 143/77 99 10/27/18 17:26 10/27/18 17:26 10/27/18 17:26 10/27/18 17:26 10/27/18 17:26 - Medications Medications: Current Medications Acetaminophen (Tylenol 325mg Tab) 975 mg PO Q8 PRN PRN Reason: Pain, moderate (4-7) Last Admin: 10/27/18 10:02 Dose: 975 mg Al Hydrox/Mg Hydrox/Simethicone (Maalox Plus 30 Ml) 30 ml PO Q6 PRN PRN Reason: Indigestion / Heartburn Last Admin: 10/27/18 01:15 Dose: 30 ml Amlodipine Besylate (Norvasc) 10 mg PO DAILY [facility] Last Admin: 10/27/18 08:26 Dose: 10 mg Apixaban (Eliquis) 5 mg PO Q12 [facility]; Protocol Last Admin: 10/23/18 08:57 Dose: 5 mg Artificial Tears (Refresh Opth Soln) 0.3 ml OU Q6 PRN PRN Reason: Dry eyes Aspirin (Ecotrin) 81 mg PO BID [facility] Last Admin: 10/27/18 17:26 Dose: 81 mg Cholecalciferol (Vitamin D) 2,000 intlu PO DAILY@1200 [facility] Last Admin: 10/27/18 11:52 Dose: 2,000 intlu Docusate Sodium (Colace) 100 mg PO BID [facility] Last Admin: 10/27/18 17:25 Dose: 100 mg Famotidine (Pepcid) 20 mg PO BID [facility] Last Admin: 10/27/18 17:26 Dose: 20 mg Furosemide (Lasix) 40 mg PO DAILY [facility] Last Admin: 10/27/18 08:27 Dose: 40 [facility] Last Admin: 10/27/18 17:26 Dose: 10 mg Home Med (Patient's Own Medication) 1 unit PO BID [facility] Last Admin: 10/27/18 17:26 Dose: 1 unit Insulin Detemir (Levemir) 20 units SC [facility] Insulin Human Lispro (Humalog) 0 units SC [facility]; Protocol Last Admin: 10/27/18 16:51 Dose: Not Given Levofloxacin (Levaquin) 750 mg PO DAILY [facility]; Protocol Last Admin: 10/27/18 08:26 Dose: 750 mg Magnesium Chloride (Slow-Mag) 64 mg PO Q12 [facility] Last Admin: 10/27/18 08:26 Dose: 64 mg Metformin HCl (Glucophage) 850 mg PO BIDWM [facility] Last Admin: 10/27/18 17:26 Dose: 850 mg Metoprolol Tartrate (Lopressor) 25 mg PO Q12 [facility] Last Admin: 10/27/18 08:26 Dose: 25 mg Multivitamins/Minerals (Therapeutic-M Tab) 1 tab PO DAILY@1200 [facility] Last Admin: 10/27/18 11:52 Dose: 1 tab Oxycodone HCl (Oxycodone Immediate Release Tab) 5 mg PO Q6 PRN PRN Reason: Pain, severe (8-10) Last Admin: 10/25/18 10:17 Dose: 5 mg Prednisone (Prednisone Tab) 5 mg PO DAILY [facility] Last Admin: 10/27/18 08:26 Dose: 5 mg Sitagliptin Phosphate (Januvia) 100 mg PO DAILY [facility] Last Admin: 10/27/18 08:26 Dose: 100 mg Spironolactone (Aldactone) 50 mg PO DAILY [facility] Last Admin: 10/27/18 08:27 Dose: 50 mg Tacrolimus (Prograf Cap) 0.5 mg PO Q12 [facility] Last Admin: 10/27/18 08:25 Dose: 0.5 mg - Labs Labs: 10/24/18 06:00 10/24/18 06:00 - Constitutional Appears: Well - Head Exam Head Exam: ATRAUMATIC, NORMAL INSPECTION, NORMOCEPHALIC - Eye Exam Eye Exam: EOMI, Normal appearance Pupil Exam: NORMAL ACCOMODATION, PERRL - ENT Exam ENT Exam: Mucous Membranes Moist, Normal Exam - Neck Exam Neck Exam: Full ROM, Normal Inspection - Respiratory Exam Respiratory Exam: Clear to Ausculation Bilateral, NORMAL BREATHING PATTERN - Cardiovascular Exam Cardiovascular Exam: REGULAR RHYTHM - GI/Abdominal Exam GI & Abdominal Exam: Soft, Normal Bowel Sounds - Rectal Exam Rectal Exam: NORMAL INSPECTION - Exam External exam: NORMAL EXTERNAL EXAM - Extremities Exam Extremities Exam: Full ROM, Normal Capillary Refill, Normal Inspection - Back Exam Back Exam: NORMAL INSPECTION - Neurological Exam Neurological Exam: Alert, Awake Neuro motor strength exam: Left Lower Extremity: 3 - Psychiatric Exam Psychiatric exam: Normal Affect - Skin Skin Exam: Dry, Normal Color Assessment and Plan (1) Femur fracture, left Status: Acute (2) BPH (benign prostatic hyperplasia) Status: Chronic (3) HTN (hypertension) Status: Chronic (4) Status post liver transplant Status: Chronic (5) Status post total hip replacement, left Assessment & Plan: monitor pain or any swelling, discussed goals and Dc planning, status post physical, occupational therapy Status: Acute (6) Anemia Status: Acute (7) Broken humerus Status: Acute (8) Cellulitis Status: Acute
[2018-10-27] MEDS ORDERED: Insulin Detemir 100 Units/ml Inj SC SCH (22:00)
--- NOTE | 2018-10-28 00:46 | PN ---
DATE: 10/27/2018 LOCATION: Room 714. SUBJECTIVE: This is a 68-year-old male with recent uncontrolled type 2 insulin-requiring diabetes, now being followed closely for metabolic management. His glycemic levels are remarkably improved with the initiation of basal and bolus insulin drug regimen as given. His glycemic levels overnight have ranged from 106 to 128 and 145 mg/dL. LABORATORY DATA: His bedtime glucose was 119 mg/dL. His chemistry showed a BUN of 17, sodium 129, potassium 4.3, chloride 95, CO2 of 27, glucose 115 and creatinine 0.8. ASSESSMENT: This is a 68-year-old male with uncontrolled and decompensated type 2 insulin-requiring diabetes, presenting here with marked hyperglycemic accelerations with a remarkable metabolic response to initiation of insulin therapy and yazidi of his endogenous pancreatic reserve thereof. He also had a recent left hip femoral fracture and underwent a left hip replacement as noted. PLAN OF MANAGEMENT: Because of the remarkable response of his preprandial or mealtime glucose levels, we will discontinue his Humalog given as 6 units t.i.d. before meals as ordered. We will add oral hypoglycemic therapy given in combination to optimize metabolic control. We will add glipizide given as 10 mg b.i.d. before meals with Januvia at 100 mg once daily as ordered. We will also increase the metformin to 850 mg b.i.d. after meals to start today as ordered. We will lower the basal insulin with Levemir given as 20 units subcu at bedtime daily to start tonight. We will continue the low-dose correction scale using Humalog insulin to obviate hypoglycemia and detailed orders have been given. We will follow and advise accordingly. Radha Stockton MD
[2018-10-28 05:40] LABS: BASO % 0.5 % (0.0-2.0); EOS # 0.1 K/uL (0.0-0.7); EOS % 2.9 % (0.0-4.0); HEMOGLOBIN 8.3 g/dL (12.0-18.0); LYMPH # 0.5 K/uL (1.0-4.3); LYMPH % 16.1 % (20.0-40.0); MEAN CELL VOLUME 95.5 fl (80.0-94.0); MEAN CORPUSCULAR HEMOGLOBIN 32.7 pg (27.0-31.0); MEAN CORPUSCULAR HGB CONC 34.2 g/dL (33.0-37.0); MEAN PLATELET VOLUME 8.5 fl (7.2-11.7); MONO # 0.5 K/uL (0.0-0.8); MONO % 14.6 % (0.0-10.0); NEUT # 2.2 K/uL (1.8-7.0); NEUT % 65.9 % (50.0-75.0); NRBC % 0.1 % (0.0-0.0); RBC 2.55 Mil/uL (4.40-5.90); RED CELL DISTRIBUTION WIDTH 13.3 % (11.5-14.5); WHITE BLOOD COUNT 3.3 K/uL (4.8-10.8)
[2018-10-28 06:13] LABS: ALB/GLOB RATIO 0.8 (1.0-2.1); ALBUMIN 2.5 g/dL (3.5-5.0); ALT/SGPT 36 U/L (21-72); AST/SGOT 40 U/L (17-59); BLOOD UREA NITROGEN 19 mg/dl (9-20); CALCIUM 8.1 mg/dL (8.4-10.2); GFR NON-AFRICAN AMERICAN > 60; HDL CHOLESTEROL 26 MG/DL (30-70)
[2018-10-28 06:19] LABS: LDL CHOLESTEROL 54 mg/dL (0-129)
[2018-10-28] MEDS: Insulin Lispro (humaLOG) 100 Units/ml Inj SC SCH ×4 (08:08→21:04)
[2018-10-28] MEDS: Magnesium Chloride 64 mg ER Tab PO SCH ×2 (09:08→21:09)
[2018-10-28] MEDS: URSODIOL 500 MG PO SCH ×2 (09:10→16:36)
[2018-10-28] MEDS: Multivitamin With Minerals Tab PO SCH (12:23)
[2018-10-28] MEDS: Cholecalciferol 1,000 INTLU TAB PO SCH (12:23)
--- NOTE | 2018-10-28 13:19 | CP.PCM.PN ---
Subjective - Date & Time of Evaluation Date of Evaluation: 10/28/18 Time of Evaluation: 13:18 - Subjective Subjective: Patient offers no new complaints. Denies CP/SOB/dizziness. Objective - Vital Signs/Intake and Output Vital Signs (last 24 hours): Temp Pulse Resp BP Pulse Ox 97.5 F L 78 20 123/72 97 10/28/18 08:16 10/28/18 09:13 10/28/18 08:16 10/28/18 09:13 10/28/18 08:16 - Medications Medications: Current Medications Acetaminophen (Tylenol 325mg Tab) 975 mg PO Q8 PRN PRN Reason: Pain, moderate (4-7) Last Admin: 10/28/18 02:13 Dose: 975 mg Al Hydrox/Mg Hydrox/Simethicone (Maalox Plus 30 Ml) 30 ml PO Q6 PRN PRN Reason: Indigestion / Heartburn Last Admin: 10/27/18 01:15 Dose: 30 ml Amlodipine Besylate (Norvasc) 10 mg PO DAILY [facility] Last Admin: 10/28/18 09:13 Dose: 10 mg Apixaban (Eliquis) 5 mg PO Q12 [facility]; Protocol Last Admin: 10/23/18 08:57 Dose: 5 mg Artificial Tears (Refresh Opth Soln) 0.3 ml OU Q6 PRN PRN Reason: Dry eyes Aspirin (Ecotrin) 81 mg PO BID [facility] Last Admin: 10/28/18 09:10 Dose: 81 mg Cholecalciferol (Vitamin D) 2,000 intlu PO DAILY@1200 [facility] Last Admin: 10/28/18 12:23 Dose: 2,000 intlu Docusate Sodium (Colace) 100 mg PO BID [facility] Last Admin: 10/28/18 09:08 Dose: 100 mg Famotidine (Pepcid) 20 mg PO BID [facility] Last Admin: 10/28/18 09:08 Dose: 20 mg Furosemide (Lasix) 40 mg PO DAILY [facility] Last Admin: 10/28/18 09:12 Dose: 40 mg Glipizide (Glucotrol) 10 mg PO BIDAC [facility] Last Admin: 10/28/18 07:30 Dose: 10 mg Home Med (Patient's Own Medication) 1 unit PO BID [facility] Last Admin: 10/28/18 09:10 Dose: 1 unit Insulin Detemir (Levemir) 20 units SC [facility] Last Admin: 10/27/18 21:51 Dose: 20 units Insulin Human Lispro (Humalog) 0 units SC [facility]; Protocol Last Admin: 10/28/18 12:24 Dose: Not Given Levofloxacin (Levaquin) 750 mg PO DAILY [facility]; Protocol Last Admin: 10/28/18 09:11 Dose: 750 mg Magnesium Chloride (Slow-Mag) 64 mg PO Q12 [facility] Last Admin: 10/28/18 09:08 Dose: 64 mg Metformin HCl (Glucophage) 850 mg PO BIDWM [facility] Last Admin: 10/28/18 09:12 Dose: 850 mg Metoprolol Tartrate (Lopressor) 25 mg PO Q12 [facility] Last Admin: 10/28/18 09:09 Dose: 25 mg Multivitamins/Minerals (Therapeutic-M Tab) 1 tab PO DAILY@1200 [facility] Last Admin: 10/28/18 12:23 Dose: 1 tab Oxycodone HCl (Oxycodone Immediate Release Tab) 5 mg PO Q6 PRN PRN Reason: Pain, severe (8-10) Last Admin: 10/25/18 10:17 Dose: 5 mg Prednisone (Prednisone Tab) 5 mg PO DAILY [facility] Last Admin: 10/28/18 09:13 Dose: 5 mg Sitagliptin Phosphate (Januvia) 100 mg PO DAILY [facility] Last Admin: 10/28/18 09:12 Dose: 100 mg Spironolactone (Aldactone) 50 mg PO DAILY [facility] Last Admin: 10/28/18 09:10 Dose: 50 mg Tacrolimus (Prograf Cap) 0.5 mg PO Q12 [facility] Last Admin: 10/28/18 09:12 Dose: 0.5 mg - Labs Labs: 10/28/18 04:30 10/28/18 04:30 - Extremities Exam Additional comments: Right hip: scant amount of serous drainage on dressing. Swelling around incision improving, mild ecchymosis, calves soft NT neg homans +DP/PT pulses, no increased peripheral swelling, sensation intact Assessment and Plan (1) Left displaced femoral neck fracture Assessment & Plan: s/p Left THR eliquis held as per Dr. pickett, on BID aspirin at this time PT/OT encourage OOB ortho stable d/w Dr. Pickett, agrees with above Status: Acute (2) Acute blood loss anemia Assessment & Plan: stable Status: Acute
--- NOTE | 2018-10-28 18:52 | PN ---
DATE: 10/28/2018 ENDOCRINOLOGY FOLLOWUP NOTE LOCATION: Room #714. SUBJECTIVE: This is a 68-year-old male with recent uncontrolled type 2 insulin-requiring diabetes, now being followed closely for metabolic management. His glycemic levels are extremely improved at this time, especially with overnight low normal glycemic profile as noted and glucose levels have ranged from 82 to 97 and 156 mg/dL. His chemistries show a BUN of 19, sodium 135, potassium 3.8, chloride 100, CO2 26, glucose 71, and creatinine 0.9. He is undergoing physical and occupational therapy for recent left hip replacement following a femoral hip fracture as noted. His latest chemistries show a BUN of 19, sodium 135, potassium 3.8, chloride 100, CO2 26, glucose 71 and creatinine 0.9. So at this time because of the remarkable response to insulin therapy with recovery of his endogenous pancreatic reserve, we will lower once again his basal insulin with Levemir down to 12 units subcutaneous at bedtime daily to start tonight. We will continue the low-dose correction scale using Humalog insulin as given. We will also continue the triple oral hypoglycemic drug therapy given as glipizide at 10 mg b.i.d. with metformin at 850 b.i.d. with meals and Januvia at 100 mg once daily as given. We will obtain serial chemistries and supplement accordingly as needed. We will follow. Radha Stockton MD
[2018-10-28] MEDS ORDERED: Insulin Detemir 100 Units/ml Inj SC SCH (22:00)
[2018-10-29] MEDS: Insulin Lispro (humaLOG) 100 Units/ml Inj SC SCH ×4 (07:47→23:22)
[2018-10-29] MEDS: URSODIOL 500 MG PO SCH ×2 (08:44→16:37)
[2018-10-29] MEDS: Magnesium Chloride 64 mg ER Tab PO SCH ×2 (08:46→22:40)
[2018-10-29 09:28] LABS: HEMOGLOBIN 8.5 g/dL (12.0-18.0); MEAN CELL VOLUME 96.1 fl (80.0-94.0); MEAN CORPUSCULAR HEMOGLOBIN 32.6 pg (27.0-31.0); MEAN CORPUSCULAR HGB CONC 33.9 g/dL (33.0-37.0); RBC 2.59 Mil/uL (4.40-5.90); RED CELL DISTRIBUTION WIDTH 13.4 % (11.5-14.5); WHITE BLOOD COUNT 2.7 K/uL (4.8-10.8)
[2018-10-29] MEDS: Cholecalciferol 1,000 INTLU TAB PO SCH (12:07)
[2018-10-29] MEDS: Multivitamin With Minerals Tab PO SCH (12:09)
[2018-10-30] MEDS: Insulin Lispro (humaLOG) 100 Units/ml Inj SC SCH ×4 (06:50→21:27)
[2018-10-30] MEDS: Magnesium Chloride 64 mg ER Tab PO SCH ×2 (08:11→21:21)
[2018-10-30] MEDS: URSODIOL 500 MG PO SCH ×2 (08:12→16:18)
[2018-10-30] MEDS: Cholecalciferol 1,000 INTLU TAB PO SCH (12:43)
[2018-10-30] MEDS: Multivitamin With Minerals Tab PO SCH (12:43)
--- NOTE | 2018-10-30 19:04 | PN ---
DATE: 10/30/2018 LOCATION: Room 714. SUBJECTIVE: This is a 68-year-old male with recent uncontrolled type 2 insulin-requiring diabetes of recent evaluation and diagnosis from the long-term oral steroid therapy as given and presented here with marked hyperglycemic accelerations that have improved remarkably with the initiation of insulin therapy as given. His glycemic levels overnight have been low normal as somehow the hospitalist restarted his insulin dose regimen given at bedtime, which was already discontinued as noted. LABORATORY DATA: His glucose levels ranged from 62 to 68 and 86 mg/dL today as noted. The latest glucose at lunchtime was 152 mg/dL. His latest chemistry showed a BUN of 19, sodium 135, potassium 3.8, chloride 100, CO2 of 26, glucose 71 and creatinine 0.9. PLAN OF MANAGEMENT: So at this time, we will discontinue once again the basal insulin with Levemir given as 12 units subcu at bedtime daily as ordered. We will continue, however, the oral hypoglycemic therapy as given with a triple oral drug combination to optimize metabolic control. We will continue the metformin given as 850 mg b.i.d. with glipizide given as 10 mg b.i.d. before meals as ordered. We will also continue the Januvia given as 100 mg once daily as ordered. We will obtain serial chemistries and supplement accordingly as needed. We will follow. Radha Stockton MD
[2018-10-30] MEDS: Hydrocortisone 2.5% (Rectal) CREAM PR SCH (21:21)
[2018-10-30] MEDS ORDERED: Insulin Detemir 100 Units/ml Inj SC SCH ×2 (22:00)
[2018-10-31] MEDS: Alum-Mag Hydrox-Simethicone Susp (30 mL) PO PRN (02:17)
[2018-10-31 06:25] LABS: ALB/GLOB RATIO 0.8 (1.0-2.1); ALBUMIN 2.7 g/dL (3.5-5.0); ALT/SGPT 36 U/L (21-72); AST/SGOT 32 U/L (17-59); BASO % 0.5 % (0.0-2.0); BLOOD UREA NITROGEN 17 mg/dl (9-20); CALCIUM 8.1 mg/dL (8.4-10.2); EOS # 0.1 K/uL (0.0-0.7); EOS % 2.5 % (0.0-4.0); GFR NON-AFRICAN AMERICAN > 60; HEMOGLOBIN 9.2 g/dL (12.0-18.0); LYMPH # 0.7 K/uL (1.0-4.3); LYMPH % 13.9 % (20.0-40.0); MEAN CELL VOLUME 95.8 fl (80.0-94.0); MEAN CORPUSCULAR HEMOGLOBIN 32.9 pg (27.0-31.0); MEAN CORPUSCULAR HGB CONC 34.3 g/dL (33.0-37.0); MEAN PLATELET VOLUME 8.3 fl (7.2-11.7); MONO # 0.5 K/uL (0.0-0.8); MONO % 10.1 % (0.0-10.0); NEUT # 3.5 K/uL (1.8-7.0); NRBC % 0.1 % (0.0-0.0); RBC 2.81 Mil/uL (4.40-5.90); RED CELL DISTRIBUTION WIDTH 13.5 % (11.5-14.5); WHITE BLOOD COUNT 4.8 K/uL (4.8-10.8)
[2018-10-31] MEDS: Insulin Lispro (humaLOG) 100 Units/ml Inj SC SCH ×4 (07:44→22:12)
[2018-10-31] MEDS: Hydrocortisone 2.5% (Rectal) CREAM PR SCH ×3 (08:50→22:12)
[2018-10-31] MEDS: levoFLOXacin 750 MG TAB PO SCH (08:51)
[2018-10-31] MEDS: URSODIOL 500 MG PO SCH ×2 (08:52→17:47)
[2018-10-31] MEDS: Magnesium Chloride 64 mg ER Tab PO SCH ×2 (08:53→21:00)
--- NOTE | 2018-10-31 09:18 | PN ---
DATE: 10/29/2018 LOCATION: Room 714. SUBJECTIVE: This is a 68-year-old male with recent left hip femoral fracture and underwent a left hip replacement, currently undergoing physical and occupational therapy as noted thereof. He is being followed closely now for metabolic management because of recent hyperglycemic accelerations with recent evaluation and diagnosis of uncontrolled type 2 insulin-requiring diabetes as noted. His glycemic levels have remarkably improved over the last few days in a patient with low normal glycemic profile, ranging from 75 to 81 and 103 mg/dL. The latest glucose today is 162 mg/dL. LABORATORY DATA: His latest chemistry showed a BUN of 19, sodium 135, potassium 3.8, chloride 100, CO2 of 26, glucose 71 and creatinine 0.9. ASSESSMENT AND PLAN: So, at this time, because of the remarkable metabolic response to insulin therapy given as a basal and bolus insulin drug combination, we will actually discontinue the basal insulin given at a low dose of Levemir at 12 units subcutaneous at bedtime daily as given. We will continue the oral hypoglycemic therapy with Januvia at 100 mg daily and glipizide at 10 mg b.i.d. and metformin at 850 mg b.i.d. as ordered. We will obtain serial chemistries and supplement accordingly as needed. We will also continue the low-dose correction scale using Humalog insulin as ordered. We will follow and advise accordingly. Radha Stockton MD
--- NOTE | 2018-10-31 09:42 | CP.PCM.PN ---
Subjective - Date & Time of Evaluation Date of Evaluation: 10/27/18 Time of Evaluation: 12:00 - Subjective Subjective: no acute complaints at present Objective - Vital Signs/Intake and Output Vital Signs (last 24 hours): Temp Pulse Resp BP Pulse Ox 98.6 F 75 20 118/75 99 10/30/18 19:34 10/31/18 08:52 10/30/18 19:34 10/31/18 08:52 10/30/18 19:34 - Medications Medications: Current Medications Acetaminophen (Tylenol 325mg Tab) 975 mg PO Q8 PRN PRN Reason: Pain, moderate (4-7) Last Admin: 10/29/18 23:41 Dose: 975 mg Al Hydrox/Mg Hydrox/Simethicone (Maalox Plus 30 Ml) 30 ml PO Q6 PRN PRN Reason: Indigestion / Heartburn Last Admin: 10/31/18 02:17 Dose: 30 ml Amlodipine Besylate (Norvasc) 10 mg PO DAILY [facility] Last Admin: 10/31/18 08:52 Dose: 10 mg Apixaban (Eliquis) 5 mg PO Q12 [facility]; Protocol Last Admin: 10/23/18 08:57 Dose: 5 mg Artificial Tears (Refresh Opth Soln) 0.3 ml OU Q6 PRN PRN Reason: Dry eyes Aspirin (Ecotrin) 81 mg PO BID [facility] Last Admin: 10/31/18 08:51 Dose: 81 mg Cholecalciferol (Vitamin D) 2,000 intlu PO DAILY@1200 [facility] Last Admin: 10/30/18 12:43 Dose: 2,000 intlu Docusate Sodium (Colace) 100 mg PO BID [facility] Last Admin: 10/31/18 08:50 Dose: 100 mg Famotidine (Pepcid) 20 mg PO BID [facility] Last Admin: 10/31/18 08:52 Dose: 20 mg Furosemide (Lasix) 40 mg PO DAILY [facility] Last Admin: 10/31/18 08:51 Dose: 40 mg [facility]) [facility] Last Admin: 10/31/18 08:01 Dose: 10 mg Home Med (Patient's Own Medication) 1 unit PO BID [facility] Last Admin: 10/31/18 08:52 Dose: 1 unit Hydrocortisone (Anusol-Hc) 1 applic DC Q12 [facility] Last Admin: 10/31/18 09:05 Dose: Not Given Insulin Human Lispro (Humalog) 0 units SC [facility]; Protocol Last Admin: 10/31/18 07:44 Dose: Not Given Levofloxacin (Levaquin) 750 mg PO DAILY [facility]; Protocol Last Admin: 10/31/18 08:51 Dose: 750 mg Magnesium Chloride (Slow-Mag) 64 mg PO Q12 [facility] Last Admin: 10/31/18 08:53 Dose: 64 mg Metformin HCl (Glucophage) 850 mg PO BIDWM [facility] Last Admin: 10/31/18 08:01 Dose: 850 mg Metoprolol Tartrate (Lopressor) 25 mg PO Q12 [facility] Last Admin: 10/31/18 08:51 Dose: 25 mg Multivitamins/Minerals (Therapeutic-M Tab) 1 tab PO DAILY@1200 [facility] Last Admin: 10/30/18 12:43 Dose: 1 tab Oxycodone HCl (Oxycodone Immediate Release Tab) 5 mg PO Q6 PRN PRN Reason: Pain, severe (8-10) Last Admin: 10/25/18 10:17 Dose: 5 mg Prednisone (Prednisone Tab) 5 mg PO DAILY [facility] Last Admin: 10/31/18 08:52 Dose: 5 mg Sitagliptin Phosphate (Januvia) 100 mg PO DAILY [facility] Last Admin: 10/31/18 08:51 Dose: 100 mg Spironolactone (Aldactone) 50 mg PO DAILY [facility] Last Admin: 10/31/18 08:50 Dose: 50 mg Tacrolimus (Prograf Cap) 0.5 mg PO Q12 [facility] Last Admin: 10/31/18 08:52 Dose: 0.5 mg Tramadol HCl (Ultram) 50 mg PO Q6 PRN PRN Reason: Pain, moderate (4-7) Last Admin: 10/31/18 08:48 Dose: 50 mg - Labs Labs: 10/31/18 05:35 10/31/18 05:35 - Constitutional Appears: Well - Head Exam Head Exam: ATRAUMATIC, NORMAL INSPECTION, NORMOCEPHALIC - Eye Exam Eye Exam: EOMI, Normal appearance Pupil Exam: NORMAL ACCOMODATION - ENT Exam ENT Exam: Mucous Membranes Moist, Normal Exam - Neck Exam Neck Exam: Normal Inspection - Respiratory Exam Respiratory Exam: NORMAL BREATHING PATTERN - Cardiovascular Exam Cardiovascular Exam: REGULAR RHYTHM - GI/Abdominal Exam GI & Abdominal Exam: Normal Bowel Sounds - Rectal Exam Rectal Exam: NORMAL INSPECTION - Exam External exam: NORMAL EXTERNAL EXAM - Extremities Exam Extremities Exam: Full ROM, Normal Capillary Refill, Normal Inspection - Back Exam Back Exam: NORMAL INSPECTION - Neurological Exam Neurological Exam: Alert Neuro motor strength exam: Right Lower Extremity: 3 - Psychiatric Exam Psychiatric exam: Normal Affect, Normal Mood - Skin Skin Exam: Normal Color Assessment and Plan (1) Femur fracture, left Assessment & Plan: continue with rehab program, and Dc planning Status: Acute (2) BPH (benign prostatic hyperplasia) Status: Chronic (3) HTN (hypertension) Status: Chronic (4) Status post liver transplant Status: Chronic (5) Status post total hip replacement, left Status: Acute (6) Anemia Status: Acute (7) Broken humerus Status: Acute (8) Cellulitis Status: Acute
--- NOTE | 2018-10-31 10:25 | CP.PCM.PN ---
Subjective - Date & Time of Evaluation Date of Evaluation: 10/31/18 Time of Evaluation: 08:00 - Subjective Subjective: Patient seen and examined OOB to chair in PT. Pain well controlled. No new complaints. Objective - Vital Signs/Intake and Output Vital Signs (last 24 hours): Temp Pulse Resp BP Pulse Ox 98.6 F 75 20 118/75 99 10/30/18 19:34 10/31/18 08:52 10/30/18 19:34 10/31/18 08:52 10/30/18 19:34 - Medications Medications: Current Medications Acetaminophen (Tylenol 325mg Tab) 975 mg PO Q8 PRN PRN Reason: Pain, moderate (4-7) Last Admin: 10/29/18 23:41 Dose: 975 mg Al Hydrox/Mg Hydrox/Simethicone (Maalox Plus 30 Ml) 30 ml PO Q6 PRN PRN Reason: Indigestion / Heartburn Last Admin: 10/31/18 02:17 Dose: 30 ml Amlodipine Besylate (Norvasc) 10 mg PO DAILY [facility] Last Admin: 10/31/18 08:52 Dose: 10 mg Apixaban (Eliquis) 5 mg PO Q12 [facility]; Protocol Last Admin: 10/23/18 08:57 Dose: 5 mg Artificial Tears (Refresh Opth Soln) 0.3 ml OU Q6 PRN PRN Reason: Dry eyes Aspirin (Ecotrin) 81 mg PO BID [facility] Last Admin: 10/31/18 08:51 Dose: 81 mg Cholecalciferol (Vitamin D) 2,000 intlu PO DAILY@1200 [facility] Last Admin: 10/30/18 12:43 Dose: 2,000 intlu Docusate Sodium (Colace) 100 mg PO BID [facility] Last Admin: 10/31/18 08:50 Dose: 100 mg Famotidine (Pepcid) 20 mg PO BID [facility] Last Admin: 10/31/18 08:52 Dose: 20 mg Furosemide (Lasix) 40 mg PO DAILY [facility] Last Admin: 10/31/18 08:51 Dose: 40 [facility] Last Admin: 10/31/18 08:01 Dose: 10 mg Home Med (Patient's Own Medication) 1 unit PO BID [facility] Last Admin: 10/31/18 08:52 Dose: 1 unit Hydrocortisone (Anusol-Hc) 1 applic [place] Q12 [facility] Last Admin: 10/31/18 09:05 Dose: Not Given Insulin Human Lispro (Humalog) 0 units SC [facility]; Protocol Last Admin: 10/31/18 07:44 Dose: Not Given Levofloxacin (Levaquin) 750 mg PO DAILY [facility]; Protocol Last Admin: 10/31/18 08:51 Dose: 750 mg Magnesium Chloride (Slow-Mag) 64 mg PO Q12 [facility] Last Admin: 10/31/18 08:53 Dose: 64 mg Metformin HCl (Glucophage) 850 mg PO BIDWM [facility] Last Admin: 10/31/18 08:01 Dose: 850 mg Metoprolol Tartrate (Lopressor) 25 mg PO Q12 [facility] Last Admin: 10/31/18 08:51 Dose: 25 mg Multivitamins/Minerals (Therapeutic-M Tab) 1 tab PO DAILY@1200 [facility] Last Admin: 10/30/18 12:43 Dose: 1 tab Prednisone (Prednisone Tab) 5 mg PO DAILY [facility] Last Admin: 10/31/18 08:52 Dose: 5 mg Sitagliptin Phosphate (Januvia) 100 mg PO DAILY [facility] Last Admin: 10/31/18 08:51 Dose: 100 mg Spironolactone (Aldactone) 50 mg PO DAILY [facility] Last Admin: 10/31/18 08:50 Dose: 50 mg Tacrolimus (Prograf Cap) 0.5 mg PO Q12 [facility] Last Admin: 10/31/18 08:52 Dose: 0.5 mg Tramadol HCl (Ultram) 50 mg PO Q6 PRN PRN Reason: Pain, moderate (4-7) Last Admin: 10/31/18 08:48 Dose: 50 mg - Labs Labs: 10/31/18 05:35 10/31/18 05:35 - Extremities Exam Additional comments: L hip: moderate swelling Dressings intact with minimal dry serous drainage Incision and portal sites intact with dina and nylon sutures, no active drain age sensation intact SP/DP/TN motor intact EHL/FHL/TA/G pedal pulses intact comp soft NT b/l Assessment and Plan (1) Status post total hip replacement, left Assessment & Plan: -Dry dressings changed -DVT ppx with ASA, Continue to hold Eliquis as per Dr. Pickett -PT/OT WBAT -continue abx -orthopedically stable -above d/w Dr. Pickett in agreement Status: Acute
[2018-10-31 11:57] LABS: GAMMA GLUTAMYL TRANSPEPTIDASE 106 U/L (8-78)
[2018-10-31] MEDS: Multivitamin With Minerals Tab PO SCH (12:30)
[2018-10-31] MEDS: Cholecalciferol 1,000 INTLU TAB PO SCH (12:30)
--- NOTE | 2018-10-31 19:59 | PN ---
DATE: 10/31/2018 ENDOCRINOLOGY FOLLOWUP NOTE LOCATION: Room 714. SUBJECTIVE: This is a 68-year-old male with recent uncontrolled type 2 insulin-requiring diabetes, presenting here with marked hyperglycemic accelerations and was given a basal and bolus insulin regimen, from which he recovered remarkably both clinically and metabolically as noted thereof. He also underwent a recent left hip total replacement following a femoral hip fracture sustained from an accidental fall at home. He has ongoing physical and occupational therapy at this time as noted. His glycemic levels overnight are still on the low side of normal, ranging from 75-113 and 120 mg/dL. His latest chemistries show a BUN of 17, sodium 136, potassium 4.1, chloride 103, CO2 24, glucose 69, and creatinine 0.9. So at this time, we will once again modify his oral hypoglycemic drug regimen as ordered. We will discontinue the glipizide given as 10 mg b.i.d. before meals as ordered. We will continue the metformin given as 850 mg b.i.d. with meals and Januvia given as 100 mg once daily in the morning as ordered. We will obtain serial chemistries and supplement accordingly as needed. We will follow and advise accordingly. The patient also has been taken of all insulin therapy at this time. We will follow. Radha Stockton MD
[2018-11-01] MEDS: Insulin Lispro (humaLOG) 100 Units/ml Inj SC SCH ×4 (06:33→21:37)
[2018-11-01] MEDS: levoFLOXacin 750 MG TAB PO SCH (08:34)
[2018-11-01] MEDS: URSODIOL 500 MG PO SCH ×2 (08:34→16:36)
[2018-11-01] MEDS: Magnesium Chloride 64 mg ER Tab PO SCH ×2 (08:34→22:04)
[2018-11-01] MEDS: Hydrocortisone 2.5% (Rectal) CREAM PR SCH ×2 (08:36→22:04)
--- NOTE | 2018-11-01 11:44 | CP.PCM.PN ---
Subjective - Date & Time of Evaluation Date of Evaluation: 11/01/18 Time of Evaluation: 09:00 - Subjective Subjective: Patient was seen and examined OOB to chair comfortable. Transferring and ambulating with RW without difficulties. Pain well controlled. No new complaints. Objective - Vital Signs/Intake and Output Vital Signs (last 24 hours): Temp Pulse Resp BP Pulse Ox 97.5 F L 66 20 112/69 100 11/01/18 08:25 11/01/18 08:37 11/01/18 08:25 11/01/18 08:37 11/01/18 08:25 - Medications Medications: Current Medications Acetaminophen (Tylenol 325mg Tab) 975 mg PO Q8 PRN PRN Reason: Pain, moderate (4-7) Last Admin: 11/01/18 01:25 Dose: 975 mg Al Hydrox/Mg Hydrox/Simethicone (Maalox Plus 30 Ml) 30 ml PO Q6 PRN PRN Reason: Indigestion / Heartburn Last Admin: 10/31/18 02:17 Dose: 30 ml Amlodipine Besylate (Norvasc) 10 mg PO DAILY [facility] Last Admin: 11/01/18 08:35 Dose: 10 mg Apixaban (Eliquis) 5 mg PO Q12 [facility]; Protocol Last Admin: 10/23/18 08:57 Dose: 5 mg Artificial Tears (Refresh Opth Soln) 0.3 ml OU Q6 PRN PRN Reason: Dry eyes Aspirin (Ecotrin) 81 mg PO BID [facility] Last Admin: 11/01/18 08:35 Dose: 81 mg Cholecalciferol (Vitamin D) 2,000 intlu PO DAILY@1200 [facility] Last Admin: 10/31/18 12:30 Dose: 2,000 intlu Docusate Sodium (Colace) 100 mg PO BID [facility] Last Admin: 11/01/18 08:34 Dose: 100 mg Famotidine (Pepcid) 20 mg PO BID [facility] Last Admin: 11/01/18 08:35 Dose: 20 mg Furosemide (Lasix) 40 mg PO DAILY [facility] Last Admin: 11/01/18 08:33 Dose: 40 mg Home Med (Patient's Own Medication) 1 unit PO BID [facility] Last Admin: 11/01/18 08:34 Dose: 1 unit Hydrocortisone (Anusol-Hc) 1 applic [place] Q12 [facility] Last Admin: 11/01/18 08:36 Dose: Not Given Insulin Human Lispro (Humalog) 0 units SC [facility]; Protocol Last Admin: 11/01/18 06:33 Dose: Not Given Levofloxacin (Levaquin) 750 mg PO DAILY [facility]; Protocol Last Admin: 11/01/18 08:34 Dose: 750 mg Magnesium Chloride (Slow-Mag) 64 mg PO Q12 [facility] Last Admin: 11/01/18 08:34 Dose: 64 mg Metformin HCl (Glucophage) 850 mg PO BIDWM [facility] Last Admin: 11/01/18 08:35 Dose: 850 mg Metoprolol Tartrate (Lopressor) 25 mg PO Q12 [facility] Last Admin: 11/01/18 08:37 Dose: 25 mg Multivitamins/Minerals (Therapeutic-M Tab) 1 tab PO DAILY@1200 [facility] Last Admin: 10/31/18 12:30 Dose: 1 tab Prednisone (Prednisone Tab) 5 mg PO DAILY [facility] Last Admin: 11/01/18 08:39 Dose: 5 mg Sitagliptin Phosphate (Januvia) 100 mg PO DAILY [facility] Last Admin: 11/01/18 08:37 Dose: 100 mg Spironolactone (Aldactone) 50 mg PO DAILY [facility] Last Admin: 11/01/18 08:36 Dose: 50 mg Tacrolimus (Prograf Cap) 0.5 mg PO Q12 [facility] Last Admin: 10/31/18 21:00 Dose: 0.5 mg Tramadol HCl (Ultram) 50 mg PO Q6 PRN PRN Reason: Pain, moderate (4-7) Last Admin: 11/01/18 08:40 Dose: 50 mg - Labs Labs: 10/31/18 05:35 10/31/18 05:35 - Extremities Exam Additional comments: L hip: moderate swelling Dressings CDI sensation intact SP/DP/TN motor intact EHL/FHL/TA/G pedal pulses intact comp soft NT b/l Assessment and Plan (1) Status post total hip replacement, left Assessment & Plan: -Wound drainage has ceased, ok to restart home Eliquis as per Dr. Pickett -PT/OT WBAT -discontinue abx -orthopedically stable -above d/w Dr. Pickett in agreement Status: Acute
[2018-11-01] MEDS: Multivitamin With Minerals Tab PO SCH (12:25)
[2018-11-01] MEDS: Cholecalciferol 1,000 INTLU TAB PO SCH (12:26)
--- NOTE | 2018-11-01 17:20 | CP.PCM.PN ---
Subjective - Date & Time of Evaluation Date of Evaluation: 11/01/18 Time of Evaluation: 18:20 - Subjective Subjective: P Patient seen and examined. Still complaining with bearable pain on the left knee. Objective - Vital Signs/Intake and Output Vital Signs (last 24 hours): Temp Pulse Resp BP Pulse Ox 97.5 F L 78 20 123/71 99 11/01/18 15:51 11/01/18 15:51 11/01/18 15:51 11/01/18 15:51 11/01/18 15:51 - Medications Medications: Current Medications Acetaminophen (Tylenol 325mg Tab) 975 mg PO Q8 PRN PRN Reason: Pain, moderate (4-7) Last Admin: 11/01/18 01:25 Dose: 975 mg Al Hydrox/Mg Hydrox/Simethicone (Maalox Plus 30 Ml) 30 ml PO Q6 PRN PRN Reason: Indigestion / Heartburn Last Admin: 10/31/18 02:17 Dose: 30 ml Amlodipine Besylate (Norvasc) 10 mg PO DAILY [facility] Last Admin: 11/01/18 08:35 Dose: 10 mg Apixaban (Eliquis) 5 mg PO Q12 [facility]; Protocol Last Admin: 10/23/18 08:57 Dose: 5 mg Artificial Tears (Refresh Opth Soln) 0.3 ml OU Q6 PRN PRN Reason: Dry eyes Cholecalciferol (Vitamin D) 2,000 intlu PO DAILY@1200 [facility] Last Admin: 11/01/18 12:26 Dose: 2,000 intlu Docusate Sodium (Colace) 100 mg PO BID [facility] Last Admin: 11/01/18 16:42 Dose: Not Given Famotidine (Pepcid) 20 mg PO BID [facility] Last Admin: 11/01/18 16:37 Dose: 20 mg Furosemide (Lasix) 40 mg PO DAILY [facility] Last Admin: 11/01/18 08:33 Dose: 40 mg Home Med (Patient's Own Medication) 1 unit PO BID [facility] Last Admin: 11/01/18 16:36 Dose: 1 unit Hydrocortisone (Anusol-Hc) 1 applic DC Q12 [facility] Last Admin: 11/01/18 08:36 Dose: Not Given Insulin Human Lispro (Humalog) 0 units SC [facility]; Protocol Last Admin: 11/01/18 16:43 Dose: Not Given Magnesium Chloride (Slow-Mag) 64 mg PO Q12 [facility] Last Admin: 11/01/18 08:34 Dose: 64 mg Metformin HCl (Glucophage) 850 mg PO BIDWM [facility] Last Admin: 11/01/18 16:37 Dose: 850 mg Metoprolol Tartrate (Lopressor) 25 mg PO Q12 [facility] Last Admin: 11/01/18 08:37 Dose: 25 mg Multivitamins/Minerals (Therapeutic-M Tab) 1 tab PO DAILY@1200 [facility] Last Admin: 11/01/18 12:25 Dose: 1 tab Prednisone (Prednisone Tab) 5 mg PO DAILY [facility] Last Admin: 11/01/18 08:39 Dose: 5 mg Sitagliptin Phosphate (Januvia) 100 mg PO DAILY [facility] Last Admin: 11/01/18 08:37 Dose: 100 mg Spironolactone (Aldactone) 50 mg PO DAILY [facility] Last Admin: 11/01/18 08:36 Dose: 50 mg Tacrolimus (Prograf Cap) 0.5 mg PO Q12 [facility] Last Admin: 11/01/18 09:00 Dose: 0.5 mg Tramadol HCl (Ultram) 50 mg PO Q6 PRN PRN Reason: Pain, moderate (4-7) Last Admin: 11/01/18 08:40 Dose: 50 mg - Labs Labs: 10/31/18 05:35 10/31/18 05:35 - Constitutional Appears: No Acute Distress - Head Exam Head Exam: ATRAUMATIC - Eye Exam Eye Exam: absent: Scleral icterus - ENT Exam ENT Exam: Mucous Membranes Moist - Neck Exam Neck Exam: absent: Meningismus - Respiratory Exam Respiratory Exam: absent: Rales, Rhonchi, Wheezes, Respiratory Distress - Cardiovascular Exam Cardiovascular Exam: REGULAR RHYTHM, +S1, +S2 - GI/Abdominal Exam GI & Abdominal Exam: Soft. absent: Tenderness - Rectal Exam Rectal Exam: Deferred - Neurological Exam Neurological Exam: Alert, Oriented x3 - Psychiatric Exam Psychiatric exam: Normal Affect - Skin Skin Exam: Dry, Intact Assessment and Plan - Assessment and Plan (Free Text) Assessment: 68 yo male with history of HTN, Liver Transplant had subcapital fracture of the left hip after falling and landing on his left hip on 11/01. On 10/19/18 left THR was done by Dr Pickett. On 10/21/18 he was transferred to TCU for PT and pain management. 1. Left Hip Fracture s/p Left THR continue PT/OT and pain management 2. Post Liver Transplant Eliquis resumed per recommendation from orthopedist continue Tacrolimus, Prednisone 3. HTN BP controlled Continue Amlodipine and Metoprolol 4. DM2 HgA1c - 11.3 BS relatively controlled continue Metformin and Januvia 5. DVT prophylaxis on Eliquis Attending/Attestation - Attestation I have personally seen and examined this patient.: Yes I have fully participated in the care of the patient.: Yes I have reviewed all pertinent clinical information, including history, physical exam and plan: Yes Notes (Text): 11/01/18 19:29 Patient seen and examined with resident. Case discussed and agreed with assessment.
--- NOTE | 2018-11-01 23:20 | PN ---
DATE: 11/01/2018 ENDO FOLLOWUP NOTE LOCATION: Room 714, [facility]. SUBJECTIVE: This is a 68-year-old male with recent uncontrolled type 2 insulin-requiring diabetes, now being followed closely for metabolic management. He underwent a recent left hip replacement following a femoral fracture after an accidental fall at home as noted. His ongoing physical and occupational therapy is very well tolerated here at the [facility]. His glycemic levels are fluctuating, but improved and the glucose values have ranged from 124 to 143 mg/dL. It was 131 at bedtime last night. LABORATORY DATA: His latest chemistry showed a BUN of 17, sodium 136, potassium 4.1, chloride 103, CO2 of 24, glucose 69, and creatinine 0.9. ASSESSMENT AND PLAN: So at this time, we will continue to modify dual oral hypoglycemic therapy as given with Januvia, given as 100 mg once daily in the morning together with metformin at 850 mg b.i.d. after meals as ordered. We have discontinued his glipizide medications as ordered. Moreover, he had remarkable response to a combination of a basal and bolus insulin regimen with improvement of his pancreatic function as noted and because of supervening hypoglycemic episodes the insulin regimen was discontinued accordingly. So at this time, there is no indication for any kind of insulin therapy for now and we will continue the dual oral hypoglycemic drug combination as given. We will obtain serial chemistries and supplement accordingly as needed. We will follow. Radha Stockton MD
[2018-11-02] MEDS: Insulin Lispro (humaLOG) 100 Units/ml Inj SC SCH ×4 (06:30→21:57)
[2018-11-02] MEDS: URSODIOL 500 MG PO SCH ×2 (09:15→16:40)
[2018-11-02] MEDS: Hydrocortisone 2.5% (Rectal) CREAM PR SCH ×2 (09:15→21:22)
[2018-11-02] MEDS: Magnesium Chloride 64 mg ER Tab PO SCH ×2 (09:16→21:23)
[2018-11-02] MEDS: Cholecalciferol 1,000 INTLU TAB PO SCH (12:25)
[2018-11-02] MEDS: Multivitamin With Minerals Tab PO SCH (12:25)
--- NOTE | 2018-11-02 13:29 | CP.PCM.PN ---
Subjective - Date & Time of Evaluation Date of Evaluation: 11/02/18 Time of Evaluation: 12:15 - Subjective Subjective: patinet complained of being cold but no other complaints at present Objective - Vital Signs/Intake and Output Vital Signs (last 24 hours): Temp Pulse Resp BP Pulse Ox 98.3 F 74 20 110/60 98 11/02/18 08:28 11/02/18 11:48 11/02/18 08:28 11/02/18 09:17 11/02/18 11:48 - Medications Medications: Current Medications Acetaminophen (Tylenol 325mg Tab) 975 mg PO Q8 PRN PRN Reason: Pain, moderate (4-7) Last Admin: 11/02/18 02:57 Dose: 975 mg Al Hydrox/Mg Hydrox/Simethicone (Maalox Plus 30 Ml) 30 ml PO Q6 PRN PRN Reason: Indigestion / Heartburn Last Admin: 10/31/18 02:17 Dose: 30 ml Amlodipine Besylate (Norvasc) 10 mg PO DAILY [facility] Last Admin: 11/02/18 09:16 Dose: 10 mg Apixaban (Eliquis) 5 mg PO Q12 [facility]; Protocol Last Admin: 11/02/18 09:15 Dose: 5 mg Artificial Tears (Refresh Opth Soln) 0.3 ml OU Q6 PRN PRN Reason: Dry eyes Cholecalciferol (Vitamin D) 2,000 intlu PO DAILY@1200 [facility] Last Admin: 11/02/18 12:25 Dose: 2,000 intlu Docusate Sodium (Colace) 100 mg PO BID [facility] Last Admin: 11/02/18 09:15 Dose: 100 mg Famotidine (Pepcid) 20 mg PO BID [facility] Last Admin: 11/02/18 09:16 Dose: 20 mg Furosemide (Lasix) 40 mg PO DAILY [facility] Last Admin: 11/02/18 09:17 Dose: 40 mg Home Med (Patient's Own Medication) 1 unit PO BID [facility] Last Admin: 11/02/18 09:15 Dose: 1 unit Hydrocortisone (Anusol-Hc) 1 applic [place] Q12 [facility] Last Admin: 11/02/18 09:15 Dose: 1 u Insulin Human Lispro (Humalog) 0 units SC [facility]; Protocol Last Admin: 11/02/18 12:24 Dose: Not Given Magnesium Chloride (Slow-Mag) 64 mg PO Q12 [facility] Last Admin: 11/02/18 09:16 Dose: 64 mg Metformin HCl (Glucophage) 850 mg PO BIDWM [facility] Last Admin: 11/02/18 09:16 Dose: 850 mg Metoprolol Tartrate (Lopressor) 25 mg PO Q12 [facility] Last Admin: 11/02/18 09:16 Dose: 25 mg Multivitamins/Minerals (Therapeutic-M Tab) 1 tab PO DAILY@1200 [facility] Last Admin: 11/02/18 12:25 Dose: 1 tab Prednisone (Prednisone Tab) 5 mg PO DAILY [facility] Last Admin: 11/02/18 09:16 Dose: 5 mg Sitagliptin Phosphate (Januvia) 100 mg PO DAILY [facility] Last Admin: 11/02/18 09:16 Dose: 100 mg Spironolactone (Aldactone) 50 mg PO DAILY [facility] Last Admin: 11/02/18 09:16 Dose: 50 mg Tacrolimus (Prograf Cap) 0.5 mg PO Q12 [facility] Last Admin: 11/02/18 09:15 Dose: 0.5 mg Tramadol HCl (Ultram) 50 mg PO Q6 PRN PRN Reason: Pain, moderate (4-7) Last Admin: 11/02/18 10:36 Dose: 50 mg - Labs Labs: 10/31/18 05:35 10/31/18 05:35 - Constitutional Appears: Well - Head Exam Head Exam: ATRAUMATIC, NORMAL INSPECTION, NORMOCEPHALIC - Eye Exam Eye Exam: EOMI, Normal appearance, PERRL Pupil Exam: NORMAL ACCOMODATION, PERRL - ENT Exam ENT Exam: Mucous Membranes Moist, Normal Exam - Neck Exam Neck Exam: Full ROM, Normal Inspection - Respiratory Exam Respiratory Exam: Clear to Ausculation Bilateral, NORMAL BREATHING PATTERN - Cardiovascular Exam Cardiovascular Exam: REGULAR RHYTHM - GI/Abdominal Exam GI & Abdominal Exam: Soft, Normal Bowel Sounds - Rectal Exam Rectal Exam: NORMAL INSPECTION - Exam External exam: NORMAL EXTERNAL EXAM - Extremities Exam Extremities Exam: Full ROM, Normal Capillary Refill, Normal Inspection - Back Exam Back Exam: NORMAL INSPECTION - Neurological Exam Neurological Exam: Alert, Awake Neuro motor strength exam: Left Lower Extremity: 3 - Psychiatric Exam Psychiatric exam: Normal Affect, Normal Mood Assessment and Plan (1) Femur fracture, left Assessment & Plan: plan for physical, occupational therapy program, discharge for wednesday prescription written for walker commode, home therapy Status: Acute (2) BPH (benign prostatic hyperplasia) Status: Chronic (3) HTN (hypertension) Status: Chronic (4) Status post liver transplant Status: Chronic (5) Status post total hip replacement, left Status: Acute (6) Anemia Status: Acute (7) Broken humerus Status: Acute (8) Cellulitis Status: Acute
--- NOTE | 2018-11-02 13:31 | CP.PCM.PN ---
Subjective - Date & Time of Evaluation Date of Evaluation: 11/01/18 Time of Evaluation: 10:00 - Subjective Subjective: no acute complaints of any hip pain Objective - Vital Signs/Intake and Output Vital Signs (last 24 hours): Temp Pulse Resp BP Pulse Ox 98.3 F 74 20 110/60 98 11/02/18 08:28 11/02/18 11:48 11/02/18 08:28 11/02/18 09:17 11/02/18 11:48 - Medications Medications: Current Medications Acetaminophen (Tylenol 325mg Tab) 975 mg PO Q8 PRN PRN Reason: Pain, moderate (4-7) Last Admin: 11/02/18 02:57 Dose: 975 mg Al Hydrox/Mg Hydrox/Simethicone (Maalox Plus 30 Ml) 30 ml PO Q6 PRN PRN Reason: Indigestion / Heartburn Last Admin: 10/31/18 02:17 Dose: 30 ml Amlodipine Besylate (Norvasc) 10 mg PO DAILY [facility] Last Admin: 11/02/18 09:16 Dose: 10 mg Apixaban (Eliquis) 5 mg PO Q12 [facility]; Protocol Last Admin: 11/02/18 09:15 Dose: 5 mg Artificial Tears (Refresh Opth Soln) 0.3 ml OU Q6 PRN PRN Reason: Dry eyes Cholecalciferol (Vitamin D) 2,000 intlu PO DAILY@1200 [facility] Last Admin: 11/02/18 12:25 Dose: 2,000 intlu Docusate Sodium (Colace) 100 mg PO BID [facility] Last Admin: 11/02/18 09:15 Dose: 100 mg Famotidine (Pepcid) 20 mg PO BID [facility] Last Admin: 11/02/18 09:16 Dose: 20 mg Furosemide (Lasix) 40 mg PO DAILY [facility] Last Admin: 11/02/18 09:17 Dose: 40 mg Home Med (Patient's Own Medication) 1 unit PO BID [facility] Last Admin: 11/02/18 09:15 Dose: 1 unit Hydrocortisone (Anusol-Hc) 1 applic [place] Q12 [facility] Last Admin: 11/02/18 09:15 Dose: 1 u Insulin Human Lispro (Humalog) 0 units SC [facility]; Protocol Last Admin: 11/02/18 12:24 Dose: Not Given Magnesium Chloride (Slow-Mag) 64 mg PO Q12 [facility] Last Admin: 11/02/18 09:16 Dose: 64 mg Metformin HCl (Glucophage) 850 mg PO BIDWM [facility] Last Admin: 11/02/18 09:16 Dose: 850 mg Metoprolol Tartrate (Lopressor) 25 mg PO Q12 [facility] Last Admin: 11/02/18 09:16 Dose: 25 mg Multivitamins/Minerals (Therapeutic-M Tab) 1 tab PO DAILY@1200 [facility] Last Admin: 11/02/18 12:25 Dose: 1 tab Prednisone (Prednisone Tab) 5 mg PO DAILY [facility] Last Admin: 11/02/18 09:16 Dose: 5 mg Sitagliptin Phosphate (Januvia) 100 mg PO DAILY [facility] Last Admin: 11/02/18 09:16 Dose: 100 mg Spironolactone (Aldactone) 50 mg PO DAILY [facility] Last Admin: 11/02/18 09:16 Dose: 50 mg Tacrolimus (Prograf Cap) 0.5 mg PO Q12 [facility] Last Admin: 11/02/18 09:15 Dose: 0.5 mg Tramadol HCl (Ultram) 50 mg PO Q6 PRN PRN Reason: Pain, moderate (4-7) Last Admin: 11/02/18 10:36 Dose: 50 mg - Labs Labs: 10/31/18 05:35 10/31/18 05:35 - Constitutional Appears: Well - Head Exam Head Exam: ATRAUMATIC, NORMAL INSPECTION, NORMOCEPHALIC - Eye Exam Eye Exam: EOMI, Normal appearance, PERRL Pupil Exam: NORMAL ACCOMODATION - ENT Exam ENT Exam: Mucous Membranes Moist, Normal Exam - Neck Exam Neck Exam: Full ROM, Normal Inspection - Respiratory Exam Respiratory Exam: Clear to Ausculation Bilateral, NORMAL BREATHING PATTERN - Cardiovascular Exam Cardiovascular Exam: REGULAR RHYTHM - GI/Abdominal Exam GI & Abdominal Exam: Soft, Normal Bowel Sounds - Rectal Exam Rectal Exam: NORMAL INSPECTION - Exam External exam: NORMAL EXTERNAL EXAM - Extremities Exam Extremities Exam: Full ROM, Normal Capillary Refill - Back Exam Back Exam: NORMAL INSPECTION - Neurological Exam Neurological Exam: Alert, Awake Neuro motor strength exam: Left Lower Extremity: 3 - Psychiatric Exam Psychiatric exam: Normal Affect, Normal Mood - Skin Skin Exam: Dry, Intact Assessment and Plan (1) Femur fracture, left Status: Acute (2) BPH (benign prostatic hyperplasia) Status: Chronic (3) HTN (hypertension) Status: Chronic (4) Status post liver transplant Status: Chronic (5) Status post total hip replacement, left Assessment & Plan: less swelling, healing well, DC for wednesday to discuss outpatient VS home therapy Status: Acute (6) Anemia Status: Acute (7) Broken humerus Status: Acute (8) Cellulitis Status: Acute
--- NOTE | 2018-11-02 16:45 | CP.PCM.PN ---
Subjective - Date & Time of Evaluation Date of Evaluation: 11/02/18 Time of Evaluation: 11:00 - Subjective Subjective: Patient seen and examined OOB to chair. Notes he is having increasing pain to inferior aspect of wound especially with ambulation. Tolerating PT well. Denies fevers/CP/SOB. Objective - Vital Signs/Intake and Output Vital Signs (last 24 hours): Temp Pulse Resp BP Pulse Ox 98.3 F 74 20 110/60 98 11/02/18 08:28 11/02/18 16:21 11/02/18 08:28 11/02/18 09:17 11/02/18 16:21 - Medications Medications: Current Medications Acetaminophen (Tylenol 325mg Tab) 975 mg PO Q8 PRN PRN Reason: Pain, moderate (4-7) Last Admin: 11/02/18 02:57 Dose: 975 mg Al Hydrox/Mg Hydrox/Simethicone (Maalox Plus 30 Ml) 30 ml PO Q6 PRN PRN Reason: Indigestion / Heartburn Last Admin: 10/31/18 02:17 Dose: 30 ml Amlodipine Besylate (Norvasc) 10 mg PO DAILY [facility] Last Admin: 11/02/18 09:16 Dose: 10 mg Apixaban (Eliquis) 5 mg PO Q12 [facility]; Protocol Last Admin: 11/02/18 09:15 Dose: 5 mg Artificial Tears (Refresh Opth Soln) 0.3 ml OU Q6 PRN PRN Reason: Dry eyes Cholecalciferol (Vitamin D) 2,000 intlu PO DAILY@1200 [facility] Last Admin: 11/02/18 12:25 Dose: 2,000 intlu Docusate Sodium (Colace) 100 mg PO BID [facility] Last Admin: 11/02/18 09:15 Dose: 100 mg Famotidine (Pepcid) 20 mg PO BID [facility] Last Admin: 11/02/18 09:16 Dose: 20 mg Furosemide (Lasix) 40 mg PO DAILY [facility] Last Admin: 11/02/18 09:17 Dose: 40 mg Home Med (Patient's Own Medication) 1 unit PO BID [facility] Last Admin: 11/02/18 09:15 Dose: 1 unit Hydrocortisone (Anusol-Hc) 1 applic [place] Q12 [facility] Last Admin: 11/02/18 09:15 Dose: 1 u Insulin Human Lispro (Humalog) 0 units SC ACHS [facility]; Protocol Last Admin: 11/02/18 12:24 Dose: Not Given Magnesium Chloride (Slow-Mag) 64 mg PO Q12 [facility] Last Admin: 11/02/18 09:16 Dose: 64 mg Metformin HCl (Glucophage) 850 mg PO BIDWM [facility] Last Admin: 11/02/18 09:16 Dose: 850 mg Metoprolol Tartrate (Lopressor) 25 mg PO Q12 [facility] Last Admin: 11/02/18 09:16 Dose: 25 mg Multivitamins/Minerals (Therapeutic-M Tab) 1 tab PO DAILY@1200 [facility] Last Admin: 11/02/18 12:25 Dose: 1 tab Prednisone (Prednisone Tab) 5 mg PO DAILY [facility] Last Admin: 11/02/18 09:16 Dose: 5 mg Sitagliptin Phosphate (Januvia) 100 mg PO DAILY [facility] Last Admin: 11/02/18 09:16 Dose: 100 mg Spironolactone (Aldactone) 50 mg PO DAILY [facility] Last Admin: 11/02/18 09:16 Dose: 50 mg Tacrolimus (Prograf Cap) 0.5 mg PO Q12 [facility] Last Admin: 11/02/18 09:15 Dose: 0.5 mg Tramadol HCl (Ultram) 50 mg PO Q6 PRN PRN Reason: Pain, moderate (4-7) Last Admin: 11/02/18 10:36 Dose: 50 mg - Labs Labs: 10/31/18 05:35 10/31/18 05:35 - Extremities Exam Additional comments: L hip: moderate swelling Dressings CDI tender firm mass with erythema at distal wound sensation intact SP/DP/TN motor intact EHL/FHL/TA/G pedal pulses intact comp soft NT b/l Assessment and Plan (1) Status post total hip replacement, left Assessment & Plan: -ID consult, start IV vanco/rocephin as per Dr. Wadsworth -warm compress -Repeat L hip Xray -PT/OT WBAT -DVT ppx -orthopedically stable -above d/w Dr. Pickett in agreement Status: Acute
--- NOTE | 2018-11-02 18:23 | CP.PCM.PN ---
Subjective - Date & Time of Evaluation Date of Evaluation: 11/02/18 Time of Evaluation: 18:24 - Subjective Subjective: I D NOTE DISCUSSED C RESIDENT START VANCOMYCIN/ROCEPHEN Objective - Vital Signs/Intake and Output Vital Signs (last 24 hours): Temp Pulse Resp BP Pulse Ox 97.3 F L 76 20 109/64 97 11/02/18 16:34 11/02/18 16:34 11/02/18 16:34 11/02/18 16:34 11/02/18 16:34 - Medications Medications: Current Medications Acetaminophen (Tylenol 325mg Tab) 975 mg PO Q8 PRN PRN Reason: Pain, moderate (4-7) Last Admin: 11/02/18 02:57 Dose: 975 mg Al Hydrox/Mg Hydrox/Simethicone (Maalox Plus 30 Ml) 30 ml PO Q6 PRN PRN Reason: Indigestion / Heartburn Last Admin: 10/31/18 02:17 Dose: 30 ml Amlodipine Besylate (Norvasc) 10 mg PO DAILY [facility] Last Admin: 11/02/18 09:16 Dose: 10 mg Apixaban (Eliquis) 5 mg PO Q12 [facility]; Protocol Last Admin: 11/02/18 09:15 Dose: 5 mg Artificial Tears (Refresh Opth Soln) 0.3 ml OU Q6 PRN PRN Reason: Dry eyes Cholecalciferol (Vitamin D) 2,000 intlu PO DAILY@1200 [facility] Last Admin: 11/02/18 12:25 Dose: 2,000 intlu Docusate Sodium (Colace) 100 mg PO BID [facility] Last Admin: 11/02/18 16:40 Dose: 100 mg Famotidine (Pepcid) 20 mg PO BID [facility] Last Admin: 11/02/18 16:40 Dose: 20 mg Furosemide (Lasix) 40 mg PO DAILY [facility] Last Admin: 11/02/18 09:17 Dose: 40 mg Home Med (Patient's Own Medication) 1 unit PO BID [facility] Last Admin: 11/02/18 16:40 Dose: 1 unit Hydrocortisone (Anusol-Hc) 1 applic [place] Q12 [facility] Last Admin: 11/02/18 09:15 Dose: 1 u Ceftriaxone Sodium 1 gm/ (Sodium Chloride) 100 mls @ 100 mls/hr IVPB DAILY [facility]; Protocol Vancomycin HCl 1 gm/ Sodium (Chloride) 250 mls @ 166.667 mls/hr IVPB Q12 [facility]; Protocol Insulin Human Lispro (Humalog) 0 units SC ACHS [facility]; Protocol Last Admin: 11/02/18 16:39 Dose: Not Given Magnesium Chloride (Slow-Mag) 64 mg PO Q12 [facility] Last Admin: 11/02/18 09:16 Dose: 64 mg Metformin HCl (Glucophage) 850 mg PO BIDWM [facility] Last Admin: 11/02/18 16:40 Dose: 850 mg Metoprolol Tartrate (Lopressor) 25 mg PO Q12 [facility] Last Admin: 11/02/18 09:16 Dose: 25 mg Multivitamins/Minerals (Therapeutic-M Tab) 1 tab PO DAILY@1200 [facility] Last Admin: 11/02/18 12:25 Dose: 1 tab Prednisone (Prednisone Tab) 5 mg PO DAILY [facility] Last Admin: 11/02/18 09:16 Dose: 5 mg Sitagliptin Phosphate (Januvia) 100 mg PO DAILY [facility] Last Admin: 11/02/18 09:16 Dose: 100 mg Spironolactone (Aldactone) 50 mg PO DAILY [facility] Last Admin: 11/02/18 09:16 Dose: 50 mg Tacrolimus (Prograf Cap) 0.5 mg PO Q12 [facility] Last Admin: 11/02/18 09:15 Dose: 0.5 mg Tramadol HCl (Ultram) 50 mg PO Q6 PRN PRN Reason: Pain, moderate (4-7) Last Admin: 11/02/18 10:36 Dose: 50 mg - Labs Labs: 10/31/18 05:35 10/31/18 05:35
[2018-11-03] MEDS: Insulin Lispro (humaLOG) 100 Units/ml Inj SC SCH ×4 (06:32→22:49)
[2018-11-03] MEDS: URSODIOL 500 MG PO SCH ×2 (08:23→17:01)
[2018-11-03] MEDS: Magnesium Chloride 64 mg ER Tab PO SCH ×2 (08:23→21:25)
--- NOTE | 2018-11-03 08:49 | PN ---
D0ATE: 11/02/2018 LOCATION: Room 714. SUBJECTIVE: This is a 68-year-old male with recent uncontrolled type 2 insulin-requiring diabetes, now being followed closely for metabolic management. His glycemic levels have remarkably improved even after the discontinuation of the basal and bolus insulin regimen as previously given. His glucose values overnight have ranged from 117 to 122 and 125 mg/dL. His latest A1c was 10% as expected because of the prior undiagnosed and untreated metabolic decompensation of his diabetic condition. ASSESSMENT: This is a 68-year-old male with recent uncontrolled type 2 insulin-requiring diabetes, now taken off all insulin therapy and doing remarkably well biochemically on just oral hypoglycemic therapy as given. He also had a recent left hip femoral fracture and underwent a left hip replacement procedure as noted. PLAN OF MANAGEMENT: We will continue the dual oral hypoglycemic drug therapy as given with metformin given as 850 mg b.i.d. and Januvia as 100 mg once daily in the morning as ordered. We will obtain serial chemistries and supplement accordingly as needed. We will follow. Radha Stockton MD
[2018-11-03] MEDS: Hydrocortisone 2.5% (Rectal) CREAM PR SCH ×2 (09:00→21:23)
--- NOTE | 2018-11-03 09:36 | CP.PCM.PN ---
Subjective - Date & Time of Evaluation Date of Evaluation: 11/03/18 Time of Evaluation: 08:00 - Subjective Subjective: Patient seen and examined with Dr. Pickett. Pain better controlled today and ambulating better. Reports was able to sleep better last night. No new complaints. Objective - Vital Signs/Intake and Output Vital Signs (last 24 hours): Temp Pulse Resp BP Pulse Ox 97.9 F 69 20 129/76 96 11/03/18 08:31 11/03/18 08:31 11/03/18 08:31 11/03/18 08:31 11/03/18 08:31 - Medications Medications: Current Medications Acetaminophen (Tylenol 325mg Tab) 975 mg PO Q8 PRN PRN Reason: Pain, moderate (4-7) Last Admin: 11/03/18 02:47 Dose: 975 mg Al Hydrox/Mg Hydrox/Simethicone (Maalox Plus 30 Ml) 30 ml PO Q6 PRN PRN Reason: Indigestion / Heartburn Last Admin: 10/31/18 02:17 Dose: 30 ml Amlodipine Besylate (Norvasc) 10 mg PO DAILY [facility] Last Admin: 11/03/18 08:24 Dose: 10 mg Apixaban (Eliquis) 5 mg PO Q12 [facility]; Protocol Last Admin: 11/03/18 08:22 Dose: 5 mg Artificial Tears (Refresh Opth Soln) 0.3 ml OU Q6 PRN PRN Reason: Dry eyes Cholecalciferol (Vitamin D) 2,000 intlu PO DAILY@1200 [facility] Last Admin: 11/02/18 12:25 Dose: 2,000 intlu Docusate Sodium (Colace) 100 mg PO BID [facility] Last Admin: 11/03/18 08:23 Dose: 100 mg Famotidine (Pepcid) 20 mg PO BID [facility] Last Admin: 11/03/18 08:23 Dose: 20 mg Furosemide (Lasix) 40 mg PO DAILY [facility] Last Admin: 11/03/18 08:24 Dose: 40 mg Home Med (Patient's Own Medication) 1 unit PO BID [facility] Last Admin: 11/03/18 08:23 Dose: 1 unit Hydrocortisone (Anusol-Hc) 1 applic [place] Q12 [facility] Last Admin: 11/02/18 21:22 Dose: 1 u Ceftriaxone Sodium 1 gm/ (Sodium Chloride) 100 mls @ 100 mls/hr IVPB DAILY [facility]; Protocol Vancomycin HCl 1 gm/ Sodium (Chloride) 250 mls @ 166.667 mls/hr IVPB Q12 [facility]; Protocol Last Admin: 11/02/18 21:24 Dose: 166.667 mls/hr Insulin Human Lispro (Humalog) 0 units SC ACHS [facility]; Protocol Last Admin: 11/03/18 06:32 Dose: Not Given Magnesium Chloride (Slow-Mag) 64 mg PO Q12 [facility] Last Admin: 11/03/18 08:23 Dose: 64 mg Metformin HCl (Glucophage) 850 mg PO BIDWM [facility] Last Admin: 11/03/18 08:23 Dose: 850 mg Metoprolol Tartrate (Lopressor) 25 mg PO Q12 [facility] Last Admin: 11/03/18 08:25 Dose: 25 mg Multivitamins/Minerals (Therapeutic-M Tab) 1 tab PO DAILY@1200 [facility] Last Admin: 11/02/18 12:25 Dose: 1 tab Prednisone (Prednisone Tab) 5 mg PO DAILY [facility] Last Admin: 11/03/18 08:26 Dose: 5 mg Sitagliptin Phosphate (Januvia) 100 mg PO DAILY [facility] Last Admin: 11/03/18 08:25 Dose: 100 mg Spironolactone (Aldactone) 50 mg PO DAILY [facility] Last Admin: 11/03/18 08:25 Dose: 50 mg Tacrolimus (Prograf Cap) 0.5 mg PO Q12 [facility] Last Admin: 11/03/18 08:24 Dose: 0.5 mg Tramadol HCl (Ultram) 50 mg PO Q6 PRN PRN Reason: Pain, moderate (4-7) Last Admin: 11/02/18 22:54 Dose: 50 mg - Labs Labs: 10/31/18 05:35 10/31/18 05:35 - Extremities Exam Additional comments: L hip: mild swelling Dressings CDI incision CDI with dina, sutures to portals tender firm mass with erythema at distal wound, improved from yesterday sensation intact SP/DP/TN motor intact EHL/FHL/TA/G pedal pulses intact comp soft NT b/l Assessment and Plan (1) Status post total hip replacement, left Assessment & Plan: -abx as per ID -dina and sutures removed, steri strips applied -continue warm compress -L hip Xray shows intact hardware, no abnormalities, no changes from postop xrays -PT/OT WBAT -DVT ppx -orthopedically stable for discharge this Wednesday -above d/w Dr. Pickett in agreement Status: Acute
--- NOTE | 2018-11-03 10:33 | RAD ---
PROCEDURE: Left Hip X-ray Radiographs. HISTORY: L hip pain COMPARISON: 10/19/2018 FINDINGS: BONES: Status post left hip arthroplasty. No evidence of prosthesis loosening. No acute fracture. JOINTS: Left hip arthroplasty. SOFT TISSUES: Postoperative changes with subcutaneous emphysema. OTHER FINDINGS: None. IMPRESSION: Left hip arthroplasty.
--- NOTE | 2018-11-03 11:47 | CP.PCM.PN ---
Subjective - Date & Time of Evaluation Date of Evaluation: 11/03/18 Time of Evaluation: 11:30 - Subjective Subjective: Patient seen and examined during PT. Feeling well.Participating with PT . Hemodynamically stable, afebrile. No acute issues overnight. Plan for d/c on Wednesday Objective - Vital Signs/Intake and Output Vital Signs (last 24 hours): Temp Pulse Resp BP Pulse Ox 97.9 F 69 20 129/76 96 11/03/18 08:31 11/03/18 08:31 11/03/18 08:31 11/03/18 08:31 11/03/18 08:31 - Medications Medications: Current Medications Acetaminophen (Tylenol 325mg Tab) 975 mg PO Q8 PRN PRN Reason: Pain, moderate (4-7) Last Admin: 11/03/18 02:47 Dose: 975 mg Al Hydrox/Mg Hydrox/Simethicone (Maalox Plus 30 Ml) 30 ml PO Q6 PRN PRN Reason: Indigestion / Heartburn Last Admin: 10/31/18 02:17 Dose: 30 ml Amlodipine Besylate (Norvasc) 10 mg PO DAILY [facility] Last Admin: 11/03/18 08:24 Dose: 10 mg Apixaban (Eliquis) 5 mg PO Q12 [facility]; Protocol Last Admin: 11/03/18 08:22 Dose: 5 mg Artificial Tears (Refresh Opth Soln) 0.3 ml OU Q6 PRN PRN Reason: Dry eyes Cholecalciferol (Vitamin D) 2,000 intlu PO DAILY@1200 [facility] Last Admin: 11/02/18 12:25 Dose: 2,000 intlu Docusate Sodium (Colace) 100 mg PO BID [facility] Last Admin: 11/03/18 08:23 Dose: 100 mg Famotidine (Pepcid) 20 mg PO BID [facility] Last Admin: 11/03/18 08:23 Dose: 20 mg Furosemide (Lasix) 40 mg PO DAILY [facility] Last Admin: 11/03/18 08:24 Dose: 40 mg Home Med (Patient's Own Medication) 1 unit PO BID [facility] Last Admin: 11/03/18 08:23 Dose: 1 unit Hydrocortisone (Anusol-Hc) 1 applic [place] Q12 [facility] Last Admin: 11/03/18 09:00 Dose: Not Given Ceftriaxone Sodium 1 gm/ (Sodium Chloride) 100 mls @ 100 mls/hr IVPB DAILY [facility]; Protocol Vancomycin HCl 1 gm/ Sodium (Chloride) 250 mls @ 166.667 mls/hr IVPB Q12 [facility]; Protocol Last Admin: 11/03/18 09:00 Dose: 166.667 mls/hr Insulin Human Lispro (Humalog) 0 units SC ACHS [facility]; Protocol Last Admin: 11/03/18 06:32 Dose: Not Given Magnesium Chloride (Slow-Mag) 64 mg PO Q12 [facility] Last Admin: 11/03/18 08:23 Dose: 64 mg Metformin HCl (Glucophage) 850 mg PO BIDWM [facility] Last Admin: 11/03/18 08:23 Dose: 850 mg Metoprolol Tartrate (Lopressor) 25 mg PO Q12 [facility] Last Admin: 11/03/18 08:25 Dose: 25 mg Multivitamins/Minerals (Therapeutic-M Tab) 1 tab PO DAILY@1200 [facility] Last Admin: 11/02/18 12:25 Dose: 1 tab Prednisone (Prednisone Tab) 5 mg PO DAILY [facility] Last Admin: 11/03/18 08:26 Dose: 5 mg Sitagliptin Phosphate (Januvia) 100 mg PO DAILY [facility] Last Admin: 11/03/18 08:25 Dose: 100 mg Spironolactone (Aldactone) 50 mg PO DAILY [facility] Last Admin: 11/03/18 08:25 Dose: 50 mg Tacrolimus (Prograf Cap) 0.5 mg PO Q12 [facility] Last Admin: 11/03/18 08:24 Dose: 0.5 mg Tramadol HCl (Ultram) 50 mg PO Q6 PRN PRN Reason: Pain, moderate (4-7) Last Admin: 11/02/18 22:54 Dose: 50 mg - Labs Labs: 10/31/18 05:35 10/31/18 05:35 - Constitutional Appears: Non-toxic, No Acute Distress - Head Exam Head Exam: ATRAUMATIC, NORMAL INSPECTION, NORMOCEPHALIC - Eye Exam Eye Exam: EOMI, Normal appearance, PERRL Pupil Exam: NORMAL ACCOMODATION - ENT Exam ENT Exam: Mucous Membranes Moist, Normal Exam - Neck Exam Neck Exam: Normal Inspection - Respiratory Exam Respiratory Exam: Clear to Ausculation Bilateral, NORMAL BREATHING PATTERN. absent: Rhonchi, Wheezes - Cardiovascular Exam Cardiovascular Exam: REGULAR RHYTHM, RRR. absent: JVD - GI/Abdominal Exam GI & Abdominal Exam: Soft, Normal Bowel Sounds. absent: Distended, Guarding, Tenderness, Rebound - Rectal Exam Rectal Exam: Deferred - Extremities Exam Extremities Exam: Normal Capillary Refill, Normal Inspection. absent: Pedal Edema - Back Exam Back Exam: NORMAL INSPECTION - Neurological Exam Neurological Exam: Alert, Awake, CN II-XII Intact, Oriented x3 - Psychiatric Exam Psychiatric exam: Normal Affect - Skin Skin Exam: Dry, Pallor, Warm Assessment and Plan - Assessment and Plan (Free Text) Assessment: 68 yo male with history of HTN, Liver Transplant had subcapital fracture of the left hip after falling and landing on his left hip on 11/01. On 10/19/18 left THR was done by Dr Pickett. On 10/21/18 he was transferred to TCU for PT and pain management. At present participating well with PT , pain is controlled. Plan for discharge on wednesday . 1. Left Hip Fracture s/p Left THR continue PT/OT and pain management Ortho on consult following . ID was consulted by ortho and started patient on rocephin and vanco IV . Will need to discuss duration of therapy 2. Post Liver Transplant Eliquis resumed per recommendation from orthopedist continue Tacrolimus, Prednisone 3. HTN BP controlled Continue Amlodipine and Metoprolol 4. DM2 HgA1c - 11.3 BS relatively controlled continue Metformin and Januvia 5. Anemia stable 6. DVT prophylaxis on Eliquis
[2018-11-03] MEDS: Multivitamin With Minerals Tab PO SCH (12:30)
[2018-11-03] MEDS: Cholecalciferol 1,000 INTLU TAB PO SCH (12:30)
[2018-11-03] MEDS ORDERED: DAPTOmycin 500 mg Inj (Cubicin) IVP SCH (20:15)
[2018-11-03] MEDS ORDERED: cefTRIAXone 500 MG in PED IV SYRINGE 1 SYR IVPB SCH (20:15)
--- NOTE | 2018-11-03 20:20 | CP.PCM.PN ---
Subjective - Date & Time of Evaluation Date of Evaluation: 11/03/18 Time of Evaluation: 20:12 - Subjective Subjective: I D NOTE PATIENT C HISTORY [employer] AND OTHER COMORBDITIES SUTURE AREA HAS APPEARS TO HAVE INFECION VS HEMATOMA WOULD RX c IV ANTIBIOTICS X2 WEEKS ,POSSIBLY LONGER RX DAPTOMYCIN/ROCEPHEN IN ADJUSTED DOSES Objective - Vital Signs/Intake and Output Vital Signs (last 24 hours): Temp Pulse Resp BP Pulse Ox 97.5 F L 81 20 124/73 98 11/03/18 19:42 11/03/18 19:42 11/03/18 19:42 11/03/18 19:42 11/03/18 19:42 - Medications Medications: Current Medications Acetaminophen (Tylenol 325mg Tab) 975 mg PO Q8 PRN PRN Reason: Pain, moderate (4-7) Last Admin: 11/03/18 02:47 Dose: 975 mg Al Hydrox/Mg Hydrox/Simethicone (Maalox Plus 30 Ml) 30 ml PO Q6 PRN PRN Reason: Indigestion / Heartburn Last Admin: 10/31/18 02:17 Dose: 30 ml Amlodipine Besylate (Norvasc) 10 mg PO DAILY [facility] Last Admin: 11/03/18 08:24 Dose: 10 mg Apixaban (Eliquis) 5 mg PO Q12 [facility]; Protocol Last Admin: 11/03/18 08:22 Dose: 5 mg Artificial Tears (Refresh Opth Soln) 0.3 ml OU Q6 PRN PRN Reason: Dry eyes Cholecalciferol (Vitamin D) 2,000 intlu PO DAILY@1200 [facility] Last Admin: 11/03/18 12:30 Dose: 2,000 intlu Docusate Sodium (Colace) 100 mg PO BID [facility] Last Admin: 11/03/18 16:59 Dose: Not Given Famotidine (Pepcid) 20 mg PO BID [facility] Last Admin: 11/03/18 17:01 Dose: 20 mg Furosemide (Lasix) 40 mg PO DAILY [facility] Last Admin: 11/03/18 08:24 Dose: 40 mg Home Med (Patient's Own Medication) 1 unit PO BID [facility] Last Admin: 11/03/18 17:01 Dose: 1 unit Hydrocortisone (Anusol-Hc) 1 applic UT Q12 [facility] Last Admin: 11/03/18 09:00 Dose: Not Given Daptomycin 430 mg/ Sodium (Chloride) 100 mls @ 100 mls/hr IV DAILY@2100 [facility] Stop: 11/08/18 21:01 Ceftriaxone Sodium 500 mg/ PED (IV SYRINGE) 0 mls @ 100 mls/hr IVPB Q24H [facility]; Protocol Insulin Human Lispro (Humalog) 0 units SC ACHS [facility]; Protocol Last Admin: 11/03/18 17:00 Dose: Not Given Magnesium Chloride (Slow-Mag) 64 mg PO Q12 [facility] Last Admin: 11/03/18 08:23 Dose: 64 mg Metformin HCl (Glucophage) 500 mg PO BIDWM [facility] Last Admin: 11/03/18 17:00 Dose: 500 mg Metoprolol Tartrate (Lopressor) 25 mg PO Q12 [facility] Last Admin: 11/03/18 08:25 Dose: 25 mg Multivitamins/Minerals (Therapeutic-M Tab) 1 tab PO DAILY@1200 [facility] Last Admin: 11/03/18 12:30 Dose: 1 tab Prednisone (Prednisone Tab) 5 mg PO DAILY [facility] Last Admin: 11/03/18 08:26 Dose: 5 mg Sitagliptin Phosphate (Januvia) 100 mg PO DAILY [facility] Last Admin: 11/03/18 08:25 Dose: 100 mg Spironolactone (Aldactone) 50 mg PO DAILY [facility] Last Admin: 11/03/18 08:25 Dose: 50 mg Tacrolimus (Prograf Cap) 0.5 mg PO Q12 [facility] Last Admin: 11/03/18 08:24 Dose: 0.5 mg Tramadol HCl (Ultram) 50 mg PO Q6 PRN PRN Reason: Pain, moderate (4-7) Last Admin: 11/03/18 13:05 Dose: 50 mg - Labs Labs: 10/31/18 05:35 10/31/18 05:35
--- NOTE | 2018-11-04 02:22 | CON ---
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 The patient did well with surgery and was later transferred to TCU on 10/21/2018 for continuous PT. He has also been subsequently found to have diabetes and is being treated by Dr. Stockton. The patient has developed swelling of the suture line and has an area of what is possibly fluctuance distally. PHYSICAL EXAMINATION: GENERAL: The patient is pleasant male. He is alert, cooperative, and oriented to time and place. HEENT: Essentially within normal limits. NECK: Supple. LUNGS: Decreased breath sounds and rales at the left base. HEART: Regular sinus rhythm. Surgical scar is noted. ABDOMEN: Soft and left hip replacement area is noted. PLAN: At the present time, I feel the patient should be treated with IV antibiotics. I have ordered a PICC line to be inserted. We will treat with adjusted doses of daptomycin and Rocephin. Denis Wadsworth MD
[2018-11-04] MEDS: Insulin Lispro (humaLOG) 100 Units/ml Inj SC SCH ×4 (06:57→21:51)
[2018-11-04 07:17] LABS: HEMOGLOBIN 8.7 g/dL (12.0-18.0); MEAN CELL VOLUME 96.2 fl (80.0-94.0); MEAN CORPUSCULAR HEMOGLOBIN 32.1 pg (27.0-31.0); MEAN CORPUSCULAR HGB CONC 33.3 g/dL (33.0-37.0); RBC 2.71 Mil/uL (4.40-5.90); RED CELL DISTRIBUTION WIDTH 14.1 % (11.5-14.5); WHITE BLOOD COUNT 2.8 K/uL (4.8-10.8)
[2018-11-04 07:38] LABS: ALB/GLOB RATIO 0.8 (1.0-2.1); ALBUMIN 2.5 g/dL (3.5-5.0); ALT/SGPT 28 U/L (21-72); AST/SGOT 27 U/L (17-59); BLOOD UREA NITROGEN 18 mg/dl (9-20); CALCIUM 8.1 mg/dL (8.4-10.2); GFR NON-AFRICAN AMERICAN > 60
[2018-11-04] MEDS: Hydrocortisone 2.5% (Rectal) CREAM PR SCH ×2 (08:28→21:33)
[2018-11-04] MEDS: URSODIOL 500 MG PO SCH ×2 (08:29→17:15)
[2018-11-04] MEDS: Magnesium Chloride 64 mg ER Tab PO SCH ×2 (08:29→21:38)
--- NOTE | 2018-11-04 08:49 | PN ---
ENDO FOLLOWUP NOTE DATE: 11/03/2018 ROOM: 714 SUBJECTIVE: This is a 68-year-old male with recent total hip replacement following a femoral hip fracture and is now also being followed closely for recent evaluation and diagnosis of uncontrolled type 2 diabetes. He has since then been taken off all insulin therapy because of remarkable metabolic response thereof. His glycemic levels have ranged from 189-106 and 139 mg/dL. So at this time we will modify once again and lower the metformin to 500 mg b.i.d. with meals as ordered. We will continue also the Januvia given as 100 mg once daily in the morning as ordered. We will also continue the low-dose correction scale using Humulin insulin as given. We will obtain serial chemistries and supplement accordingly as needed. We will follow. Radha Stockton MD
--- NOTE | 2018-11-04 10:54 | CP.PCM.PN ---
Subjective - Date & Time of Evaluation Date of Evaluation: 11/04/18 Time of Evaluation: 09:00 - Subjective Subjective: Patient states he is doing ok. No new complaints. He says his left leg feels better already after starting antibiotics. Objective - Vital Signs/Intake and Output Vital Signs (last 24 hours): Temp Pulse Resp BP Pulse Ox 98.2 F 68 20 126/78 98 11/04/18 10:28 11/04/18 10:28 11/04/18 10:28 11/04/18 10:28 11/04/18 10:28 - Medications Medications: Current Medications Acetaminophen (Tylenol 325mg Tab) 975 mg PO Q8 PRN PRN Reason: Pain, moderate (4-7) Last Admin: 11/04/18 02:06 Dose: 975 mg Al Hydrox/Mg Hydrox/Simethicone (Maalox Plus 30 Ml) 30 ml PO Q6 PRN PRN Reason: Indigestion / Heartburn Last Admin: 10/31/18 02:17 Dose: 30 ml Amlodipine Besylate (Norvasc) 10 mg PO DAILY [facility] Last Admin: 11/04/18 08:29 Dose: 10 mg Apixaban (Eliquis) 5 mg PO Q12 [facility]; Protocol Last Admin: 11/04/18 08:29 Dose: 5 mg Artificial Tears (Refresh Opth Soln) 0.3 ml OU Q6 PRN PRN Reason: Dry eyes Cholecalciferol (Vitamin D) 2,000 intlu PO DAILY@1200 [facility] Last Admin: 11/03/18 12:30 Dose: 2,000 intlu Docusate Sodium (Colace) 100 mg PO BID [facility] Last Admin: 11/04/18 08:29 Dose: 100 mg Famotidine (Pepcid) 20 mg PO BID [facility] Last Admin: 11/04/18 08:29 Dose: 20 mg Furosemide (Lasix) 40 mg PO DAILY [facility] Last Admin: 11/04/18 08:31 Dose: 40 mg Home Med (Patient's Own Medication) 1 unit PO BID [facility] Last Admin: 11/04/18 08:29 Dose: 1 unit Hydrocortisone (Anusol-Hc) 1 applic ID Q12 [facility] Last Admin: 11/04/18 08:28 Dose: Not Given Daptomycin 430 mg/ Sodium (Chloride) 100 mls @ 100 mls/hr IV DAILY@2100 [facility] Stop: 11/08/18 21:01 Last Admin: 11/03/18 22:38 Dose: 100 mls/hr Ceftriaxone Sodium 500 mg/ (Sodium Chloride) 100 mls @ 100 mls/hr IVPB DAILY@2000 [facility] Last Admin: 11/03/18 21:17 Dose: 100 mls/hr Insulin Human Lispro (Humalog) 0 units SC ACHS [facility]; Protocol Last Admin: 11/04/18 06:57 Dose: Not Given Magnesium Chloride (Slow-Mag) 64 mg PO Q12 [facility] Last Admin: 11/04/18 08:29 Dose: 64 mg Metformin HCl (Glucophage) 500 mg PO BIDWM [facility] Last Admin: 11/04/18 08:29 Dose: 500 mg Metoprolol Tartrate (Lopressor) 25 mg PO Q12 [facility] Last Admin: 11/04/18 08:29 Dose: 25 mg Multivitamins/Minerals (Therapeutic-M Tab) 1 tab PO DAILY@1200 [facility] Last Admin: 11/03/18 12:30 Dose: 1 tab Prednisone (Prednisone Tab) 5 mg PO DAILY [facility] Last Admin: 11/04/18 08:29 Dose: 5 mg Sitagliptin Phosphate (Januvia) 100 mg PO DAILY [facility] Last Admin: 11/04/18 08:29 Dose: 100 mg Spironolactone (Aldactone) 50 mg PO DAILY [facility] Last Admin: 11/04/18 08:30 Dose: 50 mg Tacrolimus (Prograf Cap) 0.5 mg PO Q12 [facility] Last Admin: 11/04/18 08:28 Dose: 0.5 mg Tramadol HCl (Ultram) 50 mg PO Q6 PRN PRN Reason: Pain, moderate (4-7) Last Admin: 11/03/18 21:30 Dose: 50 mg - Labs Labs: 11/04/18 06:10 11/04/18 06:10 - Extremities Exam Additional comments: LLE: indurated inferior aspect of wound. Dry. Significantly improved over last 2 days. +ROM ankle/toes, sensation intact +DP/PT pulses, calves soft TN neg homans, thigh swelling continues to improve Assessment and Plan (1) Left displaced femoral neck fracture Assessment & Plan: s/p THR plan for d/c home tomorrow antibiotics per ID dapto and rocephin, for PICC cont PT/OT ortho stable for d/c repeat xrays reviewed, acceptable position of prosthesis, no dislocation, no change from post op d/w Dr. key, agrees with above Status: Acute (2) Acute blood loss anemia Status: Acute
[2018-11-04] MEDS: Multivitamin With Minerals Tab PO SCH (12:34)
[2018-11-04] MEDS: Cholecalciferol 1,000 INTLU TAB PO SCH (12:34)
--- NOTE | 2018-11-04 12:53 | CP.PCM.PN ---
Subjective - Date & Time of Evaluation Date of Evaluation: 11/04/18 Time of Evaluation: 09:30 - Subjective Subjective: patient just came back after getting a picc line, no acute complaints Objective - Vital Signs/Intake and Output Vital Signs (last 24 hours): Temp Pulse Resp BP Pulse Ox 98.2 F 68 20 126/78 98 11/04/18 10:28 11/04/18 10:28 11/04/18 10:28 11/04/18 10:28 11/04/18 10:28 - Medications Medications: Current Medications Acetaminophen (Tylenol 325mg Tab) 975 mg PO Q8 PRN PRN Reason: Pain, moderate (4-7) Last Admin: 11/04/18 02:06 Dose: 975 mg Al Hydrox/Mg Hydrox/Simethicone (Maalox Plus 30 Ml) 30 ml PO Q6 PRN PRN Reason: Indigestion / Heartburn Last Admin: 10/31/18 02:17 Dose: 30 ml Amlodipine Besylate (Norvasc) 10 mg PO DAILY [facility] Last Admin: 11/04/18 08:29 Dose: 10 mg Apixaban (Eliquis) 5 mg PO Q12 [facility]; Protocol Last Admin: 11/04/18 08:29 Dose: 5 mg Artificial Tears (Refresh Opth Soln) 0.3 ml OU Q6 PRN PRN Reason: Dry eyes Cholecalciferol (Vitamin D) 2,000 intlu PO DAILY@1200 [facility] Last Admin: 11/04/18 12:34 Dose: 2,000 intlu Docusate Sodium (Colace) 100 mg PO BID [facility] Last Admin: 11/04/18 08:29 Dose: 100 mg Famotidine (Pepcid) 20 mg PO BID [facility] Last Admin: 11/04/18 08:29 Dose: 20 mg Furosemide (Lasix) 40 mg PO DAILY [facility] Last Admin: 11/04/18 08:31 Dose: 40 mg Home Med (Patient's Own Medication) 1 unit PO BID [facility] Last Admin: 11/04/18 08:29 Dose: 1 unit Hydrocortisone (Anusol-Hc) 1 applic HI Q12 [facility] Last Admin: 11/04/18 08:28 Dose: Not Given Daptomycin 430 mg/ Sodium (Chloride) 100 mls @ 100 mls/hr IV DAILY@2100 [facility] Stop: 11/08/18 21:01 Last Admin: 11/03/18 22:38 Dose: 100 mls/hr Ceftriaxone Sodium 500 mg/ (Sodium Chloride) 100 mls @ 100 mls/hr IVPB DAILY@2000 [facility] Last Admin: 11/03/18 21:17 Dose: 100 mls/hr Insulin Human Lispro (Humalog) 0 units SC ACHS [facility]; Protocol Last Admin: 11/04/18 11:22 Dose: Not Given Magnesium Chloride (Slow-Mag) 64 mg PO Q12 [facility] Last Admin: 11/04/18 08:29 Dose: 64 mg Metformin HCl (Glucophage) 500 mg PO BIDWM [facility] Last Admin: 11/04/18 08:29 Dose: 500 mg Metoprolol Tartrate (Lopressor) 25 mg PO Q12 [facility] Last Admin: 11/04/18 08:29 Dose: 25 mg Multivitamins/Minerals (Therapeutic-M Tab) 1 tab PO DAILY@1200 [facility] Last Admin: 11/04/18 12:34 Dose: 1 tab Prednisone (Prednisone Tab) 5 mg PO DAILY [facility] Last Admin: 11/04/18 08:29 Dose: 5 mg Sitagliptin Phosphate (Januvia) 100 mg PO DAILY [facility] Last Admin: 11/04/18 08:29 Dose: 100 mg Spironolactone (Aldactone) 50 mg PO DAILY [facility] Last Admin: 11/04/18 08:30 Dose: 50 mg Tacrolimus (Prograf Cap) 0.5 mg PO Q12 [facility] Last Admin: 11/04/18 08:28 Dose: 0.5 mg Tramadol HCl (Ultram) 50 mg PO Q6 PRN PRN Reason: Pain, moderate (4-7) Last Admin: 11/03/18 21:30 Dose: 50 mg - Labs Labs: 11/04/18 06:10 11/04/18 06:10 - Constitutional Appears: Well - Head Exam Head Exam: ATRAUMATIC, NORMAL INSPECTION, NORMOCEPHALIC - Eye Exam Eye Exam: EOMI, Normal appearance, PERRL Pupil Exam: NORMAL ACCOMODATION - ENT Exam ENT Exam: Mucous Membranes Moist, Normal Exam - Neck Exam Neck Exam: Full ROM, Normal Inspection - Respiratory Exam Respiratory Exam: Clear to Ausculation Bilateral, NORMAL BREATHING PATTERN - Cardiovascular Exam Cardiovascular Exam: REGULAR RHYTHM - GI/Abdominal Exam GI & Abdominal Exam: Soft, Normal Bowel Sounds - Rectal Exam Rectal Exam: NORMAL INSPECTION - Exam External exam: NORMAL EXTERNAL EXAM - Extremities Exam Extremities Exam: Full ROM, Normal Capillary Refill - Back Exam Back Exam: NORMAL INSPECTION - Neurological Exam Neurological Exam: Alert, Awake Neuro motor strength exam: Left Upper Extremity: 3, Right Upper Extremity: 3, Left Lower Extremity: 3, Right Lower Extremity: 3 - Psychiatric Exam Psychiatric exam: Normal Affect, Normal Mood - Skin Skin Exam: Dry, Normal Color Assessment and Plan (1) Femur fracture, left Assessment & Plan: plan for physical, occupational, rec therapy PIcc line inserted today, written prescriptions for walker and commode, possible Dc on wednesday Status: Acute (2) BPH (benign prostatic hyperplasia) Status: Chronic (3) HTN (hypertension) Status: Chronic (4) Status post liver transplant Status: Chronic (5) Status post total hip replacement, left Status: Acute (6) Anemia Status: Acute (7) Broken humerus Status: Acute (8) Cellulitis Status: Acute
[2018-11-04 22:02] VITALS: O2SAT 99
[2018-11-05] MEDS: Insulin Lispro (humaLOG) 100 Units/ml Inj SC SCH ×2 (06:43→11:30)
[2018-11-05] MEDS: Hydrocortisone 2.5% (Rectal) CREAM PR SCH (08:10)
[2018-11-05] MEDS: URSODIOL 500 MG PO SCH (08:10)
[2018-11-05] MEDS: Magnesium Chloride 64 mg ER Tab PO SCH (08:10)
[2018-11-05 08:11] VITALS: BP 106/69; PULSE 67
[2018-11-05 08:52] VITALS: TEMP 97.6
--- NOTE | 2018-11-05 10:30 | CP.PCM.DIS ---
Provider - Provider Date of Admission: 10/21/18 18:57 Attending physician: Roldan Del Rosario MD Consults: 10/22/18 09:45 Physiatry Consult Routine Comment: Consulting Provider: Theo Baker Consulting Physician: Theo Baker Reason for Consult: THR 10/22/18 11:14 Endocrinology Consult Routine Comment: Consulting Provider: Radha Stockton Consulting Physician: Radha Stockton Reason for Consult: follow up 10/22/18 11:48 Orthopedic Consult Routine Comment: Consulting Provider: Luis Carlos Pickett III Consulting Physician: Luis Carlos Pickett III Reason for Consult: follow up post op 10/22/18 11:49 Anesthesiology Consult Routine Comment: Consulting Provider: Jimenez Craft Consulting Physician: Jimenez Craft Reason for Consult: pain management post op 10/26/18 11:17 Podiatry Consult Routine Comment: Consulting Provider: Clive Seay Consulting Physician: Clive Seay Reason for Consult: redness in toes 11/02/18 17:04 Physician Consult Routine Comment: Consulting Provider: Denis Wadsworth Consulting Physician: Denis Wadsworth Reason for Consult: L hip pain and redness, s/p ELEAZAR Time Spent in preparation of Discharge (in minutes): 25 Diagnosis - Discharge Diagnosis (1) Status post total hip replacement, left Status: Acute Comment: continue Tramadol 50mg PO q 6hrs prn for pain. continue IV Daptomycin and Rocephin for 2 weeks at home as recommended by ID. follow up with Dr Morris and Dr Wadsworth (2) Status post liver transplant Status: Chronic Comment: continue Tacrolimus and Prednisone. 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 continue Januvia, Metformin and Insulin Hospital Course - Lab Results Lab Results: Most Recent Lab Values WBC 2.8 K/uL (4.8-10.8) L 11/04/18 06:10 RBC 2.71 Mil/uL (4.40-5.90) L 11/04/18 06:10 Hgb 8.7 g/dL (12.0-18.0) L 11/04/18 06:10 Hct 26.1 % (35.0-51.0) L 11/04/18 06:10 MCV 96.2 fl (80.0-94.0) H 11/04/18 06:10 MCH 32.1 pg (27.0-31.0) H 11/04/18 06:10 MCHC 33.3 g/dL (33.0-37.0) 11/04/18 06:10 RDW 14.1 % (11.5-14.5) 11/04/18 06:10 Plt Count 139 K/uL (130-400) 11/04/18 06:10 MPV 8.3 fl (7.2-11.7) 10/31/18 05:35 Neut % (Auto) 73.0 % (50.0-75.0) 10/31/18 05:35 Lymph % (Auto) 13.9 % (20.0-40.0) L 10/31/18 05:35 [place] % (Auto) 10.1 % (0.0-10.0) H 10/31/18 05:35 Eos % (Auto) 2.5 % (0.0-4.0) 10/31/18 05:35 Baso % (Auto) 0.5 % (0.0-2.0) 10/31/18 05:35 Neut # (Auto) 3.5 K/uL (1.8-7.0) 10/31/18 05:35 Lymph # (Auto) 0.7 K/uL (1.0-4.3) L 10/31/18 05:35 [place] # (Auto) 0.5 K/uL (0.0-0.8) 10/31/18 05:35 Eos # (Auto) 0.1 K/uL (0.0-0.7) 10/31/18 05:35 Baso # (Auto) 0.0 K/uL (0.0-0.2) 10/31/18 05:35 Neutrophils % (Manual) 62 % (42-75) 10/22/18 05:30 Lymphocytes % (Manual) 14 % (20-50) L 10/22/18 05:30 Monocytes % (Manual) 20 % (0-10) H 10/22/18 05:30 Eosinophils % (Manual) 4 % (0-7) 10/22/18 05:30 Toxic Granulation Present 10/22/18 05:30 Platelet Estimate Decreased (NORMAL) L 10/22/18 05:30 Large Platelets Present 10/22/18 05:30 Hypochromasia (manual) Moderate 10/22/18 05:30 ESR 52 mm/hr (0-20) H 11/04/18 06:10 Sodium 136 mmol/l (132-148) 11/04/18 06:10 Potassium 3.8 MMOL/L (3.6-5.0) 11/04/18 06:10 Chloride 103 mmol/L (98-107) 11/04/18 06:10 Carbon Dioxide 23 mmol/L (22-30) 11/04/18 06:10 Anion Gap 14 (10-20) 11/04/18 06:10 BUN 18 mg/dl (9-20) 11/04/18 06:10 Creatinine 0.7 mg/dl (0.8-1.5) L 11/04/18 06:10 Est GFR ( Amer) > 60 11/04/18 06:10 Est GFR (Non-Af Amer) > 60 11/04/18 06:10 POC Glucose (mg/dL) 86 mg/dL (65-110) 11/05/18 06:41 Random Glucose 94 mg/dL (75-110) 11/04/18 06:10 Hemoglobin A1c 10.0 % (4.2-6.5) H 10/23/18 07:30 Calcium 8.1 mg/dL (8.4-10.2) L 11/04/18 06:10 Phosphorus 3.9 mg/dl (2.5-4.5) 10/23/18 07:30 Magnesium 1.6 MG/DL (1.6-2.3) 10/31/18 05:35 Total Bilirubin 0.6 mg/dl (0.2-1.3) 11/04/18 06:10 GGT 106 U/L (8-78) H 10/31/18 05:35 AST 27 U/L (17-59) 11/04/18 06:10 ALT 28 U/L (21-72) 11/04/18 06:10 Alkaline Phosphatase 252 U/L (38-126) H 11/04/18 06:10 Total Creatine Kinase < 20 U/L (55-170) L 11/04/18 06:10 Total Protein 5.5 G/DL (6.3-8.2) L 11/04/18 06:10 Albumin 2.5 g/dL (3.5-5.0) L 11/04/18 06:10 Globulin 3.0 gm/dL (2.2-3.9) 11/04/18 06:10 Albumin/Globulin Ratio 0.8 (1.0-2.1) L 11/04/18 06:10 Triglycerides 127 mg/DL (0-149) 10/28/18 04:30 Cholesterol 91 mg/dL (0-199) 10/28/18 04:30 LDL Cholesterol Direct 54 mg/dL (0-129) 10/28/18 04:30 HDL Cholesterol 26 MG/DL (30-70) L 10/28/18 04:30 Procalcitonin 0.05 NG/ML (0.19-0.49) L 11/04/18 06:10 TSH 3rd Generation 1.99 mIU/ML (0.46-4.68) 10/23/18 07:30 Tacrolimus (LC/MS/MS) 4.4 mcg/L (5.0-20.0) L 10/29/18 09:20 - Hospital Course Hospital Course: 68 yo male with history of HTN and Liver Transplant had subcapital fracture of the left hip after falling and landing on his left hip on 11/01. On 10/19/18 left THR was done by Dr Pickett. Patient did well post surgery aside from developing new onset diabetes and was started on Levemir and Cipro. On 10/21/18 patient was transferred to TCU for therapy and pain management. On 11/02/18, tenderness and swelling was noted on the surgical wound. ID consult advised to start patient on Vanco and Rocephin. Later Vanco was switched to Daptomycin. Today patient was discharged in stable condition and was advised to continue Daptomycin and R ocephin for 2 weeks at home. He will follow up with Dr Pickett (ortho) and Dr Wadsworth (ID). Discharge Exam - Head Exam Head Exam: ATRAUMATIC, NORMAL INSPECTION, NORMOCEPHALIC - Eye Exam Eye Exam: absent: Scleral icterus - ENT Exam ENT Exam: Mucous Membranes Moist - Respiratory Exam Respiratory Exam: absent: Rales, Rhonchi, Wheezes, Respiratory Distress - Cardiovascular Exam Cardiovascular Exam: REGULAR RHYTHM, +S1, +S2 - GI/Abdominal Exam GI & Abdominal Exam: Soft. absent: Tenderness - Rectal Exam Rectal Exam: Deferred - Neurological Exam Neurological exam: Alert, Oriented x3 - Psychiatric Exam Psychiatric exam: Normal Affect - Skin Skin Exam: Dry, Intact Discharge Plan - Discharge Medications Prescriptions: traMADol [Ultram] 50 mg PO Q6 PRN #20 tab PRN Reason: Pain, Moderate (4-7) - Follow Up Plan Condition: GOOD Disposition: HOME/ ROUTINE Instructions: Total Hip Replacement (DC)
[2018-11-05] MEDS: Cholecalciferol 1,000 INTLU TAB PO SCH (12:29)
[2018-11-05] MEDS: Multivitamin With Minerals Tab PO SCH (12:29)
--- NOTE | 2018-11-05 12:57 | CP.PCM.PN ---
Subjective - Date & Time of Evaluation Date of Evaluation: 11/05/18 Time of Evaluation: 12:15 - Subjective Subjective: pt in great spirits-OOB and eating Objective - Vital Signs/Intake and Output Vital Signs (last 24 hours): Temp Pulse Resp BP Pulse Ox 97.6 F 67 20 106/69 99 11/05/18 08:00 11/05/18 08:09 11/05/18 08:00 11/05/18 08:09 11/05/18 08:00 - Medications Medications: Current Medications Acetaminophen (Tylenol 325mg Tab) 975 mg PO Q8 PRN PRN Reason: Pain, moderate (4-7) Last Admin: 11/05/18 04:12 Dose: 975 mg Al Hydrox/Mg Hydrox/Simethicone (Maalox Plus 30 Ml) 30 ml PO Q6 PRN PRN Reason: Indigestion / Heartburn Last Admin: 10/31/18 02:17 Dose: 30 ml Amlodipine Besylate (Norvasc) 10 mg PO DAILY [facility] Last Admin: 11/05/18 08:09 Dose: 10 mg Apixaban (Eliquis) 5 mg PO Q12 [facility]; Protocol Last Admin: 11/05/18 08:07 Dose: 5 mg Artificial Tears (Refresh Opth Soln) 0.3 ml OU Q6 PRN PRN Reason: Dry eyes Cholecalciferol (Vitamin D) 2,000 intlu PO DAILY@1200 [facility] Last Admin: 11/05/18 12:29 Dose: 2,000 intlu Docusate Sodium (Colace) 100 mg PO BID [facility] Last Admin: 11/05/18 08:10 Dose: Not Given Famotidine (Pepcid) 20 mg PO BID [facility] Last Admin: 11/05/18 08:08 Dose: 20 mg Furosemide (Lasix) 40 mg PO DAILY [facility] Last Admin: 11/05/18 08:09 Dose: 40 mg Home Med (Patient's Own Medication) 1 unit PO BID [facility] Last Admin: 11/05/18 08:10 Dose: 1 unit Hydrocortisone (Anusol-Hc) 1 applic NV Q12 [facility] Last Admin: 11/05/18 08:10 Dose: Not Given Daptomycin 430 mg/ Sodium (Chloride) 100 mls @ 100 mls/hr IV DAILY@2100 [facility] Stop: 11/08/18 21:01 Last Admin: 11/04/18 21:33 Dose: 100 mls/hr Ceftriaxone Sodium 500 mg/ (Sodium Chloride) 100 mls @ 100 mls/hr IVPB DAILY@2000 [facility] Last Admin: 11/04/18 20:11 Dose: 100 mls/hr Insulin Human Lispro (Humalog) 0 units SC ACHS [facility]; Protocol Last Admin: 11/05/18 11:30 Dose: Not Given Magnesium Chloride (Slow-Mag) 64 mg PO Q12 [facility] Last Admin: 11/05/18 08:10 Dose: 64 mg Metformin HCl (Glucophage) 500 mg PO BIDWM [facility] Last Admin: 11/05/18 08:08 Dose: 500 mg Metoprolol Tartrate (Lopressor) 25 mg PO Q12 [facility] Last Admin: 11/05/18 08:07 Dose: 25 mg Multivitamins/Minerals (Therapeutic-M Tab) 1 tab PO DAILY@1200 [facility] Last Admin: 11/05/18 12:29 Dose: 1 tab Prednisone (Prednisone Tab) 5 mg PO DAILY [facility] Last Admin: 11/05/18 08:08 Dose: 5 mg Sitagliptin Phosphate (Januvia) 100 mg PO DAILY [facility] Last Admin: 11/05/18 08:07 Dose: 100 mg Spironolactone (Aldactone) 50 mg PO DAILY [facility] Last Admin: 11/05/18 08:08 Dose: 50 mg Tacrolimus (Prograf Cap) 0.5 mg PO Q12 [facility] Last Admin: 11/05/18 08:08 Dose: 0.5 mg Tramadol HCl (Ultram) 50 mg PO Q6 PRN PRN Reason: Pain, moderate (4-7) Last Admin: 11/04/18 21:48 Dose: 50 mg - Labs Labs: 11/04/18 06:10 11/04/18 06:10 - Additional Findings Additional findings: Obj ysstemic- wnl Musculosketal stane/gait- erect- pelvis level pt refuses to use walkewound with small amt of erythema no drainag orthopedciallys atble Assessment and Plan - Assessment and Plan (Free Text) Assessment: s/p L THR excellent progress no evidence for superficial or dep sepsis orthopedicLLY STABLE p- D/C HOME RTO 12.31
--- NOTE | 2018-11-05 13:10 | CP.PCM.PN ---
Subjective - Date & Time of Evaluation Date of Evaluation: 11/05/18 Time of Evaluation: 10:30 - Subjective Subjective: no acute complaints at present Objective - Vital Signs/Intake and Output Vital Signs (last 24 hours): Temp Pulse Resp BP Pulse Ox 97.6 F 67 20 106/69 99 11/05/18 08:00 11/05/18 08:09 11/05/18 08:00 11/05/18 08:09 11/05/18 08:00 - Medications Medications: Current Medications Acetaminophen (Tylenol 325mg Tab) 975 mg PO Q8 PRN PRN Reason: Pain, moderate (4-7) Last Admin: 11/05/18 04:12 Dose: 975 mg Al Hydrox/Mg Hydrox/Simethicone (Maalox Plus 30 Ml) 30 ml PO Q6 PRN PRN Reason: Indigestion / Heartburn Last Admin: 10/31/18 02:17 Dose: 30 ml Amlodipine Besylate (Norvasc) 10 mg PO DAILY [facility] Last Admin: 11/05/18 08:09 Dose: 10 mg Apixaban (Eliquis) 5 mg PO Q12 [facility]; Protocol Last Admin: 11/05/18 08:07 Dose: 5 mg Artificial Tears (Refresh Opth Soln) 0.3 ml OU Q6 PRN PRN Reason: Dry eyes Cholecalciferol (Vitamin D) 2,000 intlu PO DAILY@1200 [facility] Last Admin: 11/05/18 12:29 Dose: 2,000 intlu Docusate Sodium (Colace) 100 mg PO BID [facility] Last Admin: 11/05/18 08:10 Dose: Not Given Famotidine (Pepcid) 20 mg PO BID [facility] Last Admin: 11/05/18 08:08 Dose: 20 mg Furosemide (Lasix) 40 mg PO DAILY [facility] Last Admin: 11/05/18 08:09 Dose: 40 mg Home Med (Patient's Own Medication) 1 unit PO BID [facility] Last Admin: 11/05/18 08:10 Dose: 1 unit Hydrocortisone (Anusol-Hc) 1 applic AL Q12 [facility] Last Admin: 11/05/18 08:10 Dose: Not Given Daptomycin 430 mg/ Sodium (Chloride) 100 mls @ 100 mls/hr IV DAILY@2100 [facility] Stop: 11/08/18 21:01 Last Admin: 11/04/18 21:33 Dose: 100 mls/hr Ceftriaxone Sodium 500 mg/ (Sodium Chloride) 100 mls @ 100 mls/hr IVPB DAILY@2000 [facility] Last Admin: 11/04/18 20:11 Dose: 100 mls/hr Insulin Human Lispro (Humalog) 0 units SC ACHS [facility]; Protocol Last Admin: 11/05/18 11:30 Dose: Not Given Magnesium Chloride (Slow-Mag) 64 mg PO Q12 [facility] Last Admin: 11/05/18 08:10 Dose: 64 mg Metformin HCl (Glucophage) 500 mg PO BIDWM [facility] Last Admin: 11/05/18 08:08 Dose: 500 mg Metoprolol Tartrate (Lopressor) 25 mg PO Q12 [facility] Last Admin: 11/05/18 08:07 Dose: 25 mg Multivitamins/Minerals (Therapeutic-M Tab) 1 tab PO DAILY@1200 [facility] Last Admin: 11/05/18 12:29 Dose: 1 tab Prednisone (Prednisone Tab) 5 mg PO DAILY [facility] Last Admin: 11/05/18 08:08 Dose: 5 mg Sitagliptin Phosphate (Januvia) 100 mg PO DAILY [facility] Last Admin: 11/05/18 08:07 Dose: 100 mg Spironolactone (Aldactone) 50 mg PO DAILY [facility] Last Admin: 11/05/18 08:08 Dose: 50 mg Tacrolimus (Prograf Cap) 0.5 mg PO Q12 [facility] Last Admin: 11/05/18 08:08 Dose: 0.5 mg Tramadol HCl (Ultram) 50 mg PO Q6 PRN PRN Reason: Pain, moderate (4-7) Last Admin: 11/04/18 21:48 Dose: 50 mg - Labs Labs: 11/04/18 06:10 11/04/18 06:10 - Constitutional Appears: Well - Head Exam Head Exam: ATRAUMATIC, NORMAL INSPECTION, NORMOCEPHALIC - Eye Exam Eye Exam: EOMI, Normal appearance Pupil Exam: NORMAL ACCOMODATION, PERRL - ENT Exam ENT Exam: Mucous Membranes Moist - Neck Exam Neck Exam: Normal Inspection - Respiratory Exam Respiratory Exam: Clear to Ausculation Bilateral - Cardiovascular Exam Cardiovascular Exam: REGULAR RHYTHM - GI/Abdominal Exam GI & Abdominal Exam: Normal Bowel Sounds - Rectal Exam Rectal Exam: NORMAL INSPECTION - Exam External exam: NORMAL EXTERNAL EXAM - Extremities Exam Extremities Exam: Normal Inspection - Back Exam Back Exam: NORMAL INSPECTION - Neurological Exam Neurological Exam: Alert Neuro motor strength exam: Left Lower Extremity: 3 - Psychiatric Exam Psychiatric exam: Normal Mood - Skin Skin Exam: Normal Color Assessment and Plan (1) Femur fracture, left Assessment & Plan: planning for Dc, equipment written, home therapy after Dc, contiue with medical treatment, status post PICC line Status: Acute (2) BPH (benign prostatic hyperplasia) Status: Chronic (3) HTN (hypertension) Status: Chronic (4) Status post liver transplant Status: Chronic (5) Status post total hip replacement, left Status: Acute (6) Anemia Status: Acute (7) Broken humerus Status: Acute (8) Cellulitis Status: Acute
--- NOTE | 2018-11-05 13:24 | PN ---
DATE: 11/05/2018 ENDOCRINOLOGY FOLLOWUP NOTE LOCATION: In room 714. SUBJECTIVE: This is a 68-year-old male with recent uncontrolled type 2 insulin-requiring diabetes, now being followed closely for metabolic management. His glycemic levels are remarkably improved as noted overnight with glucose values ranging from 86 to 93 and 128 mg/dL. LABORATORY DATA: His chemistry showed a BUN of 18, sodium 136, potassium 3.8, chloride 103, CO2 of 23, glucose 94, and creatinine 0.7. ASSESSMENT AND PLAN: So at this time, we will continue the same dual oral hypoglycemic drug therapy as given with Januvia given as 100 mg once daily and metformin at 500 mg b.i.d. as ordered. We will obtain serial chemistries and supplement accordingly as needed. We will follow. Radha Stockton MD
--- NOTE | 2018-11-07 07:31 | PN ---
DATE: 11/04/2018 ENDO FOLLOWUP NOTE LOCATION: Room [facility]14[facility]. SUBJECTIVE: This is a 68-year-old male with recent uncontrolled type 2 diabetes, now with remarkable glycemic improvement on the current oral hypoglycemic drug combination as given. He was previously on a basal and bolus insulin drug combination and has since then been taken off all insulin therapy because of remarkable metabolic response thereof. LABORATORY DATA: His glucose values have ranged from 93 to 109 and 136 mg/dL. His chemistry showed a BUN of 18, sodium 136, potassium 3.8, chloride 103, CO2 23, glucose 94, and creatinine 0.7. ASSESSMENT AND PLAN: So at this time, we will recommend for eventual discharge on the same modified oral hypoglycemic drug combination as given. Prescriptions have been given to the patient for Januvia at 100 mg once daily in the morning as ordered. He will also be taking metformin at a lower dose of 500 mg b.i.d. after meals as ordered. We will obtain serial chemistries and supplement accordingly as needed. We will follow. Radha Stockton MD
== END 2018-11-05 15:10 | disposition home health service (06) | DRG 560 ==
LOC: H.TCU 18:57
PROC: F08Z4FZ Home Management Treatment using Assistive, Adaptive, Supportive or Protective Equipment (ICD-10-PCS; principal; 2018-10-21)
PROC: F07M6FZ Therapeutic Exercise Treatment of Musculoskeletal System - Whole Body using Assistive, Adaptive, Supportive or Protective Equipment (ICD-10-PCS; 2018-10-21)
DX: Z47.1 Aftercare following joint replacement surgery (principal); D62 Acute posthemorrhagic anemia; E87.1 Hypo-osmolality and hyponatremia; Z94.4 Liver transplant status; Z96.642 Presence of left artificial hip joint; K29.70 Gastritis, unspecified, without bleeding; M19.90 Unspecified osteoarthritis, unspecified site; T84.84XD Pain due to internal orthopedic prosthetic devices, implants and grafts, subsequent encounter; Y83.1 Surgical operation with implant of artificial internal device as the cause of abnormal reaction of the patient, or of later complication, without mention of misadventure at the time of the procedure; Y92.009 Unspecified place in unspecified non-institutional (private) residence as the place of occurrence of the external cause; E78.5 Hyperlipidemia, unspecified; Z79.899 Other long term (current) drug therapy; E11.65 Type 2 diabetes mellitus with hyperglycemia; E86.0 Dehydration; F10.20 Alcohol dependence, uncomplicated; I10 Essential (primary) hypertension; Z86.718 Personal history of other venous thrombosis and embolism; Z79.01 Long term (current) use of anticoagulants; N40.0 Benign prostatic hyperplasia without lower urinary tract symptoms; W19.XXXD Unspecified fall, subsequent encounter; Z79.4 Long term (current) use of insulin; Z87.891 Personal history of nicotine dependence

== ENCOUNTER → 2018-11-04 | Day surgery (SDC) | payer MEDICARE, BC ==
[~2018-11-04] MED LIST: Lidocaine 1% Inj (20ml) ONE
[2018-11-04 10:45] VITALS: BMI 33.4
--- NOTE | 2018-11-04 11:50 | CP.SDSHP ---
Same Day Surgery H & P - History Proposed Procedure: PICC Pre-Op Diagnosis: Hip infection - Allergies Allergies: Allergies No Known Allergies Allergy (Verified 10/21/18 18:43) - Physical Exam Vital Signs: Vital Signs 11/04/18 10:58 Temperature 98.3 F Pulse Rate 70 Respiratory 20 Rate Blood Pressure 112/76 O2 Sat by Pulse 98 Oximetry Mental Status: Alert & Oriented x3 - Impression Impression: Pt with hip infection referred for PICC. Plan right arm PICC placement. Pt. Evaluated Today:Candidate for Anesthesia & Procedure: No - Date & Time Date: 11/04/18 Time: 11:45 Short Stay Discharge - Short Stay Discharge Admitting Diagnosis/Reason for Visit: antibiotic therapy Disposition: HOME/ ROUTINE
--- NOTE | 2018-11-04 11:52 | PCM.SURG1 ---
Surgeon's Initial Post Op Note - Surgeon's Notes Surgeon: John Bryan MD Manager Union: NONE Type of Anesthesia: Local Pre-Operative Diagnosis: Hip infection Operative Findings: US showed a patent right basilic vein Post-Operative Diagnosis: Hip infection Operation Performed: Single lumen picc placement right arm. Tip in SVC. Specimen/Specimens Removed: NONE Estimated Blood Loss: EBL {In ML}: 2 Blood Products Given: N/A Drains Used: No Drains Post-Op Condition: Fair Date of Surgery/Procedure: 11/04/18 Time of Surgery/Procedure: 11:50
[2018-11-04 13:16] VITALS: BP 104/56; PULSE 67; RESP 20; TEMP 98; O2SAT 96
--- NOTE | 2018-11-04 16:53 | VASCULAR ---
PROCEDURE: Date of procedure: 11/04/2018 Procedure: 1. Placement of a right arm PICC with ultrasound and fluoroscopic guidance, CPT 22615 2. PICC tip confirmation with spot radiograph and is in the superior vena cava Medications: 1 percent lidocaine Total Fluoro time: 4 seconds Radiation:.4 MGy EBL: 2 cc HISTORY: Poor venous access TECHNIQUE: Following informed consent and procedure time-out, the patient was placed supine on the interventional table and the right arm prepped and draped in the usual sterile fashion. Ultrasound showed a patent and compressible right basilic vein. After the skin was anesthetized with lidocaine, the basilic vein was accessed with micro micropuncture technique using ultrasound guidance. A guidewire was then advanced under fluoroscopic guidance into the superior vena cava. An image documenting ultrasound guidance for vascular access was permanently saved. The length of the single-lumen 4 [place] PICC was trimmed to 37 centimeters and advanced through a peel-away sheath. The PICC was position with tip of PICC confirm a spot radiograph the superior vena cava. The PICC was secured to the patient's skin. The PICC was flushed. A biopatch and sterile dressing was applied. IMPRESSION: Placement of a single-lumen 4 [place] PICC trimmed to 37 centimeters via right basilic vein. The tip of the PICC is confirmed with spot radiograph and is in the superior vena cava.
== END | disposition home or self-care (01) ==
LOC: H.OPSURG 09:50
PROVIDERS: ATTEND Specialist
DX: Z45.2 Encounter for adjustment and management of vascular access device (principal); M00.9 Pyogenic arthritis, unspecified
CPT/HCPCS: 36569; 76937; 77001; 82948; A4310; C1751

== ENCOUNTER 2019-04-11 10:13 | Emergency (ER) | payer MEDICARE, BC ==
[2019-04-11 10:29] VITALS: BMI 37.7
--- NOTE | 2019-04-11 12:51 | ED PDOC ---
HPI: CCC, URI, Sore Throat Time Seen by Provider: 04/11/19 12:24 Chief Complaint (Nursing): Cough, Cold, Congestion Chief Complaint (Provider): Cough, Cold, Congestion History Per: Patient History/Exam Limitations: no limitations Onset/Duration Of Symptoms: Days (x3) Current Symptoms Are (Timing): Still Present Additional Complaint(s): 68 year old male with medical history of diabetes and hypertension, presents to the emergency department with complaints of congestion, cough with productive sputum, sore throat, chills, and runny nose for the past 3-4 days. He took Tylenol with no relief - last dose was at 2100 yesterday night. Patient denies any nausea, vomiting, diarrhea, abdominal pain, fever, chills, sneezing, recent sick contacts, itchy or watery eyes. Of note, patient is a 2017 liver transplant recipient. Past Medical History Reviewed: Historical Data, Nursing Documentation, Vital Signs Vital Signs: Last Vital Signs Temp 100 F H 04/11/19 10:29 Pulse 98 H 04/11/19 10:29 Resp 17 04/11/19 10:29 BP 149/84 04/11/19 10:29 Pulse Ox 95 04/11/19 10:29 Primary Care Provider: Moy Gomez - Medical History PMH: Arthritis, Diabetes, Gastritis, HTN Denies: HIV, Chronic Kidney Disease - Surgical History Surgical History: Endoscopy Denies: Pacemaker Other surgeries: hip replacement; 2017 liver transplant recipient - Family History Family History: States: Unknown Family Hx - Home Medications Home Medications: Ambulatory Orders Medication Instructions Recorded Apixaban [Eliquis] 5 mg PO Q12 08/11/18 Aspirin [Ecotrin] 81 mg PO DAILY 08/11/18 Calcium/Chloride/Magnesium 1 tab PO Q12 08/11/18 [Slow-Mag] Cholecalciferol (Vitamin D3) 2,000 unit PO DAILY@119908/11/18 [Vitamin D3] Famotidine [Pepcid] 20 mg PO BID 08/11/18 Furosemide [Lasix] 40 mg PO DAILY 08/11/18 Metoprolol Tartrate [Lopressor] 25 mg PO Q12 08/11/18 Multivitamin [Multi-Vitamin Daily] 1 tab PO DAILY@1200 08/11/18 Spironolactone [Aldactone] 50 mg PO DAILY 08/11/18 Tacrolimus [Prograf] 0.5 mg PO Q12 08/11/18 Ursodiol [Bri Forte] 500 mg PO Q12 08/11/18 amLODIPine [Norvasc] 10 mg PO DAILY 08/11/18 predniSONE [predniSONE Tab] 5 mg PO DAILY 08/11/18 Acetaminophen [Tylenol 325mg tab] 975 mg PO Q8 PRN tab 10/21/18 Docusate Sodium/Sennosides A 1 tab PO HS tab 10/21/18 [Senokot S 50 MG-8.6 MG] Docusate [Colace] 100 mg PO BID cap 10/21/18 Insulin Detemir [Levemir] 24 units SC HS vial 10/21/18 Polyethylene Glycol/Polyvinyl 2 drop OU Q6 PRN bottle 10/21/18 [Artificial Tears] traMADol [Ultram] 50 mg PO Q6 PRN #20 tab 11/05/18 Azithromycin [Z-Pedro] 250 mg PO DAILY #6 tab 04/11/19 Benzonatate [Tessalon Perles] 100 mg PO TID #30 sgl 04/11/19 - Allergies Allergies/Adverse Reactions: Allergies Allergy/AdvReac Type Severity Reaction Status Date / Time No Known Allergies Allergy Verified 10/21/18 18:43 Review of Systems ROS Statement: Except As Marked, All Systems Reviewed And Found Negative Constitutional: Positive for: Chills. Negative for: Fever ENT: Positive for: Nose Discharge, Nose Congestion, Throat Pain Respiratory: Positive for: Cough, Sputum Gastrointestinal: Negative for: Nausea, Vomiting, Abdominal Pain, Diarrhea Physical Exam - Reviewed Nursing Documentation Reviewed: Yes Vital Signs Reviewed: Yes - Physical Exam Appears: Positive for: Non-toxic, No Acute Distress Head Exam: Positive for: ATRAUMATIC, NORMAL INSPECTION, NORMOCEPHALIC Skin: Positive for: Normal Color Eye Exam: Positive for: Normal appearance ENT: Positive for: TM Is/Are (occluded by cerumen bilaterally), Nasal Congestion, Pharyngeal Erythema. Negative for: Tonsillar Exudate, Tonsillar Swelling Neck: Positive for: Normal, Supple Cardiovascular/Chest: Positive for: Regular Rate, Rhythm, Chest Non Tender. Negative for: Murmur Respiratory: Positive for: Normal Breath Sounds. Negative for: Wheezing, Respiratory Distress Neurological/Psych: Positive for: Awake, Alert, Normal Tone, Oriented. Negative for: Motor/Sensory Deficits - ECG O2 Sat by Pulse Oximetry: 95 (RA) Pulse Ox Interpretation: Normal Medical Decision Making Medical Decision Making: Time: 1224 Initial Plan: * CXR * Rapid strep Time: 1318 --CXR FINDINGS: LUNGS: No dense consolidation seen. PLEURA: Possible mild right inferolateral pleural thickening are trace effusion here no significant appearing effusion noted. No pneumothorax apparent. CARDIOVASCULAR: There is presence of aortic atherosclerotic calcification on x-ray. Cardiomegaly-similar possible minimal pulmonary venous congestion and/or crowding due to low-normal lung volumes. OSSEOUS STRUCTURES: Thoraco lumbar spondylosis. Deformity of left inferolateral rib cage similar-old healed fractures here inferred VISUALIZED UPPER ABDOMEN: Right upper quadrant postsurgical changes similar OTHER FINDINGS: None. IMPRESSION: No interval dense consolidation. Possible right inferolateral mild pleural thickening and/or minimal pleural effusion. No significant effusion seen. Other findings as above. Time: 1320 --Labs reviewed: (-) strep. Reevaluation: patient is noted with a low-grade fever. Plan to re-check vitals. Time: 1418 Repeat vitals: medically stable with B/P at 132/87 and temp decreased to 98.0 degrees. Advised patient to monitor for increase fever, worsening cough, or shortness of breath. Patient will be discharged home with Rx for Z-pack and Tesshayne Pacheco. Counseling was provided and all questions were answered regarding diagnosis. There is agreement to discharge plan. Return to ED or follow up with PCP if symptoms persist or worsen. Clinical Impression: URI; laryngititis Scribe Attestation: Documented by Radha Ramos, acting as a scribe for Perla Mello APN. Provider Scribe Attestation: All medical record entries made by the Scribe were at my direction and personally dictated by me. I have reviewed the chart and agree that the record accurately reflects my personal performance of the history, physical exam, medical decision making, and the department course for this patient. I have also personally directed, reviewed, and agree with the discharge instructions and disposition. Disposition - Clinical Impression Clinical Impression: Upper respiratory infection, Laryngitis - Patient ED Disposition Is Patient to be Admitted: No Counseled Patient/Family Regarding: Diagnosis, Need For Followup, Rx Given - Disposition Disposition: Routine/Home Disposition Time: 13:20 Condition: GOOD Prescriptions: Azithromycin [Z-Pedro] 250 mg PO DAILY #6 tab Benzonatate [Tessalon Perles] 100 mg PO TID #30 sgl Instructions: Cough, Runny Nose, and the Common Cold (DC) Forms: [facility] (French) - POA Present On Arrival: None
--- NOTE | 2019-04-11 13:27 | RAD ---
Date of service: 04/11/2019 HISTORY: cough COMPARISON: No prior. TECHNIQUE: 10/20/2018 FINDINGS: LUNGS: No dense consolidation seen. PLEURA: Possible mild right inferolateral pleural thickening are trace effusion here no significant appearing effusion noted. No pneumothorax apparent. CARDIOVASCULAR: There is presence of aortic atherosclerotic calcification on x-ray. Cardiomegaly-similar possible minimal pulmonary venous congestion and/or crowding due to low-normal lung volumes. OSSEOUS STRUCTURES: Thoraco lumbar spondylosis. Deformity of left inferolateral rib cage similar-old healed fractures here inferred VISUALIZED UPPER ABDOMEN: Right upper quadrant postsurgical changes similar OTHER FINDINGS: None. IMPRESSION: No interval dense consolidation. Possible right inferolateral mild pleural thickening and/or minimal pleural effusion. No significant effusion seen. Other findings as above.
[2019-04-11 14:20] VITALS: BP 132/87; PULSE 71; RESP 18; TEMP 98
[2019-04-11 16:23] VITALS: O2SAT 95
== END 2019-04-11 14:20 | disposition home or self-care (01) ==
LOC: H.ER 10:13
DX: J06.9 Acute upper respiratory infection, unspecified (principal); J04.0 Acute laryngitis; E11.9 Type 2 diabetes mellitus without complications; Z79.01 Long term (current) use of anticoagulants; Z79.4 Long term (current) use of insulin; Z94.4 Liver transplant status; Z96.649 Presence of unspecified artificial hip joint